=== PATIENT | female | born 1945 | race Caucasian/White ===

== ENCOUNTER 2023-01-29 10:35 | Inpatient (IN) ==
--- NOTE | 2023-01-29 11:10 | Emergency Department Note ---
Impression & Plan Pulmonary mass, Pleural effusion, Hypoxia ED Provider Note NAME: DORIE PEREZ AGE: 77 SEX: F : 1945 ARRIVES VIA: Ambulance INFORMANT: Patient, ED PROVIDER(S): Trent Palacios DO CHIEF COMPLAINT: "I have pneumonia" HPI: The patient is a 77-year-old female who presented to the emergency department directly from [facility] by ambulance. The patient has been having difficulty breathing over the course the last 2 weeks. She states that when she was seen at [facility] she had a chest x-ray and was diagnosed with pneumonia. She had significant shortness of breath and was sent to the emergency department immediately by ambulance. The patient denies having any chest pain. She denies having any lower extremity swelling. She denies having any hemoptysis or productive cough. The patient denies having any orthopnea. She does not have a family doctor. She does not take any medications. ROS: See above HPI for pertinent positives & negatives. A total of 10 systems reviewed and were otherwise negative. PAST MEDICAL HISTORY: See Below PAST SURGICAL HISTORY: See Below FAMILY HISTORY: See Below SOCIAL HISTORY: See Below HOME MEDICATIONS: See Below ALLERGIES: See Below VITALS: See Below PHYSICAL EXAMINATION: GENERAL: Patient is awake alert in no acute distress patient is resting comfortably and showing no signs of anxiety EYES: The conjunctivae are clear. The pupils are round and reactive. EARS, NOSE, MOUTH AND THROAT: The nose is without any evidence of any deformity. Mucous membranes are moist. Tongue is midline. NECK: The neck is nontender and supple. RESPIRATORY: Diminished breath sounds are noted throughout. There were rales at both bases. There was mild conversational dyspnea. CARDIOVASCULAR: Regular rate and rhythm noted there no murmurs rubs or gallops normal S1 normal S2. GASTROINTESTINAL: The abdomen is soft. Abdomen is nontender. MUSCULOSKELETAL/EXTREMITIES: There is no evidence of gross deformity full range of motion is noted in the hips and shoulders. SKIN: There is no obvious evidence of any rash. There are no petechiae, pallor or cyanosis noted. There is a rash underneath the right breast that could be consistent with a fungal infection. NEUROLOGIC: Patient is awake alert and oriented x3 MEDICAL DECISION MAKING: The patient is a 77-year-old female who presented to the emergency department for an evaluation of shortness of breath. The patient was seen at an outpatient [facility]. She was found to have what they felt was a pneumonia. The patient was sent to the emergency department because of hypoxia. Chest radiograph does appear to show a very large pleural effusion. CT angiography was obtained due to the degree of pleural effusion as well as the hypoxia. This appears to be more consistent with a pulmonary mass with a large pleural effusion as well as atelectasis. I discussed the patient's laboratory and radiographic studies with her. [facility] also [facility] The patient will require further inpatient management. The patient was significantly improved on supplemental oxygen. The patient is a former smoker. Triage Nursing notes reviewed. Prior medical records reviewed Vital Signs: reviewed and remarkable for hypoxia Differential diagnosis: Reactive airway disease, pneumonia, pneumothorax, COPD, CHF, infections, cardiac ischemia, pulmonary embolism, musculoskeletal, gastrointestinal, as well as other pathologies. ER treatment provided: See below Diagnostics interpreted by me: ECG: EKG was obtained in the emergency department. My interpretation is sinus tachycardia 107 bpm. Early transition was noted. There was no acute ST segment abnormalities noted. No previous tracing was available. Cardiac Monitoring: An order was placed for continuous cardiac monitoring. The monitor shows a rate of 104 bpm with sinus tachycardia. Laboratory studies: As stated above and show below. Imaging studies: See below. Radiographic imaging was reviewed by myself Consultation(s): I discussed this case with Nat who [facility]. Past Med/Surg History Medical History (Updated 01/29/23 @ 16:16 by Trent Palacios DO) History of tobacco abuse Osteoarthritis Surgical History (Updated 01/29/23 @ 14:45 by Denisa Bertrand PA-C) History of section History of tonsillectomy Social History Smoking Status: Former smoker Second Hand Exposure: No; Do You Dip or Chew Tobacco: No; Tobacco Cessation Education Requested by Patient: No Hx Alcohol Use: No Hx Substance Use: No Preferred Language: Yi Art History Instructor Required: No Beliefs That Will Affect Care: None Current Living Situation: Alone Feels Safe at Home: Yes Safety Concerns: Feels Safe At This Time Assistive Devices: Denture - Upper and Glasses Allergies Allergies Allergy/AdvReac Type Severity Reaction Status Date / Time No Known Allergies Allergy Mild Unverified 07/02/07 17:53 Home Meds Home Medications Medication Instructions Recorded Confirmed NONE ##0 07/02/07 Results & Data (ED) Vital Signs Vital Signs - 24 hr 01/29/23 10:52 01/29/23 10:55 01/29/23 11:01 Temperature 36.9 C Temperature Source Oral Pulse Rate 112 H Pulse Rate from SpO2 Sensor Respiratory Rate 20 Respiratory Effort / Characteristics Non-Labored Spontaneous Respiratory Depth Normal Blood Pressure 183/111 H Blood Pressure Mean 135 Blood Pressure Position Sitting Pulse Oximetry 85 L 85 L Oxygen Delivery Method Room Air Nasal Cannula Nasal Cannula Oxygen Flow Rate 0 Sepsis Recent Fever Within 48 Hours No Sepsis New/Unexplained Change in Mental Status No Sepsis Action Taken by Nursing No Action Required Oxygen Flow Rate - Titration 4 Pulse Oximetry Post Tiitration 94 01/29/23 10:41 01/29/23 12:14 01/29/23 10:45 Temperature Temperature Source Oral Pulse Rate 102 H 97 H Pulse Rate from SpO2 Sensor 100 H Respiratory Rate 27 H Respiratory Effort / Characteristics Respiratory Depth Blood Pressure Blood Pressure Mean Blood Pressure Position Pulse Oximetry 91 Oxygen Delivery Method Oxygen Flow Rate Sepsis Recent Fever Within 48 Hours Sepsis New/Unexplained Change in Mental Status Sepsis Action Taken by Nursing Oxygen Flow Rate - Titration Pulse Oximetry Post Tiitration 01/29/23 11:00 01/29/23 11:30 01/29/23 12:00 Temperature Temperature Source Pulse Rate 104 H 97 H 96 H Pulse Rate from SpO2 Sensor 95 H 94 H Respiratory Rate 15 21 27 H Respiratory Effort / Characteristics Respiratory Depth Blood Pressure Blood Pressure Mean Blood Pressure Position Pulse Oximetry 93 94 Oxygen Delivery Method Oxygen Flow Rate Sepsis Recent Fever Within 48 Hours Sepsis New/Unexplained Change in Mental Status Sepsis Action Taken by Nursing Oxygen Flow Rate - Titration Pulse Oximetry Post Tiitration 01/29/23 12:30 Temperature Temperature Source Pulse Rate 96 H Pulse Rate from SpO2 Sensor 96 H Respiratory Rate 23 Respiratory Effort / Characteristics Respiratory Depth Blood Pressure Blood Pressure Mean Blood Pressure Position Pulse Oximetry 96 Oxygen Delivery Method Oxygen Flow Rate Sepsis Recent Fever Within 48 Hours Sepsis New/Unexplained Change in Mental Status Sepsis Action Taken by Nursing Oxygen Flow Rate - Titration Pulse Oximetry Post Tiitration Home Medications Current Medication List: was personally reviewed by me Laboratory Data Attestation: I reviewed the patient's lab results. 01/29/23 10:50 04/28/23 10:50 Lab Results 01/29/23 01/29/23 01/29/23 Range/Units 10:45 10:50 10:50 WBC 11.69 H (4.8-10.8) K/ul RBC 5.06 (4.20-5.40) M/uL Hgb 14.6 (12.0-16.0) g/dl Hct 43.4 (37.0-47.0) % MCV 85.8 (80.0-100.0) fL MCH 28.9 (25.0-34.0) pg MCHC 33.6 (32.0-36.0) g/dL RDW Std Deviation 40.6 (36.4-46.3) fL RDW Coeff of Leanna 13.0 (11.5-14.5) % Plt Count 530 H (130-400) K/uL MPV 9.6 (9.4-12.4) fL Immature Gran % (Auto) 0.8 % Neut % (Auto) 84.9 % Lymph % (Auto) 6.8 % Bulloch % (Auto) 6.8 % Eos % (Auto) 0.4 % Baso % (Auto) 0.3 % Neut # (Auto) 9.93 H (1.40-6.50) K/uL Lymph # (Auto) 0.79 L (1.2-3.4) K/uL Bulloch # (Auto) 0.79 H (0.11-0.59) K/uL Eos # (Auto) 0.05 (0-0.50) K/uL Baso # (Auto) 0.04 (0-0.2) K/uL Immature Gran # (Auto) 0.09 (0.01-0.20) K/uL PT (9.0-12.0) Seconds INR (0.9-1.1) APTT (21.0-31.0) Seconds PTT Ratio VBG pH (7.36-7.41) VBG pCO2 (38-50) mmHg VBG pO2 mmHg VBG HCO3 mmol/L VBG O2 Saturation % VBG Base Excess mEq/L Sodium 139 (136-145) mmol/L Potassium 3.9 (3.5-5.1) mmol/L Chloride 104 (98-107) mmol/L Carbon Dioxide 23 (21-32) mmol/L Anion Gap 12 H (3-11) BUN 13 (6-23) mg/dl Creatinine 0.58 L (0.6-1.2) mg/dl Est Cr Clr Drug Dosing 67.2 ml/min Est GFR ( Amer) 103.0 ml/min Est GFR (Non-Af Amer) 88.9 ml/min BUN/Creatinine Ratio 22.4 H (10-20) Glucose 134 H (70-99(Fasting)) mg/dl Lactate (0.4-2.0) mmol/L Calcium 9.3 (8.6-10.3) mg/dl Magnesium 1.9 (1.7-2.4) mg/dl Total Bilirubin 0.5 (0.2-1.0) mg/dl Direct Bilirubin 0.1 (0-0.2) mg/dl AST 20 (13-39) U/L ALT 27 (7-52) U/L Alkaline Phosphatase 66 (34-104) U/L Troponin I High Sens 8.9 (0-14) pg/ml B-Natriuretic Peptide (0-100) pg/ml Total Protein 7.7 (6.0-8.3) gm/dl Albumin 3.5 (3.4-5.0) gm/dl Procalcitonin (0-0.5) ng/ml SARS-CoV-2 (PCR) NEGATIVE (Negative) Influenza Type A (PCR) Negative (Neg) Influenza Type B (PCR) Negative (Neg) RSV (RT-PCR) Negative (Neg) 01/29/23 01/29/23 01/29/23 Range/Units 10:50 10:50 12:05 WBC (4.8-10.8) K/ul RBC (4.20-5.40) M/uL Hgb (12.0-16.0) g/dl Hct (37.0-47.0) % MCV (80.0-100.0) fL MCH (25.0-34.0) pg MCHC (32.0-36.0) g/dL RDW Std Deviation (36.4-46.3) fL RDW Coeff of Leanna (11.5-14.5) % Plt Count (130-400) K/uL MPV (9.4-12.4) fL Immature Gran % (Auto) % Neut % (Auto) % Lymph % (Auto) % Bulloch % (Auto) % Eos % (Auto) % Baso % (Auto) % Neut # (Auto) (1.40-6.50) K/uL Lymph # (Auto) (1.2-3.4) K/uL Bulloch # (Auto) (0.11-0.59) K/uL Eos # (Auto) (0-0.50) K/uL Baso # (Auto) (0-0.2) K/uL Immature Gran # (Auto) (0.01-0.20) K/uL PT 11.2 (9.0-12.0) Seconds INR 1.0 (0.9-1.1) APTT 24.2 (21.0-31.0) Seconds PTT Ratio 0.9 VBG pH (7.36-7.41) VBG pCO2 (38-50) mmHg VBG pO2 mmHg VBG HCO3 mmol/L VBG O2 Saturation % VBG Base Excess mEq/L Sodium (136-145) mmol/L Potassium (3.5-5.1) mmol/L Chloride (98-107) mmol/L Carbon Dioxide (21-32) mmol/L Anion Gap (3-11) BUN (6-23) mg/dl Creatinine (0.6-1.2) mg/dl Est Cr Clr Drug Dosing ml/min Est GFR ( Amer) ml/min Est GFR (Non-Af Amer) ml/min BUN/Creatinine Ratio (10-20) Glucose (70-99(Fasting)) mg/dl Lactate (0.4-2.0) mmol/L Calcium (8.6-10.3) mg/dl Magnesium (1.7-2.4) mg/dl Total Bilirubin (0.2-1.0) mg/dl Direct Bilirubin (0-0.2) mg/dl AST (13-39) U/L ALT (7-52) U/L Alkaline Phosphatase (34-104) U/L Troponin I High Sens (0-14) pg/ml B-Natriuretic Peptide 165 H (0-100) pg/ml Total Protein (6.0-8.3) gm/dl Albumin (3.4-5.0) gm/dl Procalcitonin < 0.05 (0-0.5) ng/ml SARS-CoV-2 (PCR) (Negative) Influenza Type A (PCR) (Neg) Influenza Type B (PCR) (Neg) RSV (RT-PCR) (Neg) 01/29/23 01/29/23 Range/Units 12:14 12:15 WBC (4.8-10.8) K/ul RBC (4.20-5.40) M/uL Hgb (12.0-16.0) g/dl Hct (37.0-47.0) % MCV (80.0-100.0) fL MCH (25.0-34.0) pg MCHC (32.0-36.0) g/dL RDW Std Deviation (36.4-46.3) fL RDW Coeff of Leanna (11.5-14.5) % Plt Count (130-400) K/uL MPV (9.4-12.4) fL Immature Gran % (Auto) % Neut % (Auto) % Lymph % (Auto) % Bulloch % (Auto) % Eos % (Auto) % Baso % (Auto) % Neut # (Auto) (1.40-6.50) K/uL Lymph # (Auto) (1.2-3.4) K/uL Bulloch # (Auto) (0.11-0.59) K/uL Eos # (Auto) (0-0.50) K/uL Baso # (Auto) (0-0.2) K/uL Immature Gran # (Auto) (0.01-0.20) K/uL PT (9.0-12.0) Seconds INR (0.9-1.1) APTT (21.0-31.0) Seconds PTT Ratio VBG pH 7.43 H (7.36-7.41) VBG pCO2 37 L (38-50) mmHg VBG pO2 42 mmHg VBG HCO3 25 mmol/L VBG O2 Saturation 75.1 % VBG Base Excess 0.5 mEq/L Sodium (136-145) mmol/L Potassium (3.5-5.1) mmol/L Chloride (98-107) mmol/L Carbon Dioxide (21-32) mmol/L Anion Gap (3-11) BUN (6-23) mg/dl Creatinine (0.6-1.2) mg/dl Est Cr Clr Drug Dosing ml/min Est GFR ( Amer) ml/min Est GFR (Non-Af Amer) ml/min BUN/Creatinine Ratio (10-20) Glucose (70-99(Fasting)) mg/dl Lactate 1.4 (0.4-2.0) mmol/L Calcium (8.6-10.3) mg/dl Magnesium (1.7-2.4) mg/dl Total Bilirubin (0.2-1.0) mg/dl Direct Bilirubin (0-0.2) mg/dl AST (13-39) U/L ALT (7-52) U/L Alkaline Phosphatase (34-104) U/L Troponin I High Sens (0-14) pg/ml B-Natriuretic Peptide (0-100) pg/ml Total Protein (6.0-8.3) gm/dl Albumin (3.4-5.0) gm/dl Procalcitonin (0-0.5) ng/ml SARS-CoV-2 (PCR) (Negative) Influenza Type A (PCR) (Neg) Influenza Type B (PCR) (Neg) RSV (RT-PCR) (Neg) Administered Medications Discontinued Medications Ceftriaxone Sodium (Rocephin) 2,000 mg in 70 mls @ 140 mls/hr IV NOW STA Stop: 01/29/23 14:01 Last Infusion: 01/29/23 14:35 Dose: 0 mls/hr Documented By: Admin: 01/29/23 13:46 Dose: 140 mls/hr Documented By: BOOM Azithromycin 500 mg/ Dextrose 255 mls @ 127.5 mls/hr IV NOW STA Stop: 01/29/23 15:31 Last Admin: 01/29/23 16:09 Dose: 127.5 mls/hr Documented By: CLIVE Ioversol (Optiray 320 500ml) 117 ml IV ONCE ONE Stop: 01/29/23 12:57 Last Admin: 01/29/23 12:49 Dose: 117 ml Documented By: OSCAR Imaging Data Attestation: I personally reviewed and interpreted this imaging study as follows: My Impression: 1 view chest x-ray was obtained in the emergency department. My interpretation is large right pleural effusion, no free air, final report below. Radiologist's Impression: Chest X-Ray 01/29/23 11:01 SINGLE VIEW CHEST CLINICAL HISTORY: Sepsis FINDINGS: An AP, portable, upright chest radiograph is obtained. No prior studies are available for comparison at the time of dictation. The cardiomediastinal silhouette is unremarkable noting atherosclerotic calcification of the thoracic aorta. There is a large right pleural effusion with atelectasis/consolidation of the right lower lung. The right apex remains aerated. Atelectasis is seen at the left lung base. No pneumothorax is seen. The skeletal structures are osteopenic. The bony thorax is grossly intact. IMPRESSION: Large right pleural effusion with atelectasis/consolidation of the right lower lung. ACT 112: Negative or not required by law. Electronically signed by: Luke Evans M.D. 01/29/2023 11:28 AM Chest CTA 01/29/23 11:47 CHEST CTA for PULMONARY ARTERIES CT DOSE: 255.55 mGy.cm HISTORY: Shortness of breath. TECHNIQUE: Multiaxial CT images of the chest were performed following the intravenous administration of contrast to evaluate the pulmonary arteries. Maximal intensity projection images were also obtained. A dose lowering technique was utilized adhering to the principles of ALARA. COMPARISON STUDY: None. FINDINGS: Limited views the upper abdomen demonstrate normal liver, spleen, and adrenal glands. There is normal caliber thoracic aorta with no evidence for a dissection. The majority of the left lower lobe subsegmental pulmonary arteries are nondiagnostic due to the motion artifact. Otherwise, no filling defects within the remaining pulmonary arteries to suggest a pulmonary embolus. The right middle lobe arteries are attenuated. There is a large area of decreased enhancement occupying the majority of the right middle lobe with right hilar lymphadenopathy/soft tissue extension. This is best seen on image 139 and measures approximately 6.3 x 6.2 cm. This is highly suspicious for a right middle lobe mass and accounts for the complete occlusion at the proximal right middle lobe bronchus. There is also abnormal soft tissue thickening/lymphadenopathy within the right hilum surrounding the central bronchi which extends into the right side of the mediastinum. There is mucoid impaction seen within the distal right middle lobe and right lower lobe bronchi. Abnormal soft tissue thickening within the right pleura most pronounced within the right upper lobe medially. Additional scattered pleural deposits seen within the right hemithorax. This is consistent with pleural metastatic disease. There is a large right pleural effusion which results in left mediastinal shift and mild mass effect along the right heart. Interstitial thickening within the a erated right upper lobe may represent lymphangitic spread of tumor or congestive change from the mass effect. No left pleural effusion. Abnormal soft tissue/lymphadenopathy also partially encases the trachea and is seen within the subcarinal location. There is a single enlarged right infraclavicular lymph node on image 252 measuring 14 x 10 mm. This likely represents metastatic disease. No suspicious lytic or blastic osseous lesions. Small sclerotic foci at the inferior endplates of the vertebral bodies may be due to the degenerative change. No pneumothorax. Mild emphysema. There are 2 nodules within the base of the left lower lobe measure up to 5 mm. These are concerning for metastatic dise ase. IMPRESSION: 1. No evidence for a pulmonary embolus. 2. A 6.3 x 6.2 cm mass occupying majority the right middle lobe with soft tissue extension/lymphadenopathy into the right hilum and mediastinum as described above. This is highly suspicious for a primary bronchogenic malignancy. 3. Pleural metastatic disease with a large right pleural effusion resulting in left mediastinal shift and mild mass effect along the right heart border. 4. There are 2 subcentimeter nodules within the base of the left lower lobe which are concerning for metastatic disease.. 5. A single mildly enlarged right infraclavicular lymph node which likely represents metastatic disease. 6. Additional findings as described above. ACT 112: Negative or not required by law. Electronically signed by: Luis Mari M.D. 01/29/2023 1:19 PM Discharge Plan Visit Data Chief Complaint: Shortness of Breath/Dyspnea Stated Complaint: ANXIETY, SOB ED Provider: Trent Palacios Discharge Problem: Pulmonary mass, Pleural effusion, Hypoxia Patient Disposition: Being Evaluated by Hospitalist
--- NOTE | 2023-01-29 11:30 | XRay Report ---
SINGLE VIEW CHEST CLINICAL HISTORY: Sepsis FINDINGS: An AP, portable, upright chest radiograph is obtained. No prior studies are available for c omparison at the time of dictation. The cardiomediastinal silhouette is unremarkable noting atheroscl erotic calcification of the thoracic aorta. There is a large right pleural effusion with atelectasis/ consolidation of the right lower lung. The right apex remains aerated. Atelectasis is seen at the lef t lung base. No pneumothorax is seen. The skeletal structures are osteopenic. The bony thorax is leisa sly intact. IMPRESSION: Large right pleural effusion with atelectasis/consolidation of the right lower lung. ACT 112: Negative or not required by law. Electronically signed by: Luke Evans M.D. 01/29/2023 11:28 AM
[2023-01-29 11:56] LABS: Influenza A virus by PCR Negative (Neg); Influenza B virus by PCR Negative (Neg); RSV by PCR Negative (Neg); SARS CoV2 RNA(COVID-19) Ceph NEGATIVE (Negative)
[2023-01-29 12:04] LABS: Albumin Level 3.5 gm/dl (3.4-5.0); BUN Creatinine Ratio 22.4 (10-20); Bilirubin Direct 0.1 mg/dl (0-0.2); Bilirubin,Total 0.5 mg/dl (0.2-1.0); Calcium 9.3 mg/dl (8.6-10.3); Creatinine Clr Calc Pharmacy 67.2 ml/min; Est GFR (Non-African American) 88.9 ml/min; Magnesium 1.9 mg/dl (1.7-2.4); Potassium 3.9 mmol/L (3.5-5.1); Total Protein 7.7 gm/dl (6.0-8.3)
[2023-01-29 12:06] LABS: Basophils # (auto) 0.04 K/uL (0-0.2); Basophils % (auto) 0.3 %; Eosinophils # (auto) 0.05 K/uL (0-0.50); Eosinophils % (auto) 0.4 %; Hematocrit (blood only) 43.4 % (37.0-47.0); Hemoglobin 14.6 g/dl (12.0-16.0); Immature Granulocytes # (auto) 0.09 K/uL (0.01-0.20); Immature Granulocytes % (auto) 0.8 %; Lymphocytes # (auto) 0.79 K/uL (1.2-3.4); Lymphocytes % (auto) 6.8 %; Mean Corpuscular Hemoglobin 28.9 pg (25.0-34.0); Mean Corpuscular Hgb Conc 33.6 g/dL (32.0-36.0); Mean Corpuscular Volume 85.8 fL (80.0-100.0); Mean Platelet Volume 9.6 fL (9.4-12.4); Monocytes # (auto) 0.79 K/uL (0.11-0.59); Monocytes % (auto) 6.8 %; Neutrophils # (auto) 9.93 K/uL (1.40-6.50); Neutrophils % (auto) 84.9 %; Platelet Count 530 K/uL (130-400); RDW Standard Deviation 40.6 fL (36.4-46.3); Red Blood Count 5.06 M/uL (4.20-5.40); White Blood Count 11.69 K/ul (4.8-10.8)
[2023-01-29 12:11] LABS: Troponin I High Sensitivity 8.9 pg/ml (0-14)
[2023-01-29 12:16] LABS: Partial Thromboplastin Ratio 0.9; Partial Thromboplastin Time 24.2 Seconds (21.0-31.0); Prothrombin Time 11.2 Seconds (9.0-12.0)
[2023-01-29 12:43] LABS: Base Excess VBG 0.5 mEq/L; HCO3 VBG 25 mmol/L; Oxygen Saturation VBG 75.1 %; PCO2 VBG 37 mmHg (38-50); PO2 VBG 42 mmHg; pH VBG 7.43 (7.36-7.41)
[2023-01-29] MEDS ORDERED: OPTIRAY 320 500ml IV ONE (12:56)
--- NOTE | 2023-01-29 13:20 | CT Scan Report ---
CHEST CTA for PULMONARY ARTERIES CT DOSE: 255.55 mGy.cm HISTORY: Shortness of breath. TECHNIQUE: Multiaxial CT images of the chest were performed following the intravenous administration of contrast to evaluate the pulmonary arteries. Maximal intensity projection images were also obtaine d. A dose lowering technique was utilized adhering to the principles of ALARA. COMPARISON STUDY: None. FINDINGS: Limited views the upper abdomen demonstrate normal liver, spleen, and adrenal glands. There is normal caliber thoracic aorta with no evidence for a dissection. The majority of the left lower l obe subsegmental pulmonary arteries are nondiagnostic due to the motion artifact. Otherwise, no filli ng defects within the remaining pulmonary arteries to suggest a pulmonary embolus. The right middle l obe arteries are attenuated. There is a large area of decreased enhancement occupying the majority of the right middle lobe with right hilar lymphadenopathy/soft tissue extension. This is best seen on i mage 139 and measures approximately 6.3 x 6.2 cm. This is highly suspicious for a right middle lobe m ass and accounts for the complete occlusion at the proximal right middle lobe bronchus. There is also abnormal soft tissue thickening/lymphadenopathy within the right hilum surrounding the central bronc hi which extends into the right side of the mediastinum. There is mucoid impaction seen within the di stal right middle lobe and right lower lobe bronchi. Abnormal soft tissue thickening within the right pleura most pronounced within the right upper lobe medially. Additional scattered pleural deposits s een within the right hemithorax. This is consistent with pleural metastatic disease. There is a large right pleural effusion which results in left mediastinal shift and mild mass effect along the right heart. Interstitial thickening within the aerated right upper lobe may represent lymphangitic spread of tumor or congestive change from the mass effect. No left pleural effusion. Abnormal soft tissue/ly mphadenopathy also partially encases the trachea and is seen within the subcarinal location. There is a single enlarged right infraclavicular lymph node on image 252 measuring 14 x 10 mm. This likely re presents metastatic disease. No suspicious lytic or blastic osseous lesions. Small sclerotic foci at the inferior endplates of the vertebral bodies may be due to the degenerative change. No pneumothorax . Mild emphysema. There are 2 nodules within the base of the left lower lobe measure up to 5 mm. Thes e are concerning for metastatic disease. IMPRESSION: 1. No evidence for a pulmonary embolus. 2. A 6.3 x 6.2 cm mass occupying majority the right middle lobe with soft tissue extension/lymphadeno mark into the right hilum and mediastinum as described above. This is highly suspicious for a primar y bronchogenic malignancy. 3. Pleural metastatic disease with a large right pleural effusion resulting in left mediastinal shift and mild mass effect along the right heart border. 4. There are 2 subcentimeter nodules within the base of the left lower lobe which are concerning for metastatic disease.. 5. A single mildly enlarged right infraclavicular lymph node which likely represents metastatic disea se. 6. Additional findings as described above. ACT 112: Negative or not required by law. Electronically signed by: Luis Mari M.D. 01/29/2023 1:19 PM
[2023-01-29] MEDS ORDERED: cefTRIAXone SODIUM 2,000 MG/70 ML BAG IV STA (13:32)
[2023-01-29] MEDS ORDERED: AZITHROMYCIN 500 MG in DEXTROSE 5% 250 ML IV STA (13:32)
--- NOTE | 2023-01-29 13:44 | History & Physical Report ---
Date of Service January 29, 2023 Assessment & Plan (1) Pulmonary mass: (2) Acute respiratory failure with hypoxia: (3) Pleural effusion: Plan: - Admit to tele - CTA and CXR reviewed as above: large right-sided pleural effusion, on further imaging with a CTA she is found to have a right sided mass measuring 6.3 x 6.2 cm large which occupies the majority of the RML with soft tissue extension and lymphadenopathy into the right hilum and mediastinum, as well as 2 nodules in the left lower lobe concerning for malignancy. Pleural metastatic disease with a large right pleural effusion resulting in left mediastinal shift and mild mass effect along the right heart border. - Pulmonology consulted - discussed with Dr. Pringle - plan for thoracentesis/chest tube/pleurex placement this afternoon with cytology of fluid for possible underlying malignancy. - Concern for impending cardiac tamponade with large pleural effusion - BCx pending, follow. WBC 11 K. No other electrolyte abnormalitites - Started on ceftriaxone and azithromycin IV for possible underling infectious source - can dc if negative cultures as this is likely due to suspected malignancy - Oncology consulted for establishment and further workup - Obtain MRI brain for screening, will require PET scans pending workup as an outpatient - No hx of colonoscopy or mammography - Fungal infection under the R breast - nystatin powder ordered - does not appear necrotic or eroding through the skin - Code status was discussed with the patient and she would not want aggressive measures but is agreeable to being a Full code in the event of an emergency setting. Palliative care consult will be beneficial later in the hospital course pending workup. (4) Osteoarthritis: Plan: - Stable, uses tylenol occasionally. Involves hands. Pt has never been tested for rheumatoid disease. DVT PPx: - teds, scds CODE: Full code Dispo: From home, likely to remain in the hospital x 2 days A total of 79 minutes were spent with greater than 50% of that time face to face with the patient, personally reviewing all current laboratories, imaging studies, past medication reconciliation, outpatient chart review, and discussion with specialists to collaborate care for the patient with attending. Please see attending documentation for corrections and/or additions. History of Present Illness Chief Complaint: Shortness of breath Primary Care Provider: NO PCP This is a 77-year-old female with PMHx of remote tobacco use history who presents from urgent care clinic due to hypoxia. This morning she presented to urgent care facility as her breathing was not improving. They assumed a possible pneumonia, but referred her to the hospital because of hypoxia. Reports that she noticed shortness of breath with playing with her daughters dog about 1 month ago, and that she couldn't do as much at one time. Within the past week her breathing worsened on exertion. She figured this was COVID infection as a few days ago she was coughing up white mucous, and felt better when it was expectorated, she is intermittently feeling nauseous as well. Denies vomiting. Reports eating and drinking alright, used to to cook daily, but within the past week her energy is down and hasn't felt up to it. Pt states she is losing weight, used to weight about 135 lbs, but within the past year knows she has been losing a lot of weight - however is blaming this on her daughters bipolar medical issues, whom she lived with for about a year. Admits to having night sweats, denies known lymphadenopathy. Pt does not use any medications at baseline, and did not use any over the counter medications for her symptoms. Pt has not seen a doctor in 40 years because she hasn't needed anything. Pt hates being in the hospital and feels quite anxious but does not want any medication for anxiety as she states these meds normally hype her up even more. She has not gotten routine mammography or colonoscopy in her adult life. Previously Kera smoked for 40 years, about 10 cigarettes daily and quit about 10 years ago, and then used the nicotine lozenger. Pt reports she hasn't used them in a few weeks mostly be cause she hasn't felt like herself. Here in the ER she is found to have a chest x-ray showing a large right-sided pleural effusion, on further imaging with a CTA she is found to have a right sided mass measuring 6.3 x 6.2 cm large which occupies the majority of the RML with soft tissue extension and lymphadenopathy into the right hilum and mediastinum, as well as 2 nodules in the left lower lobe concerning for malignancy. Pleural metastatic disease with a large right pleural effusion resulting in left mediastinal shift and mild mass effect along the right heart border. Family Hx Mother at age 46 in the war from TB Father at age 96, smoked, no medical issues Surgical Hx x 2 Tonsillectomy Social Hx Pt states that she lives here independently, has a large house, is but has children. 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 She previously resided in [place]. Her two children, one son lives in [place], [place], and her daughter is in [place] but states she has medical issues of her own. Allergies Allergy/AdvReac Type Severity Reaction Status Date / Time No Known Allergies Allergy Mild Unverified 07/02/07 17:53 Home Medications Medication Instructions Recorded Confirmed Type NONE ##0 07/02/07 History Past Med/Surg History Medical History (Updated 01/29/23 @ 14:45 by Denisa Bertrand PA-C) History of tobacco abuse Osteoarthritis Surgical History (Updated 01/29/23 @ 14:45 by Denisa Bertrand PA-C) History of section History of tonsillectomy Social History Feels Safe at Home: Yes Review of Systems Review of Systems: Constitutional: No fever, sweats or chills, + admits to occasional night sweats Eyes: No diplopia, no worsening or blurred vision ENT: normal hearing, no trouble swallowing Respiratory: As per HPI, + cough, +sputum, +dyspnea with minimal exertion Cardiovascular: No chest pain, tightness or palpitations Abdomen: No pain, nausea, vomiting, diarrhea or constipation Musculoskeletal: No joint pain, calf pain, swelling Neurologic: No weakness, numbness/tingling, or balance problems Psychiatric: No anxiety or depression Skin: No rash or itch Physical Exam Physical Exam: General: awake, alert, no apparent distress, thin Head: Normocephalic, atraumatic ENT: PERRL, EOMI, no pharyngeal exudate, mucous membranes moist, no cervical lymphadenopathy Chest: Absent breath sounds on the right side in lower and middle lobes, on 2 L via NC with sats at 96%,, no adventitious breath sounds, no axillary lymphadenopathy, erythematous rash underneath the right breast. Cardiac: Sinus tachycardia, no murmur, no JVD, normal peripheral pulses, good capillary refill Abdominal: NABS x 4 quadrants, soft, nondistended, nontender to palpation, no rebound or guarding, no hepatomegaly, no splenomegaly Extremities: Normal inspection, no peripheral edema or erythema, calfs nontender to palpation Psych: Normal mood and affect, slightly anxious when discussing procedures Neuro: AAO x 3, strength intact bilaterally and rated 5/5, no motor deficits, speech is clear, no peripheral sensory deficits Results & Data Results & Data Vital Signs (Past 12 Hours) Vital Signs Temp Pulse Resp BP Pulse Ox O2 Del Method O2 Flow Rate 01/29/23 12:30 96 H 23 96 01/29/23 12:00 96 H 27 H 94 01/29/23 11:30 97 H 21 93 01/29/23 11:00 104 H 15 01/29/23 10:45 97 H 27 H 91 01/29/23 12:14 102 H 01/29/23 11:01 Nasal Cannula 01/29/23 10:55 85 L Nasal Cannula 0 01/29/23 10:52 36.9 C 112 H 20 183/111 H 85 L Room Air Laboratory Results 01/29/23 12:05 Aerobic Blood Culture - Pending Blood Anaerobic Blood Culture - Pending 01/29/23 11:15 Aerobic Blood Culture - Pending Blood Anaerobic Blood Culture - Pending 01/29/23 01/29/23 01/29/23 12:15 12:14 12:05 WBC RBC Hgb Hct MCV MCH MCHC RDW Std Deviation RDW Coeff of Leanna Plt Count MPV Immature Gran % (Auto) Neut % (Auto) Lymph % (Auto) [place] % (Auto) Eos % (Auto) Baso % (Auto) Neut # (Auto) Lymph # (Auto) [place] # (Auto) Eos # (Auto) Baso # (Auto) Immature Gran # (Auto) PT INR APTT PTT Ratio VBG pH 7.43 H VBG pCO2 37 L VBG pO2 42 VBG HCO3 25 VBG O2 Saturation 75.1 VBG Base Excess 0.5 Sodium Potassium Chloride Carbon Dioxide Anion Gap BUN Creatinine Est Cr Clr Drug Dosing Est GFR ( Amer) Est GFR (Non-Af Amer) BUN/Creatinine Ratio Glucose Lactate 1.4 Calcium Magnesium Total Bilirubin Direct Bilirubin AST ALT Alkaline Phosphatase Troponin I High Sens B-Natriuretic Peptide 165 H Total Protein Albumin Procalcitonin SARS-CoV-2 (PCR) Influenza Type A (PCR) Influenza Type B (PCR) RSV (RT-PCR) 01/29/23 01/29/23 01/29/23 10:50 10:50 10:50 WBC RBC Hgb Hct MCV MCH MCHC RDW Std Deviation RDW Coeff of Leanna Plt Count MPV Immature Gran % (Auto) Neut % (Auto) Lymph % (Auto) [place] % (Auto) Eos % (Auto) Baso % (Auto) Neut # (Auto) Lymph # (Auto) [place] # (Auto) Eos # (Auto) Baso # (Auto) Immature Gran # (Auto) PT 11.2 INR 1.0 APTT 24.2 PTT Ratio 0.9 VBG pH VBG pCO2 VBG pO2 VBG HCO3 VBG O2 Saturation VBG Base Excess Sodium 139 Potassium 3.9 Chloride 104 Carbon Dioxide 23 Anion Gap 12 H BUN 13 Creatinine 0.58 L Est Cr Clr Drug Dosing 67.2 Est GFR ( Amer) 103.0 Est GFR (Non-Af Amer) 88.9 BUN/Creatinine Ratio 22.4 H Glucose 134 H Lactate Calcium 9.3 Magnesium 1.9 Total Bilirubin 0.5 Direct Bilirubin 0.1 AST 20 ALT 27 Alkaline Phosphatase 66 Troponin I High Sens 8.9 B-Natriuretic Peptide Total Protein 7.7 Albumin 3.5 Procalcitonin < 0.05 SARS-CoV-2 (PCR) Influenza Type A (PCR) Influenza Type B (PCR) RSV (RT-PCR) 01/29/23 01/29/23 10:50 10:45 WBC 11.69 H RBC 5.06 Hgb 14.6 Hct 43.4 MCV 85.8 MCH 28.9 MCHC 33.6 RDW Std Deviation 40.6 RDW Coeff of Leanna 13.0 Plt Count 530 H MPV 9.6 Immature Gran % (Auto) 0.8 Neut % (Auto) 84.9 Lymph % (Auto) 6.8 [place] % (Auto) 6.8 Eos % (Auto) 0.4 Baso % (Auto) 0.3 Neut # (Auto) 9.93 H Lymph # (Auto) 0.79 L [place] # (Auto) 0.79 H Eos # (Auto) 0.05 Baso # (Auto) 0.04 Immature Gran # (Auto) 0.09 PT INR APTT PTT Ratio VBG pH VBG pCO2 VBG pO2 VBG HCO3 VBG O2 Saturation VBG Base Excess Sodium Potassium Chloride Carbon Dioxide Anion Gap BUN Creatinine Est Cr Clr Drug Dosing Est GFR ( Amer) Est GFR (Non-Af Amer) BUN/Creatinine Ratio Glucose Lactate Calcium Magnesium Total Bilirubin Direct Bilirubin AST ALT Alkaline Phosphatase Troponin I High Sens B-Natriuretic Peptide Total Protein Albumin Procalcitonin SARS-CoV-2 (PCR) NEGATIVE Influenza Type A (PCR) Negative Influenza Type B (PCR) Negative RSV (RT-PCR) Negative Diagnostic Findings Chest X-Ray 01/29/23 11:01 SINGLE VIEW CHEST CLINICAL HISTORY: Sepsis FINDINGS: An AP, portable, upright chest radiograph is obtained. No prior studies are available for comparison at the time of dictation. The cardiomediastinal silhouette is unremarkable noting atherosclerotic calcification of the thoracic aorta. There is a large right pleural effusion with atelectasis/consolidation of the right lower lung. The right apex remains aerated. Atelectasis is seen at the left lung base. No pneumothorax is seen. The skeletal structures are osteopenic. The bony thorax is grossly intact. IMPRESSION: Large right pleural effusion with atelectasis/consolidation of the right lower lung. ACT 112: Negative or not required by law. Electronically signed by: Luke Evans M.D. 01/29/2023 11:28 AM Chest CTA 01/29/23 11:47 CHEST CTA for PULMONARY ARTERIES CT DOSE: 255.55 mGy.cm HISTORY: Shortness of breath. TECHNIQUE: Multiaxial CT images of the chest were performed following the intravenous administration of contrast to evaluate the pulmonary arteries. Maximal intensity projection images were also obtained. A dose lowering technique was utilized adhering to the principles of ALARA. COMPARISON STUDY: None. FINDINGS: Limited views the upper abdomen demonstrate normal liver, spleen, and adrenal glands. There is normal caliber thoracic aorta with no evidence for a dissection. The majority of the left lower lobe subsegmental pulmonary arteries are nondiagnostic due to the motion artifact. Otherwise, no filling defects within the remaining pulmonary arteries to suggest a pulmonary embolus. The right middle lobe arteries are attenuated. There is a large area of decreased enhancement occupying the majority of the right middle lobe with right hilar lymphadenopathy/soft tissue extension. This is best seen on image 139 and measures approximately 6.3 x 6.2 cm. This is highly suspicious for a right middle lobe mass and accounts for the complete occlusion at the proximal right middle lobe bronchus. There is also abnormal soft tissue thickening/lymphadenopathy within the right hilum surrounding the central bronchi which extends into the right side of the mediastinum. There is mucoid impaction seen within the distal right middle lobe and right lower lobe bronchi. Abnormal soft tissue thickening within the right pleura most pronounced within the right upper lobe medially. Additional scattered pleural deposits seen within the right hemithorax. This is consistent with pleural metastatic disease. There is a large right pleural effusion which results in left mediastinal shift and mild mass effect along the right heart. Interstitial thickening within the aerated right upper lobe may represent lymphangitic spread of tumor or congestive change from the mass effect. No left pleural effusion. Abnormal soft tissue/lymphadenopathy also partially encases the trachea and is seen within the subcarinal location. There is a single enlarged right infraclavicular lymph node on image 252 measuring 14 x 10 mm. This likely represents metastatic disease. No suspicious lytic or blastic osseous lesions. Small sclerotic foci at the inferior endplates of the vertebral bodies may be due to the degenerative change. No pneumothorax. Mild emphysema. There are 2 nodules within the base of the left lower lobe measure up to 5 mm. These are concerning for metastatic disease. IMPRESSION: 1. No evidence for a pulmonary embolus. 2. A 6.3 x 6.2 cm mass occupying majority the right middle lobe with soft tissue extension/lymphadenopathy into the right hilum and mediastinum as described above. This is highly suspicious for a primary bronchogenic malignancy. 3. Pleural metastatic disease with a large right pleural effusion resulting in left mediastinal shift and mild mass effect along the right heart border. 4. There are 2 subcentimeter nodules within the base of the left lower lobe which are concerning for metastatic disease.. 5. A single mildly enlarged right infraclavicular lymph node which likely represents metastatic disease. 6. Additional findings as described above. ACT 112: Negative or not required by law. Electronically signed by: Luis Mari M.D. 01/29/2023 1:19 PM Code Status & VTE Plan Code Status Full code
--- NOTE | 2023-01-29 14:04 | Electrocardiogram Report ---
Test Reason : Blood Pressure : / mmHG Vent. Rate : 107 BPM Atrial Rate : 107 BPM P-R Int : 144 ms QRS Dur : 090 ms QT Int : 350 ms P-R-T Axes : 028 123 040 degrees QTc Int : 467 ms Poor data quality, interpretation may be adversely affected Sinus tachycardia Cannot rule out Inferior infarct , age undetermined Abnormal ECG No previous ECGs available Confirmed by Trent Morin ([id number]) on 01/29/2023 2:03:54 PM Referred By: REFERRED SELF Confirmed By:Trent Morin
[2023-01-29] MEDS ORDERED: ONDANSETRON INJ 2 MG/ML 2 ML VIAL IV PRN (15:26)
[2023-01-29] MEDS ORDERED: NYSTATIN POWDER 15GM BTL EXT PRN (15:26)
--- NOTE | 2023-01-29 15:46 | Pulmonary Consultation ---
Date of Consultation January 29, 2023 Assessment & Plan (1) Pleural effusion: (2) Acute respiratory failure with hypoxia: (3) Pulmonary mass: Plan Impression: 77-year-old female with prior history of tobacco abuse presenting now with right-sided effusion with mediastinal deviation. She has not had any cancer screening in the past. CT scan appears to have potential changes consistent with malignancy. Recommendations: 1. Pleural effusion: Given the significant deviation, recommended the patient undergo pigtail catheter placement. We did briefly discuss Pleurx however I think at this point in time getting a diagnosis and offering her some relief would be more beneficial so we will plan on placing a 12 [place]ib[place]ian pigtail catheter and follow-up imaging. Fluid will be sent for cytology, cell count differential, Gram stain and culture, pH, LDH, glucose, total protein. 2. Hypoxemic respiratory failure: Continue supplemental oxygen. Hopefully with drainage of the pleural effusion, her oxygen requirement will decrease. 3. Recommend MRI of the brain with contrast. 4. Depending on cytology and tube output, could consider potential long-term management. We will see how she responds and what the output of the drain is. Unlikely that cytology results will be available before early next week. If the patient's output decreases enough that the tube can be discontinued and she is feeling well enough, she could potentially be discharged with outpatient follow- up over the weekend. Thanks for the opportunity of participating in the care of this patient. The above recommendations and plan were discussed with the patient in detail. Questions were answered to the best my ability. She expressed understanding and is in agreement with the plan as outlined History of Present Illness Attending Physician: Abril Hui MD History of Present Illness Asked by patient to assist in evaluation management of this patient with massive pleural effusion and hypoxemic respiratory failure. History is obtained from discussion with the patient as well as review the electronic medical record. The patient is a 77-year-old female who does not seek medical care on a regular basis and states she has not seen a doctor in over 40 years who presented to the emergency room today after being referred by an urgent care center. The patient has had shortness of breath going on for about 4 to 6 weeks. She thought she may have COVID which prompted her to be evaluated at an urgent care. She was found to be hypoxemic and was sent to the emergency room. Chest x-ray demonstrated a large right-sided effusion with mediastinal shift. This was confirmed on CT scan with what appeared to be potential malignant changes. The patient was administered oxygen antibiotics and admitted to the hospital. The patient denies fevers chills or night sweats. She has not had productive cough. She has about a [id number]-[id number] history of tobacco abuse but quit over 10 years ago. No family history of lung disease that she is aware of. Allergies Allergy/AdvReac Type Severity Reaction Status Date / Time No Known Allergies Allergy Mild Unverified 07/02/07 17:53 Home Medications Medication Instructions Recorded Confirmed Type NONE ##0 07/02/07 History Patient History Medical History (Updated 01/29/23 @ 14:45 by Denisa Bertrand PA-C) History of tobacco abuse Osteoarthritis Surgical History (Updated 01/29/23 @ 14:45 by Denisa Bertrand PA-C) History of section History of tonsillectomy Social History Feels Safe at Home: Yes Review of Systems Review of Systems: All systems reviewed & are unremarkable except as noted in Subjective Physical Exam Constitutional: WD/WN, vitals as above Neck: + tracheal deviation Respiratory: no respiratory distress, no labored breathing and not tachypneic Auscultation: + diminished lung sounds Decreased breath sounds with dullness to percussion in the right hemithorax Cardiovascular: RRR, no murmur, no edema Gastrointestinal (Abdomen): normal bowel sounds, soft, nontender, no hepatosplenomegaly Musculoskeletal: Extremities: extremities normal to inspection Skin: no rashes, warm and dry Neurologic: Nonfocal exam Lymphatic: no cervical lymphadenopathy Results & Data Results & Data Vital Signs (Past 12 Hours) Vital Signs Temp Pulse Pulse Resp BP BP Pulse Ox 01/29/23 14:31 97 H 18 174/112 H 95 01/29/23 12:30 96 H 23 96 01/29/23 12:00 96 H 27 H 94 01/29/23 11:30 97 H 21 93 01/29/23 11:00 104 H 15 01/29/23 10:45 97 H 27 H 91 01/29/23 12:14 102 H 01/29/23 11:01 01/29/23 10:55 85 L 01/29/23 10:52 36.9 C 112 H 20 183/111 H 85 L O2 Del Method O2 Flow Rate 01/29/23 14:31 Nasal Cannula 4 01/29/23 12:30 01/29/23 12:00 01/29/23 11:30 01/29/23 11:00 01/29/23 10:45 01/29/23 12:14 01/29/23 11:01 Nasal Cannula 01/29/23 10:55 Nasal Cannula 0 01/29/23 10:52 Room Air Critical Care Results & Data Vital Signs (Past 12 Hours) Vital Signs Temp Pulse Pulse Resp BP BP Pulse Ox 01/29/23 14:31 97 H 18 174/112 H 95 01/29/23 12:30 96 H 23 96 01/29/23 12:00 96 H 27 H 94 01/29/23 11:30 97 H 21 93 01/29/23 11:00 104 H 15 01/29/23 10:45 97 H 27 H 91 01/29/23 12:14 102 H 01/29/23 11:01 01/29/23 10:55 85 L 01/29/23 10:52 36.9 C 112 H 20 183/111 H 85 L O2 Del Method O2 Flow Rate 01/29/23 14:31 Nasal Cannula 4 01/29/23 12:30 01/29/23 12:00 01/29/23 11:30 01/29/23 11:00 01/29/23 10:45 01/29/23 12:14 01/29/23 11:01 Nasal Cannula 01/29/23 10:55 Nasal Cannula 0 01/29/23 10:52 Room Air Lab & Micro Results (Past 24 Hours) RBC 5.06 M/uL (4.20-5.40) 01/29/23 WBC 11.69 K/ul (4.8-10.8) H 01/29/23 Hgb 14.6 g/dl (12.0-16.0) 01/29/23 Hct 43.4 % (37.0-47.0) 01/29/23 MCV 85.8 fL (80.0-100.0) 01/29/23 MCH 28.9 pg (25.0-34.0) 01/29/23 MCHC 33.6 g/dL (32.0-36.0) 01/29/23 RDW Standard Deviation 40.6 fL (36.4-46.3) 01/29/23 RDW Coefficient of Variation 13.0 % (11.5-14.5) 01/29/23 Plt Count 530 K/uL (130-400) H 01/29/23 MPV 9.6 fL (9.4-12.4) 01/29/23 Neutrophils (%) (Auto) 84.9 % 01/29/23 Lymphocytes (%) (Auto) 6.8 % 01/29/23 Monocytes # (Auto) 0.79 K/uL (0.11-0.59) H 01/29/23 Eosinophils # (Auto) 0.05 K/uL (0-0.50) 01/29/23 Immature Granulocyte % (Auto) 0.8 % 01/29/23 Neutrophils # (Auto) 9.93 K/uL (1.40-6.50) H 01/29/23 Lymphocytes # (Auto) 0.79 K/uL (1.2-3.4) L 01/29/23 Monocytes # (Auto) 0.79 K/uL (0.11-0.59) H 01/29/23 Eosinophils # (Auto) 0.05 K/uL (0-0.50) 01/29/23 Basophils # (Auto) 0.04 K/uL (0-0.2) 01/29/23 Immature Granulocyte # (Auto) 0.09 K/uL (0.01-0.20) 3 Na 139 mmol/L (136-145) 01/29/23 K 3.9 mmol/L (3.5-5.1) 01/29/23 Cl 104 mmol/L (98-107) 01/29/23 CO2 23 mmol/L (21-32) 01/29/23 Anion Gap 12 (3-11) H 01/29/23 BUN 13 mg/dl (6-23) 01/29/23 Creatinine 0.58 mg/dl (0.6-1.2) L 01/29/23 Estimated GFR ( Amer) 103.0 ml/min 01/29/23 Estimated GFR (Non-Af Amer) 88.9 ml/min 01/29/23 BUN/Creatinine Ratio 22.4 (10-20) H 01/29/23 Glu 134 mg/dl (70-99(Fasting)) H 01/29/23 Ca 9.3 mg/dl (8.6-10.3) 01/29/23 Total Bilirubin 0.5 mg/dl (0.2-1.0) 01/29/23 Direct Bilirubin 0.1 mg/dl (0-0.2) 01/29/23 AST 20 U/L (13-39) 01/29/23 ALT 27 U/L (7-52) 01/29/23 Alkaline Phosphatase 66 U/L (34-104) 01/29/23 TP 7.7 gm/dl (6.0-8.3) 01/29/23 Albumin 3.5 gm/dl (3.4-5.0) 01/29/23 Mg 1.9 mg/dl (1.7-2.4) 01/29/23 10:50 Calcium Level 9.3 mg/dl (8.6-10.3) 01/29/23 10:50 Prothromb Time International Ratio 1.0 (0.9-1.1) 01/29/23 10:5 0 Venous Blood pH 7.43 (7.36-7.41) H 01/29/23 12:15 Venous Blood Partial Pressure CO2 37 mmHg (38-50) L 01/29/23 12 :15 Venous Blood Partial Pressure O2 42 mmHg 01/29/23 12:15 Venous Blood HCO3 25 mmol/L 01/29/23 12:15 Venous Blood Base Excess 0.5 mEq/L 01/29/23 12:15 Venous Blood Oxygen Saturation 75.1 % 01/29/23 12:15 Diagnostic Findings (Past 24 Hours) Chest X-Ray 01/29/23 11:01 SINGLE VIEW CHEST CLINICAL HISTORY: Sepsis FINDINGS: An AP, portable, upright chest radiograph is obtained. No prior studies are available for comparison at the time of dictation. The cardiomediastinal silhouette is unremarkable noting atherosclerotic calcification of the thoracic aorta. There is a large right pleural effusion with atelectasis/consolidation of the right lower lung. The right apex remains aerated. Atelectasis is seen at the left lung base. No pneumothorax is seen. The skeletal structures are osteopenic. The bony thorax is grossly intact. IMPRESSION: Large right pleural effusion with atelectasis/consolidation of the right lower lung. ACT 112: Negative or not required by law. Electronically signed by: Luke Evans M.D. 01/29/2023 11:28 AM Chest CTA 01/29/23 11:47 CHEST CTA for PULMONARY ARTERIES CT DOSE: 255.55 mGy.cm HISTORY: Shortness of breath. TECHNIQUE: Multiaxial CT images of the chest were performed following the intravenous administration of contrast to evaluate the pulmonary arteries. Maximal intensity projection images were also obtained. A dose lowering technique was utilized adhering to the principles of ALARA. COMPARISON STUDY: None. FINDINGS: Limited views the upper abdomen demonstrate normal liver, spleen, and adrenal glands. There is normal caliber thoracic aorta with no evidence for a dissection. The majority of the left lower lobe subsegmental pulmonary arteries are nondiagnostic due to the motion artifact. Otherwise, no filling defects within the remaining pulmonary arteries to suggest a pulmonary embolus. The right middle lobe arteries are attenuated. There is a large area of decreased enhancement occupying the majority of the right middle lobe with right hilar lymphadenopathy/soft tissue extension. This is best seen on image 139 and measures approximately 6.3 x 6.2 cm. This is highly suspicious for a right middle lobe mass and accounts for the complete occlusion at the proximal right m iddle lobe bronchus. There is also abnormal soft tissue thickening/lymphadenopathy within the right hilum surrounding the central bronchi which extends into the right side of the mediastinum. There is mucoid impaction seen within the distal right middle lobe and right lower lobe bronchi. Abnormal soft tissue thickening within the right pleura most pronounced within the right upper lobe medially. Additional scattered pleural deposits seen within the right hemithorax. This is consistent with pleural metastatic disease. There is a large right pleural effusion which results in left mediastinal shift and mild mass effect along the right heart. Interstitial thickening within the aerated right upper lobe may represent lymphangitic spread of tumor or congestive change from the mass effect. No left pleural effusion. Abnormal soft tissue/lymphadenopathy also partially encases the trachea and is seen within the subcarinal location. There is a single enlarged right infraclavicular lymph node on image 252 measuring 14 x 10 mm. This likely represents metastatic disease. No suspicious lytic or blastic osseous lesions. Small sclerotic foci at the inferior endplates of the vertebral bodies may be due to the degenerative change. No pneumothorax. Mild emphysema. There are 2 nodules within the base of the left lower lobe measure up to 5 mm. These are concerning for metastatic disease. IMPRESSION: 1. No evidence for a pulmonary embolus. 2. A 6.3 x 6.2 cm mass occupying majority the right middle lobe with soft tissue extension/lymphadenopathy into the right hilum and mediastinum as described above. This is highly suspicious for a primary bronchogenic malignancy. 3. Pleural metastatic disease with a large right pleural effusion resulting in left mediastinal shift and mild mass effect along the right heart border. 4. There are 2 subcentimeter nodules within the base of the left lower lobe which are concerning for metastatic disease.. 5. A single mildly enlarged right infraclavicular lymph node which likely represents metastatic disease. 6. Additional findings as described above. ACT 112: Negative or not required by law. Electronically signed by: Luis Mari M.D. 01/29/2023 1:19 PM I & O Totals 24 Hours 01/28/23 01/29/23 01/30/23 06:59 06:59 06:59 Intake Total 70 / 70 Balance 70 / 70 Cumulative 01/29/23 10:28 thru 01/29/23 14:35 Intake Total 70 Balance 70 RT Ventilator Mngmt (Last Documented) Ventilator Ordered Settings Respiratory Rate 18 01/29/23 14:31 Ventilator - PT Measurements Respiratory Rate 18 PG Care Time/CCT Total # of Minutes Spent Total Time Spent with Patient: Total time spent is greater than 50% in coordination of care (as documented) at patient's floor/unit and/or counseling patient: Coding Level of Care Code 75092 INT INP/OBS CARE 3/75MIN Diagnoses Pleural effusion J90 Acute respiratory failure with hypoxia J96.01 Pulmonary mass R91.8
--- NOTE | 2023-01-29 15:50 | Procedure Note ---
Procedure Note Date of Service January 29, 2023 Note Procedure: 14 Spanish pigtail catheter placement Indication: Massive right-sided effusion with mediastinal shift Consent risk and benefits were discussed with the patient. She agreed. Written consent was verified prior to commencement of the procedure. Chemist [employer] Dr. Pringle Estimated blood loss: Less than 5 mL Anesthesia: 5 mL 1% lidocaine without epinephrine locally. Procedure: Imaging studies were reviewed prior to the procedure. Risks and benefits were discussed with the patient. Written consent was verified. The patient was placed in a upright seated position. Ultrasound was performed revealing a large right-sided effusion with compressive atelectasis. Site in the posterior axillary line was marked. Skin was prepped and draped in normal sterile fashion. A sterile field was established. The skin and subcutaneous tissues were anesthetized with lidocaine. Fluid was aspirated with the finder needle without difficulty. A small skin patricia was made with a scalpel. An 18- gauge needle was advanced through the skin incision into the pleural space with aspiration of yury fluid. The syringe was taken off the needle leaving the needle in place. A wire was passed through the needle into the pleural space. The needle was withdrawn leaving the wire in place. A dilator was then advanced over the wire into the pleural space without difficulty. The dilator was removed leaving the wire in place. A 14 Spanish skater catheter with a locking mechanism was then advanced over the wire into the pleural space. The wire was withdrawn. The locking system on the catheter was secured. 200 mL of fluid was collected for microbiologic and cytologic analysis. The fluid was slightly cloudy and yellow. The tube was then attached to gravity drainage system with output of about 600 mL. The skater catheter fixation system was applied and the catheter secured in place. Follow-up chest x-ray is pending The patient tolerated the procedure well. Coding CPT Codes Pulmonary/Thoracic - Pulmonary and Thoracic: 89298 Tube thoracostomy ([id number]) Pulmonary/Thoracic - Pulmonary and Thoracic: 05416 US, Chest, real time with imaging documentation ([id number]) [facility] [place] Codes (Charges) Pulmonary/Thoracic Procedure 1: Pulmonary and Thoracic: 63937 Tube thoracostomy Procedure 2: Pulmonary and Thoracic: 18406 US, Chest, real time with imaging documentation
[2023-01-29 16:23] LABS: Total Protein Pleural Fluid 5.3 gm/dl
[2023-01-29 16:28] LABS: Appearance Pleural Fluid Clear; Color Pleural Fluid Yellow; Lymphocytes, Fluid 57 %; Mono,Macrophage,Mesothelial 35 %; Neutrophils, Fluid 8 %; RBC Pleural Fluid Auto 2000 /uL; Source Pleural Fluid Right Lung; WBC Pleural Fluid Auto 1945 /uL
--- NOTE | 2023-01-29 16:39 | XRay Report ---
SINGLE VIEW CHEST CLINICAL HISTORY: Chest tube placement. FINDINGS: An AP, portable, upright chest radiograph is compared to chest x-ray and chest CT performed earlier the same day 01/29/2023. The cardiomediastinal silhouette is unremarkable noting atherosclero tic calcification of the thoracic aorta. There are calcified mediastinal lymph nodes. A pigtail drain age catheter has been placed at the right lung base. There is a residual layering right pleural effus ion with right basilar consolidation. This has significantly decreased in size from today's earlier e xamination. The left lung appears clear. No pneumothorax is seen. The skeletal structures are osteope monique. The bony thorax is grossly intact. IMPRESSION: 1. A pigtail drainage catheter has been placed at the right lung base. No pneumothorax is seen post p rocedure. 2. There is a residual layering right pleural effusion with right basilar consolidation. This has sig nificantly decreased in size from today's earlier examination. 3. The left lung appears clear ACT 112: Negative or not required by law. Electronically signed by: Luke Evans M.D. 01/29/2023 4:37 PM
[2023-01-29] MEDS: ACETAMINOPHEN 325 MG TAB PO PRN ×2 (17:51→21:51)
[2023-01-29] MEDS ORDERED: GADOBUTROL 65ML VIAL IV ONE (18:57)
--- NOTE | 2023-01-29 19:30 | Magnetic Resonance Report ---
MRI OF THE BRAIN WITHOUT AND WITH IV CONTRAST CLINICAL HISTORY: Right lung mass. Evaluate for malignancy. COMPARISON STUDY: No previous studies for comparison. TECHNIQUE: Utilizing a 1.5 Lynnette magnet and dedicated coil, multiplanar, multiecho imaging of the br ain was performed pre and postcontrast administration. IV administration of Gadavist contrast was un eventful. Thin cut T1 post contrast imaging was performed. FINDINGS: There are no foci of restricted diffusion to suggest acute infarct. No acute intracranial h emorrhage, midline shift or mass effect is present. Ventricular system is normal. Basal cisterns are patent. There are no extra-axial collections. Flow-voids for the major intracranial vessels are prese nt. There is no intracranial mass. Note is made of a focus of susceptibility artifact within the left temporal occipital region shown best on axial images 10 of 22. This does not enhance. This favors mi nimal old blood products. Mild white matter T2 hyperintense foci suggest minimal small vessel disease . Note is made of a small cortical/subcortical T2 hyperintense focus within the left parietal lobe sh own best on coronal FLAIR image 21 and 20. This is minimal linear associated enhancement. This does n ot have restricted diffusion. Calvarial signal is normal. Minimal sinus mucosal thickening is present . IMPRESSION: 1. No convincing evidence for metastatic disease. 2. Small cortical/subcortical T2 hyperintense focus within the left parietal lobe with minimal linear enhancement. This is nonspecific but favors a small subacute infarct. This can be assessed with a ort-term follow-up MRI of the brain in one month to ensure expected evolution. 3. Small focus of susceptibility artifact within the left temporoparietal region which favors minimal old blood products. This can also be assessed on follow-up MRI. ACT 112: Negative or not required by law. Electronically signed by: Gonzalez Kahn M.D. 01/29/2023 7:27 PM
[2023-01-29] MEDS: oxyCODONE HCL IR 5 MG TAB (IMMEDIATE RELEASE) PO STA ×2 (20:48→20:50)
[2023-01-29 22:21] LABS: Appearance Urine Clear (Clear); Bacteria Urine Automated Negative (Negative); Bilirubin Urine Negative (Negative); Blood Urine Negative (Negative); Color Urine Dark Yellow; Epithelial Cell Urine Auto 20-30 /lpf (0-5); Glucose Urine UA Negative (Negative); Ketones Urine Negative (Negative); Leukocyte Esterase Urine Negative (Negative); Nitrite Urine Negative (Negative); Protein Urine Trace (Negative); RBC Urine Automated 0-4 /hpf (0-4); Specific Gravity Urine > 1.045 (1.000-1.030); Urobilinogen Urine Negative (Negative)
--- NOTE | 2023-01-30 07:47 | Procedure Note ---
Procedure Note Date of Service January 30, 2023 Note Procedure: Removal of 12 Welsh pigtail catheter Indication resolution of pleural effusion [employer] Dr. Pringle Anesthesia none The patient was placed in the right side up decubitus position. The dressing was taken down. The locking mechanism for the pigtail was released and. The catheter was pulled on full expiration. A Tegaderm and gauze were applied to the entry site. The patient tolerated the procedure well without complication. Coding CPT Codes Pulmonary/Thoracic - Pulmonary and Thoracic: 35451 Remove lung catheter ([id number]) [facility] [place] Codes (Charges) Pulmonary/Thoracic Procedure 1: Pulmonary and Thoracic: 80207 Remove lung catheter
--- NOTE | 2023-01-30 07:53 | Pulmonology Progress Note ---
Date of Service January 30, 2023 Assessment & Plan (1) Pleural effusion: (2) Acute respiratory failure with hypoxia: (3) Pulmonary mass: Plan Impression: 77-year-old female with prior history of tobacco abuse presenting now with right-sided effusion with mediastinal deviation. She is status postplacement of a 14 Czech pigtail catheter with what appears to be significant decrease or resolution of the effusion. Recommendations: 1. Pleural effusion: Appears resolved on the current radiograph and output overnight has been minimal. We will plan on removing the chest tube. The patient can be dismissed from the hospital. Cytology results likely not available until the first part of next week. She can follow-up in the pulmonary clinic. I will see if the effusion reaccumulates and what the cytology shows. If it is malignant and reaccumulates, she may be a candidate for indwelling pleural catheter. 2. Hypoxemic respiratory failure: Reassess oxygen now that the effusion is drained. She will need to be assessed for supplemental oxygen prior to discharge. 3. MRI of the brain shows cysts potential subacute infarct. Management per primary service but a follow-up MRI in 1 month was recommended. At this point in time from a pulmonary standpoint the patient can be dismissed from the hospital with outpatient follow-up with us in the clinic next week. This was communicated to the patient as well as her nurse. Pulmonary will sign off. Feel free to contact us with questions or concerns Admission and Anticipated Discharge Date Admission Date: January 29, 2023 Subjective Patient seen and examined. EMR reviewed. She is complaining of some slight chest pain on the right side. She feels her breathing is much better. She is not coughing. She is not experiencing any fevers chills or night sweats. Review of Systems Review of Systems: All systems reviewed & are unremarkable except as noted in Subjective Physical Exam Constitutional: WD/WN, vitals as above Neck: + tracheal deviation Respiratory: no respiratory distress, no labored breathing and not tachypneic Cardiovascular: RRR, no murmur, no edema Gastrointestinal (Abdomen): normal bowel sounds, soft, nontender, no hepatosplenomegaly Musculoskeletal: Extremities: extremities normal to inspection Skin: no rashes, warm and dry Lymphatic: no cervical lymphadenopathy Results & Data Results & Data Vital Signs (Past 12 Hours) Vital Signs Temp Pulse Pulse Resp BP BP Pulse Ox 01/30/23 02:25 36.4 C L 77 18 103/63 94 01/30/23 01:03 83 01/29/23 22:30 36.8 C 75 16 95/55 L 98 01/29/23 22:04 O2 Del Method O2 Flow Rate 01/30/23 02:25 Nasal Cannula 3 01/30/23 01:03 01/29/23 22:30 Nasal Cannula 3 01/29/23 22:04 Nasal Cannula 3 Laboratory Results 01/29/23 10:50 01/29/23 10:50 Pleural fluid studies: Differential 8% neutrophils, 57% lymphocytes, 35% mesothelial cells Pleural pH 7.44 Total total protein 5.3 Pleural LDH 331 Pleural glucose 100 Cytology pending Gram stain showed many white blood cells with no organisms, culture pending Diagnostic Findings Chest x-ray from this morning was reviewed. The catheter appears to be in good position. There appears to be resolution of the pleural effusion without pneumothorax. There is hazy opacity persistent in the right lung base. MRI of the brain showed no convincing evidence for metastatic disease. Small focus on the parietal lobe favoring subacute infarct. Short-term follow-up MRI recommended in 1 month PG Care Time/CCT Total # of Minutes Spent Total Time Spent with Patient: Total time spent is greater than 50% in coordination of care (as documented) at patient's floor/unit and/or counseling patient: Coding Level of Care Code 96829 SUB INP/OBS CARE 2/35MIN Diagnoses Pleural effusion J90 Acute respiratory failure with hypoxia J96.01 Pulmonary mass R91.8
--- NOTE | 2023-01-30 08:11 | XRay Report ---
SINGLE VIEW CHEST CLINICAL HISTORY: Chest tube. FINDINGS: An AP, portable, upright chest radiograph is compared to chest x-ray and chest CT dictated 01/29/2023. The cardiomediastinal silhouette is unremarkable noting atherosclerotic calcification of t he thoracic aorta. There are calcified mediastinal lymph nodes. A right-sided chest tube is unchanged in position. There is a small residual right pleural effusion with right basilar consolidation. The pleural effusion has continued to decrease in size from yesterday. The left lung appears clear. No pn eumothorax is seen. The skeletal structures are osteopenic. The bony thorax is grossly intact. IMPRESSION: 1. A right-sided chest tube is unchanged in position. No pneumothorax is identified. 2. There is a small residual right pleural effusion with right basilar consolidation. This has contin ued to decrease in size from yesterday. 3. The left lung appears clear ACT 112: Negative or not required by law. Electronically signed by: Luke Evans M.D. 01/30/2023 8:10 AM
--- NOTE | 2023-01-30 08:57 | Oncology Consultation ---
Date of Consultation January 30, 2023 Assessment & Plan (1) Pulmonary mass: (2) Pleural effusion: Plan 77-year-old with significant smoking history recently found to have large lung mass and pleural effusion for which she is s/p chest tube placement. 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 Will await cytology. Hopefully have enough malignant cells in pleural effusion to assess for molecular markers/PD-L1 which would determine appropriate treatment options. -Consider obtaining CT abdomen/pelvis inpatient for full staging. Plan to obtain outpatient PET/CT -Patient is concerned about being discharged home because she lives alone, consider evaluation by case management I will schedule her for follow-up appointment in about 1 to 2 weeks at [facility] to discuss results from cytology as well as treatment options. Thank you for this consult. Oncology will sign off at this time. Please feel free to call if you have any further questions History of Present Illness Reason for Consultation: Large pulmonary mass and pleural effusion Attending Physician: Sumit Boo MD History of Present Illness Pleasant 77-year-old female who presented to [facility] with shortness of breath and hypoxia. Chest x-ray obtained in the ER on 01/29/2023 revealed large right pleural effusion with atelectasis/consolidation of the right lung. CTA chest on 01/21/2023 revealed 6.3 x 6.2 cm mass occupying the majority of the right middle lobe with soft tissue extension/lymphadenopathy into the right hilum and mediastinum suspicious for primary bronchogenic malignancy, pleural metastatic disease with large right-sided pleural effusion resulting in left mediastinal shift and mild mass effect along the right heart border, 2 subcentimeter nodules within the base of the left lower lobe concerning for metastatic disease and single mildly enlarged right infraclavi cular lymph node likely representing metastatic disease. Brain MRI on 01/21/2023 revealed no convincing evidence of metastatic disease. On 01/21/2023 chest tube was placed with improvement in symptoms. She endorses more than [id number] history of smoking and states that she quit about 10 years ago. Currently uses Nicorette. Also endorses poor appetite and weight loss. Allergies Allergy/AdvReac Type Severity Reaction Status Date / Time No Known Allergies Allergy Mild Unverified 07/02/07 17:53 Home Medications Medication Instructions Recorded Confirmed Type NONE ##0 07/02/07 History Patient History Medical History (Updated 01/29/23 @ 16:16 by Trent Palacios DO) History of tobacco abuse Osteoarthritis Surgical History (Updated 01/29/23 @ 14:45 by Denisa Bertrand PA-C) History of section History of tonsillectomy Social History Smoking Status: Former smoker Second Hand Exposure: No; Do You Dip or Chew Tobacco: No; Hx Alcohol Use: No Hx Substance Use: No Preferred Language: [employer] Attendant Required: No Beliefs That Will Affect Care: None Current Living Situation: Alone Feels Safe at Home: Yes Assistive Devices: Denture - Upper and Glasses Review of Systems Review of Systems: All systems reviewed & are unremarkable except as noted in HPI & below Results & Data Vital Signs (Past 12 Hours) Vital Signs Temp Pulse Pulse Resp BP BP Pulse Ox 01/30/23 08:51 01/30/23 07:50 36.5 C 71 17 111/69 97 01/30/23 02:25 36.4 C L 77 18 103/63 94 01/30/23 01:03 83 01/29/23 22:30 36.8 C 75 16 95/55 L 98 01/29/23 22:04 O2 Del Method O2 Flow Rate 01/30/23 08:51 Nasal Cannula 3 01/30/23 07:50 Room Air 01/30/23 02:25 Nasal Cannula 3 01/30/23 01:03 01/29/23 22:30 Nasal Cannula 3 01/29/23 22:04 Nasal Cannula 3
[2023-01-30 09:03] LABS: Albumin Globulin Ratio 0.8 (0.9-2); Albumin Level 2.8 gm/dl (3.4-5.0); BUN Creatinine Ratio 19.1 (10-20); Bilirubin,Total 0.4 mg/dl (0.2-1.0); Calcium 8.6 mg/dl (8.6-10.3); Chol HDL Ratio 3.9 (0-5); Creatinine Clr Calc Pharmacy 82.9 ml/min; Est GFR (African American) 110.4 ml/min; Est GFR (Non-African American) 95.3 ml/min; Globulin 3.4 gm/dl (2.5-4.0); Magnesium 1.8 mg/dl (1.7-2.4); Phosphorus 3.3 mg/dl (2.5-4.9); Potassium 3.7 mmol/L (3.5-5.1); Total Protein 6.2 gm/dl (6.0-8.3)
--- NOTE | 2023-01-30 12:01 | Hospitalist Progress Note ---
Date of Service January 30, 2023 Assessment & Plan (1) Pulmonary mass: (2) Acute respiratory failure with hypoxia: (3) Pleural effusion: Plan: Patient is a 77-year-old female with no known past medical history who presented to the ED with increasing shortness of breath for last 1 month. On presentation to the ED, patient was vitally stable; was saturating at 85% on room air. Chest x-ray from admission personally reviewed; large right-sided pleural effusion. CTA chest was done which showed A 6.3 x 6.2 cm mass occupying majority the right middle lobe with soft tissue extension/lymphadenopathy into the right hilum and mediastinum; pleural metastatic disease with large right-sided pleural effusion with left mediastinal shift was seen. 2 subcentimeter nodules at base of left lower lobe was seen. Also, single mildly enlarged right infraclavicular lymph node was present. Patient underwent chest tube placement with pigtail catheter by pulmonology on the same day of admission. Total output of 2700 cc Follow-up x-ray from 01/30 personally reviewed; pleural effusion significantly improved. Chest tube was removed on 01/30. Pulmonology signed off; to follow-up as outpatient. MRI brain does not reveal any evidence of metastatic disease. Finding concerning of nonspecific T2 hyperintense focus within left parietal lobe. Also, a small focus of susceptibility artifact within the left temporoparietal region which favors minimal old blood products. Follow-up MRI recommended in 1 month. Discussed with oncology (Dr. Ricketts); patient to follow-up as outpatient. Await cytology. Also recommended to obtain CT abdomen/pelvis inpatient for full staging. Monitor oxygen saturation; supplemental oxygen as needed to keep saturation over 90%. (4) Osteoarthritis: Plan: - Stable, uses tylenol occasionally. Involves hands. DVT PPx: - teds, scds CODE: Full code Disposition: patient lives alone with no family or friends in the area. She reports that her daughter is admitted in a hospital in [place]. Her son is in [place]. Patient does not drive. Patient is interested in assisted/independent living facility till she gets her cancer treatment. Discussed with shelter case manager; she will follow-up. PT OT ordered. I offered to call her son for an update; patient wanted to talk with him first. Time spent evaluating patient, direct bedside care, chart review, placing orders, interpretation of diagnostic studies, discussion with consultants, patient, and family members, as well as other required patient management activities is 60 minutes. Please note the above document was generated using voice recognition software. It may contain grammatical, syntax or spelling errors. Any formal questions or concerns about the content, text or information contained within the body of this dictation should be directly addressed to the provider for clarification Admission and Anticipated Discharge Date Admission Date: January 29, 2023 Subjective Patient seen and examined at bedside. She reports that her breathing is much better compared to presentation. She is saturating well in room air. Review of Systems Review of Systems: All systems reviewed & are unremarkable except as noted in Subjective Physical Exam Physical Exam: General: awake, alert, no apparent distress, thin Head: Normocephalic, atraumatic ENT: PERRL, EOMI, no pharyngeal exudate, mucous membranes moist, no cervical lymphadenopathy Chest: Decreased breath sound in right lower lung field. Clear breath sound on left side. Cardiac: Sinus tachycardia, no murmur, no JVD, normal peripheral pulses, good capillary refill Abdominal: NABS x 4 quadrants, soft, nondistended, nontender to palpation, no rebound or guarding, no hepatomegaly, no splenomegaly Extremities: Normal inspection, no peripheral edema or erythema, calfs nontender to palpation Psych: Normal mood and affect, slightly anxious when discussing procedures Neuro: AAO x 3, strength intact bilaterally and rated 5/5, no motor deficits, speech is clear, no peripheral sensory deficits Results & Data Results & Data Vital Signs (Past 12 Hours) Vital Signs Temp Pulse Pulse Resp BP Pulse Ox O2 Del Method 01/30/23 11:01 01/30/23 09:37 86 01/30/23 08:51 Nasal Cannula 01/30/23 07:50 36.5 C 71 17 111/69 97 Room Air 01/30/23 02:25 36.4 C L 77 18 103/63 94 Nasal Cannula 01/30/23 01:03 83 O2 Del Method O2 Flow Rate 01/30/23 11:01 Room Air 01/30/23 09:37 01/30/23 08:51 3 01/30/23 07:50 01/30/23 02:25 3 01/30/23 01:03 Laboratory Results Laboratory Results WBC 11.69 K/ul (4.8-10.8) H 01/29/23 10:50 RBC 5.06 M/uL (4.20-5.40) 01/29/23 10:50 Hgb 14.6 g/dl (12.0-16.0) 01/29/23 10:50 Hct 43.4 % (37.0-47.0) 01/29/23 10:50 MCV 85.8 fL (80.0-100.0) 01/29/23 10:50 MCH 28.9 pg (25.0-34.0) 01/29/23 10:50 MCHC 33.6 g/dL (32.0-36.0) 01/29/23 10:50 RDW Std Deviation 40.6 fL (36.4-46.3) 01/29/23 10:50 RDW Coeff of Leanna 13.0 % (11.5-14.5) 01/29/23 10:50 Plt Count 530 K/uL (130-400) H 01/29/23 10:50 MPV 9.6 fL (9.4-12.4) 01/29/23 10:50 Immature Gran % (Auto) 0.8 % 01/29/23 10:50 Neut % (Auto) 84.9 % 01/29/23 10:50 Lymph % (Auto) 6.8 % 01/29/23 10:50 Cottle % (Auto) 6.8 % 01/29/23 10:50 Eos % (Auto) 0.4 % 01/29/23 10:50 Baso % (Auto) 0.3 % 01/29/23 10:50 Neut # (Auto) 9.93 K/uL (1.40-6.50) H 01/29/23 10:50 Lymph # (Auto) 0.79 K/uL (1.2-3.4) L 01/29/23 10:50 Cottle # (Auto) 0.79 K/uL (0.11-0.59) H 01/29/23 10:50 Eos # (Auto) 0.05 K/uL (0-0.50) 01/29/23 10:50 Baso # (Auto) 0.04 K/uL (0-0.2) 01/29/23 10:50 Immature Gran # (Auto) 0.09 K/uL (0.01-0.20) 01/29/23 10:50 PT 11.2 Seconds (9.0-12.0) 01/29/23 10:50 INR 1.0 (0.9-1.1) 01/29/23 10:50 APTT 24.2 Seconds (21.0-31.0) 01/29/23 10:50 PTT Ratio 0.9 01/29/23 10:50 VBG pH 7.43 (7.36-7.41) H 01/29/23 12:15 VBG pCO2 37 mmHg (38-50) L 01/29/23 12:15 VBG pO2 42 mmHg 01/29/23 12:15 VBG HCO3 25 mmol/L 01/29/23 12:15 VBG O2 Saturation 75.1 % 01/29/23 12:15 VBG Base Excess 0.5 mEq/L 01/29/23 12:15 Sodium 138 mmol/L (136-145) 01/30/23 08:12 Potassium 3.7 mmol/L (3.5-5.1) 01/30/23 08:12 Chloride 106 mmol/L (98-107) 01/30/23 08:12 Carbon Dioxide 26 mmol/L (21-32) 01/30/23 08:12 Anion Gap 6 (3-11) 01/30/23 08:12 BUN 9 mg/dl (6-23) 01/30/23 08:12 Creatinine 0.47 mg/dl (0.6-1.2) L 01/30/23 08:12 Est Cr Clr Drug Dosing 82.9 ml/min 01/30/23 08:12 Est GFR ( Amer) 110.4 ml/min 01/30/23 08:12 Est GFR (Non-Af Amer) 95.3 ml/min 01/30/23 08:12 BUN/Creatinine Ratio 19.1 (10-20) 01/30/23 08:12 Glucose 140 mg/dl (70-99(Fasting)) H 01/30/23 08:12 Lactate 1.4 mmol/L (0.4-2.0) 01/29/23 12:14 Calcium 8.6 mg/dl (8.6-10.3) 01/30/23 08:12 Phosphorus 3.3 mg/dl (2.5-4.9) 01/30/23 08:12 Magnesium 1.8 mg/dl (1.7-2.4) 01/30/23 08:12 Total Bilirubin 0.4 mg/dl (0.2-1.0) 01/30/23 08:12 Direct Bilirubin 0.1 mg/dl (0-0.2) 01/29/23 10:50 AST 18 U/L (13-39) 01/30/23 08:12 ALT 21 U/L (7-52) 01/30/23 08:12 Alkaline Phosphatase 54 U/L (34-104) 01/30/23 08:12 Troponin I High Sens 8.9 pg/ml (0-14) 01/29/23 10:50 B-Natriuretic Peptide 165 pg/ml (0-100) H 01/29/23 12:05 Total Protein 6.2 gm/dl (6.0-8.3) 01/30/23 08:12 Albumin 2.8 gm/dl (3.4-5.0) L 01/30/23 08:12 Globulin 3.4 gm/dl (2.5-4.0) 01/30/23 08:12 Albumin/Globulin Ratio 0.8 (0.9-2) L 01/30/23 08:12 Triglycerides 88 mg/dl (0-150) 01/30/23 08:12 Cholesterol 126 mg/dl (0-200) 01/30/23 08:12 LDL Cholesterol, Calc 76 mg/dl 01/30/23 08:12 VLDL Cholesterol, Calc 18 mg/dl (0-30) 01/30/23 08:12 HDL Cholesterol 32 mg/dl 01/30/23 08:12 Cholesterol/HDL Ratio 3.9 (0-5) 01/30/23 08:12 Procalcitonin < 0.05 ng/ml (0-0.5) 01/29/23 10:50 Urine Color Dark Yellow 01/29/23 Unknown Urine Appearance Clear (Clear) 01/29/23 Unknown Urine pH 5.0 (4.5-7.5) 01/29/23 Unknown Ur Specific Powell > 1.045 (1.000-1.030) H 01/29/23 Unknown Urine Protein Trace (Negative) H 01/29/23 Unknown Urine Glucose (UA) Negative (Negative) 01/29/23 Unknown Urine Ketones Negative (Negative) 01/29/23 Unknown Urine Blood Negative (Negative) 01/29/23 Unknown Urine Nitrite Negative (Negative) 01/29/23 Unknown Urine Bilirubin Negative (Negative) 01/29/23 Unknown Urine Urobilinogen Negative (Negative) 01/29/23 Unknown Ur Leukocyte Esterase Negative (Negative) 01/29/23 Unknown Urine WBC (Auto) 1-5 /hpf (0-5) 01/29/23 Unknown Urine RBC (Auto) 0-4 /hpf (0-4) 01/29/23 Unknown U Hyaline Cast (Auto) 1-5 /lpf (0-5) 01/29/23 Unknown U Epithel Cells (Auto) 20-30 /lpf (0-5) H 01/29/23 Unknown Urine Bacteria (Auto) Negative (Negative) 01/29/23 Unknown Fluid Neutrophils % 8 % 01/29/23 15:00 Fluid Lymphocytes % 57 % 01/29/23 15:00 Fluid Meso/Macro/Cottle % 35 % 01/29/23 15:00 Fluid Comment 01/29/23 15:00 Pleural Fluid Source Right Lung 01/29/23 15:00 Pleural Color Yellow 01/29/23 15:00 Pleural Appearance Clear 01/29/23 15:00 Pleural pH 7.44 (7.3-7.4) H 01/29/23 15:00 Pleural WBC (Auto) 1945 /uL 01/29/23 15:00 Pleural RBC (Auto) 2000 /uL 01/29/23 15:00 Pleural Total Protein 5.3 gm/dl 01/29/23 15:00 Pleural LDH 331 U/L 01/29/23 15:00 Pleural Glucose 100 mg/dl 01/29/23 15:00 SARS-CoV-2 (PCR) NEGATIVE (Negative) 01/29/23 10:45 Influenza Type A (PCR) Negative (Neg) 01/29/23 10:45 Influenza Type B (PCR) Negative (Neg) 01/29/23 10:45 RSV (RT-PCR) Negative (Neg) 01/29/23 10:45 Impressions Chest CTA 01/29/23 11:47 CHEST CTA for PULMONARY ARTERIES CT DOSE: 255.55 mGy.cm HISTORY: Shortness of breath. TECHNIQUE: Multiaxial CT images of the chest were performed following the intravenous administration of contrast to evaluate the pulmonary arteries. Maximal intensity projection images were also obtained. A dose lowering technique was utilized adhering to the principles of ALARA. COMPARISON STUDY: None. FINDINGS: Limited views the upper abdomen demonstrate normal liver, spleen, and adrenal glands. There is normal caliber thoracic aorta with no evidence for a dissection. The majority of the left lower lobe subsegmental pulmonary arteries are nondiagnostic due to the motion artifact. Otherwise, no filling defects within the remaining pulmonary arteries to suggest a pulmonary embolus. The right middle lobe arteries are attenuated. There is a large area of decreased enhancement occupying the majority of the right middle lobe with right hilar lymphadenopathy/soft tissue extension. This is best seen on image 139 and measures approximately 6.3 x 6.2 cm. This is highly suspicious for a right middle lobe mass and accounts for the complete occlusion at the proximal right middle lobe bronchus. There is also abnormal soft tissue thickening/lymphadenopathy within the right hilum surrounding the central bronchi which extends into the right side of the mediastinum. There is mucoid impaction seen within the distal right middle lobe and right lower lobe bronchi. Abnormal soft tissue thickening within the right pleura most pronounced within the right upper lobe medially. Additional scattered pleural deposits seen within the right hemithorax. This is consistent with pleural metastatic disease. There is a large right pleural effusion which results in left mediastinal shift and mild mass effect along the right heart. Interstitial thickening within the aerated right upper lobe may represent lymphangitic spread of tumor or congestive change from the mass effect. No left pleural effusion. Abnormal soft tissue/lymphadenopathy also partially encases the trachea and is seen within the subcarinal location. There is a single enlarged right infraclavicular lymph node on image 252 measuring 14 x 10 mm. This likely represents metastatic disease. No suspicious lytic or blastic osseous lesions. Small sclerotic foci at the inferior endplates of the vertebral bodies may be due to the degenerative change. No pneumothorax. Mild emphysema. There are 2 nodules within the base of the left lower lobe measure up to 5 mm. These are concerning for metastatic disease. IMPRESSION: 1. No evidence for a pulmonary embolus. 2. A 6.3 x 6.2 cm mass occupying majority the right middle lobe with soft tissue extension/lymphadenopathy into the right hilum and mediastinum as described above. This is highly suspicious for a primary bronchogenic malignancy. 3. Pleural metastatic disease with a large right pleural effusion resulting in left mediastinal shift and mild mass effect along the right heart border. 4. There are 2 subcentimeter nodules within the base of the left lower lobe which are concerning for metastatic disease.. 5. A single mildly enlarged right infraclavicular lymph node which likely represents metastatic disease. 6. Additional findings as described above. ACT 112: Negative or not required by law. Electronically signed by: Luis Mari M.D. 01/29/2023 1:19 PM Brain MRI 01/29/23 14:25 MRI OF THE BRAIN WITHOUT AND WITH IV CONTRAST CLINICAL HISTORY: Right lung mass. Evaluate for malignancy. COMPARISON STUDY: No previous studies for comparison. TECHNIQUE: Utilizing a 1.5 Lynnette magnet and dedicated coil, multiplanar, multiecho imaging of the brain was performed pre and postcontrast administration. IV administration of Gadavist contrast was uneventful. Thin cut T1 post contrast imaging was performed. FINDINGS: There are no foci of restricted diffusion to suggest acute infarct. No acute intracranial hemorrhage, midline shift or mass effect is present. Ventricular system is normal. Basal cisterns are patent. There are no extra- axial collections. Flow-voids for the major intracranial vessels are present. There is no intracranial mass. Note is made of a focus of susceptibility artifact within the left temporal occipital region shown best on axial images 10 of 22. This does not enhance. This favors minimal old blood products. Mild white matter T2 hyperintense foci suggest minimal small vessel disease. Note is made of a small cortical/subcortical T2 hyperintense focus within the left parietal lobe shown best on coronal FLAIR image 21 and 20. This is minimal linear associated enhancement. This does not have restricted diffusion. Calvarial signal is normal. Minimal sinus mucosal thickening is present. IMPRESSION: 1. No convincing evidence for metastatic disease. 2. Small cortical/subcortical T2 hyperintense focus within the left parietal lobe with minimal linear enhancement. This is nonspecific but favors a small subacute infarct. This can be assessed with a short-term follow-up MRI of the brain in one month to ensure expected evolution. 3. Small focus of susceptibility artifact within the left temporoparietal region which favors minimal old blood products. This can also be assessed on follow-up MRI. ACT 112: Negative or not required by law. Electronically signed by: Gonzalez Kahn M.D. 01/29/2023 7:27 PM Chest X-Ray 01/30/23 07:00 SINGLE VIEW CHEST CLINICAL HISTORY: Chest tube. FINDINGS: An AP, portable, upright chest radiograph is compared to chest x-ray and chest CT dictated 01/29/2023. The cardiomediastinal silhouette is unremarkable noting atherosclerotic calcification of the thoracic aorta. There are calcified mediastinal lymph nodes. A right-sided chest tube is unchanged in position. There is a small residual right pleural effusion with right basilar consolidation. The pleural effusion has continued to decrease in size from yesterday. The left lung appears clear. No pneumothorax is seen. The skeletal structures are osteopenic. The bony thorax is grossly intact. IMPRESSION: 1. A right-sided chest tube is unchanged in position. No pneumothorax is identified. 2. There is a small residual right pleural effusion with right basilar consolidation. This has continued to decrease in size from yesterday. 3. The left lung appears clear ACT 112: Negative or not required by law. Electronically signed by: Luke Evans M.D. 01/30/2023 8:10 AM
[2023-01-30] MEDS ORDERED: OPTIRAY 320 500ml IV ONE (12:16)
--- NOTE | 2023-01-30 16:47 | CT Scan Report ---
CT SCAN OF THE ABDOMEN AND PELVIS WITH IV CONTRAST CLINICAL HISTORY: Lung cancer staging. COMPARISON STUDY: Chest CT dated 01/29/2022. TECHNIQUE: Following the IV administration of 94 cc of Optiray 320, CT scan of the abdomen and pelvi s is performed from the lung bases to the proximal femora. Images are reviewed in the axial, sagittal , and coronal planes. IV contrast was administered without complication. A dose lowering technique wa s utilized adhering to the principles of ALARA. CT DOSE: 266.39 mGy.cm FINDINGS: Lung bases: The heart is normal in size and without pericardial effusion. A large right middle lobe m ass lesion is partially visualized. This measures approximately 7.5 x 4.5 cm as seen on image #1. The re is a small hydropneumothorax at the right lung base. Interlobular septal thickening throughout the right lower lung may represent reexpansion edema. Enhancing metastatic pleural disease is seen at th e right lung base. Basic Acoustic Analyst lesions are seen on images #51 and #83. Atelectasis is seen at the left lung base. There are at least 2 left lower lobe pulmonary nodules which measure up to 6 mm seen on images #86 and #104. There are bilateral fat-containing Bochdalek hernias. Liver: The contrast-enhanced liver is normal in size, contour, and attenuation. There is no intrahepa tic biliary ductal dilatation. The hepatic veins and portal veins are patent. Gallbladder: Partially contracted. Spleen: Normal in size and attenuation. Pancreas: Unremarkable. Adrenal glands: Unremarkable. Kidneys: The contrast enhanced kidneys are normal in size and without hydronephrosis. The kidneys enh ance symmetrically. A 12 mm cyst is noted on the right. Abdominal vasculature: There is advanced atherosclerotic calcification and ectasia of the abdominal a rosario. Bowel: There is advanced colonic diverticulosis without CT evidence of acute diverticulitis. No bowel obstruction is seen. The appendix is not visualized. Peritoneum: There is no intraperitoneal free air or abdominal ascites. Lymphadenopathy: There is abnormal soft tissue in the right cardiophrenic sulcus seen on image #65 wh ich measures 3.0 x 1.6 cm. Additional enlarged cardiophrenic lymph nodes are seen on image #63. No ad ditional enlarged lymph nodes are identified in the abdomen or pelvis. Pelvic viscera: The bladder is normal as visualized, and filled with excreted IV contrast. The uterus and adnexa are normal as imaged Skeletal structures: The skeletal structures are osteopenic. No lytic or blastic lesions are seen. IMPRESSION: 1. A large mass lesion is partially visualized in the right middle lobe. 2. There is metastatic pleural disease at the right lung base. 3. There is a small hydropneumothorax at the right lung base. 4. Intralobular septal thickening throughout the right lower lobe may represent reexpansion edema. 5. There are 2 pathologically indeterminate nodules at the left lung base which measured a 6 mm. [place] static deposits are on excluded 6. There is abnormal soft tissue in the right cardiophrenic sulcus a mildly enlarged right cardiophre monique lymph nodes. This likely represents metastatic disease. 7. No additional findings are suspicious for metastatic disease in the abdomen or pelvis. 8. Colonic diverticulosis without CT evidence of acute diverticulitis. 9. Additional findings as above. ACT 112: Negative or not required by law. Electronically signed by: Luke Evans M.D. 01/30/2023 4:45 PM
[2023-01-30] MEDS ORDERED: NICOTINE 14 MG/24 HR PATCH TD SCH (22:40)
[2023-01-30] MEDS ORDERED: NICOTINE POLACRILEX 2 MG GUM MT PRN (23:07)
[2023-01-31 07:41] LABS: Basophils # (auto) 0.04 K/uL (0-0.2); Basophils % (auto) 0.5 %; Eosinophils # (auto) 0.38 K/uL (0-0.50); Eosinophils % (auto) 4.7 %; Hematocrit (blood only) 38.6 % (37.0-47.0); Hemoglobin 12.5 g/dl (12.0-16.0); Immature Granulocytes # (auto) 0.05 K/uL (0.01-0.20); Immature Granulocytes % (auto) 0.6 %; Lymphocytes # (auto) 1.02 K/uL (1.2-3.4); Lymphocytes % (auto) 12.6 %; Mean Corpuscular Hemoglobin 28.6 pg (25.0-34.0); Mean Corpuscular Hgb Conc 32.4 g/dL (32.0-36.0); Mean Corpuscular Volume 88.3 fL (80.0-100.0); Mean Platelet Volume 8.8 fL (9.4-12.4); Monocytes # (auto) 0.84 K/uL (0.11-0.59); Monocytes % (auto) 10.4 %; Neutrophils # (auto) 5.78 K/uL (1.40-6.50); Neutrophils % (auto) 71.2 %; Platelet Count 456 K/uL (130-400); RDW Standard Deviation 42.2 fL (36.4-46.3); Red Blood Count 4.37 M/uL (4.20-5.40); White Blood Count 8.11 K/ul (4.8-10.8)
[2023-01-31 08:09] LABS: Albumin Globulin Ratio 0.8 (0.9-2); Albumin Level 2.8 gm/dl (3.4-5.0); BUN Creatinine Ratio 16.7 (10-20); Bilirubin,Total 0.4 mg/dl (0.2-1.0); Calcium 8.4 mg/dl (8.6-10.3); Creatinine Clr Calc Pharmacy 72.2 ml/min; Est GFR (African American) 105.5 ml/min; Globulin 3.3 gm/dl (2.5-4.0); Potassium 4.6 mmol/L (3.5-5.1); Total Protein 6.1 gm/dl (6.0-8.3)
[2023-01-31] MEDS: ENOXAPARIN INJ 40 MG/0.4 ML SYR SQ SCH (09:15)
--- NOTE | 2023-01-31 11:05 | Hospitalist Progress Note ---
Date of Service January 31, 2023 Assessment & Plan (1) Pulmonary mass: (2) Acute respiratory failure with hypoxia: (3) Pleural effusion: Plan: Patient is a 77-year-old female with no known past medical history who presented to the ED with increasing shortness of breath for last 1 month. On presentation to the ED, patient was vitally stable; was saturating at 85% on room air. Chest x-ray from admission personally reviewed; large right-sided pleural effusion. CTA chest was done which showed A 6.3 x 6.2 cm mass occupying majority the right middle lobe with soft tissue extension/lymphadenopathy into the right hilum and mediastinum; pleural metastatic disease with large right-sided pleural effusion with left mediastinal shift was seen. 2 subcentimeter nodules at base of left lower lobe was seen. Also, single mildly enlarged right infraclavicular lymph node was present. Patient underwent chest tube placement with pigtail catheter by pulmonology on the same day of admission. Total output of 2700 cc Follow-up x-ray from 01/30 personally reviewed; pleural effusion significantly improved. Chest tube was removed on 01/30. Pulmonology signed off; to follow-up as outpatient. MRI brain does not reveal any evidence of metastatic disease. Finding concerning of nonspecific T2 hyperintense focus within left parietal lobe. Also, a small focus of susceptibility artifact within the left temporoparietal region which favors minimal old blood products. Follow-up MRI recommended in 1 month. Discussed with oncology (Dr. Ricketts); patient to follow-up as outpatient. Await cytology. Also recommended to obtain CT abdomen/pelvis inpatient for full staging. CT abdomen pelvis done; no additional findings suspicious of metastatic disease in the abdomen or pelvis. Monitor oxygen saturation; supplemental oxygen as needed to keep saturation over 90%. (4) Osteoarthritis: Plan: - Stable, uses tylenol occasionally. Involves hands. DVT PPx: -Lovenox. CODE: Full code Disposition: patient lives alone with no family or friends in the area. She reports that her daughter is admitted in a hospital in [place]. Her son is in [place]. Patient does not drive. Patient is interested in assisted/independent living facility till she gets her cancer treatment. PT evaluation done; OT evaluation pending. I offered to call her son for an update again today; patient wanted to talk with him first. Will need two-step oxygen evaluation before discharge. Time spent evaluating patient, direct bedside care, chart review, placing orders, interpretation of diagnostic studies, discussion with consultants, patient, and family members, as well as other required patient management activities is 60 minutes. Please note the above document was generated using voice recognition software. It may contain grammatical, syntax or spelling errors. Any formal questions or concerns about the content, text or information contained within the body of this dictation should be directly addressed to the provider for clarification Admission and Anticipated Discharge Date Admission Date: January 29, 2023 Subjective Patient seen and examined at bedside. She reports she has not been able to sleep well. She reports pain at the site of chest tube insertion. Denies increasing shortness of breath. She is saturating well at room air Physical Exam Physical Exam: General: awake, alert, no apparent distress, thin Head: Normocephalic, atraumatic ENT: PERRL, EOMI, no pharyngeal exudate, mucous membranes moist, no cervical lymphadenopathy Chest: Clear breath sound heard in right upper and middle lung field. Slight decreased breath sound on right lower lung field. Clear breath sound on left lung field. Cardiac: Sinus tachycardia, no murmur, no JVD, normal peripheral pulses, good capillary refill Abdominal: NABS x 4 quadrants, soft, nondistended, nontender to palpation, no rebound or guarding, no hepatomegaly, no splenomegaly Extremities: Normal inspection, no peripheral edema or erythema, calfs nontender to palpation Psych: Normal mood and affect, slightly anxious when discussing procedures Neuro: AAO x 3, strength intact bilaterally and rated 5/5, no motor deficits, speech is clear, no peripheral sensory deficits Results & Data Results & Data Vital Signs (Past 12 Hours) Vital Signs Temp Pulse Pulse Resp BP BP Pulse Ox 01/31/23 06:00 86 01/31/23 07:24 36.9 C 68 17 129/82 92 01/31/23 03:19 36.8 C 73 18 117/65 93 01/31/23 02:52 77 01/30/23 23:53 36.9 C 88 18 116/68 93 O2 Del Method 01/31/23 06:00 01/31/23 07:24 Room Air 01/31/23 03:19 Room Air 01/31/23 02:52 01/30/23 23:53 Room Air Laboratory Results Laboratory Results WBC 8.11 K/ul (4.8-10.8) 01/31/23 07:21 RBC 4.37 M/uL (4.20-5.40) 01/31/23 07:21 Hgb 12.5 g/dl (12.0-16.0) 01/31/23 07:21 Hct 38.6 % (37.0-47.0) 01/31/23 07:21 MCV 88.3 fL (80.0-100.0) 01/31/23 07:21 MCH 28.6 pg (25.0-34.0) 01/31/23 07: MCHC 32.4 g/dL (32.0-36.0) 01/31/23 07: RDW Std Deviation 42.2 fL (36.4-46.3) 01/31/23 07: RDW Coeff of Leanna 13.0 % (11.5-14.5) 01/31/23 07: Plt Count 456 K/uL (130-400) H 01/31/23 07:21 MPV 8.8 fL (9.4-12.4) L 01/31/23 07:21 Immature Gran % (Auto) 0.6 % 01/31/23 07:21 Neut % (Auto) 71.2 % 01/31/23 07:21 Lymph % (Auto) 12.6 % 01/31/23 07:21 [place] % (Auto) 10.4 % 01/31/23 07:21 Eos % (Auto) 4.7 % 01/31/23 07:21 Baso % (Auto) 0.5 % 01/31/23 07:21 Neut # (Auto) 5.78 K/uL (1.40-6.50) 01/31/23 07:21 Lymph # (Auto) 1.02 K/uL (1.2-3.4) L 01/31/23 07:21 [place] # (Auto) 0.84 K/uL (0.11-0.59) H 01/31/23 07:21 Eos # (Auto) 0.38 K/uL (0-0.50) 01/31/23 07:21 Baso # (Auto) 0.04 K/uL (0-0.2) 01/31/23 07:21 Immature Gran # (Auto) 0.05 K/uL (0.01-0.20) 01/31/23 07:21 PT 11.2 Seconds (9.0-12.0) 01/29/23 10:50 INR 1.0 (0.9-1.1) 01/29/23 10:50 APTT 24.2 Seconds (21.0-31.0) 01/29/23 10:50 PTT Ratio 0.9 01/29/23 10:50 VBG pH 7.43 (7.36-7.41) H 01/29/23 12:15 VBG pCO2 37 mmHg (38-50) L 01/29/23 12:15 VBG pO2 42 mmHg 01/29/23 12:15 VBG HCO3 25 mmol/L 01/29/23 12:15 VBG O2 Saturation 75.1 % 01/29/23 12:15 VBG Base Excess 0.5 mEq/L 01/29/23 12:15 Sodium 142 mmol/L (136-145) 01/31/23 07:21 Potassium 4.6 mmol/L (3.5-5.1) D 01/31/23 07:21 Chloride 109 mmol/L (98-107) H 01/31/23 07:21 Carbon Dioxide 29 mmol/L (21-32) 01/31/23 07:21 Anion Gap 4 (3-11) 01/31/23 07:21 BUN 9 mg/dl (6-23) 01/31/23 07:21 Creatinine 0.54 mg/dl (0.6-1.2) L 01/31/23 07:21 Est Cr Clr Drug Dosing 72.2 ml/min 01/31/23 07:21 Est GFR ( Amer) 105.5 ml/min 01/31/23 07:21 Est GFR (Non-Af Amer) 91.0 ml/min 01/31/23 07:21 BUN/Creatinine Ratio 16.7 (10-20) 01/31/23 07:21 Glucose 93 mg/dl (70-99(Fasting)) 01/31/23 07:21 Lactate 1.4 mmol/L (0.4-2.0) 01/29/23 12:14 Calcium 8.4 mg/dl (8.6-10.3) L 01/31/23 07:21 Phosphorus 3.3 mg/dl (2.5-4.9) 01/30/23 08:12 Magnesium 1.8 mg/dl (1.7-2.4) 01/30/23 08:12 Total Bilirubin 0.4 mg/dl (0.2-1.0) 01/31/23 07:21 Direct Bilirubin 0.1 mg/dl (0-0.2) 01/29/23 10:50 AST 15 U/L (13-39) 01/31/23 07:21 ALT 17 U/L (7-52) 01/31/23 07:21 Alkaline Phosphatase 54 U/L (34-104) 01/31/23 07:21 Troponin I High Sens 8.9 pg/ml (0-14) 01/29/23 10:50 B-Natriuretic Peptide 165 pg/ml (0-100) H 01/29/23 12:05 Total Protein 6.1 gm/dl (6.0-8.3) 01/31/23 07:21 Albumin 2.8 gm/dl (3.4-5.0) L 01/31/23 07:21 Globulin 3.3 gm/dl (2.5-4.0) 01/31/23 07:21 Albumin/Globulin Ratio 0.8 (0.9-2) L 01/31/23 07:21 Triglycerides 88 mg/dl (0-150) 01/30/23 08:12 Cholesterol 126 mg/dl (0-200) 01/30/23 08:12 LDL Cholesterol, Calc 76 mg/dl 01/30/23 08:12 VLDL Cholesterol, Calc 18 mg/dl (0-30) 01/30/23 08:12 HDL Cholesterol 32 mg/dl 01/30/23 08:12 Cholesterol/HDL Ratio 3.9 (0-5) 01/30/23 08:12 Procalcitonin < 0.05 ng/ml (0-0.5) 01/29/23 10:50 Urine Color Dark Yellow 01/29/23 Unknown Urine Appearance Clear (Clear) 01/29/23 Unknown Urine pH 5.0 (4.5-7.5) 01/29/23 Unknown Ur Specific [place] > 1.045 (1.000-1.030) H 01/29/23 Unknown Urine Protein Trace (Negative) H 01/29/23 Unknown Urine Glucose (UA) Negative (Negative) 01/29/23 Unknown Urine Ketones Negative (Negative) 01/29/23 Unknown Urine Blood Negative (Negative) 01/29/23 Unknown Urine Nitrite Negative (Negative) 01/29/23 Unknown Urine Bilirubin Negative (Negative) 01/29/23 Unknown Urine Urobilinogen Negative (Negative) 01/29/23 Unknown Ur Leukocyte Esterase Negative (Negative) 01/29/23 Unknown Urine WBC (Auto) 1-5 /hpf (0-5) 01/29/23 Unknown Urine RBC (Auto) 0-4 /hpf (0-4) 01/29/23 Unknown U Hyaline Cast (Auto) 1-5 /lpf (0-5) 01/29/23 Unknown U Epithel Cells (Auto) 20-30 /lpf (0-5) H 01/29/23 Unknown Urine Bacteria (Auto) Negative (Negative) 01/29/23 Unknown Fluid Neutrophils % 8 % 01/29/23 15:00 Fluid Lymphocytes % 57 % 01/29/23 15:00 Fluid [place] % 35 % 01/29/23 15:00 Fluid Comment 01/29/23 15:00 Pleural Fluid Source Right Lung 01/29/23 15:00 Pleural Color Yellow 01/29/23 15:00 Pleural Appearance Clear 01/29/23 15:00 Pleural pH 7.44 (7.3-7.4) H 01/29/23 15:00 Pleural WBC (Auto) 1945 /uL 01/29/23 15:00 Pleural RBC (Auto) 2000 /uL 01/29/23 15:00 Pleural Total Protein 5.3 gm/dl 01/29/23 15:00 Pleural LDH 331 U/L 01/29/23 15:00 Pleural Glucose 100 mg/dl 01/29/23 15:00 SARS-CoV-2 (PCR) NEGATIVE (Negative) 01/29/23 10:45 Influenza Type A (PCR) Negative (Neg) 01/29/23 10:45 Influenza Type B (PCR) Negative (Neg) 01/29/23 10:45 RSV (RT-PCR) Negative (Neg) 01/29/23 10:45 Impressions Chest CTA 01/29/23 11:47 CHEST CTA for PULMONARY ARTERIES CT DOSE: 255.55 mGy.cm HISTORY: Shortness of breath. TECHNIQUE: Multiaxial CT images of the chest were performed following the intravenous administration of contrast to evaluate the pulmonary arteries. Maximal intensity projection images were also obtained. A dose lowering technique was utilized adhering to the principles of ALARA. COMPARISON STUDY: None. FINDINGS: Limited views the upper abdomen demonstrate normal liver, spleen, and adrenal glands. There is normal caliber thoracic aorta with no evidence for a dissection. The majority of the left lower lobe subsegmental pulmonary arteries are nondiagnostic due to the motion artifact. Otherwise, no filling defects within the remaining pulmonary arteries to suggest a pulmonary embolus. The right middle lobe arteries are attenuated. There is a large area of decreased enhancement occupying the majority of the right middle lobe with right hilar lymphadenopathy/soft tissue extension. This is best seen on image 139 and measures approximately 6.3 x 6.2 cm. This is highly suspicious for a right middle lobe mass and accounts for the complete occlusion at the proximal right middle lobe bronchus. There is also abnormal soft tissue thickening/lymphadenopathy within the right hilum surrounding the central bronchi which extends into the right side of the mediastinum. There is mucoid impaction seen within the distal right middle lobe and right lower lobe bronchi. Abnormal soft tissue thickening within the right pleura most pronounced within the right upper lobe medially. Additional scattered pleural deposits seen within the right hemithorax. This is consistent with pleural metastatic disease. There is a large right pleural effusion which results in left mediastinal shift and mild mass effect along the right heart. Interstitial thickening within the aerated right upper lobe may represent lymphangitic spread of tumor or congestive change from the mass effect. No left pleural effusion. Abnormal soft tissue/lymphadenopathy also partially encases the trachea and is seen within the subcarinal location. There is a single enlarged right infraclavicular lymph node on image 252 measuring 14 x 10 mm. This likely represents metastatic disease. No suspicious lytic or blastic osseous lesions. Small sclerotic foci at the inferior endplates of the vertebral bodies may be due to the degenerative change. No pneumothorax. Mild emphysema. There are 2 nodules within the base of the left lower lobe measure up to 5 mm. These are concerning for metastatic disease. IMPRESSION: 1. No evidence for a pulmonary embolus. 2. A 6.3 x 6.2 cm mass occupying majority the right middle lobe with soft tissue extension/lymphadenopathy into the right hilum and mediastinum as described above. This is highly suspicious for a primary bronchogenic malignancy. 3. Pleural metastatic disease with a large right pleural effusion resulting in left mediastinal shift and mild mass effect along the right heart border. 4. There are 2 subcentimeter nodules within the base of the left lower lobe which are concerning for metastatic disease.. 5. A single mildly enlarged right infraclavicular lymph node which likely represents metastatic disease. 6. Additional findings as described above. ACT 112: Negative or not required by law. Electronically signed by: Luis Mari M.D. 01/29/2023 1:19 PM Brain MRI 01/29/23 14:25 MRI OF THE BRAIN WITHOUT AND WITH IV CONTRAST CLINICAL HISTORY: Right lung mass. Evaluate for malignancy. COMPARISON STUDY: No previous studies for comparison. TECHNIQUE: Utilizing a 1.5 Lynnette magnet and dedicated coil, multiplanar, multiecho imaging of the brain was performed pre and postcontrast administration. IV administration of Gadavist contrast was uneventful. Thin cut T1 post contrast imaging was performed. FINDINGS: There are no foci of restricted diffusion to suggest acute infarct. No acute intracranial hemorrhage, midline shift or mass effect is present. Ventricular system is normal. Basal cisterns are patent. There are no extra- axial collections. Flow-voids for the major intracranial vessels are present. There is no intracranial mass. Note is made of a focus of susceptibility artifact within the left temporal occipital region shown best on axial images 10 of 22. This does not enhance. This favors minimal old blood products. Mild white matter T2 hyperintense foci suggest minimal small vessel disease. Note is made of a small cortical/subcortical T2 hyperintense focus within the left parietal lobe shown best on coronal FLAIR image 21 and 20. This is minimal linear asso ciated enhancement. This does not have restricted diffusion. Calvarial signal is normal. Minimal sinus mucosal thickening is present. IMPRESSION: 1. No convincing evidence for metastatic disease. 2. Small cortical/subcortical T2 hyperintense focus within the left parietal lobe with minimal linear enhancement. This is nonspecific but favors a small subacute infarct. This can be assessed with a short-term follow-up MRI of the brain in one month to ensure expected evolution. 3. Small focus of susceptibility artifact within the left temporoparietal region which favors minimal old blood products. This can also be assessed on follow-up MRI. ACT 112: Negative or not required by law. Electronically signed by: Gonzalez Kahn M.D. 01/29/2023 7:27 PM Chest X-Ray 01/30/23 07:00 SINGLE VIEW CHEST CLINICAL HISTORY: Chest tube. FINDINGS: An AP, portable, upright chest radiograph is compared to chest x-ray and chest CT dictated 01/29/2023. The cardiomediastinal silhouette is unremarkable noting atherosclerotic calcification of the thoracic aorta. There are calcified mediastinal lymph nodes. A right-sided chest tube is unchanged in position. There is a small residual right pleural effusion with right basilar consolidation. The pleural effusion has continued to decrease in size from yesterday. The left lung appears clear. No pneumothorax is seen. The skeletal structures are osteopenic. The bony thorax is grossly intact. IMPRESSION: 1. A right-sided chest tube is unchanged in position. No pneumothorax is identified. 2. There is a small residual right pleural effusion with right basilar consolidation. This has continued to decrease in size from yesterday. 3. The left lung appears clear ACT 112: Negative or not required by law. Electronically signed by: Luke Evans M.D. 01/30/2023 8:10 AM Abdomen/Pelvis CT 01/30/23 12:00 CT SCAN OF THE ABDOMEN AND PELVIS WITH IV CONTRAST CLINICAL HISTORY: Lung cancer staging. COMPARISON STUDY: Chest CT dated 01/29/2022. TECHNIQUE: Following the IV administration of 94 cc of Optiray 320, CT scan of the abdomen and pelvis is performed from the lung bases to the proximal femora. Images are reviewed in the axial, sagittal, and coronal planes. IV contrast was administered without complication. A dose lowering technique was utilized a dhering to the principles of ALARA. CT DOSE: 266.39 mGy.cm FINDINGS: Lung bases: The heart is normal in size and without pericardial effusion. A large right middle lobe mass lesion is partially visualized. This measures approximately 7.5 x 4.5 cm as seen on image #1. There is a small hydropneumothorax at the right lung base. Interlobular septal thickening throughout the right lower lung may represent reexpansion edema. Enhancing metastatic pleural disease is seen at the right lung base. Email Campaign Manager lesions are seen on images #51 and #83. Atelectasis is seen at the left lung base. There are at least 2 left lower lobe pulmonary nodules which measure up to 6 mm seen on images #86 and #104. There are bilateral fat-containing Bochdalek hernias. Liver: The contrast-enhanced liver is normal in size, contour, and attenuation. There is no intrahepatic biliary ductal dilatation. The hepatic veins and portal veins are patent. Gallbladder: Partially contracted. Spleen: Normal in size and attenuation. Pancreas: Unremarkable. Adrenal glands: Unremarkable. Kidneys: The contrast enhanced kidneys are normal in size and without hydronephrosis. The kidneys enhance symmetrically. A 12 mm cyst is noted on the right. Abdominal vasculature: There is advanced atherosclerotic calcification and ectasia of the abdominal aorta. Bowel: There is advanced colonic diverticulosis without CT evidence of acute diverticulitis. No bowel obstruction is seen. The appendix is not visualized. Peritoneum: There is no intraperitoneal free air or abdominal ascites. Lymphadenopathy: There is abnormal soft tissue in the right cardiophrenic sulcus seen on image #65 which measures 3.0 x 1.6 cm. Additional enlarged cardiophrenic lymph nodes are seen on image #63. No additional enlarged lymph nodes are identified in the abdomen or pelvis. Pelvic viscera: The bladder is normal as visualized, and filled with excreted IV contrast. The uterus and adnexa are normal as imaged Skeletal structures: The skeletal structures are osteopenic. No lytic or blastic lesions are seen. IMPRESSION: 1. A large mass lesion is partially visualized in the right middle lobe. 2. There is metastatic pleural disease at the right lung base. 3. There is a small hydropneumothorax at the right lung base. 4. Intralobular septal thickening throughout the right lower lobe may represent reexpansion edema. 5. There are 2 pathologically indeterminate nodules at the left lung base which measured a 6 mm. Metastatic deposits are on excluded 6. There is abnormal soft tissue in the right cardiophrenic sulcus a mildly enlarged right cardiophrenic lymph nodes. This likely represents metastatic disease. 7. No additional findings are suspicious for metastatic disease in the abdomen or pelvis. 8. Colonic diverticulosis without CT evidence of acute diverticulitis. 9. Additional findings as above. ACT 112: Negative or not required by law. Electronically signed by: Luke Evans M.D. 01/30/2023 4:45 PM
[2023-02-01] MEDS ORDERED: MELATONIN 3 MG TAB PO PRN (02:36)
[2023-02-01 06:42] LABS: Basophils # (auto) 0.03 K/uL (0-0.2); Basophils % (auto) 0.4 %; Eosinophils # (auto) 0.33 K/uL (0-0.50); Hematocrit (blood only) 37.8 % (37.0-47.0); Hemoglobin 12.5 g/dl (12.0-16.0); Immature Granulocytes # (auto) 0.04 K/uL (0.01-0.20); Immature Granulocytes % (auto) 0.5 %; Lymphocytes % (auto) 15.7 %; Mean Corpuscular Hemoglobin 28.5 pg (25.0-34.0); Mean Corpuscular Hgb Conc 33.1 g/dL (32.0-36.0); Mean Corpuscular Volume 86.3 fL (80.0-100.0); Mean Platelet Volume 8.9 fL (9.4-12.4); Monocytes # (auto) 0.93 K/uL (0.11-0.59); Monocytes % (auto) 11.2 %; Neutrophils # (auto) 5.65 K/uL (1.40-6.50); Neutrophils % (auto) 68.2 %; Platelet Count 446 K/uL (130-400); RDW Coefficient of Variation 12.7 % (11.5-14.5); RDW Standard Deviation 39.9 fL (36.4-46.3); Red Blood Count 4.38 M/uL (4.20-5.40); White Blood Count 8.28 K/ul (4.8-10.8)
[2023-02-01 07:02] LABS: Albumin Globulin Ratio 0.8 (0.9-2); Albumin Level 2.8 gm/dl (3.4-5.0); BUN Creatinine Ratio 14.6 (10-20); Bilirubin,Total 0.4 mg/dl (0.2-1.0); Calcium 8.6 mg/dl (8.6-10.3); Creatinine Clr Calc Pharmacy 81.2 ml/min; Est GFR (African American) 109.7 ml/min; Est GFR (Non-African American) 94.6 ml/min; Globulin 3.4 gm/dl (2.5-4.0); Potassium 4.5 mmol/L (3.5-5.1); Total Protein 6.2 gm/dl (6.0-8.3)
[2023-02-01] MEDS: ENOXAPARIN INJ 40 MG/0.4 ML SYR SQ SCH (09:53)
--- NOTE | 2023-02-01 13:26 | Discharge Summary ---
Date of Service February 01, 2023 Admission HPI Per Admitting Provider This is a 77-year-old female with PMHx of remote tobacco use history who presents from urgent care clinic due to hypoxia. This morning she presented to urgent care facility as her breathing was not improving. They assumed a possible pneumonia, but referred her to the hospital because of hypoxia. Reports that she noticed shortness of breath with playing with her daughters dog about 1 month ago, and that she couldn't do as much at one time. Within the past week her breathing worsened on exertion. She figured this was COVID infection as a few days ago she was coughing up white mucous, and felt better when it was expectorated, she is intermittently feeling nauseous as well. Denies vomiting. Reports eating and drinking alright, used to to cook daily, but within the past week her energy is down and hasn't felt up to it. Pt states she is losing weight, used to weight about 135 lbs, but within the past year knows she has been losing a lot of weight - however is blaming this on her daughters bipolar medical issues, whom she lived with for about a year. Admits to having night sweats, denies known lymphadenopathy. Pt does not use any medications at baseline, and did not use any over the counter medications for her symptoms. Pt has not seen a doctor in 40 years because she hasn't needed anything. Pt hates being in the hospital and feels quite anxious but does not want any medication for anxiety as she states these meds normally hype her up even more. She has not gotten routine mammography or colonoscopy in her adult life. Previously Kera smoked for 40 years, about 10 cigarettes daily and quit about 10 years ago, and then used the nicotine lozenger. Pt reports she hasn't used them in a few weeks mostly be cause she hasn't felt like herself. Here in the ER she is found to have a chest x-ray showing a large right-sided pleural effusion, on further imaging with a CTA she is found to have a right sided mass measuring 6.3 x 6.2 cm large which occupies the majority of the RML with soft tissue extension and lymphadenopathy into the right hilum and mediastinum, as well as 2 nodules in the left lower lobe concerning for malignancy. Pleural metastatic disease with a large right pleural effusion resulting in left mediastinal shift and mild mass effect along the right heart border. Family Hx Mother at age 46 in the war from TB Father at age 96, smoked, no medical issues Surgical Hx x 2 Tonsillectomy Social Hx Pt states that she lives here independently, has a large house, is but has children. 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 She previously resided in [place]. Her two children, one son lives in [place], [place], and her daughter is in [place] but states she has medical issues of her own. Admission Exam Per Admitting Provider General: awake, alert, no apparent distress, thin Head: Normocephalic, atraumatic ENT: PERRL, EOMI, no pharyngeal exudate, mucous membranes moist, no cervical lymphadenopathy Chest: Absent breath sounds on the right side in lower and middle lobes, on 2 L via NC with sats at 96%,, no adventitious breath sounds, no axillary lymphadenopathy, erythematous rash underneath the right breast. Cardiac: Sinus tachycardia, no murmur, no JVD, normal peripheral pulses, good capillary refill Abdominal: NABS x 4 quadrants, soft, nondistended, nontender to palpation, no rebound or guarding, no hepatomegaly, no splenomegaly Extremities: Normal inspection, no peripheral edema or erythema, calfs nontender to palpation Psych: Normal mood and affect, slightly anxious when discussing procedures Neuro: AAO x 3, strength intact bilaterally and rated 5/5, no motor deficits, speech is clear, no peripheral sensory deficits Principal Diagnosis (1) Pulmonary mass: (2) Acute respiratory failure with hypoxia: (3) Pleural effusion s/p Chest tube placement with removal of 2700cc. Discharge Exam General: awake, alert, no apparent distress, thin Head: Normocephalic, atraumatic ENT: PERRL, EOMI, no pharyngeal exudate, mucous membranes moist, no cervical lymphadenopathy Chest: Clear breath sound heard in right upper and middle lung field. Slight decreased breath sound on right lower lung field. Clear breath sound on left lung field. Cardiac: Sinus tachycardia, no murmur, no JVD, normal peripheral pulses, good capillary refill Abdominal: NABS x 4 quadrants, soft, nondistended, nontender to palpation, no rebound or guarding, no hepatomegaly, no splenomegaly Extremities: Normal inspection, no peripheral edema or erythema, calfs nontender to palpation Psych: Normal mood and affect, slightly anxious when discussing procedures Neuro: AAO x 3, strength intact bilaterally and rated 5/5, no motor deficits, speech is clear, no peripheral sensory deficits Discharge Data Allergies Allergy/AdvReac Type Severity Reaction Status Date / Time No Known Allergies Allergy Mild Unverified 07/02/07 17:53 Consultations 01/29/23 13:32 ED Decision to Admit Stat 01/29/23 13:45 Consult Oncology Routine 01/29/23 14:23 Consult Pulmonology Routine Ordered Studies 01/29/23 11:47 CT angio chest PE protocol Stat 01/29/23 14:25 MRI Brain [MR brain wo/w con] Stat sono, invasive monitoring [US point of care ultrasound] Routine 01/30/23 12:00 CT Abd and Pelvis [CT abd pelvis IV con only] Routine Hospital Course (1) Pulmonary mass: (2) Acute respiratory failure with hypoxia: (3) Pleural effusion: (4) Osteoarthritis: Patient is a 77-year-old female with no known past medical history who presented to the ED with increasing shortness of breath for last 1 month. On presentation to the ED, patient was vitally stable; was saturating at 85% on room air. Chest x-ray from admission showed large right-sided pleural effusion. CTA chest was done which showed A 6.3 x 6.2 cm mass occupying majority the right middle lobe with soft tissue extension/lymphadenopathy into the right hilum and mediastinum; pleural metastatic disease with large right-sided pleural effusion with left mediastinal shift was seen. 2 subcentimeter nodules at base of left lower lobe was seen. Also, single mildly enlarged right infraclavicular lymph node was present. Patient underwent chest tube placement with pigtail catheter by pulmonology on the same day of admission. Total output of 2700 cc Follow-up x-ray from 01/30 personally reviewed; pleural effusion significantly improved. Chest tube was removed on 01/30. Pulmonology signed off; to follow-up as outpatient. MRI brain does not reveal any evidence of metastatic disease. Finding concerning of nonspecific T2 hyperintense focus within left parietal lobe. Also, a small focus of susceptibility artifact within the left temporoparietal region which favors minimal old blood products. Follow-up MRI recommended in 1 month. Oncology evaluated the patient; patient to follow-up as outpatient. Await cytology. Also recommended to obtain CT abdomen/pelvis inpatient for full staging. CT abdomen pelvis done; no additional findings suspicious of metastatic disease in the abdomen or pelvis. Two-step oxygen evaluation was done; patient did not require any supplemental oxygen. Patient discussed with shelter case manager to arrange for oxygen as she feels that she will feel more short of breath at home. An appointment was made with a primary care doctor to establish care. Patient's son was called for update on her request; voice message left for call back. rack worker to work on home health. Please note the above document was generated using voice recognition software. It may contain grammatical, syntax or spelling errors. Any formal questions or concerns about the content, text or information contained within the body of this dictation should be directly addressed to the provider for clarification Total Time Total Time Spent Total Time Spent (In Minutes): 45 Total Time Includes: Examination of the Patient, Discharge Planning, Medication Reconciliation, Communication With Other Providers and Other Discharge Plan Discharge Items Patient Disposition: Home - Home Health Services Reason For Visit: PLEURAL MASS AND EFFUSION Discharge Diagnosis: Pulmonary mass Acute respiratory failure with hypoxia Malignant pleural effusion status post chest tube placement with removal of 2700 cc fluid. Activity: Resume your previous activity Non-emergency contact: Primary Care Provider Call non-emergency contact if: you have any medication questions and your symptoms worsen Follow-up/Referrals: Shukri Pringle MD [Physician] - (Dr Pringle's office is aware of your discharge, and will call you with a follow up appointment. Please call the office if you do not hear from them.) Corbin Hackett DO [Outside Practitioners] - (Date & Time 02/05/2023 12:00 PM Provider Corbin Hackett DO Department Family [facility] ) Bernadine Ricketts MD [Physician] - (Dr Ricketts's office is aware of your discharge, and will call you with a follow up appointment. If you do not hear from them, please call the office. ) Diet: Regular Addtl Attending Provider Instructions: You were admitted to the hospital with increasing shortness of breath. CT scan of the chest showed a 6.3 x 6.2 cm mass occupying majority the right middle lobe. You also had a large fluid collection outside of the covering of lung in pleural space. 2700 mL of fluid was taken out by Dr. Pringle ( Lung Doctor). The fluid is sent to the pathology lab for further assessment. Dr. Pringle will follow-up on the results. You will be called with the appointment in the clinic. Also, Dr. Ricketts ( Oncology) saw you during your hospitalization. You will also have follow-up with her in 1 to 2 weeks. The office will call you with appointment date. MRI brain during the hospitalization does not reveal any evidence of metastatic disease. Finding concerning of nonspecific T2 hyperintense focus within left parietal lobe. Also, a small focus of susceptibility artifact within the left temporoparietal region which favors minimal old blood products. Follow-up MRI recommended in 1 month. Please discuss this with your primary care doctor. An appointment is made for you with a primary care doctor to establish care. The appointment is with Dr. Hackett on February 05 at 12 PM. Please go to the appointment. You can use Tylenol as needed for pain control. You can use melatonin as needed at night for sleep. Pending Studies at Discharge: Yes Studies:: Cytology from pleural fluid analysis Stand-Alone Forms: My [facility] [employer], Smoking Cessation Medications and DC Order Prescriptions: New acetaminophen 325 mg Tablet 650 mg PO Q4H PRN (Reason: fever or pain) Qty: 60 0RF melatonin 3 mg Tablet 3 mg PO HS PRN (Reason: sleep) Qty: 30 0RF Discontinued NONE . Qty: 0 Discharge Orders: Discharge Order (Routine); Ordered 02/01/23 Ordered By: Sumit Boo Admission Data Admit Date/Time: 01/29/23 13:45 Attending Provider: Sumit Boo Admit Provider: Abril Hui Primary Care Provider: PCP,NO Other Providers: Bernadine Ricketts ; Shukri Pringle ; Abril Hui ; [facility],Home Health Other Interventions: Discharge Summary Assessment (RN) Last Done: 02/01/23 13:16
== END 2023-02-01 14:44 | disposition home health service (06) | DRG 180 ==
LOC: ED 10:35 → 2S 13:45 → SUATTDRO 13:45 → 2S 17:57

== ENCOUNTER 2023-03-16 15:31 | Inpatient (IN) ==
--- NOTE | 2023-03-16 16:10 | Emergency Department Note ---
Impression & Plan Elevated troponin ADMIT ED Provider Note HPI: The patient is a 77-year-old female with history of non-small cell lung cancer, currently on Keytruda, presented to the emergency department with a chief complaint of rash. Patient states over the past several days she developed a diffuse erythematous macular rash to the lower extremities and torso as well as the bilateral upper extremities. Patient denies any recent fevers, denies any chest pain or shortness of breath. Patient states that she noted her blood pressure was high today as well, she contacted her hematology provider's office, Dr. Ricketts, and she was advised to come to the emergency department to be as sessed. On arrival here to the ED the patient is mildly tachycardic at 110, blood pressure is elevated at 174/116 on initial check. Patient denies any chest pain or shortness of breath and is otherwise well-appearing on my initial assessment. She is alert and oriented x3 and does not have any focal deficits on my initial assessment. ROS: - Per HPI *Outpatient medications and allergy history reviewed. *Pertinent external medical records reviewed. PE: General: Alert, frail-appearing, no acute distress HEENT: Normocephalic, trachea midline Eyes: Extraocular eye movement is intact, no scleral erythema Pulmonary: Clear to auscultation bilaterally, no wheezing, slightly diminished a t the right lung base Cardio: Regular rate and rhythm GI: Abdomen is soft to palpation : No suprapubic tenderness MSK: No evidence of trauma or malformation of the extremities, no edema Skin: Macular rash that is scattered in nature across the torso, bilateral upper extremities, and bilateral lower extremities, no evidence of petechiae, no blister formation, no skin peeling Neuro: Alert, no focal deficits Psychiatric: Cooperative security monitor: (As interpreted by myself): - An order was placed for continuous cardiac monitoring - Patient was noted to be in sinus rhythm with a rate of 95 EKG: (As interpreted by myself): Rate: 111 Rhythm: Sinus tachycardia Intervals: Within normal limits ST changes: No ST elevation Time: 1556 Interventions provided in ED: -IV fluid bolus, IV Solu-Medrol Differential Diagnosis: Drug reaction, DRESS syndrome, Nava-Pepe syndrome, cellulitis, amongst other potential pathologies. Medical Decision Making: The patient is a 77-year-old female who presents emergency department chief complaint of rash. Shortly after the patient arrived IV was established and lab work obtained, patient was placed on potline monitor. Patient is overall well- appearing on arrival. She received treatment with Keytruda in late February for lung cancer, she was told by her outpatient provider, Dr. Ricketts, that this rash could possibly be secondary to the Keytruda treatment. Lab work obtained shows no leukocytosis, hemoglobin is normal, platelet count is slightly elevated at 460, CMP does not show any critical findings, no acute kidney injury, troponin did result elevated at 161, EKG reviewed shows sinus tachycardia without any evidence of any acute ischemic changes. Patient denies any chest pain, states at times she does get shortness of breath. Given her multiple comorbidities I did recommend admission to which the patient was in agreement. Patient's presentation was discussed with the patient's deboning team leader, Dr. Ricketts, who did recommend treatment for the rash with IV steroids, states that she does believe it is likely secondary to the Keytruda, she is in agreement for admission given elevated troponin and states that this also can be secondary to the Keytruda. Patient denies any chest pain therefore I have low suspicion for ACS, EKG does not show any acute ischemic changes. Patient is in agreement for admission and she was placed for admission in stable condition. Case was discussed with the on-call midlevel provider for [facility]. Consultants: Hospitalist service, Dr. Deon Valenzuela Disposition discussion held by myself with: Patient Diagnosis: 1. Elevated high-sensitivity troponin level 2. Rash, acute, secondary to chemotherapy agent 3. Thrombocytosis 4. History of adenocarcinoma of the right lung Disposition: Admission Arnoldo Murry DO Emergency Medicine Past Med/Surg History Medical History Adenocarcinoma History of tobacco abuse Hypoxia Osteoarthritis Pulmonary mass Surgical History History of section History of tonsillectomy Social History Smoking Status: Former smoker Tobacco Type: Cigarettes Age Started Using Tobacco: 23; Age Quit Using Tobacco: 68; packs per day: 0.5; Second Hand Exposure: No; Do You Dip or Chew Tobacco: No; Hx Alcohol Use: No Hx Substance Use: No Preferred Language: Algerian Communication Ability: Effective Highway Engineer Required: No Beliefs That Will Affect Care: None Current Living Situation: Alone Feels Safe at Home: Yes Assistive Devices: Denture - Upper and Glasses Allergies Allergies Allergy/AdvReac Type Severity Reaction Status Date / Time No Known Allergies Allergy Mild Unverified 03/16/23 18:34 Home Meds Home Medications Medication Instructions Recorded Confirmed calcium carb-magnesium oxide-vit 1 tab PO DAILY 03/16/23 03/16/23 D3 400 mg-167 mg-133 unit tablet (Calcium Magnesium + D) coenzyme Q10 100 mg capsule (Co 100 mg PO DAILY 03/16/23 03/16/23 Q-10) ondansetron HCl 8 mg tablet 8 mg PO Q8 PRN Nausea 03/16/23 03/16/23 prochlorperazine maleate 10 mg 10 mg PO Q6 PRN Nausea 03/16/23 03/16/23 tablet Results & Data (ED) Vital Signs Vital Signs - 24 hr 03/16/23 15:36 03/16/23 15:56 03/16/23 16:05 Temperature 36.7 C Temperature Source Temporal Artery Scan Pulse Rate 132 H 105 H Pulse Rate [Left Apical] Pulse Rhythm Regular Pulse Rhythm [Left Apical] Pulse Strength Normal Pulse Strength [Left Apical] Respiratory Rate 20 20 Respiratory Effort / Characteristics Non-Labored Spontaneous Respiratory Depth Normal Respiratory Pattern Regular Blood Pressure 174/116 H Blood Pressure Mean 135 Blood Pressure Position Sitting Pulse Oximetry 93 95 95 Oxygen Delivery Method Room Air Room Air Room Air Sepsis Recent Fever Within 48 Hours No Sepsis New/Unexplained Change in Mental Status No Sepsis Action Taken by Nursing No Action Required 03/16/23 16:00 03/16/23 17:45 Temperature Temperature Source Pulse Rate 110 H Pulse Rate [Left Apical] 94 H Pulse Rhythm Pulse Rhythm [Left Apical] Regular Pulse Strength Pulse Strength [Left Apical] Normal Respiratory Rate 20 Respiratory Effort / Characteristics Non-Labored Spontaneous Respiratory Depth Normal Respiratory Pattern Blood Pressure Blood Pressure Mean Blood Pressure Position Pulse Oximetry 95 Oxygen Delivery Method Room Air Sepsis Recent Fever Within 48 Hours Sepsis New/Unexplained Change in Mental Status Sepsis Action Taken by Nursing Laboratory Data 03/16/23 16:37 03/16/23 16:37 Lab Results 06/13/23 06/13/23 06/13/23 Range/Units 16:37 16:37 18:21 WBC 8.27 (4.8-10.8) K/ul RBC 4.54 (4.20-5.40) M/uL Hgb 12.5 (12.0-16.0) g/dl Hct 38.0 (37.0-47.0) % MCV 83.7 (80.0-100.0) fL MCH 27.5 (25.0-34.0) pg MCHC 32.9 (32.0-36.0) g/dL RDW Std Deviation 40.3 (36.4-46.3) fL RDW Coeff of Leanna 13.2 (11.5-14.5) % Plt Count 460 H (130-400) K/uL MPV 9.0 L (9.4-12.4) fL Immature Gran % (Auto) 0.7 % Neut % (Auto) 74.5 % Lymph % (Auto) 11.7 % [place] % (Auto) 8.0 % Eos % (Auto) 4.7 % Baso % (Auto) 0.4 % Neut # (Auto) 6.16 (1.40-6.50) K/uL Lymph # (Auto) 0.97 L (1.2-3.4) K/uL [place] # (Auto) 0.66 H (0.11-0.59) K/uL Eos # (Auto) 0.39 (0-0.50) K/uL Baso # (Auto) 0.03 (0-0.2) K/uL Immature Gran # (Auto) 0.06 (0.01-0.20) K/uL Sodium 140 (136-145) mmol/L Potassium 4.0 (3.5-5.1) mmol/L Chloride 107 (98-107) mmol/L Carbon Dioxide 25 (21-32) mmol/L Anion Gap 8 (3-11) BUN 17 (6-23) mg/dl Creatinine 0.51 L (0.6-1.2) mg/dl Est Cr Clr Drug Dosing 76.4 ml/min Est GFR ( Amer) 107.5 ml/min Est GFR (Non-Af Amer) 92.8 ml/min BUN/Creatinine Ratio 33.3 H (10-20) Glucose 102 H (70-99(Fasting)) mg/dl Calcium 9.3 (8.6-10.3) mg/dl Total Bilirubin 0.4 (0.2-1.0) mg/dl AST 28 (13-39) U/L ALT 16 (7-52) U/L Alkaline Phosphatase 56 (34-104) U/L Troponin I High Sens 161.1 H* (0-14) pg/ml B-Natriuretic Peptide 101 H (0-100) pg/ml Total Protein 7.6 (6.0-8.3) gm/dl Albumin 3.4 (3.4-5.0) gm/dl Globulin 4.2 H (2.5-4.0) gm/dl Albumin/Globulin Ratio 0.8 L (0.9-2) Lipase 26 (11-82) U/L SARS-CoV-2 (PCR) (Negative) Influenza Type A (PCR) (Neg) Influenza Type B (PCR) (Neg) RSV (RT-PCR) (Neg) 03/16/23 03/16/23 Range/Units 18:27 18:59 WBC (4.8-10.8) K/ul RBC (4.20-5.40) M/uL Hgb (12.0-16.0) g/dl Hct (37.0-47.0) % MCV (80.0-100.0) fL MCH (25.0-34.0) pg MCHC (32.0-36.0) g/dL RDW Std Deviation (36.4-46.3) fL RDW Coeff of Leanna (11.5-14.5) % Plt Count (130-400) K/uL MPV (9.4-12.4) fL Immature Gran % (Auto) % Neut % (Auto) % Lymph % (Auto) % [place] % (Auto) % Eos % (Auto) % Baso % (Auto) % Neut # (Auto) (1.40-6.50) K/uL Lymph # (Auto) (1.2-3.4) K/uL [place] # (Auto) (0.11-0.59) K/uL Eos # (Auto) (0-0.50) K/uL Baso # (Auto) (0-0.2) K/uL Immature Gran # (Auto) (0.01-0.20) K/uL Sodium (136-145) mmol/L Potassium (3.5-5.1) mmol/L Chloride (98-107) mmol/L Carbon Dioxide (21-32) mmol/L Anion Gap (3-11) BUN (6-23) mg/dl Creatinine (0.6-1.2) mg/dl Est Cr Clr Drug Dosing ml/min Est GFR ( Amer) ml/min Est GFR (Non-Af Amer) ml/min BUN/Creatinine Ratio (10-20) Glucose (70-99(Fasting)) mg/dl Calcium (8.6-10.3) mg/dl Total Bilirubin (0.2-1.0) mg/dl AST (13-39) U/L ALT (7-52) U/L Alkaline Phosphatase (34-104) U/L Troponin I High Sens 254.2 H* D (0-14) pg/ml B-Natriuretic Peptide (0-100) pg/ml Total Protein (6.0-8.3) gm/dl Albumin (3.4-5.0) gm/dl Globulin (2.5-4.0) gm/dl Albumin/Globulin Ratio (0.9-2) Lipase (11-82) U/L SARS-CoV-2 (PCR) NEGATIVE (Negative) Influenza Type A (PCR) Negative (Neg) Influenza Type B (PCR) Negative (Neg) RSV (RT-PCR) Negative (Neg) Administered Medications Heparin Sodium (Porcine) (Heparin Sod 5,000 Unit/0.5 Ml Vial) 5,000 units SQ Q12 RACHELLE Stop: 04/15/23 21:59 Last Admin: 03/16/23 22:20 Dose: Not Given Documented By: CHRISTIANNE Famotidine 20 mg/ Syringe 5 mls @ 2.5 mls/min IV BID RACHELLE Stop: 04/15/23 21:59 Last Admin: 03/16/23 22:31 Dose: 2.5 mls/min Documented By: CHRISTIANNE Discontinued Medications Aspirin (Aspirin Chew 324 Mg) 324 mg PO NOW STA Stop: 03/16/23 20:59 Last Admin: 03/16/23 22:19 Dose: 324 mg Documented By: CHRISTIANNE Sodium Chloride (Nss 1000ml) 1,000 mls @ 999 mls/hr IV .Q1H1M ONE Stop: 03/16/23 19:07 Last Infusion: 03/16/23 19:31 Dose: 0 mls/hr Documented By: Admin: 03/16/23 18:30 Dose: 999 mls/hr Documented By: MICEKY Ioversol (Optiray 320 500ml) 111 ml IV ONCE ONE Stop: 03/16/23 20:27 Last Admin: 03/16/23 20:28 Dose: 111 ml Documented By: FRANCI Methylprednisolone (Methylprednisolone 125 Mg/2 Ml Vial) 80 mg IV NOW STA Stop: 03/16/23 17:23 Last Admin: 03/16/23 18:30 Dose: 80 mg Documented By: MICKEY Imaging Data Radiologist's Impression: Chest X-Ray 03/16/23 15:57 XR chest 1V portable CLINICAL HISTORY: Chest pain, nonspecific TECHNIQUE: Single frontal radiograph of the chest was obtained. Comparison: Comparison is made to chest radiograph 03/02/2023 FINDINGS: No lines and tubes are seen. Cardiomegaly is noted. The aortic arch is calcified. Right lower lobe airspace opacities are seen. There is a small right pleural effusion. IMPRESSION: Redemonstration of a small right pleural effusion with airspace opacities compatible with history of nodular pleural thickening and pulmonary tumor and metastases. No acute abnormalities are seen. ACT 112: Negative or not required by law. Electronically signed by: Isaac Ruiz M.D. 03/16/2023 5:16 PM Discharge Plan Visit Data Chief Complaint: Hypertension Stated Complaint: REF BY DOC, HYPERTENSION ED Provider: Arnoldo Murry Discharge Problem: Elevated troponin Patient Disposition: Admitted As Inpatient Discharge Instructions Interventions: ED Discharge Assessment Last Done: 03/16/23 20:45
[2023-03-16 17:00] LABS: Basophils # (auto) 0.03 K/uL (0-0.2); Basophils % (auto) 0.4 %; Eosinophils # (auto) 0.39 K/uL (0-0.50); Eosinophils % (auto) 4.7 %; Hemoglobin 12.5 g/dl (12.0-16.0); Immature Granulocytes # (auto) 0.06 K/uL (0.01-0.20); Immature Granulocytes % (auto) 0.7 %; Lymphocytes # (auto) 0.97 K/uL (1.2-3.4); Lymphocytes % (auto) 11.7 %; Mean Corpuscular Hemoglobin 27.5 pg (25.0-34.0); Mean Corpuscular Hgb Conc 32.9 g/dL (32.0-36.0); Mean Corpuscular Volume 83.7 fL (80.0-100.0); Monocytes # (auto) 0.66 K/uL (0.11-0.59); Neutrophils # (auto) 6.16 K/uL (1.40-6.50); Neutrophils % (auto) 74.5 %; Platelet Count 460 K/uL (130-400); RDW Coefficient of Variation 13.2 % (11.5-14.5); RDW Standard Deviation 40.3 fL (36.4-46.3); Red Blood Count 4.54 M/uL (4.20-5.40); White Blood Count 8.27 K/ul (4.8-10.8)
--- NOTE | 2023-03-16 17:17 | XRay Report ---
XR chest 1V portable CLINICAL HISTORY: Chest pain, nonspecific TECHNIQUE: Single frontal radiograph of the chest was obtained. Comparison: Comparison is made to chest radiograph 03/02/2023 FINDINGS: No lines and tubes are seen. Cardiomegaly is noted. The aortic arch is calcified. Right lower lobe ai rspace opacities are seen. There is a small right pleural effusion. IMPRESSION: Redemonstration of a small right pleural effusion with airspace opacities compatible with history of nodular pleural thickening and pulmonary tumor and metastases. No acute abnormalities are seen. ACT 112: Negative or not required by law. Electronically signed by: Isaac Ruiz M.D. 03/16/2023 5:16 PM
[2023-03-16 17:21] LABS: Albumin Globulin Ratio 0.8 (0.9-2); Albumin Level 3.4 gm/dl (3.4-5.0); BUN Creatinine Ratio 33.3 (10-20); Bilirubin,Total 0.4 mg/dl (0.2-1.0); Calcium 9.3 mg/dl (8.6-10.3); Creatinine Clr Calc Pharmacy 76.4 ml/min; Est GFR (African American) 107.5 ml/min; Est GFR (Non-African American) 92.8 ml/min; Globulin 4.2 gm/dl (2.5-4.0); Total Protein 7.6 gm/dl (6.0-8.3)
[2023-03-16] MEDS ORDERED: methylPREDNISolone 125 MG/2 ML VIAL IV STA (17:22)
[2023-03-16 17:45] LABS: Troponin I High Sensitivity 161.1 pg/ml (0-14)
[2023-03-16] MEDS ORDERED: SODIUM CHLORIDE 0.9% 1000ML 1,000 ML IV ONE (18:07)
--- NOTE | 2023-03-16 18:36 | Electrocardiogram Report ---
Test Reason : Blood Pressure : / mmHG Vent. Rate : 111 BPM Atrial Rate : 111 BPM P-R Int : 156 ms QRS Dur : 082 ms QT Int : 332 ms P-R-T Axes : 064 058 054 degrees QTc Int : 451 ms Sinus tachycardia Possible Left atrial enlargement Borderline ECG When compared with ECG of 29-JAN-2023 10:42, Minimal criteria for Inferior infarct are no longer Present Confirmed by Gaudencio Velazquez ([id number]) on 03/16/2023 6:35:45 PM Referred By: Confirmed By:Josh Velazquez
--- NOTE | 2023-03-16 19:23 | History & Physical Report ---
Date of Service March 16, 2023 Assessment & Plan (1) Sinus tachycardia: Plan: Patient is 77-year-old female with PMH Right lung mass, adenocarcinoma, pleural effusion presented to ER with complaint of rash x 2 days. In ER was noted to have sinus tachycardia Heart rate trended down to 90s throughout ER course. No hypoxia In ER given 1 L NSS Obtain CTA chest to rule out PE Monitor on telemetry (2) Elevated troponin: Plan: Initial high-sensitivity troponin 161 EKG: Sinus tachycardia, rate 111, no ST elevation noted Patient denies chest pain. Reports intermittent "shortness of breath" with deep inspiration DDx: WI, myocarditis, pericarditis, demand ischemia, PE Trend troponin Obtain CTA chest to rule out PE Echo First injection Keytruda 03/03/2023. Repeat EKG in am Lipid panel am Cardiology consult (3) Elevated BP without diagnosis of hypertension: Plan: Elevated blood pressure reading. No prior history hypertension Initial BP in ER 174/116. Repeat BP 154/91 Monitor BP (4) Rash: Plan: Diffuse rash, mildly pruritic Likely secondary to Keytruda. Received first dose Keytruda 03/03/2023 In ER received methylprednisone 80 mg IV Start Pepcid twice daily, Benadryl as needed itching Patient very hesitant for any further steroids. Will monitor at this time (5) Pulmonary mass: (6) Adenocarcinoma: Plan: Right pulmonary mass, history of pleural effusion s/p pigtail catheter on 01/29/[address] Ricketts First dose Keytruda 03/03/2023 Full Code as per discussion with pt Follows with Dr Hackett for routine care Pt was seen and care coordinated with Dr Chavarria. See addendum I spent a total of 78 minutes reviewing notes, outpatient records, labs, medication, coordinating, documenting and providing care for this patient excluding time spent in the performance of separately billed services. History of Present Illness Chief Complaint: Rash Primary Care Provider: Corbin Hackett DO Patient is 77-year-old female with PMH Right lung mass, adenocarcinoma, pleural effusion presented to ER with complaint of rash x 2 days. Patient states 2 days ago noticed some itching to right buttock and hip area and noticed that she had a red rash. Rash has since spread to bilateral legs, bilateral arms, abdomen, buttocks, back, chest. Denies any noted oral or genital ulcers or lesions. She was having significant shortness of breath prior to thoracentesis in January 2023. Patient states has slight shortness of breath sensation with deep inspiration which has been progressive over the past several weeks. Denies any shortness of breath at rest. Denies any chest pain or chest pain with inspiration. Denies cough or hemoptysis. Reports had first treatment of Keytruda on 03/03/2023. Patient following with oncology, Dr. Ricketts patient reports she opted for Keytruda treatment only at this time. Patient denies any other new medications or skin products. Patient states has been having blood pressures taken at home and SBP's have been in the 110-120 range. She states 2 nights ago had sweats. Denies any known fever, N/V/D/C, QUEZ[place], dizziness, syncope, vision changes, neck pain, orthopnea, palpitations, cough, sore throat, abdominal pain, paresthesias, extremity weakness, extremity edema, urinary symptoms. In ER patient noted to be hypertensive and tachycardic. Allergies Allergy/AdvReac Type Severity Reaction Status Date / Time No Known Allergies Allergy Mild Unverified 03/16/23 18:34 Home Medications Medication Instructions Recorded Confirmed Type calcium carb-magnesium oxide-vit 1 tab PO DAILY 03/16/23 03/16/23 History D3 400 mg-167 mg-133 unit tablet (Calcium Magnesium + D) coenzyme Q10 100 mg capsule (Co 100 mg PO DAILY 03/16/23 03/16/23 History Q-10) ondansetron HCl 8 mg tablet 8 mg PO Q8 PRN Nausea 03/16/23 03/16/23 History prochlorperazine maleate 10 mg 10 mg PO Q6 PRN Nausea 03/16/23 03/16/23 History tablet Past Med/Surg History Medical History Adenocarcinoma History of tobacco abuse Hypoxia Osteoarthritis Pulmonary mass Surgical History History of section History of tonsillectomy Social History Smoking Status: Former smoker Tobacco Type: Cigarettes Age Started Using Tobacco: 23; Age Quit Using Tobacco: 68; packs per day: 0.5; Second Hand Exposure: No; Do You Dip or Chew Tobacco: No; Hx Alcohol Use: No Hx Substance Use: No Preferred Language: Czech Communication Ability: Effective 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 Beliefs That Will Affect Care: None Current Living Situation: Alone Feels Safe at Home: Yes Assistive Devices: Denture - Upper and Glasses Review of Systems Review of Systems: All systems reviewed & are unremarkable except as noted in HPI & below Physical Exam Physical Exam: General: no acute distress, WDWN Head: normocephalic, atraumatic Eyes: conjunctiva non-injected, anicteric ENT: normal inspection external ears, nose, mucous membranes moist Neck: supple, trachea midline Lungs: no respiratory distress, 96% on RA, mildly decreased breath sounds right base, otherwise no wheezing/rhonchi/rales CV: RRR, no murmur, no pretibial edema Abd: normal BS, soft, non-tender Ext: no cyanosis, no calf tenderness Neuro: A&O x 3, no focal deficits noted, normal affect Skin:+ Diffuse erythematous maculopapular rash to neck, chest, abdomen, back, bilateral upper and lower extremities, buttocks, groin. Bilateral palms with erythema. Soles of feet without noted rash or erythema. Skin is warm, dry Results & Data Results & Data Vital Signs (Past 12 Hours) Vital Signs Temp Pulse Pulse Resp BP Pulse Ox O2 Del Method 03/16/23 17:45 94 H 20 95 Room Air 03/16/23 16:00 110 H 03/16/23 16:05 95 Room Air 03/16/23 15:56 105 H 20 95 Room Air 03/16/23 15:36 36.7 C 132 H 20 174/116 H 93 Room Air Laboratory Results Short CBC 03/16/23 Range/Units 16:37 WBC 8.27 (4.8-10.8) K/ul Hgb 12.5 (12.0-16.0) g/dl Hct 38.0 (37.0-47.0) % Plt Count 460 H (130-400) K/uL BMP 03/16/23 16:37 Sodium 140 Potassium 4.0 Chloride 107 Carbon Dioxide 25 BUN 17 Creatinine 0.51 L Glucose 102 H Calcium 9.3 Liver Function 03/16/23 Range/Units 16:37 Total Bilirubin 0.4 (0.2-1.0) mg/dl AST 28 (13-39) U/L ALT 16 (7-52) U/L Alkaline Phosphatase 56 (34-104) U/L Albumin 3.4 (3.4-5.0) gm/dl Diagnostic Findings Chest X-Ray 03/16/23 15:57 XR chest 1V portable CLINICAL HISTORY: Chest pain, nonspecific TECHNIQUE: Single frontal radiograph of the chest was obtained. Comparison: Comparison is made to chest radiograph 03/02/2023 FINDINGS: No lines and tubes are seen. Cardiomegaly is noted. The aortic arch is calcified. Right lower lobe airspace opacities are seen. There is a small right pleural effusion. IMPRESSION: Redemonstration of a small right pleural effusion with airspace opacities compatible with history of nodular pleural thickening and pulmonary tumor and metastases. No acute abnormalities are seen. ACT 112: Negative or not required by law. Electronically signed by: Isaac Ruiz M.D. 03/16/2023 5:16 PM Code Status & VTE Plan VTE Prophylaxis Plan VTE Prophylaxis will be ordered: Yes Supervising Physician Co-Signing Physician Notes Care coordinated with Bridgett Gomez PA-C. Agree with above note. Patient seen and examined. Please refer to her notes for full details. Vital signs reviewed. Physical exam: General exam: Alert and oriented. Currently Not in acute distress. CVS: S1 and S2 heard, regular rate and rhythm, no murmurs. RS: Clear to auscultation, no wheezing or crackles. ABD: Soft, bowel sounds present, nontender, no distention. 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 Ski Diffuse maculopapular rash seen EXT: No edema, no erythema. Labs: Reviewed. Assessment and plan: 77F who was admitted last week of january 2023 with sob and found to have lung mass and large right pleural effusion and s/p chest tube, pig tail cath and > 2lts fluid drained out. Had Keytruda on 03/03/23. Developed rash al over body couple of days ago and itchy. As rash worsening and patient HR and BP going up , feeling anxious was advised by heme/onco for ER as per patient. Currently Heart rates and BP improved. Says has some mild lower chests pain when taking deep breath. No sob while resting. Afebrile. NO nausea. Elevated troponin no obvious chest pain says has some pain in lower ribs when taking deep breath troponin peaked to 254 and then trended down will follow repeat ekg echo and cardio consult diffuse maculopapular rash received steroid placed on pepcid and zyrtec iv benadryl prn will monitor the response. 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 Jacobo reed MD.
[2023-03-16 19:44] LABS: Influenza A virus by PCR Negative (Neg); Influenza B virus by PCR Negative (Neg); RSV by PCR Negative (Neg); SARS CoV2 RNA(COVID-19) Ceph NEGATIVE (Negative)
[2023-03-16] MEDS ORDERED: OPTIRAY 320 500ml IV ONE (20:26)
--- NOTE | 2023-03-16 20:47 | CT Scan Report ---
Exam(s): CTA CHEST IV Amt: 111 ml optiray 320 EXAM: CT Angiography Chest With Intravenous Contrast CLINICAL HISTORY: Reason for exam: PE. TECHNIQUE: Axial computed tomographic angiography images of the chest with intravenous contrast. CTDI is 23 mGy and DLP is 433.94 mGy-cm. Automated exposure control was utilized for the study. A dose lowering technique was utilized adhering to the principles of ALARA. MIP reconstructed images were created and reviewed. COMPARISON: No relevant prior studies available. FINDINGS: Pulmonary arteries: No acute pulmonary embolism. This mass encases portions of the RIGHT pulmonary arterial vasculature. Aorta: Atherosclerotic changes of the aorta. No thoracic aortic aneurysm. Lungs: Mass in the RIGHT middle lobe, measuring approximately 7.1 x 5- 6.7 cm, concerning for pulmonary neoplasm. This extends anteriorly to involve a majority of the RIGHT middle lobe. Small satellite nodules are present, preferentially located in a subpleural location. Airspace consolidation of the RIGHT lung apex with interlobular septal thickening, concerning for infiltrate with superimposed localized vascular congestion. Pleural space: Lobulated RIGHT pleural effusion, likely malignant. No pneumothorax. Heart: Cardiomegaly. No significant pericardial effusion. No evidence of RV dysfunction. Mediastinum: Pathologically enlarged mediastinal lymph nodes. Bones/joints: Degenerative changes of the spine. No acute fracture. No dislocation. Soft tissues: Unremarkable. Lymph nodes: Unremarkable. No enlarged lymph nodes. IMPRESSION: 1. No acute pulmonary embolism. 2. Mass in the RIGHT middle lobe, measuring approximately 7.1 x 5-6.7 cm, concerning for pulmonary neoplasm. This extends anteriorly to involve a majority of the RIGHT middle lobe. Small satellite nodules are present, preferentially located in a subpleural location. 3. Airspace consolidation of the RIGHT lung apex with interlobular septal thickening, concerning for infiltrate with superimposed localized vascular congestion. 4. Pulmonary mass encases portions of the RIGHT pulmonary arterial vasculature. 5. Lobulated RIGHT pleural effusion, likely malignant. Electronically signed by: Jefferson Kelly MD 03/16/23 20:46 PM
[2023-03-16] MEDS ORDERED: ASPIRIN CHEW 324 MG PO STA (20:58)
[2023-03-16 21:16] LABS: Partial Thromboplastin Ratio 0.9; Partial Thromboplastin Time 24.7 Seconds (21.0-31.0)
[2023-03-16] MEDS ORDERED: ONDANSETRON INJ 2 MG/ML 2 ML VIAL IV PRN (21:52)
[2023-03-16] MEDS ORDERED: POLYETHYLENE (MIRALAX) 17 GM PACK PO PRN (21:52)
[2023-03-16] MEDS ORDERED: ACETAMINOPHEN 325 MG TAB PO PRN (21:52)
[2023-03-16] MEDS ORDERED: diphenhydrAMINE 50 MG/ML VIAL IV PRN (21:52)
[2023-03-16] MEDS: HEPARIN SOD 5,000 UNIT/0.5 ML VIAL SQ SCH (22:20)
[2023-03-16] MEDS: FAMOTIDINE 20 MG in SYRINGE 3 ML IV SCH (22:31)
[2023-03-17 06:17] LABS: Hematocrit (blood only) 34.5 % (37.0-47.0); Hemoglobin 11.5 g/dl (12.0-16.0); Mean Corpuscular Hemoglobin 27.7 pg (25.0-34.0); Mean Corpuscular Hgb Conc 33.3 g/dL (32.0-36.0); Mean Corpuscular Volume 83.1 fL (80.0-100.0); Platelet Count 410 K/uL (130-400); RDW Coefficient of Variation 13.1 % (11.5-14.5); RDW Standard Deviation 39.6 fL (36.4-46.3); Red Blood Count 4.15 M/uL (4.20-5.40); White Blood Count 3.65 K/ul (4.8-10.8)
[2023-03-17 06:39] LABS: Calcium 8.7 mg/dl (8.6-10.3); Chol HDL Ratio 4.3 (0-5); Creatinine Clr Calc Pharmacy 86.6 ml/min; Est GFR (Non-African American) 96.7 ml/min; Potassium 4.3 mmol/L (3.5-5.1)
[2023-03-17] MEDS: FAMOTIDINE 20 MG in SYRINGE 3 ML IV SCH ×2 (08:39→20:55)
[2023-03-17] MEDS: HEPARIN SOD 5,000 UNIT/0.5 ML VIAL SQ SCH ×2 (08:40→20:55)
--- NOTE | 2023-03-17 08:42 | Cardiology Consultation ---
Date of Consultation March 17, 2023 Assessment & Plan (1) Elevated BP without diagnosis of hypertension: (2) Sinus tachycardia: (3) Elevated troponin: (4) Rash: Plan Patient admitted for diffuse rash, pruritic in nature, likely secondary to recent initiation of chemotherapy treatment for large right middle lung CA. On admission she was found be mildly hypertensive and HR ranging 100-110, consistent with sinus tachycardia. Incidentally found to have minimally elevated troponin. She had no chest pain or SOB. No acute EKG changes to suggest ACS. Elevation in troponin likely due to cardiac strain with HTN and sinus tach, which was physiologic reaction with current stressors including Rash and Lung mass. Echocardiogram has been ordered and results pending. ASA 81 mg daily started. Would defer initiation of other medications as her HR/BP have normalized. Her cholesterol is not significantly elevated so will avoid statin for now. if echocardiogram demonstrates preserved EF without wall motion abnormality, would not recommend further testing at this time, as patient is asymptomatic. Defer to hospitalist for treatment of diffuse rash. Case discussed with Dr. Fairbanks I spent a total of 55 minutes on the date of service in preparation, delivery, and documentation of the care provided to this patient, excluding any time spent in the performance of separately billed services. Zoey Go PA-C Department of Cardiology, [facility] This chart was completed in part utilizing Speech Voice Recognition Software. Grammatical errors, random word insertions, pronoun errors, and incomplete sentences are an occasional consequence of this system due to software limitations, ambient noise, and hardware issues. Any formal questions or concerns about the content, text, or information contained within the body of this dictation should be directly addressed to the provider for clarification. Supervising Physician Co-Signing Physician Notes Supervising Physician Attestation: I have personally performed a history and physical examination on the patient. I agree with the physician respiratory therapist assistant's findings and plan as documented with the following additions. Subjective: Patient denies chest discomfort or shortness of breath above her recent usual. Chief complaint was rash. With noted erythematous macular papular rash consistent with hives observed diffusely. Exam: Cardiovascular: Regular rhythm, no murmurs, no edema Pulmonary: Mildly reduced breath sounds at the right base Data: Telemetry reveals sinus rhythm in the 60s. Rate ranging from 50 bpm to 90 bpm for the most part overnight Echocardiogram performed today and reviewed independently Left ventricular systolic function is normal. Ejection Fraction = 60-65%. The right ventricle is normal in size and function. There is mild prolapse of the posterior mitral valve leaflet. There is mild mitral regurgitation. Grade I diastolic dysfunction, (abnormal relaxation pattern). There is no pericardial effusion. Doppler findings do not suggest pulmonary hypertension. The pulmonary artery systolic pressure is estimated be 23 mm Hg (normal). Assessment and Plan: -High-sensitivity troponin above reference range in the absence of angina. -- Likely related to increased myocardial demand in the setting of noncardiac systemic illness. Hives perhaps related to recent initiation of Keytruda. --No further cardiac testing necessary at present. Agree with treatment including antihistamine therapy and prednisone. DVT prophylaxis: Subcutaneous heparin Vinicio Fairbanks, History of Present Illness Reason for Consultation: Sinus tachycardia; Elevated troponin Requesting Physician: Ms. Jason PA-C Attending Physician: Suimt Boo MD History of Present Illness Patient is a 77 year old female who was seen in cardiology consultation at the request of admitting provider, Ms. Jason PA-C for evaluation of sinus tachycardia and mildly elevated troponin. History includes: 1. 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 History of pleural effusion s/p thoracentesis Patient denies history of cardiovascular disease. No prior cardiac imaging. No prior diagnosis of CAD, CA, CHF, arrhythmias or valvular disease. Prior to diagnosis of lung mass and pleural effusion in February, she took no medications on a regular basis. She was recently diagnosed with large lung mass with right pleural effusion, findings consistent with stage IV adenocarcinoma of the right middle lobe with large mass exceeding 6 cm. She was started on chemo with first injection of Keytruda on 03/03/23. Over the last few days she has developed diffuse rash, now on upper/lower extremities, face and truck. Rash was significantly pruritic and uncomfortable and she came to the ER yesterday for evaluation. Upon arrival she was found to be mildly hypertensive and tachycardic, with sinus tach around 110 bpm. No acute EKG changes. Troponin minimally elevated at 161 on arrival, peaking at 254, and then trending down to 131 and 86 this morning. No EKG abnormalities. HR's and BP trending down. Patient denied symptoms of CP or SOB to suggest ACS. She was started on IV steroids for diffuse rash and admitted. At time of consult, patient reports ongoing rash. Now on her face. no trouble breathing or swallowing. No chest pain or dyspnea. No palpitations. HR and BP improved. Allergies Allergy/AdvReac Type Severity Reaction Status Date / Time No Known Allergies Allergy Mild Unverified 03/16/23 18:34 Home Medications Medication Instructions Recorded Confirmed Type calcium carb-magnesium oxide-vit 1 tab PO DAILY 03/16/23 03/16/23 History D3 400 mg-167 mg-133 unit tablet (Calcium Magnesium + D) coenzyme Q10 100 mg capsule (Co 100 mg PO DAILY 03/16/23 03/16/23 History Q-10) ondansetron HCl 8 mg tablet 8 mg PO Q8 PRN Nausea 03/16/23 03/16/23 History prochlorperazine maleate 10 mg 10 mg PO Q6 PRN Nausea 03/16/23 03/16/23 History tablet Patient History Medical History Adenocarcinoma History of tobacco abuse Hypoxia Osteoarthritis Pulmonary mass Surgical History History of section History of tonsillectomy Social History Smoking Status: Former smoker Tobacco Type: Cigarettes Age Started Using Tobacco: 23; Age Quit Using Tobacco: 68; packs per day: 0.5; Second Hand Exposure: No; Do You Dip or Chew Tobacco: No; Hx Alcohol Use: No Hx Substance Use: No Preferred Language: Nepali Communication Ability: Effective Tobacco Sprayer Required: No Beliefs That Will Affect Care: None Current Living Situation: Alone Feels Safe at Home: Yes Assistive Devices: None Review of Systems Review of Systems: All systems reviewed & are unremarkable except as noted in HPI & below Physical Exam Constitutional: WD/WN, vitals as above no acute distress Respiratory: no labored breathing Auscultation: + diminished lung sounds (bases b/l ) Cardiovascular: Rate/Rhythm: regular rate and regular rhythm Heart Sounds: no murmur Vessels: no JVD Extremities: no edema Gastrointestinal (Abdomen): normal bowel sounds, soft, nontender, no hepatosplenomegaly Skin: + rash ( diffuse erythematous maculopapular rash) Results & Data Vital Signs (Past 12 Hours) Vital Signs Temp Pulse Pulse Resp BP BP Pulse Ox 03/17/23 07:45 36.6 C 74 18 128/70 94 03/17/23 03:40 36.5 C 77 18 127/69 94 03/17/23 00:00 36.6 C 85 18 109/62 94 03/16/23 23:04 95 H 03/16/23 21:36 03/16/23 21:36 36.6 C 99 H 20 154/89 H 93 03/16/23 20:51 101 H O2 Del Method 03/17/23 07:45 Room Air 03/17/23 03:40 Room Air 03/17/23 00:00 Room Air 03/16/23 23:04 03/16/23 21:36 Room Air 03/16/23 21:36 Room Air 03/16/23 20:51 Laboratory Results Cardiac Enzymes 03/16/23 03/16/23 03/16/23 Range/Units 16:37 18:21 18:27 AST 28 (13-39) U/L Troponin I High Sens 161.1 H* 254.2 H* D (0-14) pg/ml B-Natriuretic Peptide 101 H (0-100) pg/ml 03/17/23 03/17/23 Range/Units 00:34 05:37 AST (13-39) U/L Troponin I High Sens 131.0 H* D 86.6 H* D (0-14) pg/ml B-Natriuretic Peptide (0-100) pg/ml Coagulation 03/16/23 03/16/23 Range/Units 18:21 20:19 PT 11.0 (9.0-12.0) Seconds APTT 24.7 (21.0-31.0) Seconds B-Natriuretic Peptide 101 H (0-100) pg/ml Lipids 03/17/23 Range/Units 05:37 Triglycerides 78 (0-150) mg/dl Cholesterol 167 (0-200) mg/dl HDL Cholesterol 39 mg/dl Cholesterol/HDL Ratio 4.3 (0-5) CBC 03/16/23 03/17/23 Range/Units 16:37 05:37 WBC 8.27 3.65 L (4.8-10.8) K/ul RBC 4.54 4.15 L (4.20-5.40) M/uL Hgb 12.5 11.5 L (12.0-16.0) g/dl Hct 38.0 34.5 L (37.0-47.0) % Plt Count 460 H 410 H (130-400) K/uL Neut # (Auto) 6.16 (1.40-6.50) K/uL Lymph # (Auto) 0.97 L (1.2-3.4) K/uL [place] # (Auto) 0.66 H (0.11-0.59) K/uL Eos # (Auto) 0.39 (0-0.50) K/uL Baso # (Auto) 0.03 (0-0.2) K/uL Comprehensive Metabolic Panel 03/16/23 03/17/23 Range/Units 16:37 05:37 Sodium 140 140 (136-145) mmol/L Potassium 4.0 4.3 (3.5-5.1) mmol/L Chloride 107 109 H (98-107) mmol/L Carbon Dioxide 25 25 (21-32) mmol/L BUN 17 18 (6-23) mg/dl Creatinine 0.51 L 0.45 L (0.6-1.2) mg/dl Glucose 102 H 131 H (70-99(Fasting)) mg/dl Calcium 9.3 8.7 (8.6-10.3) mg/dl AST 28 (13-39) U/L ALT 16 (7-52) U/L Alkaline Phosphatase 56 (34-104) U/L Total Protein 7.6 (6.0-8.3) gm/dl Albumin 3.4 (3.4-5.0) gm/dl Intake and Output 03/16/23 03/17/23 03/17/23 22:59 06:59 14:59 Intake Total 1000 / 1000 Balance 1000 / 1000 Intake: IV 1000 / 1000 Sodium Chloride 0.9% 1000ML 1, 1000 / 1000 000 ml @ 999 mls/hr IV .Q1H1M ONE Rx#:[id number] Other: Other Intake Source NPO # Unmeasured Voids 1 Weight 56.7 kg 55.2 kg Weight Measurement Method Standing Scale Built in [facility] Diagnostic Findings Telemetry reviewed: NSR at 60-70's, no arrhythmias. EKG on admission: Sinus tachycardia Possible Left atrial enlargement No acute ST/T wave changes Repeat EKG morning of 03/17/23: Normal sinus rhythm Normal ECG When compared with prior EKG, HR's have improved Chest X-Ray 03/16/23 15:57 XR chest 1V portable CLINICAL HISTORY: Chest pain, nonspecific TECHNIQUE: Single frontal radiograph of the chest was obtained. Comparison: Comparison is made to chest radiograph 03/02/2023 FINDINGS: No lines and tubes are seen. Cardiomegaly is noted. The aortic arch is calcified. Right lower lobe airspace opacities are seen. There is a small right pleural effusion. IMPRESSION: Redemonstration of a small right pleural effusion with airspace opacities compatible with history of nodular pleural thickening and pulmonary tumor and metastases. No acute abnormalities are seen. ACT 112: Negative or not required by law. Electronically signed by: Isaac Ruiz M.D. 03/16/2023 5:16 PM Chest CTA 03/16/23 19:24 Exam(s): CTA CHEST IV Amt: 111 ml optiray 320 EXAM: CT Angiography Chest With Intravenous Contrast CLINICAL HISTORY: Reason for exam: PE. TECHNIQUE: Axial computed tomographic angiography images of the chest with intravenous contrast. CTDI is 23 mGy and DLP is 433.94 mGy-cm. Automated exposure control was utilized for the study. A dose lowering technique was utilized adhering to the principles of ALARA. MIP reconstructed images were created and reviewed. COMPARISON: No relevant prior studies available. FINDINGS: Pulmonary arteries: No acute pulmonary embolism. This mass encases portions of the RIGHT pulmonary arterial vasculature. Aorta: Atherosclerotic changes of the aorta. No thoracic aortic aneurysm. Lungs: Mass in the RIGHT middle lobe, measuring approximately 7.1 x 5- 6.7 cm, concerning for pulmonary neoplasm. This extends anteriorly to involve a majority of the RIGHT middle lobe. Small satellite nodules are present, preferentially located in a subpleural location. Airspace consolidation of the RIGHT lung apex with interlobular septal thickening, concerning for infiltrate with superimposed localized vascular congestion. Pleural space: Lobulated RIGHT pleural effusion, likely malignant. No pneumothorax. Heart: Cardiomegaly. No significant pericardial effusion. No evidence of RV dysfunction. Mediastinum: Pathologically enlarged mediastinal lymph nodes. Bones/joints: Degenerative changes of the spine. No acute fracture. No dislocation. Soft tissues: Unremarkable. Lymph nodes: Unremarkable. No enlarged lymph nodes. IMPRESSION: 1. No acute pulmonary embolism. 2. Mass in the RIGHT middle lobe, measuring approximately 7.1 x 5-6.7 cm, concerning for pulmonary neoplasm. This extends anteriorly to involve a majority of the RIGHT middle lobe. Small satellite nodules are present, preferentially located in a subpleural location. 3. Airspace consolidation of the RIGHT lung apex with interlobular septal thickening, concerning for infiltrate with superimposed localized vascular congestion. 4. Pulmonary mass encases portions of the RIGHT pulmonary arterial vasculature. 5. Lobulated RIGHT pleural effusion, likely malignant. Electronically signed by: Jefferson Kelly MD 03/16/23 20:46 PM Medications Administered Current Inpatient Medications Acetaminophen (Acetaminophen 325 Mg Tab) 650 mg PO Q4H PRN PRN Reason: Pain or Fever Stop: 04/15/23 21:51 Aspirin (Aspirin 81 Mg Ectab) 81 mg PO DAILY RACHELLE Stop: 04/16/23 08:59 Last Admin: 03/17/23 10:32 Dose: 81 mg Calamine/Pramoxine (Calamine/Pramoxine Lotion 180 Appln/180 Ml Btl) 1 appln EXT BID PRN PRN Reason: Itching Stop: 04/16/23 10:21 Cetirizine HCl (Cetirizine Hcl 10 Mg Tablet) 10 mg PO QAM RACHELLE Stop: 04/16/23 08:59 Last Admin: 03/17/23 10:32 Dose: 10 mg Diphenhydramine HCl (Diphenhydramine 50 Mg/Ml Vial) 12.5 mg IV Q6H PRN PRN Reason: itching Stop: 04/15/23 21:51 Heparin Sodium (Porcine) (Heparin Sod 5,000 Unit/0.5 Ml Vial) 5,000 units SQ Q12 RACHELLE Stop: 04/15/23 21:59 Last Admin: 03/17/23 08:40 Dose: Not Given Famotidine 20 mg/ Syringe 5 mls @ 2.5 mls/min IV BID RACHELLE Stop: 04/15/23 21:59 Last Admin: 03/17/23 08:39 Dose: 2.5 mls/min Ondansetron HCl (Ondansetron Inj 2 Mg/Ml 2 Ml Vial) 4 mg IV Q6H PRN PRN Reason: Nausea Stop: 04/15/23 21:51 Polyethylene Glycol (Polyethylene (Miralax) 17 Gm Pack) 17 gm PO DAILY PRN PRN Reason: Constipation Stop: 04/15/23 21:51 Prednisone (Prednisone 20 Mg Tab) 40 mg PO DAILY [facility] Stop: 04/16/23 09:44 Last Admin: 03/17/23 10:32 Dose: 40 mg Triamcinolone Acetonide (Triamcinolone Acet 0.1% Oint 80 Gm Tube) 1 appln EXT BID [facility] Stop: 04/16/23 09:44
[2023-03-17] MEDS ORDERED: CETIRIZINE HCL 10 MG TABLET PO SCH (09:00)
--- NOTE | 2023-03-17 09:52 | Hospitalist Progress Note ---
Date of Service March 17, 2023 Assessment & Plan (1) Non-small cell carcinoma of lung: (2) Rash: Plan: 77-year-old female with recently diagnosed non-small cell carcinoma of lung. Her last admission was in end of January when she presented with malignant pleural effusion requiring chest tube drainage Was started on Keytruda; on March 03, 2023 Developed maculopapular rash Went to see oncology on the day of the admission; patient was prescribed prednisone and topical steroid Came to the hospital due to tachycardia and high blood pressure; likely anxiety induced CTA lungs on admission showed mass in the right middle lobe and loculated pleural effusion Discussed with oncology; maculopapular rash likely related with Keytruda; Will start on prednisone 40 mg and topical steroid. Patient already has a prescription provided by the oncologist On cetirizine and Pepcid Calamine lotion also ordered (3) Elevated BP without diagnosis of hypertension: (4) Sinus tachycardia: (5) Elevated troponin: Plan: Patient came to the ED due to elevated heart rate and high blood pressure Normotensive currently High-sensitivity troponin elevated likely due to demand ischemia EKG personally reviewed; normal sinus rhythm with no significant ST or T wave changes. QTc 445 Echo ordered Cardiology on consult. Plan Time spent evaluating patient, direct bedside care, chart review, placing orders, interpretation of diagnostic studies, discussion with consultants, patient, and family members, as well as other required patient management activities is 60 minutes. Please note the above document was generated using voice recognition software. It may contain grammatical, syntax or spelling errors. Any formal questions or concerns about the content, text or information contained within the body of this dictation should be directly addressed to the provider for clarification Admission and Anticipated Discharge Date Admission Date: March 16, 2023 Subjective Patient seen and examined at bedside. She is comfortable; lying down on the bed comfortably. She reports rash all over her body. Review of Systems Review of Systems: All systems reviewed & are unremarkable except as noted in Subjective Physical Exam Physical Exam: General: no acute distress, WDWN Head: normocephalic, atraumatic Eyes: conjunctiva non-injected, anicteric ENT: normal inspection external ears, nose, mucous membranes moist Neck: supple, trachea midline Lungs: no respiratory distress, 96% on RA, mildly decreased breath sounds right base, otherwise no wheezing/rhonchi/rales CV: RRR, no murmur, no pretibial edema Abd: normal BS, soft, non-tender Ext: no cyanosis, no calf tenderness Neuro: A&O x 3, no focal deficits noted, normal affect Skin:+ Diffuse erythematous maculopapular rash to neck, chest, abdomen, back, bilateral upper and lower extremities, buttocks, groin. Bilateral palms with erythema. Soles of feet without noted rash or erythema. Skin is warm, dry Results & Data Results & Data Vital Signs (Past 12 Hours) Vital Signs Temp Pulse Pulse Resp BP BP Pulse Ox 03/17/23 07:45 36.6 C 74 18 128/70 94 03/17/23 03:40 36.5 C 77 18 127/69 94 03/17/23 00:00 36.6 C 85 18 109/62 94 03/16/23 23:04 95 H O2 Del Method 03/17/23 07:45 Room Air 03/17/23 03:40 Room Air 03/17/23 00:00 Room Air 03/16/23 23:04 Laboratory Results Laboratory Results WBC 3.65 K/ul (4.8-10.8) L 03/17/23 05:37 RBC 4.15 M/uL (4.20-5.40) L 03/17/23 05:37 Hgb 11.5 g/dl (12.0-16.0) L 03/17/23 05:37 Hct 34.5 % (37.0-47.0) L 03/17/23 05:37 MCV 83.1 fL (80.0-100.0) 03/17/23 05:37 MCH 27.7 pg (25.0-34.0) 03/17/23 05:37 MCHC 33.3 g/dL (32.0-36.0) 03/17/23 05:37 RDW Std Deviation 39.6 fL (36.4-46.3) 03/17/23 05:37 RDW Coeff of Leanna 13.1 % (11.5-14.5) 03/17/23 05:37 Plt Count 410 K/uL (130-400) H 03/17/23 05:37 MPV 9.0 fL (9.4-12.4) L 03/17/23 05:37 Immature Gran % (Auto) 0.7 % 03/16/23 16:37 Neut % (Auto) 74.5 % 03/16/23 16:37 Lymph % (Auto) 11.7 % 03/16/23 16:37 [place] % (Auto) 8.0 % 03/16/23 16:37 Eos % (Auto) 4.7 % 03/16/23 16:37 Baso % (Auto) 0.4 % 03/16/23 16:37 Neut # (Auto) 6.16 K/uL (1.40-6.50) 03/16/23 16:37 Lymph # (Auto) 0.97 K/uL (1.2-3.4) L 03/16/23 16:37 [place] # (Auto) 0.66 K/uL (0.11-0.59) H 03/16/23 16:37 Eos # (Auto) 0.39 K/uL (0-0.50) 03/16/23 16:37 Baso # (Auto) 0.03 K/uL (0-0.2) 03/16/23 16:37 Immature Gran # (Auto) 0.06 K/uL (0.01-0.20) 03/16/23 16:37 PT 11.0 Seconds (9.0-12.0) 03/16/23 20:19 INR 1.0 (0.9-1.1) 03/16/23 20:19 APTT 24.7 Seconds (21.0-31.0) 03/16/23 20:19 PTT Ratio 0.9 03/16/23 20:19 Sodium 140 mmol/L (136-145) 03/17/23 05:37 Potassium 4.3 mmol/L (3.5-5.1) 03/17/23 05:37 Chloride 109 mmol/L (98-107) H 03/17/23 05:37 Carbon Dioxide 25 mmol/L (21-32) 03/17/23 05:37 Anion Gap 6 (3-11) 03/17/23 05:37 BUN 18 mg/dl (6-23) 03/17/23 05:37 Creatinine 0.45 mg/dl (0.6-1.2) L 03/17/23 05:37 Est Cr Clr Drug Dosing 86.6 ml/min 03/17/23 05:37 Est GFR ( Amer) 112.0 ml/min 03/17/23 05:37 Est GFR (Non-Af Amer) 96.7 ml/min 03/17/23 05:37 BUN/Creatinine Ratio 40.0 (10-20) H 03/17/23 05:37 Glucose 131 mg/dl (70-99(Fasting)) H 03/17/23 05:37 Calcium 8.7 mg/dl (8.6-10.3) 03/17/23 05:37 Total Bilirubin 0.4 mg/dl (0.2-1.0) 03/16/23 16:37 AST 28 U/L (13-39) 03/16/23 16:37 ALT 16 U/L (7-52) 03/16/23 16:37 Alkaline Phosphatase 56 U/L (34-104) 03/16/23 16:37 Troponin I High Sens 86.6 pg/ml (0-14) H* D 03/17/23 05:37 B-Natriuretic Peptide 101 pg/ml (0-100) H 03/16/23 18:21 Total Protein 7.6 gm/dl (6.0-8.3) 03/16/23 16:37 Albumin 3.4 gm/dl (3.4-5.0) 03/16/23 16:37 Globulin 4.2 gm/dl (2.5-4.0) H 03/16/23 16:37 Albumin/Globulin Ratio 0.8 (0.9-2) L 03/16/23 16:37 Triglycerides 78 mg/dl (0-150) 03/17/23 05:37 Cholesterol 167 mg/dl (0-200) 03/17/23 05:37 LDL Cholesterol, Calc 112 mg/dl 03/17/23 05:37 VLDL Cholesterol, Calc 16 mg/dl (0-30) 03/17/23 05:37 HDL Cholesterol 39 mg/dl 03/17/23 05:37 Cholesterol/HDL Ratio 4.3 (0-5) 03/17/23 05:37 Lipase 26 U/L (11-82) 03/16/23 16:37 SARS-CoV-2 (PCR) NEGATIVE (Negative) 03/16/23 18:59 Influenza Type A (PCR) Negative (Neg) 03/16/23 18:59 Influenza Type B (PCR) Negative (Neg) 03/16/23 18:59 RSV (RT-PCR) Negative (Neg) 03/16/23 18:59 Impressions Chest X-Ray 03/16/23 15:57 XR chest 1V portable CLINICAL HISTORY: Chest pain, nonspecific TECHNIQUE: Single frontal radiograph of the chest was obtained. Comparison: Comparison is made to chest radiograph 03/02/2023 FINDINGS: No lines and tubes are seen. Cardiomegaly is noted. The aortic arch is calcified. Right lower lobe airspace opacities are seen. There is a small right pleural effusion. IMPRESSION: Redemonstration of a small right pleural effusion with airspace opacities compatible with history of nodular pleural thickening and pulmonary tumor and metastases. No acute abnormalities are seen. ACT 112: Negative or not required by law. Electronically signed by: Isaac Ruiz M.D. 03/16/2023 5:16 PM Chest CTA 03/16/23 19:24 Exam(s): CTA CHEST IV Amt: 111 ml optiray 320 EXAM: CT Angiography Chest With Intravenous Contrast CLINICAL HISTORY: Reason for exam: PE. TECHNIQUE: Axial computed tomographic angiography images of the chest with intravenous contrast. CTDI is 23 mGy and DLP is 433.94 mGy-cm. Automated exposure control was utilized for the study. A dose lowering technique was utilized adhering to the principles of ALARA. MIP reconstructed images were created and reviewed. COMPARISON: No relevant prior studies available. FINDINGS: Pulmonary arteries: No acute pulmonary embolism. This mass encases portions of the RIGHT pulmonary arterial vasculature. Aorta: Atherosclerotic changes of the aorta. No thoracic aortic aneurysm. Lungs: Mass in the RIGHT middle lobe, measuring approximately 7.1 x 5- 6.7 cm, concerning for pulmonary neoplasm. This extends anteriorly to involve a majority of the RIGHT middle lobe. Small satellite nodules are present, preferentially located in a subpleural location. Airspace consolidation of the RIGHT lung apex with interlobular septal thickening, concerning for infiltrate with superimposed localized vascular congestion. Pleural space: Lobulated RIGHT pleural effusion, likely malignant. No pneumothorax. Heart: Cardiomegaly. No significant pericardial effusion. No evidence of RV dysfunction. Mediastinum: Pathologically enlarged mediastinal lymph nodes. Bones/joints: Degenerative changes of the spine. No acute fracture. No dislocation. Soft tissues: Unremarkable. Lymph nodes: Unremarkable. No enlarged lymph nodes. IMPRESSION: 1. No acute pulmonary embolism. 2. Mass in the RIGHT middle lobe, measuring approximately 7.1 x 5-6.7 cm, concerning for pulmonary neoplasm. This extends anteriorly to involve a majority of the RIGHT middle lobe. Small satellite nodules are present, preferentially located in a subpleural location. 3. Airspace consolidation of the RIGHT lung apex with interlobular septal thickening, concerning for infiltrate with superimposed localized vascular congestion. 4. Pulmonary mass encases portions of the RIGHT pulmonary arterial vasculature. 5. Lobulated RIGHT pleural effusion, likely malignant. Electronically signed by: Jefferson Kelly MD 03/16/23 20:46 PM
[2023-03-17] MEDS ORDERED: CALAMINE/PRAMOXINE LOTION 180 APPLN/180 ML BTL EXT PRN (10:22)
[2023-03-17] MEDS: ASPIRIN 81 MG ECTAB PO SCH (10:32)
[2023-03-17] MEDS: predniSONE 20 MG TAB PO SCH (10:32)
[2023-03-17] MEDS: TRIAMCINOLONE ACET 0.1% OINT 80 GM TUBE EXT SCH ×2 (12:17→20:55)
--- NOTE | 2023-03-17 12:34 | Electrocardiogram Report ---
Test Reason : Blood Pressure : / mmHG Vent. Rate : 064 BPM Atrial Rate : 064 BPM P-R Int : 144 ms QRS Dur : 086 ms QT Int : 432 ms P-R-T Axes : 066 053 063 degrees QTc Int : 445 ms Normal sinus rhythm Normal ECG When compared with ECG of 16-MAR-2023 15:56, Vent. rate has decreased BY 47 BPM T wave amplitude has decreased in Lateral leads Confirmed by Gaudencio Velazquez ([id number]) on 03/17/2023 12:33:27 PM Referred By: Bernadine Ricketts Confirmed By:Josh Velazquez
[2023-03-17] MEDS: CETIRIZINE HCL 10 MG TABLET PO SCH (20:55)
[2023-03-18 06:44] LABS: Basophils # (auto) 0.03 K/uL (0-0.2); Basophils % (auto) 0.3 %; Eosinophils # (auto) 0.19 K/uL (0-0.50); Hematocrit (blood only) 32.7 % (37.0-47.0); Hemoglobin 10.8 g/dl (12.0-16.0); Immature Granulocytes # (auto) 0.05 K/uL (0.01-0.20); Immature Granulocytes % (auto) 0.5 %; Lymphocytes # (auto) 1.35 K/uL (1.2-3.4); Lymphocytes % (auto) 14.2 %; Mean Corpuscular Volume 84.7 fL (80.0-100.0); Mean Platelet Volume 9.5 fL (9.4-12.4); Monocytes # (auto) 0.91 K/uL (0.11-0.59); Monocytes % (auto) 9.5 %; Neutrophils % (auto) 73.5 %; Platelet Count 437 K/uL (130-400); RDW Coefficient of Variation 13.4 % (11.5-14.5); RDW Standard Deviation 41.6 fL (36.4-46.3); Red Blood Count 3.86 M/uL (4.20-5.40); White Blood Count 9.53 K/ul (4.8-10.8)
[2023-03-18 07:02] LABS: BUN Creatinine Ratio 33.3 (10-20); Calcium 8.8 mg/dl (8.6-10.3); Creatinine Clr Calc Pharmacy 68.4 ml/min; Est GFR (African American) 103.6 ml/min; Est GFR (Non-African American) 89.4 ml/min; Potassium 4.2 mmol/L (3.5-5.1)
[2023-03-18] MEDS: ASPIRIN 81 MG ECTAB PO SCH (08:56)
[2023-03-18] MEDS: predniSONE 20 MG TAB PO SCH (08:56)
[2023-03-18] MEDS: CETIRIZINE HCL 10 MG TABLET PO SCH (08:56)
[2023-03-18] MEDS: FAMOTIDINE 20 MG in SYRINGE 3 ML IV SCH (08:57)
[2023-03-18] MEDS: TRIAMCINOLONE ACET 0.1% OINT 80 GM TUBE EXT SCH (08:57)
[2023-03-18] MEDS ORDERED: diphenhydrAMINE Capsule 25 MG CAP PO SCH (09:30)
--- NOTE | 2023-03-18 09:33 | Hospitalist Progress Note ---
Date of Service March 18, 2023 Assessment & Plan (1) Non-small cell carcinoma of lung: (2) Rash: Plan: Lung Cancer with Malignant Pleural Effusion 77-year-old female with recently diagnosed non-small cell carcinoma of lung. Her last admission was in end of January when she presented with malignant pleural effusion requiring chest tube drainage Was started on Keytruda; on March 03, 2023 Developed maculopapular rash Went to see oncology on the day of the admission; patient was prescribed prednisone and topical steroid Came to the hospital due to tachycardia and high blood pressure; likely anxiety induced CTA lungs on admission showed mass in the right middle lobe and loculated pleural effusion Discussed with oncology; maculopapular rash likely related with Keytruda; Will start on prednisone 40 mg and topical steroid. Patient already has a prescription provided by the oncologist On cetirizine and Pepcid Calamine lotion also ordered 03/18 rash about he same as per patient discussed with Dr. Ricketts- recommending Decadron 10mg IV one dose and Benadryl BID patient would like to speak with Dr. Ricketts today first prior to starting Decadron (3) Elevated BP without diagnosis of hypertension: (4) Sinus tachycardia: (5) Elevated troponin: Plan: Patient came to the ED due to elevated heart rate and high blood pressure Normotensive currently High-sensitivity troponin elevated likely due to demand ischemia EKG personally reviewed; normal sinus rhythm with no significant ST or T wave changes. QTc 445 Echo ordered: EF 60-65 %, Gr 1 diastolic dysfunction Plan Disposition possible d/c home today after evaluation by Dr. Ricketts plan of care discussed with patient in detail and at length all questions answered she is understanding, agreeable, comfortable with the plan of care Admission and Anticipated Discharge Date Admission Date: March 16, 2023 Subjective ff up for rash secondary to Keytruda, etc seen resting in bed, comfortable states rash is about the same, still having some pruritus no chest pain, dyspnea, palpitations, dizziness no other new symptoms Review of Systems Review of Systems: all noted and negative except for above Physical Exam Physical Exam: General- oriented x 3, not in distress, speaks in sentences with no effort or accessory muscle use Eyes- anicteric Neck- no JVD Lungs- clear breath sounds bilaterally, no rales/wheezes Heart- normal rate, regular rhythm; no murmurs Abdomen- normal bowel sounds, nondistended, soft, nontender Extremities- no pretibial edema, no calf tenderness Neuro- alert, oriented x 3; no gross focal neurologic deficits Skin- (+) diffuse macular/papular rash on the extremities, torso and back no warmth/tenderness Results & Data Results & Data Vital Signs (Past 12 Hours) Vital Signs Temp Pulse Pulse Resp BP Pulse Ox O2 Del Method 03/18/23 03:23 36.4 C L 87 16 117/65 95 Room Air 03/17/23 22:57 54 L 03/17/23 22:57 36.4 C L 77 18 111/60 94 Room Air all noted and reviewed including below
[2023-03-18] MEDS: HEPARIN SOD 5,000 UNIT/0.5 ML VIAL SQ SCH (09:49)
[2023-03-18 10:41] LABS: Ferritin 100.6 ng/ml (8-388)
[2023-03-18] MEDS ORDERED: FAMOTIDINE 20 MG TAB PO SCH (21:00)
== END 2023-03-18 17:49 | disposition home health service (06) | DRG 607 ==
LOC: ED 15:31 → SUATTDRO 19:19 → 2S 19:19

== ENCOUNTER 2024-03-03 09:00 | Inpatient (IN) ==
--- NOTE | 2024-03-03 09:47 | Emergency Department Note ---
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 States been moving around by nature and has evolved and worsened now to involve the anterior abdomen. Has been having nausea but no vomiting. Reports constipation and yesterday had only a small few pellets of stool. No urinary symptoms reported. No trauma or falls. Denies significant shortness of breath but occasionally has a mildly productive cough by her report. Has been taking her Keytruda for her lung cancer. No fevers reported. Did some research and does have a history of diverticulosis and is concerned she could have diverticulitis or possibly a bowel obstruction. Limited intake only a small potato yesterday. Difficult with movement and turning and walking due to pain in her back and abdomen and thus came here for evaluation. Has some arthritis in the knees but no clear shooting sciatic pain reported into the legs. Prior rash from several months ago has resolved. PAST MEDICAL HISTORY: As noted above MEDICATIONS: Reviewed home medications although she tries to limit her as needed use. SOCIAL HISTORY: Lives at home by herself PHYSICAL EXAM: GENERAL: alert and oriented in no acute distress on stretcher Head: normocephalic and atraumatic EYES: No injection, discharge or icterus. EOMI. NECK: Trachea midline. ENT: Mucous membranes pink and moist. LUNGS: Airway patent. No retractions. Breath sounds clear with good air entry bilaterally. HEART: Regular tachycardic rate and rhythm. No chest wall tenderness ABDOMEN: Soft minimal lower abdominal tenderness. No guarding. No obvious masses appreciable. BACK: No midline tenderness, no SI joint tenderness. No bilateral flank tenderness. SKIN: Acyanotic, warm, dry, without rashes with a small 1-1/2 cm right mid thoracic skin lesion --friend reports site of prior basal cell. EXTREMITIES: Without swelling, tenderness or deformity NEUROLOGICAL: No focal deficits. No aphasia. No facial droop or slurred speech. Normal strength and tone in the extremities. Sensation to gross touch normal. EK beats per and sinus tachycardia. No PVC or PAC. No acute ST segment or depression with QTc of 441 CONTINUOUS CARDIAC MONITORING: was ordered and showed a heart rate of 90s-120s bpm in normal sinus rhythm to sinus tachycardia PDMP was checked without noted issue. Patient's laboratory studies and imaging reviewed. Differential includes Renal colic, UTI, appendicitis, diverticulitis, mesenteric ischemia, aortic pathology, infections, inflammatory bowel disease, PUD, biliary pathology, as well as other pathologies. IMPRESSION/MEDICAL DECISION MAKING: Reviewed medical record and saw this patient in the past for rash which has resolved. Today over the past week has been spearing seeing pain in the back down to the abdomen. Constipation and nausea reported but no vomiting. No fevers. Pain diffusely in the back. Has a history of lung cancer bit of a cough. Tachycardic upon arrival may be somewhat anxiety and discomfort although she declines any pain medication upon arrival. Declines nausea medicine here initially. Decreased intake and may be a bit dehydrated specially in light of the constipation. Given some IV fluids. Basic labs will be obtained. Patient again noted to be tachycardic but not hypoxic. Will obtain CT imaging of the chest to exclude PE other abnormality with her underlying history of lung cancer as well as a CT of the abdomen pelvis to look for intra-abdominal complications related to her symptoms. Not significant tender on exam or distended and lower suspicion for acute obstruction or perforation at this time. Want to exclude kidney stone or diverticulitis. May be more muscular as she does have pain more with certain movements. Patient not having significant neurological deficits to lower extremity and doubt spinal cord pathology at this time. Blood work here reassuring without findings of anemia. Mild leukocytosis of 13. No significant electrolyte abnormalities or renal dysfunction. No troponin elevation. Normal lipase and LFTs with a bilirubin 1.1. Negative COVID testing. EKG in sinus rhythm. CT angiogram per radiology without findings of PE or pneumonia. CT abdomen pelvis questions acute pancreatitis. Would make sense with her nausea symptoms and pain. Again does have some symptoms however no more muscular in nature. Given her age and comorbidities with the difficulty with pain control will bring her to the hospital. She is excepting some additional IV fluids as well as a bit of IV Tylenol but declined any narcotics at this point. She declines any nausea medication at this time. I do not believe she is suffering from sepsis at this point. Discussed with her no findings per CT report of obstruction or diverticulitis. Keytruda may be possible culprit medications but lipase is not elevated. Hospitalist team contacted. DIAGNOSIS: Pancreatitis, nausea, back pain, lung cancer DISPOSITION: Hospitalist will evaluate Patient was agreeable with this plan. Past Med/Surg History Problem List (Updated 03/03/24 @ 14:52 by Duy Murguia M.D.) Nausea (Acute) Acute pancreatitis (Acute) Non-small cell carcinoma of lung (Acute) Sinus tachycardia Adenocarcinoma Medical History Elevated troponin Elevated BP without diagnosis of hypertension Rash Hypertensive urgency Dyspnea on exertion Osteoarthritis Pleural effusion Acute respiratory failure with hypoxia Pulmonary mass Hypoxia History of tobacco abuse Surgical History History of tonsillectomy History of section Social History Smoking Status: Former smoker Tobacco Type: Cigarettes Age Started Using Tobacco: 23; Age Quit Using Tobacco: 68; packs per day: 0.5; Second Hand Exposure: No; Do You Dip or Chew Tobacco: No; Hx Alcohol Use: No Hx Substance Use: No Preferred Language: Spanish Communication Ability: Effective Rn Primary Care Required: No Beliefs That Will Affect Care: None Current Living Situation: Alone Feels Safe at Home: Yes Assistive Devices: None Allergies Allergies Allergy/AdvReac Type Severity Reaction Status Date / Time No Known Allergies Allergy Mild Unverified 03/03/24 13:11 Home Meds Home Medications Medication Instructions Recorded Confirmed calcium carb-magnesium oxide-vit 1 tab PO DAILY 03/16/23 03/03/24 D3 400 mg-167 mg-133 unit tablet (Calcium Magnesium + D) coenzyme Q10 100 mg capsule (Co 100 mg PO DAILY 03/16/23 03/03/24 Q-10) Results & Data (ED) Vital Signs Vital Signs - 24 hr 03/03/24 09:12 03/03/24 09:37 03/03/24 10:22 Temperature 37.0 C Temperature Source Temporal Artery Scan Pulse Rate 145 H 88 Pulse Rate [Apical] Pulse Rhythm [Apical] Respiratory Rate 22 Respiratory Effort / Characteristics Respiratory Depth Respiratory Pattern Blood Pressure 172/94 H Blood Pressure [Right Arm] Blood Pressure Mean 120 Blood Pressure Mean [Right Arm] Pulse Oximetry 95 Oxygen Delivery Method Room Air Room Air Sepsis Recent Fever Within 48 Hours No Sepsis New/Unexplained Change in Mental Status No Sepsis Action Taken by Nursing No Action Required 03/03/24 11:00 03/03/24 12:10 Temperature Temperature Source Pulse Rate Pulse Rate [Apical] 92 H 92 H Pulse Rhythm [Apical] Regular Respiratory Rate 18 19 Respiratory Effort / Characteristics Non-Labored Spontaneous Non-Labored Spontaneous Respiratory Depth Normal Normal Respiratory Pattern Regular Regular Blood Pressure Blood Pressure [Right Arm] 157/81 H Blood Pressure Mean Blood Pressure Mean [Right Arm] 106 Pulse Oximetry 98 95 Oxygen Delivery Method Room Air Room Air Sepsis Recent Fever Within 48 Hours Sepsis New/Unexplained Change in Mental Status Sepsis Action Taken by Nursing Laboratory Data 03/03/24 10:04 03/03/24 10:04 Lab Results 03/03/24 Range/Units 10:04 WBC 13.06 H (4.8-10.8) K/ul RBC 4.62 (4.20-5.40) M/uL Hgb 13.4 (12.0-16.0) g/dl Hct 40.1 (37.0-47.0) % MCV 86.8 (80.0-100.0) fL MCH 29.0 (25.0-34.0) pg MCHC 33.4 (32.0-36.0) g/dL RDW Std Deviation 40.0 (36.4-46.3) fL RDW Coeff of Leanna 12.7 (11.5-14.5) % Plt Count 360 (130-400) K/uL MPV 9.1 L (9.4-12.4) fL Immature Gran % (Auto) 0.5 % Neut % (Auto) 86.3 % Lymph % (Auto) 4.1 % Vernon % (Auto) 8.9 % Eos % (Auto) 0.0 % Baso % (Auto) 0.2 % Neut # (Auto) 11.26 H (1.40-6.50) K/uL Lymph # (Auto) 0.54 L (1.20-3.40) K/uL Vernon # (Auto) 1.16 H (0.11-0.59) K/uL Eos # (Auto) 0.00 (0.00-0.50) K/uL Baso # (Auto) 0.03 (0.00-0.20) K/uL Immature Gran # (Auto) 0.07 (0.01-0.20) K/uL Sodium 137 (136-145) mmol/L Potassium 3.9 (3.5-5.1) mmol/L Chloride 101 (98-107) mmol/L Carbon Dioxide 24 (21-32) mmol/L Anion Gap 12 H (3-11) BUN 9 (6-23) mg/dl Creatinine 0.49 L (0.6-1.2) mg/dl Est Cr Clr Drug Dosing Not Reportable Est GFR ( Amer) 108.2 ml/min Est GFR (Non-Af Amer) 93.3 ml/min BUN/Creatinine Ratio 18.4 (10-20) Glucose 127 H (70-99(Fasting)) mg/dl Calcium 9.2 (8.6-10.3) mg/dl Total Bilirubin 1.1 H (0.2-1.0) mg/dl AST 13 (13-39) U/L ALT 9 (7-52) U/L Alkaline Phosphatase 81 (34-104) U/L Troponin I High Sens 5.7 (0-14) pg/ml Total Protein 7.7 (6.0-8.3) gm/dl Albumin 3.8 (3.4-5.0) gm/dl Globulin 3.9 (2.5-4.0) gm/dl Albumin/Globulin Ratio 1.0 (0.9-2) Lipase 16 (11-82) U/L SARS-CoV-2, RNA, NAAT NEGATIVE (NEGATIVE) Administered Medications Discontinued Medications Sodium Chloride (Nss) 1,000 mls @ 999 mls/hr IV .Q1H1M ONE Stop: 03/03/24 10:38 Last Infusion: 03/03/24 11:55 Dose: Infused Documented By: Admin: 03/03/24 10:46 Dose: 999 mls/hr Documented By: TACO Lactated Ringer's (Lr) 500 mls @ 999 mls/hr IV .Q31M ONE Stop: 03/03/24 12:58 Last Infusion: 03/03/24 13:31 Dose: Infused Documented By: Admin: 03/03/24 12:34 Dose: 999 mls/hr Documented By: YRN Acetaminophen (Ofirmev) 1,000 mg in 100 mls @ 400 mls/hr IV NOW STA Stop: 03/03/24 12:42 Last Infusion: 03/03/24 13:31 Dose: Infused Documented By: Admin: 03/03/24 12:34 Dose: 400 mls/hr Documented By: YRN Ioversol (Optiray 320 125ml) 120 ml IV ONCE ONE Stop: 03/03/24 11:09 Last Admin: 03/03/24 11:03 Dose: 120 ml Documented By: OSCAR Imaging Data Radiologist's Impression: Chest CTA 03/03/24 09:36 CT angio chest PE protocol CLINICAL HISTORY: PE, ABD Pain, nausea, back pain, tachy, cancer TECHNIQUE: Multidetector row helical CT of the chest was performed with angiographic protocol. Coronal and sagittal reformations were obtained. Coronal and sagittal MIPS were obtained from the axial data set and were submitted for review. Automated dose lowering techniques and/or adjustment according to patient size were utilized for this exam. CT DOSE: 1546.2 mGy.cm Comparison: Comparison is made to CT chest 03/16/2023 FINDINGS: Lungs and pleura: Smooth interlobular septal thickening is seen. Emphysema is noted. There is mild atelectasis in the lung bases. Pulmonary nodules include a 5 mm nodule left lower lobe (series 116) and a 7 mm nodule in the left lung base (image 29). Heart and pericardium: Heart size is normal. No pericardial effusion. Vessels: No evidence of pulmonary embolism. Pulmonary trunk measures 32 mm in diameter. Mediastinum and sherif: Unremarkable. Chest wall and lower neck: Unremarkable. Abdomen: For findings below the diaphragm, please refer to CT of the abdomen dated the same. Bones: Degenerative changes in the thoracic spine. IMPRESSION: 1. No acute abnormality and in particular no evidence of pulmonary embolus. 2. Interstitial thickening and emphysema are seen. ACT 112: Negative or not required by law. Electronically signed by: Isaac Ruiz M.D. 03/03/2024 11:27 AM Abdomen/Pelvis CT 03/03/24 09:37 CT OF THE ABDOMEN AND PELVIS WITH CONTRAST CLINICAL HISTORY: Abdominal pain and nausea. Constipation. COMPARISON STUDY: CT of the abdomen and pelvis January 30, 2023. PET/CT December 08, 2023. TECHNIQUE: Following IV administration of 120 mL of Optiray, axial images of the abdomen and pelvis were obtained from the lung bases to the proximal femurs. Images were reviewed in the axial, sagittal, and coronal planes. IV contrast was administered without complication. Automated exposure control was utilized for the study. A dose lowering technique was utilized adhering to the principles of ALARA. FINDINGS: Please note that the chest CT will be reported separately. No pneumatosis, free air or portal venous gas is present. No hepatic lesions are present. There is a small hiatal hernia. The spleen and adrenal glands are unremarkable. There is no hydronephrosis. There is minimal peripancreatic stranding. No biliary or pancreatic ductal dilatation is present. There is no evidence for a bowel obstruction. Extensive sigmoid diverticulosis without evidence for acute diverticulitis. There is no abdominal or pelvic lymphadenopathy. Infrarenal abdominal aorta is ectatic, measuring 2.5 cm. There are no fractures or suspicious lesions within the visualized skeletal structures. IMPRESSION: 1. Minimal peripancreatic stranding. Acute pancreatitis cannot be excluded. 2. Extensive sigmoid diverticulosis. No evidence for acute diverticulitis. 3. No bowel obstruction. No bowel wall thickening. Amount of stool within normal limits. ACT 112: Negative or not required by law. Electronically signed by: Gonzalez Kahn M.D. 03/03/2024 12:06 PM Discharge Plan Visit Data Chief Complaint: Back Injury/Pain Stated Complaint: BACK PAIN, TROUBLE STANDING ED Provider: Duy Murguia Discharge Problem: Acute pancreatitis, Non-small cell carcinoma of lung, Nausea Patient Disposition: Being Evaluated by Hospitalist Forms Stand Alone Forms: [facility] Prescriptions Prescriptions: No Action coenzyme Q10 [Co Q-10] 100 mg Capsule 100 mg PO DAILY Calcium Magnesium + D 400-167-133 mg-mg-unit Tablet 1 tab PO DAILY Rx Instructions: unsure of strength Referrals Referrals: Corbin Hackett DO [Primary Care Provider] -
[2024-03-03 10:28] LABS: Basophils # (auto) 0.03 K/uL (0.00-0.20); Basophils % (auto) 0.2 %; Hematocrit (blood only) 40.1 % (37.0-47.0); Hemoglobin 13.4 g/dl (12.0-16.0); Immature Granulocytes # (auto) 0.07 K/uL (0.01-0.20); Immature Granulocytes % (auto) 0.5 %; Lymphocytes # (auto) 0.54 K/uL (1.20-3.40); Lymphocytes % (auto) 4.1 %; Mean Corpuscular Hgb Conc 33.4 g/dL (32.0-36.0); Mean Corpuscular Volume 86.8 fL (80.0-100.0); Mean Platelet Volume 9.1 fL (9.4-12.4); Monocytes # (auto) 1.16 K/uL (0.11-0.59); Monocytes % (auto) 8.9 %; Neutrophils # (auto) 11.26 K/uL (1.40-6.50); Neutrophils % (auto) 86.3 %; Platelet Count 360 K/uL (130-400); RDW Coefficient of Variation 12.7 % (11.5-14.5); Red Blood Count 4.62 M/uL (4.20-5.40); White Blood Count 13.06 K/ul (4.8-10.8)
[2024-03-03 10:46] LABS: Alanine Aminotransferase 9 U/L (7-52); Albumin Level 3.8 gm/dl (3.4-5.0); Alkaline Phosphatase 81 U/L (34-104); Anion Gap 12 (3-11); Aspartate Aminotransferase 13 U/L (13-39); BUN Creatinine Ratio 18.4 (10-20); Bilirubin,Total 1.1 mg/dl (0.2-1.0); Blood Urea Nitrogen 9 mg/dl (6-23); Calcium 9.2 mg/dl (8.6-10.3); Carbon Dioxide 24 mmol/L (21-32); Chloride 101 mmol/L (98-107); Est GFR (African American) 108.2 ml/min; Est GFR (Non-African American) 93.3 ml/min; Globulin 3.9 gm/dl (2.5-4.0); Glucose 127 mg/dl (70-99(Fasting)); Lipase 16 U/L (11-82); Potassium 3.9 mmol/L (3.5-5.1); Sodium 137 mmol/L (136-145); Total Protein 7.7 gm/dl (6.0-8.3)
[2024-03-03] MEDS: SODIUM CHLORIDE 0.9% 1,000 ML IV ONE (10:46)
[2024-03-03 10:51] LABS: Troponin I High Sensitivity 5.7 pg/ml (0-14)
[2024-03-03] MEDS: OPTIRAY 320 125ml IV ONE (11:03)
--- NOTE | 2024-03-03 11:29 | CT Scan Report ---
CT angio chest PE protocol CLINICAL HISTORY: PE, ABD Pain, nausea, back pain, tachy, cancer TECHNIQUE: Multidetector row helical CT of the chest was performed with angiographic protocol. Felton l and sagittal reformations were obtained. Coronal and sagittal MIPS were obtained from the axial samantha a set and were submitted for review. Automated dose lowering techniques and/or adjustment according to patient size were utilized for this exam. CT DOSE: 1546.2 mGy.cm Comparison: Comparison is made to CT chest 03/16/2023 FINDINGS: Lungs and pleura: Smooth interlobular septal thickening is seen. Emphysema is noted. There is mild at electasis in the lung bases. Pulmonary nodules include a 5 mm nodule left lower lobe (series 116) and a 7 mm nodule in the left lung base (image 29). Heart and pericardium: Heart size is normal. No pericardial effusion. Vessels: No evidence of pulmonary embolism. Pulmonary trunk measures 32 mm in diameter. Mediastinum and sherif: Unremarkable. Chest wall and lower neck: Unremarkable. Abdomen: For findings below the diaphragm, please refer to CT of the abdomen dated the same. Bones: Degenerative changes in the thoracic spine. IMPRESSION: 1. No acute abnormality and in particular no evidence of pulmonary embolus. 2. Interstitial thickening and emphysema are seen. ACT 112: Negative or not required by law. Electronically signed by: Isaac Ruiz M.D. 03/03/2024 11:27 AM
--- NOTE | 2024-03-03 12:07 | CT Scan Report ---
CT OF THE ABDOMEN AND PELVIS WITH CONTRAST CLINICAL HISTORY: Abdominal pain and nausea. Constipation. COMPARISON STUDY: CT of the abdomen and pelvis January 30, 2023. PET/CT December 08, 2023. TECHNIQUE: Following IV administration of 120 mL of Optiray, axial images of the abdomen and pelvis w ere obtained from the lung bases to the proximal femurs. Images were reviewed in the axial, sagittal, and coronal planes. IV contrast was administered without complication. Automated exposure control w as utilized for the study. A dose lowering technique was utilized adhering to the principles of ALACiera Starr. FINDINGS: Please note that the chest CT will be reported separately. No pneumatosis, free air or port al venous gas is present. No hepatic lesions are present. There is a small hiatal hernia. The spleen and adrenal glands are unremarkable. There is no hydronephrosis. There is minimal peripancreatic stra nding. No biliary or pancreatic ductal dilatation is present. There is no evidence for a bowel obstru ction. Extensive sigmoid diverticulosis without evidence for acute diverticulitis. There is no abdomi nal or pelvic lymphadenopathy. Infrarenal abdominal aorta is ectatic, measuring 2.5 cm. There are no fractures or suspicious lesions within the visualized skeletal structures. IMPRESSION: 1. Minimal peripancreatic stranding. Acute pancreatitis cannot be excluded. 2. Extensive sigmoid diverticulosis. No evidence for acute diverticulitis. 3. No bowel obstruction. No bowel wall thickening. Amount of stool within normal limits. ACT 112: Negative or not required by law. Electronically signed by: Gonzalez Kahn M.D. 03/03/2024 12:06 PM
[2024-03-03] MEDS: LACTATED RINGER'S 500 ML IV ONE (12:34)
[2024-03-03] MEDS: ACETAMINOPHEN 1,000 MG/100 ML VIAL IV STA (12:34)
--- NOTE | 2024-03-03 12:36 | Electrocardiogram Report ---
Test Reason : Blood Pressure : / mmHG Vent. Rate : 105 BPM Atrial Rate : 105 BPM P-R Int : 146 ms QRS Dur : 086 ms QT Int : 334 ms P-R-T Axes : 074 039 043 degrees QTc Int : 441 ms Poor data quality, interpretation may be adversely affected Sinus tachycardia Otherwise normal ECG When compared with ECG of 17-MAR-2023 05:48, Vent. rate has increased BY 41 BPM Confirmed by Ahsan Aldrich ([id number]) on 03/03/2024 12:35:45 PM Referred By: REFERRED SELF Confirmed By:Ahsan Aldrich
--- NOTE | 2024-03-03 13:05 | History & Physical Report ---
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 Vital signs on admission revealed slightly elevated BP of 157/81, mild tachycardia at 92 bpm. Currently not hypoxic, O2 sat 95% on RA. Elevations above are more than likely d/t pain. Labs revealed slightly elevated total bili at 1.1, lipase w/in normal range at 16. --> As per below, will trend in AM. WBC 13.06, no signs of an acute anemic process occurring. Creatinine stable at 0.49, no signs of STEFAN. Glucose slightly elevated at 127 on admission, no previous history of diabetes. Initial troponin w/in normal range @ 5.7, will continue to trend troponin level x 2 (now & @ 16:00). Chest CTA revealed the following: no acute abnormality (no evidence of pulmonary embolism), interstitial thickening and emphysema are seen. CT of abdomen/pelvis displayed the following: * Minimal peripancreatic stranding, acute pancreatitis cannot be excluded. * Extensive sigmoid diverticulosis, no evidence for acute diverticulitis. * No bowel obstruction, no bowel wall thickening. Amount of stool within normal limits. Patient given 1g IV Tylenol, 1L NSS and 500mL Lactated Ringer's in the ED. Routine GI consult performed in ED by Dr. Gómez and Carolina Pavon PA-C. Their recommendation, per documentation, is to keep the patient NPO and continue w/ IVF hydration. * No other comments/recommendations at this time. Will continue with our plan of care. Gallbladder U/S completed. No evidence of gallstones or biliary duct dilatation, pancreas obscured by overlying bowel gas. -Continuous IVF resuscitation w/ LR's, no need for cardiac monitoring at this time. -Daily bowel regimen ordered given recent constipation. -Pain management w/ scheduled IV Tylenol for mild/moderate pain, PRN IV morphine for severe pain. -AM labs to include the following: CBC no diff, CMP, lipase, triglycerides and mag/phos. (2) Non-small cell carcinoma of lung: (3) Adenocarcinoma: Plan: Currently being managed by [facility] Hematology/Oncology [Dr. Ricketts]. Receives Keytruda infusions every 3 weeks, next infusion per patient is on Wednesday [03/08/24]. Chest CTA revealed the following: no acute abnormality (no evidence of pulmonary embolism), interstitial thickening and emphysema are seen. -No need to consult hematology/oncology at this time. (4) Sinus tachycardia: Plan: Vital signs on admission revealed slightly elevated BP of 157/81, mild tachycardia at 92 bpm. Currently not hypoxic, O2 sat 95% on RA. Elevations above are more than likely d/t pain. Initial troponin w/in normal range @ 5.7, repeat troponin 9.7. Will trend troponin again around 6 PM. Currently NOT reporting any chest pain, no significant past cardiac history. Chest CTA revealed the following: no acute abnormality (no evidence of pulmonary embolism), interstitial thickening and emphysema are seen. -Continuous cardiac monitoring in place, EKG with chest pain as needed. (5) History of hypertension: Plan: Patient was treated with amlodipine in the past, but is NOT currently taking any anti-hypertensive medications. Vital signs on admission revealed slightly elevated BP of 157/81, mild tachycardia at 92 bpm. Currently not hypoxic, O2 sat 95% on RA. Elevations above are more than likely d/t pain. -Will continue to monitor BP throughout hospitalization, no need for pharmacologic intervention at this time. DVT Prophylaxis: Lovenox Code Status: Full Code PCP: Corbin Hackett DO Dispo: Admit to Med/Surg Patient seen in collaboration with Dr. Hadley. Please see addendum. I spent a total of 75 minutes coordinating, documenting, and providing care for this patient excluding time spent in the performance of separately billed services. This included personally reviewing all current laboratories and imaging studies, medical reconciliation, outpatient chart review and discussion with specialists. This chart was completed in part utilizing Speech Voice Recognition Software. Grammatical errors, random word insertions, pronoun errors, and incomplete sentences are an occasional consequence of this system due to software limitations, ambient noise, and hardware issues. Any formal questions or concerns about the content, text, or information contained within the body of this dictation should be directly addressed to the provider for clarification. 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 History obtained from patient, and associated ED/PCP/previous admission records. Patient seen at bedside. Patient reporting mid/low back and lower abdominal pain ongoing for ~1 week. She states the pain has gotten progressively worse over the past couple of days, and has prevented her from moving around much and completing ADLs. She notes the pain is not really present at rest, but rather comes on with movement. She describes the pain as sharp/stabbing. She has had some intermittent, shooting pain down the back sides of both legs that subsides rather quickly. However, she is unsure if this is d/t her gardening a lot more recently or the back/abdominal pain that has been ongoing. She denies any recent fevers, chills, body aches, chest pain or SOB. Patient does report a mild cough that has been ongoing for weeks now, but denies any recent sick contacts or other illnesses. She has a history of pollen allergy, which she believes is contributing to the cough. No current sinus congestion/runny nose. She denies any urinary habit changes. States she is feeling more constipated recently, describes her stool as "pellet-shaped." No history of hemorrhoids or fissures. No bloody BMs, no changes in the frequency of BMs. Her appetite has been significantly decreased over the past couple days, but she has been hydrating appropriately at home. Patient reports drinking a lot of prune juice and water, with some occasional coffee in between. Has been feeling nauseous intermittently, but denies any current nausea. No episodes of vomiting. Did eat a potato yesterday, but not anything since. Reports she is not sleeping well, cannot sleep lying completely flat due to back/abdominal pain. Pain in her abdomen and back feels better when she is inclined. Patient has a neighbor who has been helping her out over the last week with transportation and ADLs as movement has become too painful, ultimately prompting her to come in for evaluation. Allergies Allergy/AdvReac Type Severity Reaction Status Date / Time No Known Allergies Allergy Mild Unverified 03/03/24 17:52 Home Medications Medication Instructions Recorded Confirmed Type calcium carb-magnesium oxide-vit 1 tab PO DAILY 03/16/23 03/03/24 History D3 400 mg-167 mg-133 unit tablet (Calcium Magnesium + D) coenzyme Q10 100 mg capsule (Co 100 mg PO DAILY 03/16/23 03/03/24 History Q-10) Past Med/Surg History Problem List (Updated 03/04/24 @ 10:25 by Shukri Marx DO) Back pain History of hypertension Acute pancreatitis (Acute) Non-small cell carcinoma of lung (Acute) Sinus tachycardia Adenocarcinoma Medical History Elevated troponin Elevated BP without diagnosis of hypertension Rash Hypertensive urgency Dyspnea on exertion Osteoarthritis Pleural effusion Acute respiratory failure with hypoxia Pulmonary mass Hypoxia History of tobacco abuse Surgical History History of tonsillectomy History of section Social History Smoking Status: Former smoker Tobacco Type: Cigarettes Age Started Using Tobacco: 23; Age Quit Using Tobacco: 68; packs per day: 0.5; Cigarettes Per Day: 10; Second Hand Exposure: No; Do You Dip or Chew Tobacco: No; Tobacco Cessation Education Requested by Patient: No Hx Alcohol Use: No Hx Substance Use: No Preferred Language: Pashto Communication Ability: Effective Gas Meter Repairer Required: No Beliefs That Will Affect Care: None Current Living Situation: Alone Other Information That Helps Us Care for You: No Feels Safe at Home: Yes Assistive Devices: Denture - Upper and Glasses Review of Systems Review of Systems: At least ten systems reviewed and negative, except as noted in the HPI. Physical Exam Physical Exam: General Appearance: No acute distress, conversing appropriately. Lying in bed, appears comfortable. Head: Normocephalic, atraumatic. Eyes: Normal inspection, PERRL, conjunctivae normal, anicteric sclerae. ENT: External ear and nose normal, oropharynx normal. Neck: Normal visual inspection, trachea midline, no thyromegaly. Respiratory: Normal respiratory effort, lungs clear to auscultation, no wheeze, rales, rhonchi. No accessory muscle use. Cardiovascular: Regular rate, rhythm, no murmur, normal peripheral pulses, no BLE edema. Vessels: No JVD. Chest: Normal inspection of chest. Abdomen/GI: Mildly tender in lower abdominal region, no guarding. Extremities/Back/Musculoskeletal: No cyanosis or clubbing, no b/l flank tenderness, extremities motor strength 5/5. Neurologic: PERRL, EOMI, accommodation nl, no face palsy, no dysarthria, CN's II-XI grossly intact bilaterally and moves all extremities. Psychiatric: A+Ox3, euthymic affect. Skin: No rashes, normal color, warm/dry. Results & Data Results & Data Vital Signs (Past 12 Hours) Vital Signs Temp Pulse Pulse Resp BP BP Pulse Ox 03/03/24 12:10 92 H 19 157/81 H 95 03/03/24 11:00 92 H 18 98 03/03/24 10:22 88 03/03/24 09:37 03/03/24 09:12 37.0 C 145 H 22 172/94 H 95 O2 Del Method 03/03/24 12:10 Room Air 03/03/24 11:00 Room Air 03/03/24 10:22 03/03/24 09:37 Room Air 03/03/24 09:12 Room Air Laboratory Results Short CBC 03/03/24 Range/Units 10:04 WBC 13.06 H (4.8-10.8) K/ul Hgb 13.4 (12.0-16.0) g/dl Hct 40.1 (37.0-47.0) % Plt Count 360 (130-400) K/uL BMP 03/03/24 10:04 Sodium 137 Potassium 3.9 Chloride 101 Carbon Dioxide 24 BUN 9 Creatinine 0.49 L Glucose 127 H Calcium 9.2 Liver Function 03/03/24 Range/Units 10:04 Total Bilirubin 1.1 H (0.2-1.0) mg/dl AST 13 (13-39) U/L ALT 9 (7-52) U/L Alkaline Phosphatase 81 (34-104) U/L Albumin 3.8 (3.4-5.0) gm/dl Diagnostic Findings Chest CTA 03/03/24 09:36 CT angio chest PE protocol CLINICAL HISTORY: PE, ABD Pain, nausea, back pain, tachy, cancer TECHNIQUE: Multidetector row helical CT of the chest was performed with angiographic protocol. Coronal and sagittal reformations were obtained. Coronal and sagittal MIPS were obtained from the axial data set and were submitted for review. Automated dose lowering techniques and/or adjustment according to patient size were utilized for this exam. CT DOSE: 1546.2 mGy.cm Comparison: Comparison is made to CT chest 03/16/2023 FINDINGS: Lungs and pleura: Smooth interlobular septal thickening is seen. Emphysema is noted. There is mild atelectasis in the lung bases. Pulmonary nodules include a 5 mm nodule left lower lobe (series 116) and a 7 mm nodule in the left lung base (image 29). Heart and pericardium: Heart size is normal. No pericardial effusion. Vessels: No evidence of pulmonary embolism. Pulmonary trunk measures 32 mm in diameter. Mediastinum and sherif: Unremarkable. Chest wall and lower neck: Unremarkable. Abdomen: For findings below the diaphragm, please refer to CT of the abdomen dated the same. Bones: Degenerative changes in the thoracic spine. IMPRESSION: 1. No acute abnormality and in particular no evidence of pulmonary embolus. 2. Interstitial thickening and emphysema are seen. ACT 112: Negative or not required by law. Electronically signed by: Isaac Ruiz M.D. 03/03/2024 11:27 AM Abdomen/Pelvis CT 03/03/24 09:37 CT OF THE ABDOMEN AND PELVIS WITH CONTRAST CLINICAL HISTORY: Abdominal pain and nausea. Constipation. COMPARISON STUDY: CT of the abdomen and pelvis January 30, 2023. PET/CT December 08, 2023. TECHNIQUE: Following IV administration of 120 mL of Optiray, axial images of the abdomen and pelvis were obtained from the lung bases to the proximal femurs. Images were reviewed in the axial, sagittal, and coronal planes. IV contrast was administered without complication. Automated exposure control was utilized for the study. A dose lowering technique was utilized adhering to the principles of ALARA. FINDINGS: Please note that the chest CT will be reported separately. No pneumatosis, free air or portal venous gas is present. No hepatic lesions are present. There is a small hiatal hernia. The spleen and adrenal glands are unremarkable. There is no hydronephrosis. There is minimal peripancreatic stranding. No biliary or pancreatic ductal dilatation is present. There is no evidence for a bowel obstruction. Extensive sigmoid diverticulosis without evidence for acute diverticulitis. There is no abdominal or pelvic lymphaden opathy. Infrarenal abdominal aorta is ectatic, measuring 2.5 cm. There are no fractures or suspicious lesions within the visualized skeletal structures. IMPRESSION: 1. Minimal peripancreatic stranding. Acute pancreatitis cannot be excluded. 2. Extensive sigmoid diverticulosis. No evidence for acute diverticulitis. 3. No bowel obstruction. No bowel wall thickening. Amount of stool within normal limits. ACT 112: Negative or not required by law. Electronically signed by: Gonzalez Kahn M.D. 03/03/2024 12:06 PM Medications Administered Discontinued Medications Sodium Chloride (Nss) 1,000 mls @ 999 mls/hr IV .Q1H1M ONE Stop: 03/03/24 10:38 Last Infusion: 03/03/24 11:55 Dose: Infused Documented By: Admin: 03/03/24 10:46 Dose: 999 mls/hr Documented By: TACO Lactated Ringer's (Lr) 500 mls @ 999 mls/hr IV .Q31M ONE Stop: 03/03/24 12:58 Last Admin: 03/03/24 12:34 Dose: 999 mls/hr Documented By: YRN Acetaminophen (Ofirmev) 1,000 mg in 100 mls @ 400 mls/hr IV NOW STA Stop: 03/03/24 12:42 Last Admin: 03/03/24 12:34 Dose: 400 mls/hr Documented By: YRN Ioversol (Optiray 320 125ml) 120 ml IV ONCE ONE Stop: 03/03/24 11:09 Last Admin: 03/03/24 11:03 Dose: 120 ml Documented By: OSCAR ECG Additional Comments: EKG performed in the ED revealed the following: sinus tachycardia w/ HR 105bpm, KY-Int 146ms, QRS Dur 86ms and QT/QTc 334/441ms. When compared to EKG done 03/17/2023, ventricular rate has increased by 41bpm. Code Status & VTE Plan Code Status FULL CODE VTE Prophylaxis Plan VTE Prophylaxis will be ordered: Yes Supervising Physician Co-Signing Physician Notes delayed entry date of service noted above Attending Addendum: care coordinated with RINA Garrison please refer to her notes for full details, I agree with her notes patient seen and examined, records reviewed by myself as well Diagnoses and plan of care as per RINA Garrison's notes Tommie Hadley MD (1) Acute pancreatitis Acute pancreatitis complication: unspecified Pancreatitis type: unspecified pancreatitis type Qualified Code(s): K85.90 - Acute pancreatitis without necrosis or infection, unspecified (2) Non-small cell carcinoma of lung Laterality: right Qualified Code(s): C34.91 - Malignant neoplasm of unspecified part of right bronchus or lung
--- NOTE | 2024-03-03 15:48 | Ultrasound Report ---
US gallbladder CLINICAL HISTORY: Acute pancreatitis on CT of abd/pelvis COMPARISON STUDY: CT of the abdomen and pelvis performed earlier today. FINDINGS: Liver is sonographically normal. There is no biliary ductal dilatation. No gallstones are i dentified. 2 echogenic foci within the gallbladder wall with ringdown artifact suggest adenomyomatosi s. There is no gallbladder wall thickening. Pancreas is largely obscured on this exam. There is no ri ght hydronephrosis. A 1.2 cm right renal cyst is incidentally noted. IMPRESSION: 1. No gallstones or biliary ductal dilatation. 2. Pancreas obscured by overlying bowel gas. ACT 112: Negative or not required by law. Electronically signed by: Gonzalez Kahn M.D. 03/03/2024 3:47 PM
--- NOTE | 2024-03-03 15:55 | Gastrointestinal Consultation ---
Date of Consultation March 03, 2024 Assessment & Plan (1) Acute pancreatitis: -Keep NPO -IV fluid hydration -Pain control per primary team -US pending per primary team to assess for any further biliary abnormalities Supervising Physician Co-Signing Physician Notes Agree with NIKKIE Perez Interviewed and examined patient and agree with above Abd: Soft, Tender, ND Continue current therapy and supportive care History of Present Illness Reason for Consultation: Pancreatitis History of Present Illness Patient is a 78 yo female who presented to the ED with back pain. She has a history of lung cancer on Keytruda. She notes that her pain began in her back yesterday and has radiated into her abdomen. She notes that she has no nausea or vomiting. She does not drink alcohol. She notes an appendectomy possibly in the past and 2 c sections but denies other abdominal pain. She had a normal lipase in the ED. A CT scan showed minimal peripancreatic stranding consistent with an acute pancreatitis. AST/ALT are within normal limits. T bili 1.1. WBC 13,060. She denies other complaints at present. It is unclear if she has a gallbladder and no comment was made on CT scan regarding this. Allergies Allergy/AdvReac Type Severity Reaction Status Date / Time No Known Allergies Allergy Mild Unverified 03/03/24 17:52 Home Medications Medication Instructions Recorded Confirmed Type calcium carb-magnesium oxide-vit 1 tab PO DAILY 03/16/23 03/03/24 History D3 400 mg-167 mg-133 unit tablet (Calcium Magnesium + D) coenzyme Q10 100 mg capsule (Co 100 mg PO DAILY 03/16/23 03/03/24 History Q-10) Patient History Medical History Elevated troponin Elevated BP without diagnosis of hypertension Rash Hypertensive urgency Dyspnea on exertion Osteoarthritis Pleural effusion Acute respiratory failure with hypoxia Pulmonary mass Hypoxia History of tobacco abuse Surgical History History of tonsillectomy History of section Social History Smoking Status: Former smoker Tobacco Type: Cigarettes Age Started Using Tobacco: 23; Age Quit Using Tobacco: 68; packs per day: 0.5; Cigarettes Per Day: 10; Second Hand Exposure: No; Do You Dip or Chew Tobacco: No; Tobacco Cessation Education Requested by Patient: No Hx Alcohol Use: No Hx Substance Use: No Preferred Language: Amharic Communication Ability: Effective Manager Of It Required: No Beliefs That Will Affect Care: None Current Living Situation: Alone Other Information That Helps Us Care for You: No Feels Safe at Home: Yes Assistive Devices: Cane and Walker Review of Systems Constitutional: no fever and no chills Respiratory: no cough and no dyspnea Cardiovascular: no chest pain Gastrointestinal: + abdominal pain; no blood in stools Integumentary: no problem reported Psychiatric: no problem reported Hematologic / Lymphatic: no unexplained weight loss Physical Exam Constitutional: well developed Respiratory: normal respiratory effort Cardiovascular: Rate/Rhythm: regular rate Gastrointestinal (Abdomen): normal bowel sounds, soft, nontender, no hepatosplenomegaly Psychiatric: Orientation: alert and oriented x 3 Results & Data Vital Signs (Past 12 Hours) Vital Signs Temp Pulse Pulse Resp BP BP Pulse Ox 03/03/24 12:10 92 H 19 157/81 H 95 03/03/24 11:00 92 H 18 98 03/03/24 10:22 88 03/03/24 09:37 03/03/24 09:12 37.0 C 145 H 22 172/94 H 95 O2 Del Method 03/03/24 12:10 Room Air 03/03/24 11:00 Room Air 03/03/24 10:22 03/03/24 09:37 Room Air 03/03/24 09:12 Room Air PG Care Time/CCT Total # of Minutes Spent Total Time Spent with Patient: Total time spent is greater than 50% in coordination of care (as documented) at patient's floor/unit and/or counseling patient: Coding Level of Care Code 88324 INT INP/OBS CARE 3/75MIN Diagnoses Acute pancreatitis, unspecified complication status, unspecified pancreatitis type K85.90
[2024-03-03] MEDS ORDERED: MoRPHine SULFATE 2 MG/ML CARP IV PRN (17:07)
[2024-03-03] MEDS ORDERED: MAGNESIUM HYDROXIDE SUSP 30 ML UDC PO PRN (17:07)
[2024-03-03] MEDS ORDERED: ACETAMINOPHEN 325 MG TAB PO PRN (17:07)
[2024-03-03] MEDS ORDERED: ONDANSETRON INJ 2 MG/ML 2 ML VIAL IV PRN (17:07)
[2024-03-03] MEDS ORDERED: POLYETHYLENE (MIRALAX) 17 GM PACK PO PRN (17:07)
[2024-03-03] MEDS ORDERED: ALUMINUM/MAGNESIUM SUSP 30 ML UDC PO PRN (17:07)
[2024-03-03] MEDS: LACTATED RINGER'S 1,000 ML IV SCH (17:51)
[2024-03-03] MEDS: ENOXAPARIN INJ 40 MG/0.4 ML SYR SQ SCH (18:00)
[2024-03-03] MEDS: LIDOCAINE 5% 1 PATCH TD SCH (20:56)
[2024-03-03] MEDS: ACETAMINOPHEN 1,000 MG/100 ML VIAL IV SCH (20:57)
[2024-03-03 21:03] LABS: Appearance Urine Cloudy (Clear); Bacteria Urine Automated None Seen (None Seen); Bilirubin Urine Negative (Negative); Blood Urine 2+ (Negative); Cast Urine Automated 0-2 /lpf (0-2); Color Urine Yellow; Epithelial Cell Urine Auto 0-2 /hpf (0-2); Glucose Urine UA Negative (Negative); Ketones Urine 4+ (Negative); Leukocyte Esterase Urine 2+ (Negative); Nitrite Urine Negative (Negative); Protein Urine Trace (Negative); RBC Urine Automated >20 /hpf (0-2); Specific Gravity Urine 1.043 (1.000-1.030); Urobilinogen Urine Negative (Negative); WBC Urine Automated 21-50 /hpf (0-5); pH Urine 5.5 (4.5-7.5)
--- NOTE | 2024-03-03 21:05 | Magnetic Resonance Report ---
Exam(s): MRI L SPINE Without Contrast EXAM: MR Lumbar Spine Without Intravenous Contrast CLINICAL HISTORY: Reason for exam: back pain. TECHNIQUE: Magnetic resonance images of the lumbar spine without intravenous contrast in multiple planes. COMPARISON: No relevant prior studies available. FINDINGS: Vertebrae: 5 lumbar type vertebral bodies present on this exam. Last fully formed interspace space is considered L5-S1. There is a rudimentary interspace between S1 and S2. The cord terminates normally at L1-L2 interspace. . Diffuse loss of disc signal and height throughout the lumbar spine most severe at the L2-L3 level with there are degenerative endplate changes. Spinal cord: Unremarkable. Normal signal. Soft tissues: Unremarkable. Kidneys and ureters: Simple 1.4 cm right renal cyst. No follow-up of this simple cyst is necessary. DISCS/SPINAL CANAL/NEURAL FORAMINA: L1-L2: Posterior disc osteophyte complex slightly asymmetric to the left resulting in mild foraminal narrowing. L2-L3: Mild ligamentous and severe hypertrophic changes resulting in severe bilateral neural foraminal stenosis at Narrowing due to a degenerative disc bulge and bony hypertrophy L3-L4: Mild facet and ligamentous hypertrophic changes without significant foraminal narrowing. L4-L5: Unremarkable. No significant disc disease. No stenosis. L5-S1: No stenosis. IMPRESSION: Mild ligamentous hypertrophic changes resulting in severe bilateral neural foraminal stenosis at Narrowing at L2-L3 Electronically signed by: Nilson Miranda MD 03/03/24 21:04 PM
--- NOTE | 2024-03-03 22:02 | Communication Note ---
Date of Service: March 03, 2024 Consulted Ortho/Spine d/t lumber spine MRI findings of mild ligamentous hypertrophic changes resulting in severe bilateral neural foraminal stenosis at narrowing at L2-L3. delayed entry date of service noted above Attending Addendum: care coordinated with RINA Garrison please refer to her notes for full details, I agree with her notes patient seen and examined, records reviewed by myself as well Diagnoses and plan of care as per RINA Garrison's notes Tommie Hadley MD
[2024-03-04 06:21] LABS: Hematocrit (blood only) 33.8 % (37.0-47.0); Mean Corpuscular Hemoglobin 28.7 pg (25.0-34.0); Mean Corpuscular Hgb Conc 32.5 g/dL (32.0-36.0); Mean Corpuscular Volume 88.3 fL (80.0-100.0); Mean Platelet Volume 9.5 fL (9.4-12.4); Platelet Count 310 K/uL (130-400); RDW Coefficient of Variation 12.9 % (11.5-14.5); RDW Standard Deviation 41.8 fL (36.4-46.3); Red Blood Count 3.83 M/uL (4.20-5.40); White Blood Count 9.53 K/ul (4.8-10.8)
[2024-03-04 06:42] LABS: Albumin Globulin Ratio 0.9 (0.9-2); Albumin Level 2.9 gm/dl (3.4-5.0); BUN Creatinine Ratio 19.1 (10-20); Bilirubin,Total 0.9 mg/dl (0.2-1.0); Calcium 8.3 mg/dl (8.6-10.3); Creatinine Clr Calc Pharmacy 88.6 ml/min; Est GFR (African American) 109.7 ml/min; Est GFR (Non-African American) 94.6 ml/min; Globulin 3.1 gm/dl (2.5-4.0); Magnesium 1.7 mg/dl (1.7-2.4); Phosphorus 3.1 mg/dl (2.5-4.9); Potassium 3.9 mmol/L (3.5-5.1)
[2024-03-04] MEDS: DOCUSATE SODIUM 100 MG CAP PO SCH (08:14)
[2024-03-04] MEDS: POLYETHYLENE (MIRALAX) 17 GM PACK PO SCH (08:14)
--- NOTE | 2024-03-04 10:23 | Hospitalist Progress Note ---
Date of Service March 04, 2024 Assessment & Plan (1) Acute pancreatitis: (2) Non-small cell carcinoma of lung: (3) Sinus tachycardia: (4) Back pain: Plan Kera Pavon is a 78y/o F with PMHx significant for HTN, BIMAL, non-melanoma skin cancer, non-small cell cancer of the right lung currently on Keytruda who presented with abdominal and pain and nausea. Pancreatitis Pt presenting with back/abdominal pain, nausea Tachycardic with leukocytosis of 13K on arrival CT abd/pelvis noting changes suggestive of acute pancreatitis, lipase of 16 Noted slight elevation in t bili of 1.1 NPO, IVF@ 150 GI was consulted on admission Gallbladder US noting no gallstones or biliary dilatation, noted adenomyomatosis Continue to monitor Possible UTI Tachycardic with leukocytosis of 13K on arrival UA suggestive on infection, urine Cx pending Empiric Rocephin, can d/c based on Cx results Lumbar Stenosis Noted on MRI lumbar spine L2-L3 region Ortho spine consulted on admission, appreciate recs Pain control prn Anemia Noted drop in hemoglobin from 13.4 to 11 Possibly dilutional in setting of vigorous hydration vs hemoconcentration on admission Consider further workup if persistent Hyperglycemia On admission AM hgba1c Ectatic Abdominal Aorta Noted on CT abd/pelvis 2.5cm PCP followup for continued monitoring Renal cyst Incidentally noted on gallbladder US DVT prophylaxis: Lovenox SQ Diet: NPO Dispo: PT/OT ordered for recs Admission and Anticipated Discharge Date Admission Date: March 03, 2024 Subjective pt was seen laying in bed and leaning on elbow. Able to have conversation in that position for some time. States she feels hungry and would like to try eating- denied wanting food prior. Review of Systems Review of Systems: All systems reviewed & are unremarkable except as noted in Subjective Physical Exam Physical Exam: General: Alert, oriented. No acute distress Psych: Appropriate mood and affect HEENT: NC/AT CV: RRR Resp: Breath sounds clear bilaterally, no increased effort of breathing. Abdomen: Soft, nontender, nondistended. Extremities: edema in lower extremities bilaterally, L>R. Results & Data Results & Data Vital Signs (Past 12 Hours) Vital Signs Temp Pulse Resp BP Pulse Ox O2 Del Method 03/04/24 08:20 36.7 C 89 16 130/71 96 Room Air
--- NOTE | 2024-03-04 10:26 | Orthopedic Consultation ---
Date of Consultation March 04, 2024 Assessment & Plan (1) Back pain: Assessment back pain. Plan at this time MRI of the lumbar spine available for review demonstrates age-appropriate multilevel degenerative change with facet hypertrophy. Plan I do believe majority symptom complex could be musculoskeletal in nature. She does exhibit multilevel facet hypertrophy and she may benefit in the future with facet injections. At this time I would just encourage her to ambulate as tolerated perhaps a course of physical therapy. History of Present Illness Reason for Consultation: Back pain Attending Physician: Molly Lawrence MD History of Present Illness This is a very pleasant 78-year-old female admitted the hospital multiple m edical issues and pancreatitis. She states that she has back pain lumbosacral junction with some radiation to the buttocks. She denies any leg pain radicular pain or weakness lower extremities. She does give a history of working in her garden several days ago. She states the symptoms began shortly afterwards. She feels her symptoms have improved since admission. Allergies Allergy/AdvReac Type Severity Reaction Status Date / Time No Known Allergies Allergy Mild Unverified 03/03/24 17:52 Home Medications Medication Instructions Recorded Confirmed Type calcium carb-magnesium oxide-vit 1 tab PO DAILY 03/16/23 03/03/24 History D3 400 mg-167 mg-133 unit tablet (Calcium Magnesium + D) coenzyme Q10 100 mg capsule (Co 100 mg PO DAILY 03/16/23 03/03/24 History Q-10) Patient History Medical History Elevated troponin Elevated BP without diagnosis of hypertension Rash Hypertensive urgency Dyspnea on exertion Osteoarthritis Pleural effusion Acute respiratory failure with hypoxia Pulmonary mass Hypoxia History of tobacco abuse Surgical History History of tonsillectomy History of section Social History Smoking Status: Former smoker Tobacco Type: Cigarettes Age Started Using Tobacco: 23; Age Quit Using Tobacco: 68; packs per day: 0.5; Cigarettes Per Day: 10; Second Hand Exposure: No; Do You Dip or Chew Tobacco: No; Tobacco Cessation Education Requested by Patient: No Hx Alcohol Use: No Hx Substance Use: No Preferred Language: Icelandic Communication Ability: Effective Steam Table Attendant Required: No Beliefs That Will Affect Care: None Current Living Situation: Alone Other Information That Helps Us Care for You: No Feels Safe at Home: Yes Assistive Devices: Denture - Upper and Glasses Physical Exam Physical Exam: On exam patient is in the chair at the bedside. She appears comfortable. She stands without difficulty. He has no pain palpation lumbar musculature. Is full sensation lower extremities. Motor is intact. Results & Data Vital Signs (Past 12 Hours) Vital Signs Temp Pulse Resp BP Pulse Ox O2 Del Method 03/04/24 08:20 36.7 C 89 16 130/71 96 Room Air
[2024-03-04] MEDS: cefTRIAXone SODIUM 2,000 MG/50 ML BAG IV SCH (11:00)
[2024-03-04] MEDS: SODIUM CHLORIDE 0.65% NA SOLN 45 ML (OCEAN) PRN (21:19)
[2024-03-05 06:48] LABS: Basophils # (auto) 0.02 K/uL (0.00-0.20); Basophils % (auto) 0.3 %; Eosinophils # (auto) 0.37 K/uL (0.00-0.50); Eosinophils % (auto) 4.8 %; Hematocrit (blood only) 34.5 % (37.0-47.0); Hemoglobin 11.2 g/dl (12.0-16.0); Immature Granulocytes # (auto) 0.05 K/uL (0.01-0.20); Immature Granulocytes % (auto) 0.7 %; Lymphocytes % (auto) 10.4 %; Mean Corpuscular Hemoglobin 28.5 pg (25.0-34.0); Mean Corpuscular Hgb Conc 32.5 g/dL (32.0-36.0); Mean Corpuscular Volume 87.8 fL (80.0-100.0); Mean Platelet Volume 9.6 fL (9.4-12.4); Monocytes # (auto) 0.74 K/uL (0.11-0.59); Monocytes % (auto) 9.6 %; Neutrophils # (auto) 5.69 K/uL (1.40-6.50); Neutrophils % (auto) 74.2 %; Platelet Count 345 K/uL (130-400); RDW Coefficient of Variation 12.8 % (11.5-14.5); RDW Standard Deviation 41.3 fL (36.4-46.3); Red Blood Count 3.93 M/uL (4.20-5.40); White Blood Count 7.67 K/ul (4.8-10.8)
[2024-03-05 07:15] LABS: Estimated Average Glucose 114 mg/dl; Hemoglobin A1C 5.6 % (4.5-5.6)
[2024-03-05 07:36] LABS: Albumin Globulin Ratio 0.9 (0.9-2); Albumin Level 2.8 gm/dl (3.4-5.0); BUN Creatinine Ratio 12.8 (10-20); Bilirubin,Total 0.7 mg/dl (0.2-1.0); Calcium 8.2 mg/dl (8.6-10.3); Creatinine Clr Calc Pharmacy 88.6 ml/min; Est GFR (African American) 109.7 ml/min; Est GFR (Non-African American) 94.6 ml/min; Magnesium 1.5 mg/dl (1.7-2.4); Phosphorus 2.5 mg/dl (2.5-4.9); Potassium 3.6 mmol/L (3.5-5.1); Total Protein 5.8 gm/dl (6.0-8.3)
[2024-03-05 13:30] LABS: Adenovirus PCR Not Detected (NotDetected); Bordetella parapertussis PCR Not Detected (NotDetected); Bordetella pertussis PCR Not Detected (NotDetected); Chlamydia pneumoniae PCR Not Detected (NotDetected); Coronavirus 229E PCR Not Detected (NotDetected); Coronavirus CoV-2 (COVID19)PCR Not Detected (NotDetected); Coronavirus HKU1 PCR Not Detected (NotDetected); Coronavirus NL63 PCR Not Detected (NotDetected); Coronavirus OC43PCR Not Detected (NotDetected); Human Metapneumovirus PCR Not Detected (NotDetected); Influenza A PCR Not Detected (NotDetected); Influenza B PCR Not Detected (NotDetected); Mycoplasma pneumoniae PCR Not Detected (NotDetected); Parainfluenza Virus 1 PCR Not Detected (NotDetected); Parainfluenza Virus 2 PCR Not Detected (NotDetected); Parainfluenza Virus 3 PCR Not Detected (NotDetected); Parainfluenza Virus 4 PCR Not Detected (NotDetected); Respiratory Syncytial VirusPCR Not Detected (NotDetected); Rhinovirus/Enterovirus PCR Not Detected (NotDetected)
--- NOTE | 2024-03-05 14:03 | Hospitalist Progress Note ---
Date of Service March 05, 2024 Assessment & Plan (1) Acute pancreatitis: (2) Non-small cell carcinoma of lung: (3) Sinus tachycardia: (4) Back pain: Plan Kera Pavon is a 78y/o F with PMHx significant for HTN, BIMAL, non-melanoma skin cancer, non-small cell cancer of the right lung currently on Keytruda who presented with abdominal and pain and nausea. Pancreatitis Pt presenting with back/abdominal pain, nausea Tachycardic with leukocytosis of 13K on arrival CT abd/pelvis noting changes suggestive of acute pancreatitis, lipase of 16 Noted slight elevation in t bili of 1.1 NPO, IVF@ 150 intially. GI was consulted on admission, appreciate recs Gallbladder US noting no gallstones or biliary dilatation, noted adenomyomatosis Continue to monitor 03/05- pt tolerating advancement of diet, denies abdominal pain, nontender on exam. IV fluids discontinued, continue to advance diet to soft. Continue to monitor Possible UTI Tachycardic with leukocytosis of 13K on arrival UA suggestive on infection, urine Cx pending Empiric Rocephin, can d/c based on Cx results Nasal congestion Biofire ordered, unremarkable Lumbar Stenosis Noted on MRI lumbar spine L2-L3 region Ortho spine consulted on admission, appreciate recs Pain control prn Anemia Noted drop in hemoglobin from 13.4 to 11 Possibly dilutional in setting of vigorous hydration vs hemoconcentration on admission Consider further workup if persistent Hypomagnesemia Replete as needed Hyperglycemia On admission AM hgba1c Ectatic Abdominal Aorta Noted on CT abd/pelvis 2.5cm PCP followup for continued monitoring Renal cyst Incidentally noted on gallbladder US DVT prophylaxis: Lovenox SQ Diet: NPO Dispo: PT/OT ordered for recs Admission and Anticipated Discharge Date Admission Date: March 03, 2024 Subjective pt was seen laying in bed and leaning on elbow. Able to have conversation in that position for some time. Has been tolerating advanced diet. Now concerned about nasal congestion. Per nursing also concerned about diarrhea. Review of Systems Review of Systems: All systems reviewed & are unremarkable except as noted in Subjective Physical Exam Physical Exam: General: Alert, oriented. No acute distress Psych: Appropriate mood and affect HEENT: NC/AT CV: RRR Resp: Breath sounds clear bilaterally, no increased effort of breathing. Abdomen: Soft, nontender, nondistended. Extremities: edema in lower extremities bilaterally, L>R. Results & Data Results & Data Vital Signs (Past 12 Hours) Vital Signs Temp Pulse Resp BP Pulse Ox O2 Del Method 03/05/24 07:40 36.9 C 87 18 164/79 H 94 Room Air
[2024-03-05] MEDS: LOPERAMIDE HCL 2 MG CAP PO PRN (14:31)
[2024-03-05] MEDS: MAGNESIUM SULFATE / D5W 1 GM/100 ML BAG IV SCH (16:58)
[2024-03-05] MEDS: ACETAMINOPHEN 1,000 MG/100 ML VIAL IV PRN (18:07)
[2024-03-05 18:17] LABS: Appearance Urine Clear (Clear); Bacteria Urine Automated None Seen (None Seen); Bilirubin Urine Negative (Negative); Blood Urine Trace (Negative); Cast Urine Automated 0-2 /lpf (0-2); Color Urine Yellow; Epithelial Cell Urine Auto 0-2 /hpf (0-2); Glucose Urine UA Negative (Negative); Ketones Urine Trace (Negative); Leukocyte Esterase Urine Trace (Negative); Nitrite Urine Negative (Negative); Protein Urine Negative (Negative); RBC Urine Automated 0-2 /hpf (0-2); Specific Gravity Urine 1.006 (1.000-1.030); Urobilinogen Urine Negative (Negative); WBC Urine Automated 0-5 /hpf (0-5); pH Urine 8.5 (4.5-7.5)
[2024-03-06 07:01] LABS: Basophils # (auto) 0.04 K/uL (0.00-0.20); Basophils % (auto) 0.5 %; Eosinophils # (auto) 0.32 K/uL (0.00-0.50); Hematocrit (blood only) 33.5 % (37.0-47.0); Hemoglobin 11.2 g/dl (12.0-16.0); Immature Granulocytes # (auto) 0.04 K/uL (0.01-0.20); Immature Granulocytes % (auto) 0.5 %; Lymphocytes # (auto) 0.86 K/uL (1.20-3.40); Lymphocytes % (auto) 10.7 %; Mean Corpuscular Hemoglobin 28.7 pg (25.0-34.0); Mean Corpuscular Hgb Conc 33.4 g/dL (32.0-36.0); Mean Corpuscular Volume 85.9 fL (80.0-100.0); Mean Platelet Volume 9.2 fL (9.4-12.4); Monocytes # (auto) 0.74 K/uL (0.11-0.59); Monocytes % (auto) 9.2 %; Neutrophils # (auto) 6.06 K/uL (1.40-6.50); Neutrophils % (auto) 75.1 %; Platelet Count 358 K/uL (130-400); RDW Coefficient of Variation 12.8 % (11.5-14.5); RDW Standard Deviation 39.8 fL (36.4-46.3); White Blood Count 8.06 K/ul (4.8-10.8)
[2024-03-06 07:38] LABS: Albumin Level 2.9 gm/dl (3.4-5.0); BUN Creatinine Ratio 11.6 (10-20); Bilirubin,Total 0.4 mg/dl (0.2-1.0); Calcium 7.9 mg/dl (8.6-10.3); Creatinine Clr Calc Pharmacy 96.9 ml/min; Est GFR (African American) 112.9 ml/min; Est GFR (Non-African American) 97.4 ml/min; Magnesium 1.9 mg/dl (1.7-2.4); Phosphorus 2.6 mg/dl (2.5-4.9); Potassium 3.4 mmol/L (3.5-5.1); Total Protein 5.9 gm/dl (6.0-8.3)
[2024-03-06] MEDS: POTASSIUM CHLORIDE CRTAB 20 MEQ TABCR PO STA (11:09)
--- NOTE | 2024-03-06 16:19 | Hospitalist Progress Note ---
Date of Service March 06, 2024 Assessment & Plan (1) Acute pancreatitis: (2) Non-small cell carcinoma of lung: (3) Sinus tachycardia: (4) Back pain: Plan Kera Pavon is a 78y/o F with PMHx significant for HTN, BIMAL, non-melanoma skin cancer, non-small cell cancer of the right lung currently on Keytruda who presented with abdominal and pain and nausea. Pancreatitis Pt presenting with back/abdominal pain, nausea Tachycardic with leukocytosis of 13K on arrival CT abd/pelvis noting changes suggestive of acute pancreatitis, lipase of 16 Noted slight elevation in t bili of 1.1 NPO, IVF@ 150 intially. GI was consulted on admission, appreciate recs Gallbladder US noting no gallstones or biliary dilatation, noted adenomyomatosis Continue to monitor 03/05- pt tolerating advancement of diet, denies abdominal pain, nontender on exam. IV fluids discontinued, continue to advance diet to soft. Continue to monitor 03/06- pt states she feels like she does not want to eat anymore, agreeable to going back to full liquids. Feather Washer to evaluate, stool cultures. Possible UTI Tachycardic with leukocytosis of 13K on arrival UA suggestive on infection, urine Cx pending Empiric Rocephin, can d/c based on Cx results Nasal congestion Biofire ordered, unremarkable Lumbar Stenosis Noted on MRI lumbar spine L2-L3 region Ortho spine consulted on admission, appreciate recs Pain control prn Anemia Noted drop in hemoglobin from 13.4 to 11 Possibly dilutional in setting of vigorous hydration vs hemoconcentration on admission Consider further workup if persistent Hypomagnesemia Replete as needed Hyperglycemia On admission AM hgba1c Ectatic Abdominal Aorta Noted on CT abd/pelvis 2.5cm PCP followup for continued monitoring Renal cyst Incidentally noted on gallbladder US Nonsmall cell Cancer On Keytruda To contact heme/onc in AM DVT prophylaxis: Lovenox SQ Diet: NPO Dispo: PT/OT ordered for recs Admission and Anticipated Discharge Date Admission Date: March 03, 2024 Subjective pt was seen laying in bed and leaning on elbow. Able to have conversation in that position for some time. States cannot eat anymore, has watery diarrhea, however tool sample has not been able to be collected. Review of Systems Review of Systems: All systems reviewed & are unremarkable except as noted in Subjective Physical Exam Physical Exam: General: Alert, oriented. No acute distress Psych: Appropriate mood and affect HEENT: NC/AT CV: RRR Resp: Breath sounds clear bilaterally, no increased effort of breathing. Abdomen: Soft, nontender, nondistended. Extremities: edema in lower extremities bilaterally, L>R. Results & Data Results & Data Vital Signs (Past 12 Hours) Vital Signs Temp Pulse Resp BP BP Pulse Ox O2 Del Method 03/06/24 15:14 36.8 C 82 18 171/94 H 96 Room Air 03/06/24 07:36 Room Air 03/06/24 07:00 37.5 C 90 16 159/87 H 94 Room Air
[2024-03-07 07:49] LABS: Basophils # (auto) 0.03 K/uL (0.00-0.20); Basophils % (auto) 0.4 %; Eosinophils # (auto) 0.23 K/uL (0.00-0.50); Hematocrit (blood only) 32.8 % (37.0-47.0); Immature Granulocytes # (auto) 0.04 K/uL (0.01-0.20); Immature Granulocytes % (auto) 0.5 %; Lymphocytes # (auto) 1.13 K/uL (1.20-3.40); Lymphocytes % (auto) 14.7 %; Mean Corpuscular Hemoglobin 28.8 pg (25.0-34.0); Mean Corpuscular Hgb Conc 33.5 g/dL (32.0-36.0); Mean Corpuscular Volume 85.9 fL (80.0-100.0); Monocytes # (auto) 0.79 K/uL (0.11-0.59); Monocytes % (auto) 10.3 %; Neutrophils # (auto) 5.47 K/uL (1.40-6.50); Neutrophils % (auto) 71.1 %; Platelet Count 361 K/uL (130-400); RDW Coefficient of Variation 12.8 % (11.5-14.5); Red Blood Count 3.82 M/uL (4.20-5.40); White Blood Count 7.69 K/ul (4.8-10.8)
[2024-03-07 08:09] LABS: Albumin Globulin Ratio 0.9 (0.9-2); Albumin Level 2.9 gm/dl (3.4-5.0); BUN Creatinine Ratio 8.9 (10-20); Bilirubin,Total 0.6 mg/dl (0.2-1.0); Calcium 8.2 mg/dl (8.6-10.3); Creatinine Clr Calc Pharmacy 92.6 ml/min; Est GFR (African American) 111.2 ml/min; Globulin 3.3 gm/dl (2.5-4.0); Magnesium 1.8 mg/dl (1.7-2.4); Phosphorus 3.1 mg/dl (2.5-4.9); Potassium 3.7 mmol/L (3.5-5.1); Total Protein 6.2 gm/dl (6.0-8.3)
[2024-03-07 08:14] LABS: Adenovirus F 40/41 PCR Not Detected (NotDetected); Astrovirus PCR Not Detected (NotDetected); Campylobacter PCR Not Detected (NotDetected); Cryptosporidium PCR Not Detected (NotDetected); Cyclospora cayetanensis PCR Not Detected (NotDetected); Entamoeba histolytica PCR Not Detected (NotDetected); Enteroaggregative E.coli(EAEC) Not Detected (NotDetected); Enteropathogenic E.coli (EPEC) Not Detected (NotDetected); Enterotoxigenic E.coli (ETEC) Not Detected (NotDetected); Giardia lamblia PCR Not Detected (NotDetected); Norovirus GI/GII PCR Not Detected (NotDetected); Plesiomonas shigelloides PCR Not Detected (NotDetected); Rotavirus A PCR Not Detected (NotDetected); Salmonella PCR Not Detected (NotDetected); Sapovirus PCR Not Detected (NotDetected); Shiga-like Toxin E.coli (STEC) Not Detected (NotDetected); Shigella/Enteroinvasive E.coli Not Detected (NotDetected); Vibrio cholerae PCR Not Detected (NotDetected); Vibrio species PCR Not Detected (NotDetected); Yersinia enterocolitica PCR Not Detected (NotDetected)
--- NOTE | 2024-03-07 12:39 | Oncology Consultation ---
Date of Consultation March 07, 2024 Assessment & Plan (1) Back pain: (2) Non-small cell carcinoma of lung: Plan Although imaging could not rule out acute pancreatitis, labs not suggestive of acute pancreatitis. Symptoms seem to have resolved without steroids. Still has back pain likely due to severe bilateral neural foraminal stenosis and narrowing at L2-L3. Will plan to see her outpatient to restart Keytruda. If GI symptoms recur, she would benefit from upper endoscopy and colonoscopy to rule out gastritis/colitis from immunotherapy Thank you for this consult. Oncology will sign off at this time to follow-up with her outpatient. Please feel free to call if have any further questions History of Present Illness Reason for Consultation: Lung cancer Attending Physician: Molly Lawrence MD History of Present Illness Ms. Pavon is a pleasant 78-year-old female with metastatic lung cancer for ich she is currently on pembrolizumab which was started in Feb, 2023 with good response to treatment. She presented to the ER at [facility] with complaints of/abdominal pain, intermittent nausea and constipation. CTA chest revealed interstitial thickening and emphysema with no evidence of PE. CT abdomen and pelvis revealed minimal peripancreatic stranding, acute pancreatitis cannot be excluded as well as extensive diverticulosis with no evidence of acute diverticulitis. Lumbar spine MRI revealed mild ligamentous hypertrophic changes resulting in severe bilateral neural foraminal stenosis and narrowing at L2-L3. She states that nausea, abdominal pain and constipation have since resolved. Complains of back pain. Allergies Allergy/AdvReac Type Severity Reaction Status Date / Time No Known Allergies Allergy Mild Unverified 03/03/24 17:52 Home Medications Medication Instructions Recorded Confirmed Type calcium carb-magnesium oxide-vit 1 tab PO DAILY 03/16/23 03/03/24 History D3 400 mg-167 mg-133 unit tablet (Calcium Magnesium + D) coenzyme Q10 100 mg capsule (Co 100 mg PO DAILY 03/16/23 03/03/24 History Q-10) Patient History Medical History Elevated troponin Elevated BP without diagnosis of hypertension Rash Hypertensive urgency Dyspnea on exertion Osteoarthritis Pleural effusion Acute respiratory failure with hypoxia Pulmonary mass Hypoxia History of tobacco abuse Surgical History History of tonsillectomy History of section Social History Smoking Status: Former smoker Tobacco Type: Cigarettes Age Started Using Tobacco: 23; Age Quit Using Tobacco: 68; packs per day: 0.5; Cigarettes Per Day: 10; Second Hand Exposure: No; Do You Dip or Chew Tobacco: No; Tobacco Cessation Education Requested by Patient: No Hx Alcohol Use: No Hx Substance Use: No Preferred Language: Romanian Communication Ability: Effective Blocker And Cutter Contact Lens Required: No Beliefs That Will Affect Care: None Current Living Situation: Alone Other Information That Helps Us Care for You: No Feels Safe at Home: Yes Assistive Devices: Cane and Walker Results & Data Vital Signs (Past 12 Hours) Vital Signs Temp Pulse Resp BP Pulse Ox O2 Del Method 03/07/24 07:29 37.2 C 81 18 157/77 H 95 Room Air
--- NOTE | 2024-03-07 13:03 | Hospitalist Progress Note ---
Date of Service March 07, 2024 Assessment & Plan (1) Acute pancreatitis: (2) Non-small cell carcinoma of lung: (3) Sinus tachycardia: (4) Back pain: Plan Kera Pavon is a 78y/o F with PMHx significant for HTN, BIMAL, non-melanoma skin cancer, non-small cell cancer of the right lung currently on Keytruda who presented with abdominal and pain and nausea. Pancreatitis Pt presenting with back/abdominal pain, nausea Tachycardic with leukocytosis of 13K on arrival CT abd/pelvis noting changes suggestive of acute pancreatitis, lipase of 16 Noted slight elevation in t bili of 1.1 NPO, IVF@ 150 intially. GI was consulted on admission, appreciate recs Gallbladder US noting no gallstones or biliary dilatation, noted adenomyomatosis Continue to monitor 03/05- pt tolerating advancement of diet, denies abdominal pain, nontender on exam. IV fluids discontinued, continue to advance diet to soft. Continue to monitor 03/06- pt states she feels like she does not want to eat anymore, agreeable to going back to full liquids. Dcs Engineer to evaluate, stool cultures. 03/07- concerned about diarrhea, c diff NEGATIVE, STOOL cultures negative. Would like to try solid food today Possible UTI Tachycardic with leukocytosis of 13K on arrival UA suggestive on infection, urine Cx pending Empiric Rocephin, can d/c based on Cx results Nasal congestion Biofire ordered, unremarkable Lumbar Stenosis Noted on MRI lumbar spine L2-L3 region Ortho spine consulted on admission, appreciate recs Pain control prn Anemia Noted drop in hemoglobin from 13.4 to 11 Possibly dilutional in setting of vigorous hydration vs hemoconcentration on admission Consider further workup if persistent Hypomagnesemia Replete as needed Hyperglycemia On admission AM hgba1c Ectatic Abdominal Aorta Noted on CT abd/pelvis 2.5cm PCP followup for continued monitoring Renal cyst Incidentally noted on gallbladder US Nonsmall cell Lung Cancer On Keytruda [facility], seen by Dr Ricketts on 03/07. Appreciate recs. DVT prophylaxis: Lovenox SQ Diet: advancing Dispo: PT/OT ordered for recs, pt reportedly requesting to go to [facility] Admission and Anticipated Discharge Date Admission Date: March 03, 2024 Subjective pt was seen sitting in chair at bedside. States not ready to go home. PT cleared for return home however pt prefers to go to [facility]. Advised this provider however at time of exam that she does not want to go. Notes copius amount of diarrhea, she has been on a liquid diet. Review of Systems Review of Systems: All systems reviewed & are unremarkable except as noted in Subjective Physical Exam Physical Exam: General: Alert, oriented. No acute distress Psych: Appropriate mood and affect HEENT: NC/AT CV: RRR Resp: Breath sounds clear bilaterally, no increased effort of breathing. Abdomen: Soft, nontender, nondistended. Extremities: edema in lower extremities bilaterally, L>R. Results & Data Results & Data Vital Signs (Past 12 Hours) Vital Signs Temp Pulse Resp BP Pulse Ox O2 Del Method 03/07/24 07:29 37.2 C 81 18 157/77 H 95 Room Air
[2024-03-08 07:16] LABS: Basophils # (auto) 0.03 K/uL (0.00-0.20); Basophils % (auto) 0.4 %; Eosinophils # (auto) 0.41 K/uL (0.00-0.50); Eosinophils % (auto) 5.6 %; Hemoglobin 11.9 g/dl (12.0-16.0); Immature Granulocytes # (auto) 0.03 K/uL (0.01-0.20); Immature Granulocytes % (auto) 0.4 %; Lymphocytes # (auto) 1.22 K/uL (1.20-3.40); Lymphocytes % (auto) 16.8 %; Mean Corpuscular Hemoglobin 28.6 pg (25.0-34.0); Mean Corpuscular Hgb Conc 33.1 g/dL (32.0-36.0); Mean Corpuscular Volume 86.5 fL (80.0-100.0); Mean Platelet Volume 9.1 fL (9.4-12.4); Monocytes # (auto) 0.73 K/uL (0.11-0.59); Neutrophils # (auto) 4.86 K/uL (1.40-6.50); Neutrophils % (auto) 66.8 %; Platelet Count 426 K/uL (130-400); RDW Coefficient of Variation 12.9 % (11.5-14.5); RDW Standard Deviation 40.8 fL (36.4-46.3); Red Blood Count 4.16 M/uL (4.20-5.40); White Blood Count 7.28 K/ul (4.8-10.8)
[2024-03-08 07:40] LABS: Albumin Globulin Ratio 0.9 (0.9-2); Albumin Level 3.1 gm/dl (3.4-5.0); BUN Creatinine Ratio 15.2 (10-20); Bilirubin,Total 0.5 mg/dl (0.2-1.0); Calcium 8.5 mg/dl (8.6-10.3); Creatinine Clr Calc Pharmacy 90.6 ml/min; Est GFR (African American) 110.4 ml/min; Est GFR (Non-African American) 95.3 ml/min; Globulin 3.6 gm/dl (2.5-4.0); Magnesium 1.8 mg/dl (1.7-2.4); Phosphorus 3.2 mg/dl (2.5-4.9); Potassium 3.8 mmol/L (3.5-5.1); Total Protein 6.7 gm/dl (6.0-8.3)
[2024-03-08] MEDS ORDERED: MELATONIN 3 MG TAB PO PRN (14:03)
--- NOTE | 2024-03-08 15:10 | Hospitalist Progress Note ---
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 Lumbar Stenosis-presented with back and abdominal pain with nausea MRI-IMPRESSION: Mild ligamentous hypertrophic changes resulting in severe bilateral neural foraminal stenosis at Narrowing at L2-L3 Ortho spine consulted on admission, appreciate recs Pain control prn PT and OT evaluation-continue PT and OT Nonsmall cell Lung Cancer On Keytruda Follows with [facility], seen by Dr Ricketts on 03/07. Appreciate recs. Appreciate hematology input and recommendation Will continue with the Keytruda as an outpatient Acute Pancreatitis-ruled out Pt presenting with back/abdominal pain, nausea Tachycardic with leukocytosis of 13K on arrival CT abd/pelvis noting changes suggestive of acute pancreatitis, lipase of 16 Noted slight elevation in t bili of 1.1 NPO, IVF@ 150 intially. GI was consulted on admission, appreciate recs Gallbladder US noting no gallstones or biliary dilatation, noted adenomyomatosis Continue to monitor 03/05- pt tolerating advancement of diet, denies abdominal pain, nontender on exam. IV fluids discontinued, continue to advance diet to soft. Continue to monitor 03/06- pt states she feels like she does not want to eat anymore, agreeable to going back to full liquids. Choral Director to evaluate, stool cultures. 03/07- concerned about diarrhea, c diff NEGATIVE, STOOL cultures negative. Would like to try solid food today Has been feeling much better and tolerating regular diet without any acute dis tress and her symptoms She has been ambulating in the hallway without any problem She complains of dry mouth and probably has thrush-medications provided She will be discharged to [facility] for rehab Possible UTI Tachycardic with leukocytosis of 13K on arrival UA suggestive on infection, urine Cx pending Empiric Rocephin, can d/c based on Cx results Nasal congestion Biofire ordered, unremarkable Anemia Noted drop in hemoglobin from 13.4 to 11 Possibly dilutional in setting of vigorous hydration vs hemoconcentration on admission Consider further workup if persistent Hypomagnesemia Replete as needed Hyperglycemia On admission AM hgba1c Ectatic Abdominal Aorta Noted on CT abd/pelvis 2.5cm PCP followup for continued monitoring Renal cyst Incidentally noted on gallbladder US DVT prophylaxis: Lovenox SQ Diet: advancing Dispo: PT/OT ordered for recs, pt reportedly requesting to go to [facility] Admission and Anticipated Discharge Date Admission Date: March 03, 2024 Subjective 03/08/2024 The patient was seen and examined in medical floor She has been feeling much better Denies any pain at rest and complains pain at the back with ambulation No radiation of pain No nausea no vomiting and has been tolerating diet Will be discharged to [facility] this afternoon Review of Systems Review of Systems: All systems reviewed and are unremarkable except as noted below Physical Exam Physical Exam: Lying in bed without any acute distress Constitutional: average body habitus; not ill appearing Eyes: PERRL, conjunctivae normal, anicteric sclerae ENMT: external ear and nose normal, oropharynx normal Neck: trachea midline, no thyromegaly Respiratory: no respiratory distress Auscultation: lungs clear to auscultation bilaterally Cardiovascular: Rate/Rhythm: regular rate and regular rhythm; not tachycardic Heart Sounds: normal S1 and normal S2; no murmur Extremities: no edema Gastrointestinal (Abdomen): Inspection/Auscultation: normal bowel sounds; abdomen not distended Percussion/Palpation: abdomen soft; abdomen nontender Musculoskeletal: No acute arthritis involving any of the joints Neurologic: normal touch/pain/proprioception and moves all extremities; no focal motor deficits Psychiatric: A+Ox3, euthymic affect Lymphatic: no cervical or axillary lymphadenopathy Results & Data Results & Data Vital Signs (Past 12 Hours) Vital Signs Temp Pulse Resp BP Pulse Ox O2 Del Method 03/08/24 08:05 37.1 C 91 H 18 184/84 H 91 Room Air Laboratory Results Short CBC 03/08/24 Range/Units 06:26 WBC 7.28 (4.8-10.8) K/ul Hgb 11.9 L (12.0-16.0) g/dl Hct 36.0 L (37.0-47.0) % Plt Count 426 H (130-400) K/uL BMP 03/08/24 06:26 Sodium 141 Potassium 3.8 Chloride 107 Carbon Dioxide 26 BUN 7 Creatinine 0.46 L Glucose 105 H Calcium 8.5 L Liver Function 03/08/24 Range/Units 06:26 Total Bilirubin 0.5 (0.2-1.0) mg/dl AST 13 (13-39) U/L ALT 10 (7-52) U/L Alkaline Phosphatase 62 (34-104) U/L Albumin 3.1 L (3.4-5.0) gm/dl Medications Administered Current Inpatient Medications Al Hydrox/Mg Hydrox/Simethicone (Aluminum/Magnesium Susp 30 Ml Udc) 30 ml PO Q6H PRN PRN Reason: Dyspepsia Stop: 04/02/24 17:06 Docusate Sodium (Docusate Sodium 100 Mg Cap) 100 mg PO DAILY [facility] Stop: 04/03/24 08:59 Last Admin: 03/08/24 08:03 Dose: Not Given Enoxaparin Sodium (Enoxaparin Inj 40 Mg/0.4 Ml Syr) 40 mg SQ Q24H [facility] Stop: 04/02/24 17:29 Last Admin: 03/07/24 18:30 Dose: Not Given Lidocaine (Lidocaine 5% 1 Patch) 1 patch TD QAM [facility] Stop: 04/02/24 17:59 Last Admin: 03/08/24 08:03 Dose: Not Given Loperamide HCl (Loperamide Hcl 2 Mg Cap) 2 mg PO Q8H PRN PRN Reason: Diarrhea Stop: 04/04/24 13:54 Last Admin: 03/07/24 06:40 Dose: 2 mg Magnesium Hydroxide (Magnesium Hydroxide Susp 30 Ml Udc) 30 ml PO Q6H PRN PRN Reason: Constipation Stop: 04/02/24 17:06 Melatonin (Melatonin 3 Mg Tab) 3 mg PO HS PRN PRN Reason: Sleep Stop: 04/07/24 14:02 Miscellaneous (Remove Lidoderm Patch) 1 each N/A DAILY@2100 [facility] Stop: 04/02/24 22:59 Last Admin: 03/07/24 20:01 Dose: Not Given Morphine Sulfate (Morphine Sulfate 2 Mg/Ml Carp) 2 mg IV Q6H PRN PRN Reason: Severe Pain (Scale 7, 8, 9,10) Stop: 03/17/24 17:06 Nystatin (Nystatin Susp 500,000 U/5 Ml Udc) 5 ml PO QID [facility] Stop: 04/07/24 16:59 Ondansetron HCl (Ondansetron Inj 2 Mg/Ml 2 Ml Vial) 4 mg IV Q6H PRN PRN Reason: Nausea Stop: 04/02/24 17:06 Polyethylene Glycol (Polyethylene (Miralax) 17 Gm Pack) 17 gm PO DAILY [facility] Stop: 04/03/24 08:59 Last Admin: 03/08/24 08:03 Dose: Not Given Sodium Chloride (Sodium Chloride 0.65% Na Soln 45 Ml ([place])) 2 sprays NA TID PRN PRN Reason: Nasal Congestion Stop: 04/03/24 20:27 Last Admin: 03/04/24 21:19 Dose: 2 sprays
[2024-03-08] MEDS: NYSTATIN SUSP 500,000 U/5 ML UDC PO SCH (15:32)
--- NOTE | 2024-03-09 07:33 | Discharge Summary ---
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 History obtained from patient, and associated ED/PCP/previous admission records. Patient seen at bedside. Patient reporting mid/low back and lower abdominal pain ongoing for ~1 week. She states the pain has gotten progressively worse over the past couple of days, and has prevented her from moving around much and completing ADLs. She notes the pain is not really present at rest, but rather comes on with movement. She describes the pain as sharp/stabbing. She has had some intermittent, shooting pain down the back sides of both legs that subsides rather quickly. However, she is unsure if this is d/t her gardening a lot more recently or the back/abdominal pain that has been ongoing. She denies any recent fevers, chills, body aches, chest pain or SOB. Patient does report a mild cough that has been ongoing for weeks now, but denies any recent sick contacts or other illnesses. She has a history of pollen allergy, which she believes is contributing to the cough. No current sinus congestion/runny nose. She denies any urinary habit changes. States she is feeling more constipated recently, describes her stool as "pellet-shaped." No history of hemorrhoids or fissures. No bloody BMs, no changes in the frequency of BMs. Her appetite has been significantly decreased over the past couple days, but she has been hydrating appropriately at home. Patient reports drinking a lot of prune juice and water, with some occasional coffee in between. Has been feeling nauseous intermittently, but denies any current nausea. No episodes of vomiting. Did eat a potato yesterday, but not anything since. Reports she is not sleeping well, cannot sleep lying completely flat due to back/abdominal pain. Pain in her abdomen and back feels better when she is inclined. Patient has a neighbor who has been helping her out over the last week with transportation and ADLs as movement has become too painful, ultimately prompting her to come in for evaluation. Admission Exam Per Admitting Provider Physical Exam: General Appearance: No acute distress, conversing appropriately. Lying in bed, appears comfortable. Head: Normocephalic, atraumatic. Eyes: Normal inspection, PERRL, conjunctivae normal, anicteric sclerae. ENT: External ear and nose normal, oropharynx normal. Neck: Normal visual inspection, trachea midline, no thyromegaly. Respiratory: Normal respiratory effort, lungs clear to auscultation, no wheeze, rales, rhonchi. No accessory muscle use. Cardiovascular: Regular rate, rhythm, no murmur, normal peripheral pulses, no BLE edema. Vessels: No JVD. Chest: Normal inspection of chest. Abdomen/GI: Mildly tender in lower abdominal region, no guarding. Extremities/Back/Musculoskeletal: No cyanosis or clubbing, no b/l flank tenderness, extremities motor strength 5/5. Neurologic: PERRL, EOMI, accommodation nl, no face palsy, no dysarthria, CN's II-XI grossly intact bilaterally and moves all extremities. Psychiatric: A+Ox3, euthymic affect. Skin: No rashes, normal color, warm/dry. 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, abdominal pain with nausea, pancreatitis has been ruled out, non-small cell lung cancer on Keytruda Discharge Exam Lying in bed without any acute distress Constitutional average body habitus; not ill appearing Eyes PERRL, conjunctivae normal, anicteric sclerae ENMT external ear and nose normal, oropharynx normal Neck trachea midline, no thyromegaly Respiratory no respiratory distress Auscultation: lungs clear to auscultation bilaterally Cardiovascular Rate/Rhythm: regular rate and regular rhythm; not tachycardic Heart Sounds: normal S1 and normal S2; no murmur Extremities: no edema Gastrointestinal (Abdomen) Inspection/Auscultation: normal bowel sounds; abdomen not distended Percussion/Palpation: abdomen soft; abdomen nontender Neurologic normal touch/pain/proprioception and moves all extremities; no focal motor deficits Psychiatric A+Ox3, euthymic affect Lymphatic no cervical or axillary lymphadenopathy Discharge Data Allergies Allergy/AdvReac Type Severity Reaction Status Date / Time No Known Allergies Allergy Mild Unverified 03/03/24 17:52 Consultations 03/03/24 12:29 ED Decision to Admit Stat 03/03/24 13:20 Consult Gastroenterology Routine 03/03/24 21:57 Consult Orthopedic Spine Surgery Routine 03/07/24 09:04 Consult Oncology Routine Ordered Studies 03/03/24 09:36 CT angio chest PE protocol Stat 03/03/24 09:37 CT abd pelvis IV con only Stat 03/03/24 13:21 US gallbladder Urgent 03/03/24 17:57 MRI Lumbar Spine [MR lumbar spine wo con] Routine Hospital Course (1) Acute pancreatitis: (2) Non-small cell carcinoma of lung: (3) Sinus tachycardia: (4) Back pain: Plan Kera Pavon is a 78y/o F with PMHx significant for HTN, BIMAL, non-melanoma skin cancer, non-small cell cancer of the right lung currently on Keytruda who presented with abdominal and pain and nausea. Lumbar Stenosis-presented with back and abdominal pain with nausea MRI-IMPRESSION: Mild ligamentous hypertrophic changes resulting in severe bilateral neural foraminal stenosis at Narrowing at L2-L3 Ortho spine consulted on admission, appreciate recs Pain control prn PT and OT evaluation-continue PT and OT Nonsmall cell Lung Cancer On Keytruda [facility], seen by Dr Ricketts on 03/07. Appreciate recs. Appreciate hematology input and recommendation Will continue with the [facility] as an outpatient Acute Pancreatitis-ruled out Pt presenting with back/abdominal pain, nausea Tachycardic with leukocytosis of 13K on arrival CT abd/pelvis noting changes suggestive of acute pancreatitis, lipase of 16 Noted slight elevation in t bili of 1.1 NPO, IVF@ 150 intially. GI was consulted on admission, appreciate recs Gallbladder US noting no gallstones or biliary dilatation, noted adenomyomatosis Continue to monitor 03/05- pt tolerating advancement of diet, denies abdominal pain, nontender on exam. IV fluids discontinued, continue to advance diet to soft. Continue to monitor 03/06- pt states she feels like she does not want to eat anymore, agreeable to going back to full liquids. Invoice Control Clerk to evaluate, stool cultures. 03/07- concerned about diarrhea, c diff NEGATIVE, STOOL cultures negative. Would like to try solid food today Has been feeling much better and tolerating regular diet without any acute distress and her symptoms She has been ambulating in the hallway without any problem She complains of dry mouth and probably has thrush-medications provided She will be discharged to [facility] for rehab Possible UTI Tachycardic with leukocytosis of 13K on arrival UA suggestive on infection, urine Cx pending Empiric Rocephin, can d/c based on Cx results Nasal congestion Biofire ordered, unremarkable Anemia Noted drop in hemoglobin from 13.4 to 11 Possibly dilutional in setting of vigorous hydration vs hemoconcentration on admission Consider further workup if persistent Hypomagnesemia Replete as needed Hyperglycemia On admission AM [id number] Ectatic Abdominal Aorta Noted on CT abd/pelvis 2.5cm PCP followup for continued monitoring Renal cyst Incidentally noted on gallbladder US DVT prophylaxis: Lovenox SQ Diet: advancing Dispo: PT/OT ordered for recs, pt reportedly requesting to go to [facility] Total Time Total Time Spent Total Time Spent (In Minutes): 40 minutes Discharge Plan Discharge Items Patient Disposition: Transfer Inpatient Rehab Fac Reason For Visit: ACUTE PANCREATITIS Discharge Diagnosis: Back pain secondary to degenerative disc disease lumbar spine, abdominal pain with nausea, pancreatitis has been ruled out, non-small cell lung cancer on Keytruda Condition on Discharge: Fair Activity: Resume your previous activity Non-emergency contact: Primary Care Provider Call non-emergency contact if: you have any medication questions and your symptoms worsen Follow-up/Referrals: Corbin Hackett DO [Primary Care Provider] - (Please make an appointment with your PCP within 7 days following discharge from the facility) Diet: Low Fiber Diet Comment: Minced and moist Addtl Attending Provider Instructions: Please take precaution to avoid falls Take your medications as advised Try to have regular bowel movement and take Benefiber as advised Continue with the physical therapy Please keep appointments with your healthcare providers Pending Studies at Discharge: No Stand-Alone Forms: My [facility] Skilled Items Patient informed of condition?: Yes DNR: No Discharge Level of Care: Acute rehab Communicable Disease: No Discharge Prognosis: Stable Lines: None Urinary Catheter: No Medications and DC Order Prescriptions: New nystatin 100,000 unit/mL Suspension 10 ml PO QID Qty: 400 0RF melatonin 3 mg Tablet 3 mg PO HS PRN (Reason: sleep) Qty: 30 0RF polyethylene glycol 3350 [Miralax] 17 gram Powder In Packet 17 g PO DAILY Qty: 30 0RF lidocaine 5 % Adhesive Patch,Medicated 1 patch transdermal QAM Qty: 3 0RF Continued coenzyme Q10 [Co Q-10] 100 mg Capsule 100 mg PO DAILY Calcium Magnesium plus D 400-167-133 mg-mg-unit Tablet 1 tab PO DAILY Rx Instructions: unsure of strength Discharge Orders: Discharge Order (Routine); Ordered 03/08/24 Ordered By: Vj Timmons Admission Data Admit Date/Time: 03/03/24 12:58 Attending Provider: Vj Timmons Admit Provider: Tommie Hadley Primary Care Provider: Corbin Hackett Other Providers: Simón Gómez; Tommie Hadley; Shukri Marx; [facility]; Bernadine Ricketts Other Interventions: Discharge Summary Assessment (RN) Last Done: 03/08/24 15:41
== END 2024-03-08 17:00 | DRG 552 ==
LOC: ED 09:00 → 3N 12:58 → SUATTDRO 12:58 → 3N 16:27

== ENCOUNTER 2024-03-22 13:43 | Observation (INO) ==
--- NOTE | 2024-03-22 14:05 | Emergency Department Note ---
Impression & Plan Hypertensive urgency, Sinus tachycardia, Nausea, Anxiety ED Provider Note NAME: DORIE PEREZ AGE: 79 SEX: Female INFORMANT: Patient ED PROVIDER(S): Matteo Miranda MD CHIEF COMPLAINT: Dizziness, hypertension PLAN: Disposition: Admitted Outpatient prescription management: none Referral: None MEDICAL DECISION MAKING: Patient present because of dizziness, hypertension and nausea. She felt that her recent medication changes were not helping. She was very tachycardic on initial presentation but that did improve. It appeared to be a sinus tachycardia on monitoring as well as ECG. Her CBC was unremarkable. Chemistry panel did not reveal any acute abnormalities. Patient was hydrated and given Zofran. She did feel better and vital signs did improve slightly. She was given 2.5 mg of IV metoprolol. I did record review and noted that the patient has had multiple CT scans of the chest, abdomen and pelvis performed. Repeat CT imaging based upon her benign abdominal examination was deferred. Care/management discussed with: meeting manager Level of care consideration(s): After review of the information above and other included data, I feel the patient requires escalation of care to admission Triage Nursing notes: reviewed and agree them. Vital Signs: reviewed and remarkable for tachycardia and hypertension Additional History obtained from: none Chronic Medical/Social Conditions affecting care: Lung cancer Prior/ Outside/ External records reviewed: Per discharge summary reviewed. Patient was admitted and worked up for pancreatitis which was negative. Differential Diagnosis: Benign hypertension, hypertensive emergency, cardiovascular pathology, toxicologic, pheochromocytoma, electrolyte abnormality, renal disease, endorgan damage, as well as other pathologies. Diagnostics, independently interpreted by me: ECG: Twelve-lead ECG reveals sinus tachycardia 127. No ST elevation or depression Cardiac Monitoring: Cardiac monitoring ordered by me: The patient was placed on continuous cardiac monitoring and observed. 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 Patient states that she was started on a blood pressure med about 10 days ago and she has not felt good since. She was recently in the hospital. She was discharged after being worked up for possible pancreatitis. Patient does have lung cancer and is receiving therapy. Patient is also undergoing physical therapy at home for back pain. Patient does note some loose stools as well. Patient also does note some pruritus and scratching that is chronic for her pt denies LOC, headache, fevers, chills, diaphoresis, visual changes, neck pain, chest pain, breathing difficulties, vomiting, abdominal pain, melena, hematochezia, urinary symptoms, numbness, weakness, lymphadenopathy, rash, or other complaints. PAST MEDICAL HISTORY: See Below, lung cancer, hypertension PAST SURGICAL HISTORY: See Below, SOCIAL HISTORY: See Below, former smoker HOME MEDICATIONS: See Below ALLERGIES: See Below VITALS: See Below PHYSICAL EXAMINATION: GENERAL: Awake, alert, cdy-jkycnuykmad-chrcktyuz, in no distress HENT: Normocephalic, atraumatic. Oropharynx unremarkable. EYES: Normal conjunctiva. Sclera non-icteric. NECK: Inspection normal. Non-tender. Supple. No nuchal rigidity. FROM. No masses. RESPIRATORY: Clear to auscultation. No wheezes. No rales. Normal respiratory effort. CARDIAC: Tachycardic rate. Normal rhythm. No murmurs. No rubs. Extremities warm and well perfused. Pulses equal. No JVD. GI: Soft, non-distended. No tenderness to palpation. No rebound or guarding. No masses. RECTAL: Deferred. MUSCULOSKELETAL: Atraumatic. Chest examination reveals no tenderness. The back is symmetrical on inspection without obvious abnormality. There is no CVA tenderness to palpation. No joint edema. LOWER EXTREMITIES: Calves are equal size bilaterally and non-tender. No edema. No discoloration. NEURO: Normal sensorium. No sensory or motor deficits noted. SKIN: Secondary excoriation present on the shoulders and back. No rash or jaundice noted. PROCEDURES: none CRITICAL CARE: none OBSERVATION NOTE: none Past Med/Surg History Problem List (Updated 03/22/24 @ 21:29 by Matteo Miranda MD) Hypertensive urgency (Acute) Anxiety (Acute) Nausea (Acute) Back pain Acute pancreatitis (Acute) Non-small cell carcinoma of lung (Acute) Sinus tachycardia (Acute) Adenocarcinoma Medical History Elevated troponin Elevated BP without diagnosis of hypertension Rash Dyspnea on exertion Osteoarthritis Pleural effusion Acute respiratory failure with hypoxia Pulmonary mass Hypoxia History of tobacco abuse Surgical History History of tonsillectomy History of section Social History Smoking Status: Unknown if ever smoked Tobacco Type: Cigarettes Age Started Using Tobacco: 23; Age Quit Using Tobacco: 68; packs per day: 0.5; Cigarettes Per Day: 10; Second Hand Exposure: No; Do You Dip or Chew Tobacco: No; Hx Alcohol Use: No Hx Substance Use: No Preferred Language: Bahamian Communication Ability: Effective Transit Manager Required: No Beliefs That Will Affect Care: None Current Living Situation: Alone Feels Safe at Home: Yes Assistive Devices: Cane and Walker Allergies Allergies Allergy/AdvReac Type Severity Reaction Status Date / Time No Known Allergies Allergy Mild Unverified 03/03/24 17:52 Home Meds Home Medications Medication Instructions Recorded Confirmed calcium carb-magnesium oxide-vit 1 tab PO DAILY 03/16/23 03/22/24 D3 400 mg-167 mg-133 unit tablet (Calcium Magnesium plus D) coenzyme Q10 100 mg capsule (Co 100 mg PO DAILY 03/16/23 03/22/24 Q-10) amlodipine 5 mg tablet 5 mg PO QAM 03/22/24 03/22/24 Previous Rx's Medication Instructions Recorded lidocaine 5 % topical patch 1 patch transdermal QAM #3 ea 03/08/24 melatonin 3 mg tablet 3 mg PO HS PRN sleep #30 tabs 03/08/24 nystatin 100,000 unit/mL oral 10 ml PO QID #400 mL 03/08/24 suspension polyethylene glycol 3350 17 gram 17 g PO DAILY #30 ea 03/08/24 oral powder packet (Miralax) Results & Data (ED) Vital Signs Vital Signs - 24 hr 03/22/24 13:47 03/22/24 14:09 03/22/24 14:13 Temperature 36.6 C Temperature Source Temporal Artery Scan Pulse Rate 148 H 119 H 121 H Pulse Rate [Apical] Pulse Rate from SpO2 Sensor Respiratory Rate 20 18 Respiratory Effort / Characteristics Non-Labored Spontaneous Respiratory Depth Normal Blood Pressure 185/99 H Blood Pressure [Right Arm] Blood Pressure Mean 127 Blood Pressure Mean [Right Arm] Pulse Oximetry 92 Oxygen Delivery Method Room Air Sepsis Recent Fever Within 48 Hours No Sepsis New/Unexplained Change in Mental Status No Sepsis Action Taken by Nursing No Action Required 03/22/24 14:30 03/22/24 14:30 03/22/24 15:53 Temperature Temperature Source Pulse Rate 117 H Pulse Rate [Apical] 115 H Pulse Rate from SpO2 Sensor 116 H Respiratory Rate 16 18 Respiratory Effort / Characteristics Non-Labored Respiratory Depth Normal Blood Pressure 178/107 H Blood Pressure [Right Arm] 177/110 H Blood Pressure Mean 137 Blood Pressure Mean [Right Arm] 132 Pulse Oximetry 94 96 Oxygen Delivery Method Room Air Sepsis Recent Fever Within 48 Hours Sepsis New/Unexplained Change in Mental Status Sepsis Action Taken by Nursing 03/22/24 15:54 03/22/24 16:05 03/22/24 16:26 Temperature Temperature Source Pulse Rate 112 H 101 H Pulse Rate [Apical] 96 H Pulse Rate from SpO2 Sensor Respiratory Rate 20 Respiratory Effort / Characteristics Non-Labored Respiratory Depth Normal Blood Pressure 177/110 H 162/107 H Blood Pressure [Right Arm] 161/109 H Blood Pressure Mean Blood Pressure Mean [Right Arm] 126 Pulse Oximetry 97 Oxygen Delivery Method Room Air Sepsis Recent Fever Within 48 Hours Sepsis New/Unexplained Change in Mental Status Sepsis Action Taken by Nursing Laboratory Data 03/22/24 14:05 03/22/24 14:05 Lab Results 03/22/24 03/22/24 Range/Units 14:05 16:40 WBC 10.16 (4.8-10.8) K/ul RBC 4.50 (4.20-5.40) M/uL Hgb 12.5 (12.0-16.0) g/dl Hct 39.1 (37.0-47.0) % MCV 86.9 (80.0-100.0) fL MCH 27.8 (25.0-34.0) pg MCHC 32.0 (32.0-36.0) g/dL RDW Std Deviation 41.0 (36.4-46.3) fL RDW Coeff of Leanna 13.0 (11.5-14.5) % Plt Count 596 H (130-400) K/uL MPV 9.4 (9.4-12.4) fL Immature Gran % (Auto) 0.6 % Neut % (Auto) 68.7 % Lymph % (Auto) 21.3 % [place] % (Auto) 7.2 % Eos % (Auto) 1.8 % Baso % (Auto) 0.4 % Neut # (Auto) 6.99 H (1.40-6.50) K/uL Lymph # (Auto) 2.16 (1.20-3.40) K/uL [place] # (Auto) 0.73 H (0.11-0.59) K/uL Eos # (Auto) 0.18 (0.00-0.50) K/uL Baso # (Auto) 0.04 (0.00-0.20) K/uL Immature Gran # (Auto) 0.06 (0.01-0.20) K/uL Sodium 137 (136-145) mmol/L Potassium 3.6 (3.5-5.1) mmol/L Chloride 103 (98-107) mmol/L Carbon Dioxide 24 (21-32) mmol/L Anion Gap 10 (3-11) BUN 13 (6-23) mg/dl Creatinine 0.58 L (0.6-1.2) mg/dl Est Cr Clr Drug Dosing 67.9 ml/min Est GFR ( Amer) 101.6 ml/min Est GFR (Non-Af Amer) 87.7 ml/min BUN/Creatinine Ratio 22.4 H (10-20) Glucose 131 H (70-99(Fasting)) mg/dl Calcium 9.9 (8.6-10.3) mg/dl Magnesium 2.0 (1.7-2.4) mg/dl Total Bilirubin 0.5 (0.2-1.0) mg/dl AST 15 (13-39) U/L ALT 9 (7-52) U/L Alkaline Phosphatase 75 (34-104) U/L Troponin I High Sens 4.2 (0-14) pg/ml Total Protein 8.1 (6.0-8.3) gm/dl Albumin 4.1 (3.4-5.0) gm/dl Globulin 4.0 (2.5-4.0) gm/dl Albumin/Globulin Ratio 1.0 (0.9-2) TSH 2.366 (0.300-4.500) uIu/ml Urine Color Yellow Urine Appearance Clear (Clear) Urine pH 7.0 (4.5-7.5) Ur Specific [employer] 1.004 (1.000-1.030) Urine Protein Negative (Negative) Urine Glucose (UA) Negative (Negative) Urine Ketones Negative (Negative) Urine Blood Negative (Negative) Urine Nitrite Negative (Negative) Urine Bilirubin Negative (Negative) Urine Urobilinogen Negative (Negative) Ur Leukocyte Esterase Trace H (Negative) Urine WBC (Auto) 0-5 (0-5) /hpf Urine RBC (Auto) 0-2 (0-2) /hpf U Hyaline Cast (Auto) 0-2 (0-2) /lpf U Epithel Cells (Auto) 0-2 (0-2) /hpf Urine Bacteria (Auto) None Seen (None Seen) Administered Medications Discontinued Medications Sodium Chloride (Nss) 500 mls @ 999 mls/hr IV .Q31M ONE Stop: 03/22/24 14:51 Last Infusion: 03/22/24 15:47 Dose: Infused Documented By: MMKrystin Admin: 03/22/24 14:40 Dose: 999 mls/hr Documented By: BINTA Losartan Potassium (Losartan Potassium 50 Mg Tab) 50 mg PO ONE ONE Stop: 03/22/24 16:12 Last Admin: 03/22/24 16:28 Dose: 50 mg Documented By: JOAQUIN Metoprolol Tartrate (Metoprolol Tartrate 1 Mg/Ml Vial) 2.5 mg IV NOW STA Stop: 03/22/24 15:33 Last Admin: 03/22/24 15:54 Dose: 2.5 mg Documented By: JOAQUIN Ondansetron HCl (Ondansetron Inj 2 Mg/Ml 2 Ml Vial) 4 mg IV NOW STA Stop: 03/22/24 14:22 Last Admin: 03/22/24 15:19 Dose: Not Given Documented By: MMKrystin Discharge Plan Visit Data Chief Complaint: Hypertension Stated Complaint: HYPERTENSION, NAUSEA ED Provider: Matteo Miranda Discharge Problem: Hypertensive urgency, Sinus tachycardia, Nausea, Anxiety Patient Disposition: Admitted As Inpatient Discharge Instructions Interventions: ED Discharge Assessment Last Done: 03/22/24 20:28
[2024-03-22] MEDS: SODIUM CHLORIDE 0.9% 500 ML IV ONE (14:40)
[2024-03-22 14:52] LABS: Albumin Level 4.1 gm/dl (3.4-5.0); BUN Creatinine Ratio 22.4 (10-20); Bilirubin,Total 0.5 mg/dl (0.2-1.0); Calcium 9.9 mg/dl (8.6-10.3); Creatinine Clr Calc Pharmacy 67.9 ml/min; Est GFR (African American) 101.6 ml/min; Est GFR (Non-African American) 87.7 ml/min; Potassium 3.6 mmol/L (3.5-5.1); Total Protein 8.1 gm/dl (6.0-8.3)
[2024-03-22 14:53] LABS: Basophils # (auto) 0.04 K/uL (0.00-0.20); Basophils % (auto) 0.4 %; Eosinophils # (auto) 0.18 K/uL (0.00-0.50); Eosinophils % (auto) 1.8 %; Hematocrit (blood only) 39.1 % (37.0-47.0); Hemoglobin 12.5 g/dl (12.0-16.0); Immature Granulocytes # (auto) 0.06 K/uL (0.01-0.20); Immature Granulocytes % (auto) 0.6 %; Lymphocytes # (auto) 2.16 K/uL (1.20-3.40); Lymphocytes % (auto) 21.3 %; Mean Corpuscular Hemoglobin 27.8 pg (25.0-34.0); Mean Corpuscular Volume 86.9 fL (80.0-100.0); Mean Platelet Volume 9.4 fL (9.4-12.4); Monocytes # (auto) 0.73 K/uL (0.11-0.59); Monocytes % (auto) 7.2 %; Neutrophils # (auto) 6.99 K/uL (1.40-6.50); Neutrophils % (auto) 68.7 %; Platelet Count 596 K/uL (130-400); White Blood Count 10.16 K/ul (4.8-10.8)
[2024-03-22 14:58] LABS: Troponin I High Sensitivity 4.2 pg/ml (0-14)
[2024-03-22 15:07] LABS: Thyroid Stimulating Hormone 2.366 uIu/ml (0.300-4.500)
[2024-03-22] MEDS: ONDANSETRON INJ 2 MG/ML 2 ML VIAL IV STA (15:19)
[2024-03-22] MEDS: METOPROLOL TARTRATE 1 MG/ML VIAL IV STA (15:54)
[2024-03-22] MEDS: LOSARTAN POTASSIUM 50 MG TAB PO ONE (16:28)
--- NOTE | 2024-03-22 16:30 | Electrocardiogram Report ---
Test Reason : Blood Pressure : / mmHG Vent. Rate : 127 BPM Atrial Rate : 127 BPM P-R Int : 148 ms QRS Dur : 088 ms QT Int : 312 ms P-R-T Axes : 074 063 057 degrees QTc Int : 453 ms Sinus tachycardia Otherwise normal ECG When compared with ECG of 03-MAR-2024 09:47, No significant change was found Confirmed by Trent Morin ([id number]) on 03/22/2024 4:30:00 PM Referred By: REFERRED SELF Confirmed By:Trent Morin
[2024-03-22] MEDS ORDERED: LABETALOL HCL IV 5 MG/ML 20ML IV PRN (16:59)
[2024-03-22 17:00] LABS: Appearance Urine Clear (Clear); Bacteria Urine Automated None Seen (None Seen); Bilirubin Urine Negative (Negative); Blood Urine Negative (Negative); Cast Urine Automated 0-2 /lpf (0-2); Color Urine Yellow; Epithelial Cell Urine Auto 0-2 /hpf (0-2); Glucose Urine UA Negative (Negative); Ketones Urine Negative (Negative); Leukocyte Esterase Urine Trace (Negative); Nitrite Urine Negative (Negative); Protein Urine Negative (Negative); RBC Urine Automated 0-2 /hpf (0-2); Specific Gravity Urine 1.004 (1.000-1.030); Urobilinogen Urine Negative (Negative); WBC Urine Automated 0-5 /hpf (0-5)
--- NOTE | 2024-03-22 17:13 | History & Physical Report ---
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 HTNive urgency Initial BP 185/99, improved to 160/95 following losartan 50mg x 1 Anxiety seems to be a large contributor Does not seem to be tolerating amlodipine well at home - discontinue Continue losartan 50mg daily, PRN Labetalol overnight BIMAL Per chart review, worsened sx since loss of daughter in September per patient Trial of Buspar 5mg BID Non small cell Lung Cancer On Keytruda (next due 04/07), [facility], Dr Ricketts Sinus tachycardia Improved from HR 127 to 97 with IV fluids, 2.5mg IV Lopressor in ED Noted on previous admissions, ? Keytruda contributing Echo on previous admission with preserved EF, LVH Consider addition of beta nilton for HTN based on BP tomorrow Medication induced pancreatitis on previous admission Diarrhea Improved with IV fluids, back to regular minced and moist diet C diff negative, stool cultures negative on 03/07 DVT Ppx: SQ lovenox Code status: FULL PCP: Awa Dispo: Obs med tele Patient seen in collaboration with Dr. Ponce. Please see addendum. I spent a total of 65 minutes coordinating, documenting, and providing care for this patient excluding time spent in the performance of separately billed services. 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 Was recently admitted to our service and diagnosed with drug-related pancreatitis secondary to Keytruda. Was then discharged to [facility] for rehab as related to back pain with findings of lumbar spinal stenosis with some foraminal narrowing during previous admission. While at rehab, was started on amlodipine 5 mg daily. Followed up with PCP on 03/16 and was encouraged to continue taking amlodipine daily despite patient not being sure she wanted to be on blood pressure medication. Admits significant anxiety related to blood pressure and resists checking it at home, despite developing dizziness since starting amlodipine. Denies any chest pain, palpitations or shortness of breath. No fever, chills, lightheadedness, headache. Endorses some nausea but no vomiting or abdominal pain. Loose bowels persist but negative C. difficile and stool culture during previous admission. No other medication changes aside from starting amlodipine since last hospitalization. Last received Keytruda on 03/16, next due on 04/07. Allergies Allergy/AdvReac Type Severity Reaction Status Date / Time No Known Allergies Allergy Mild Unverified 03/03/24 17:52 Home Medications Medication Instructions Recorded Confirmed Type calcium carb-magnesium oxide-vit 1 tab PO DAILY 03/16/23 03/22/24 History D3 400 mg-167 mg-133 unit tablet (Calcium Magnesium plus D) coenzyme Q10 100 mg capsule (Co 100 mg PO DAILY 03/16/23 03/22/24 History Q-10) lidocaine 5 % topical patch 1 patch transdermal QAM #3 ea 03/08/24 03/22/24 Rx melatonin 3 mg tablet 3 mg PO HS PRN sleep #30 tabs 03/08/24 03/22/24 Rx nystatin 100,000 unit/mL oral 10 ml PO QID #400 mL 03/08/24 03/22/24 Rx suspension polyethylene glycol 3350 17 gram 17 g PO DAILY #30 ea 03/08/24 03/22/24 Rx oral powder packet (Miralax) amlodipine 5 mg tablet 5 mg PO QAM 03/22/24 03/22/24 History Past Med/Surg History Problem List Hypertensive urgency Anxiety Nausea Back pain Acute pancreatitis (Acute) Non-small cell carcinoma of lung (Acute) Sinus tachycardia Adenocarcinoma Medical History Elevated troponin Elevated BP without diagnosis of hypertension Rash Dyspnea on exertion Osteoarthritis Pleural effusion Acute respiratory failure with hypoxia Pulmonary mass Hypoxia History of tobacco abuse Surgical History History of tonsillectomy History of section Social History Smoking Status: Unknown if ever smoked Tobacco Type: Cigarettes Age Started Using Tobacco: 23; Age Quit Using Tobacco: 68; packs per day: 0.5; Cigarettes Per Day: 10; Second Hand Exposure: No; Do You Dip or Chew Tobacco: No; Hx Alcohol Use: No Hx Substance Use: No Preferred Language: Mexican Communication Ability: Effective Rn Emergency Required: No Beliefs That Will Affect Care: None Current Living Situation: Alone Feels Safe at Home: Yes Assistive Devices: Cane and Walker Review of Systems Review of Systems: At least ten systems reviewed and negative except as noted in the HPI. Physical Exam Physical Exam: Please see Dr. Ponce's addendum for physical exam. Results & Data Results & Data Vital Signs (Past 12 Hours) Vital Signs Temp Pulse Pulse Resp BP BP Pulse Ox 03/22/24 16:26 101 H 162/107 H 03/22/24 16:05 96 H 20 161/109 H 97 03/22/24 15:54 112 H 177/110 H 03/22/24 15:53 115 H 18 177/110 H 96 03/22/24 14:30 178/107 H 03/22/24 14:30 117 H 16 94 03/22/24 14:13 121 H 03/22/24 14:09 119 H 18 03/22/24 13:47 36.6 C 148 H 20 185/99 H 92 O2 Del Method 03/22/24 16:26 03/22/24 16:05 Room Air 03/22/24 15:54 03/22/24 15:53 Room Air 03/22/24 14:30 03/22/24 14:30 03/22/24 14:13 03/22/24 14:09 03/22/24 13:47 Room Air Laboratory Results Short CBC 03/22/24 Range/Units 14:05 WBC 10.16 (4.8-10.8) K/ul Hgb 12.5 (12.0-16.0) g/dl Hct 39.1 (37.0-47.0) % Plt Count 596 H (130-400) K/uL BMP 03/22/24 14:05 Sodium 137 Potassium 3.6 Chloride 103 Carbon Dioxide 24 BUN 13 Creatinine 0.58 L Glucose 131 H Calcium 9.9 Liver Function 03/22/24 Range/Units 14:05 Total Bilirubin 0.5 (0.2-1.0) mg/dl AST 15 (13-39) U/L ALT 9 (7-52) U/L Alkaline Phosphatase 75 (34-104) U/L Albumin 4.1 (3.4-5.0) gm/dl Urine 03/22/24 Range/Units 16:40 Urine Color Yellow Urine Appearance Clear (Clear) Urine pH 7.0 (4.5-7.5) Ur Specific [place] 1.004 (1.000-1.030) Urine Protein Negative (Negative) Urine Glucose (UA) Negative (Negative) ECG Additional Comments: EKG reviewed - sinus tachycardia at 127 bpm, otherwise normal and no significant change from previous. Code Status & VTE Plan VTE Prophylaxis Plan VTE Prophylaxis will be ordered: Yes Supervising Physician Co-Signing Physician Notes Patient is a 79-year-old female with history of non-small cell lung cancer, hypertension, generalized anxiety disorder, lumbar spinal stenosis and other medical problems presents with history of dizziness associated with nausea. She also reports having chronic diarrhea. Patient was recently started on amlodipine for blood pressure management and patient reports having dizziness since starting on the medication. Patient admits to being anxious and reports losing her daughter few months ago contributing to some anxiety issues as well. Currently denies any headache, change in vision, syncopal episode. Please review HPI for complete details of presentation. I personally reviewed blood work, urine analysis, recent echo from 03/05/2024. EKG showed sinus tachycardia, QTc 453. Physical Exam: Vitals signs as noted above General Appearance:Moderately built and nourished, no apparent distress Head: normocephalic, Atraumatic Eyes: normal inspection, EOMI Neck: supple, Trachea midline Respiratory/Chest: Normal breath sounds, CTA, No accessory muscle use Cardiovascular: S1, S2, + faint murmur,+ tachycardia Abdomen/GI:Soft, Non tender, Bowel sounds present Extremities/Musculoskeletal:normal inspection, no edema Neurologic/Psych:AAOX3, grossly no focal neurological deficits Skin: normal color, warm Hypertensive urgency Sinus tachycardia Thrombocytosis Ongoing nausea, diarrhea Generalized anxiety Discontinue amlodipine Started on losartan IV labetalol as needed Consider adjustment of antihypertensives as needed Started on BuSpar Consider repeating CT for follow-up of diarrhea again I personally interviewed and examined at bedside. Patient's care is coordinated with Ekaterina Bell PA-C. I have reviewed the advanced practitioner's documentation, and I agree with plan of care. Please refer to the documentation above for details of patient's presentation and for discussion of other issues. I spent a total [id number] coordinating, documenting, and providing care for this patient excluding time spent in the performance of separately billed services.
[2024-03-22] MEDS ORDERED: ACETAMINOPHEN 325 MG TAB PO PRN (20:28)
[2024-03-22] MEDS ORDERED: MELATONIN 3 MG TAB PO PRN (20:28)
[2024-03-22] MEDS ORDERED: POLYETHYLENE (MIRALAX) 17 GM PACK PO PRN (20:28)
[2024-03-22] MEDS ORDERED: ONDANSETRON INJ 2 MG/ML 2 ML VIAL IV PRN (20:28)
[2024-03-22] MEDS: busPIRone 5 MG TAB PO SCH (21:45)
[2024-03-22] MEDS: ENOXAPARIN INJ 40 MG/0.4 ML SYR SQ SCH (21:45)
[2024-03-23 03:47] LABS: Hematocrit (blood only) 36.4 % (37.0-47.0); Hemoglobin 11.8 g/dl (12.0-16.0); Mean Corpuscular Hemoglobin 28.2 pg (25.0-34.0); Mean Corpuscular Hgb Conc 32.4 g/dL (32.0-36.0); Mean Corpuscular Volume 87.1 fL (80.0-100.0); Mean Platelet Volume 8.8 fL (9.4-12.4); Platelet Count 489 K/uL (130-400); RDW Coefficient of Variation 13.1 % (11.5-14.5); RDW Standard Deviation 41.2 fL (36.4-46.3); Red Blood Count 4.18 M/uL (4.20-5.40); White Blood Count 7.78 K/ul (4.8-10.8)
[2024-03-23 04:04] LABS: BUN Creatinine Ratio 24.5 (10-20); Calcium 9.2 mg/dl (8.6-10.3); Creatinine Clr Calc Pharmacy 74.3 ml/min; Est GFR (African American) 104.7 ml/min; Est GFR (Non-African American) 90.3 ml/min; Potassium 4.1 mmol/L (3.5-5.1)
--- OUTSIDE RECORDS SUMMARY | 2024-03-23 04:22 | External Medical Summary ---
Author Name Unknown Address Unknown Organization K09:[facility] [place] [address] Laboratory Report Ordering Provider Test Date Status BYRON VINES 03/09/2024 06:19:13 Final Observation Date Value Abnormality Reference (Units ) Status BUN 03/09/2024 06:19:13 7 6-20 (mg/dL) Final Creatinine 03/09/2024 06:19:13 0.5 0.5-1.0 (mg/dL) Final Glomerular filtration rate/1.73 sq M.predicted [Volume Rate/Area] in Serum, Plasma or Blood by Creatinine-based formula (CKD-EPI) 03/09/2024 06:19:13 >90 >=60 (mL/min) Final eGFR is calculated based on the CKD-EPI 2020 equation Sodium 03/09/2024 06:19:13 142 135-146 (m mol/L) Final Potassium 03/09/2024 06:19:13 4.1 3.5-5.1 (m mol/L) Final Cl 03/09/2024 06:19:13 106 98-107 (mm ol/L) Final CO2 03/09/2024 06:19:13 24 22-32 (mmo l/L) Final Anion gap 03/09/2024 06:19:13 12 7-15 (mmol /L) Final Glucose 03/09/2024 06:19:13 109 70-120 (mg /dL) Final Calcium 03/09/2024 06:19:13 8.9 8.4-10.2 ( mg/dL) Final Performing Location [facility] [place] [address]
--- OUTSIDE RECORDS SUMMARY | 2024-03-23 04:22 | External Medical Summary | Summary of Care ---
Author Name Unknown Organization [facility] Address [address] [place] [address] Phone [phone] Care Team Providers Care Manager Information Name Role Phone Shin Billings MD Primary Care Provider Reason for Visit * Reason Onset Date Comments Hospital Follow-Up Pt here for a hospital f/u from [facility] from 03/12 (records have been requested). Pt states that she has been taking her bp med since Wednesday. Hospital Follow-Up 03/16/2024 Encounter Details Date Type Department Care Team (Late st Contact Info) Description 03/16/2024 9:40 AM EDT Office Visit Family Practice [facility] [address] [facility] [address] [place] [address] Shin Billings MD [address] [place] [phone] Non-small cell cancer of right lung (HCC)*; Drug-induced acute pancreatitis, unspecified complication status; Spinal stenosis of lumbar region, unspecified whether neurogenic claudication present; Essential hypertension; Hospital discharge follow-up Allergies Active Allergy Reactions Criticality Noted Date Comments Pollen 12/15/2023 documented as of this encounter (statuses as of 03/16/2024) Medications Medication Sig Dispensed Refills Start Date End Date Status CoQ-10 100 MG Oral Capsule Take by mouth. Active Calcium-Magnesium- Vitamin D 185-50-100 MG-MG-UNIT Oral Capsule Take by mouth. Active ALPRAZolam 0.5 MG Oral Tablet (xaNAX)Indications :BIMAL (generalized anxiety disorder) Take 1 Tablet by mouth at bedtime as needed for Anxiety. 15 Tablet 06/29/2023 Active Additional Information Patient not taking.Reported on 12/15/2023 Clindamycin Phosphate 1 % External GelIndications:Can didal intertrigo Complete this region 2x daily: Wash with gentle soap and water first, then apply this medication, next will be clotrimazole 1% cream, and then the triamcinolone 0.1% ointment on top. 60 g 1 12/15/2023 Active Clotrimazole 1 % External Cream (Lotrimin)Indicati ons:Candidal intertrigo Complete this regimen 2x daily: wash with gentle soap and water, then apply clindamycin gel, then this medication and then the triamcinolone 0.1% ointment 226 g 2 12/15/2023 Active Triamcinolone Acetonide 0.1 % External Ointment (Aristocort)Indica tions:Candidal intertrigo Complete 2x daily: Wash with gentle soap and water first, then apply clindamycin gel first, then clotrimazole 1% cream, and then this medication. 80 g 12/15/2023 Active amLODIPine Besylate 5 MG Oral Tablet (Norvasc) Take 1 Tablet by mouth in the morning. 90 Tablet 1 01/06/2024 Active documented as of this encounter (statuses as of 03/16/2024) Active Problems Problem Noted Date Diagnosed Date Hx of nonmelanoma skin cancer 12/20/2023 Overview: basal cell carcinoma (R central upper back 12/25) HTN, goal below 130/80 10/07/2023 BIMAL (generalized anxiety disorder) 10/07/2023 Non-small cell cancer of right lung 06/29/2023 Urticaria, chronic 06/29/2023 documented as of this encounter (statuses as of 03/16/2024) Resolved Problems Problem Noted Date Diagnosed Date Resolved Date Elevated blood pressure, situational 06/29/2023 10/07/2023 Mass of right lung 02/02/2023 Acute respiratory failure with hypoxia 02/02/2023 03/23/2023 Pleural effusion 02/02/2023 10/07/2023 documented as of this encounter (statuses as of 03/16/2024) Social History Tobacco Use Types Packs/Day Years Used Date Smoking Tobacco: Former Cigarettes Passive Smoke Exposure: Past Smokeless Tobacco: Never Alcohol Use Standard Drinks/Week Comments Never 0 (1 standard drink = 0.6 oz pur e alcohol) PHQ-2 Answer Date Recorded PHQ Adult Total Score 0 02/09/2023 Hunger Vital Sign Answer Date Recorded Within the past 12 months, y ou worried that your food would run out before you got the money to buy more. Never true 02/10/20 23 Within the past 12 months, t he food you bought just didn't last and you didn't have money to get more. Never true 02/09/2023 Sex and Gender Information Value Date Recorded Sex Assigned at Female 02/09/2023 11:04 AM EDT Gender Identity Female 02/09/2023 11:04 AM EDT Sexual Orientation Straight 02/09/2023 11 :04 AM EDT Job Start Date Occupation Industry Not on file Not on file Not on file documented as of this encounter Last Filed Vital Signs Vital Sign Reading Time Taken Comments Blood Pressure 142/82 03/16/2024 9:54 AM EDT refused to have taken by a nurse Pulse 134 03/16/2024 9:54 AM EDT Temperature 36.6 C (97.8 F) 03/16/2024 9 :54 AM EDT Respiratory Rate 16 03/16/2024 9:54 AM EDT Oxygen Saturation 97% 03/16/2024 9:5 4 AM EDT Inhaled Oxygen Concentration - - Weight 62.1 kg (137 lb) 03/16/2024 9:54 AM EDT Height 156 cm (5' 1.42") 03/16/2024 9:5 4 AM EDT Body Mass Index 25.53 03/16/2024 9:54 AM EDT documented in this encounter Progress Notes * Shin Billings MD - 03/16/2024 10:13 AM EDT Images from the original note were not included. History of Present Illness Kera Pavon is a 78 year old female that presents for Hospital Follow-Up (Pt here for a hospital f/u from [facility] from 03/12 (records have been requested). Pt states that she has been taking her bpmed since Wednesday.) and Hospital Follow-Up Patient was admitted to [facility] on 03/03/2024 and discharged to [facility] rehab on . Admitted diagnosis was drug related pancreatitis related to her Keytruda for treatment of stage IV lung CA. Gurmeet had some significant back pain and found to have lumbar spinal stenosis with some foraminal narrowing. She underwent PT and mobility work at the rehab facility. Physical Exam Pulse 134 | Temp 36.6 C (97.8 F) (Tympanic) | Resp 16 | Ht 1.56 m (5' 1.42") | Wt 62.1 kg (137 lb) | SpO2 97% | BMI 25.53 kg/m | BSA 1.64 m AAOx3 Anxious affect NCAT/ PERRL Neck supple Throat clear Borderline tachycardic, regular Lungs CTABL Abd soft +BS Ext warm and well perfused No gross neuro deficits Hunched posture with antalgic gait I have reviewed most recent labs Cmp, CBC, troponin, lipase Assessment and Plan Non-small cell cancer of right lung (HCC) - still going through treatment with the Keytruda - next treatment is later today. - [facility] MED RECON CUR MED LIS Drug-induced acute pancreatitis, unspecified complication status - radiographic and symptomatically but she did not have significant enzyme elevation. This has resolved. - DIS[facility] MED RECON CUR MED LIS Spinal stenosis of lumbar region, unspecified whether neurogenic claudication present - getting around well - DISCH MED RECON CUR MED LIS Essential hypertension - improving but she HAS To take the medication regularly and not skip days in order to have an actual benefit from the medication. Abnormal urinalysis - was treated empirically with rocephin. No further treatment needed Hospital discharge follow-up - records reviewed - DISCH MED RECON CUR MED LIS Wrap-Up Keep f/u in 2 months with me Time: I spent a total of 40-54 minutes (exact time 40 mins) on the date of service in preparation, delivery, and documentation of the care provided to Kera Pavon excluding any time spent in the performance of separately billed services. documented in this encounter Plan of Treatment Upcoming Encounters Date Type Department Care Team (Late st Contact Info) Description 03/27/2024 10:00 AM EDT Nutrition Services Nutrition, [facility] [address] [place] [address] Nazia Ward, [place] [address] [place] [phone] 05/08/2024 11:00 AM EDT Office Visit Family Practice [facility] [address] [place] [address] Shin Billings MD [address] [place] [phone] 11/13/2024 3:15 PM EST Office Visit Dermatology [facility] [address] [facility] [place] [address] Rom Cardenas MD [address] [facility] [place] [address] Health Maintenance Due Date Last Done Comments DTaP,Tdap,and Td Vaccines (1 - Tdap) 1964 DXA Scan 2010 Pneumococcal Vaccine: 65+ Years (1 of 1 - PCV) 2010 Depression Screening 02/10/2024 02/09/2023 Influenza Vaccine (FLU shot) (Season Ended) 2024 GFR 03/09/2025 03/09/2024, 06/29/2023 Albumin/Creatinine Ratio 06/29/2026 06/29/2023 COVID-19 Vaccine Discontinued 02/14/2021 GARDASIL-HPV IMMUNIZATION SERIES Aged Out No longer eligible based on patient's age to complete this topic Hepatitis B Aged Out No longer eligi ble based on patient's age to complete this topic Hepatitis C Screening Discontinued MENINGOCOCCAL (MENACTRA/MENVEO) Aged Out No longer eligible based on patient's age to complete this topic Zoster Vaccines Discontinued documented as of this encounter Medical Devices Not on filedocumented as of this encounter Visit Diagnoses Diagnosis Non-small cell cancer of right lung (HCC)- Primary Drug-induced acute pancreatitis, unspecified complication status Spinal stenosis of lumbar region, unspecified whether neurogenic claudication present Essential hypertension Unspecified essential hypertension Hospital discharge follow-up Other follow-up examination documented in this encounter Care Teams Manager Information Relationship Specialty Start Date End Date Shin Billings MD [address] [place] [phone] PCP - General Family Medicine 01/06/24 documented as of this encounter
--- OUTSIDE RECORDS SUMMARY | 2024-03-23 04:22 | External Medical Summary ---
Author Name Unknown Address Unknown Organization K09:[facility] [place] [address] Laboratory Report Ordering Provider Test Date Status BYRON VINES 03/09/2024 06:19:13 Final Observation Date Value Abnormality Reference (Units ) Status WBC, Total 03/09/2024 06:19:13 7.32 4.00-10.8 0 (K/uL) Final RBC 03/09/2024 06:19:13 4.05 3.85-5.15 (M/uL) Final Hemoglobin 03/09/2024 06:19:13 11.4 Below low normal 12 .0-15.3 (g/dL) Final HCT 03/09/2024 06:19:13 36.3 36.0-45.2 (%) Final MCV 03/09/2024 06:19:13 89.6 81.5-97.5 (fL) Final MCH 03/09/2024 06:19:13 28.1 27.0-34.0 (pg) Final MCHC 03/09/2024 06:19:13 31.4 32.0-36.0 (g/dL) Final RDW 03/09/2024 06:19:13 13.3 11.5-15.5 (%) Final Platelets 03/09/2024 06:19:13 461 Above high normal 14 0-400 (K/uL) Final MPV 03/09/2024 06:19:13 9.5 6.6-11.1 ( fL) Final Performing Location [facility] [place] [address]
--- OUTSIDE RECORDS SUMMARY | 2024-03-23 04:22 | External Medical Summary | Summary of Care ---
Author Name Unknown Organization [facility] Address [address] [place] [facility] [place] [address] Phone [phone] Care Team Providers Care Cat Cracker Operator Name Role Phone Shin Billings MD Primary Care Provider Reason for Visit * Reason Onset Date Comments Advice 03/13/2024 Encounter Details Date Type Department Care Team (Late st Contact Info) Description 03/13/2024 Telephone Family Practice [facility] [address] [place] [address] Shin Billings MD [address] [facility] [place] [address] Advice Allergies Active Allergy Reactions Criticality Noted Date Comments Pollen 12/15/2023 documented as of this encounter (statuses as of 03/13/2024) Medications Medication Sig Dispensed Refills Start Date [...] as of this encounter (statuses as of 03/13/2024) Active Problems Problem Noted Date Diagnosed Date Hx of nonmelanoma skin cancer 12/20/2023 Overview: basal cell carcinoma (R central upper back 12/25) HTN, goal below 130/80 10/07/2023 BIMAL (generalized anxiety disorder) 10/07/2023 Non-small cell cancer of right lung 06/29/2023 Urticaria, chronic 06/29/2023 documented as of this encounter (statuses as of 03/13/2024) Resolved Problems Problem Noted Date Diagnosed Date Resolved Date Elevated blood pressure, situational 06/29/2023 10/07/2023 Mass of right lung 02/02/2023 Acute respiratory failure with hypoxia 02/02/2023 03/23/2023 Pleural effusion 02/02/2023 10/07/2023 documented as of this encounter (statuses as of 03/13/2024) Social History Tobacco Use Types Packs/Day Years [...] on file documented as of this encounter Miscellaneous Notes * Telephone Encounter - Marlene Jacobs LPN - 03/13/2024 9:22 AM EDT Was in the hospital 10 days ago for pancreatitis. Was then in rehab. Pt states that she is scared to check her b/p at home nd has not been taking her b/p medication because she is not sure that she needs it. Looked at her records from the hospital and saw that herb/p was in fact elevated while at [facility]. Informed pt that she does need to take her b/p med every morningas Dr Billings had ordered fo her. Reminded pt that she has an appointment with Dr Billings on 03/16. We will check her b/p at the appointment to see is the medication is working for her. Dr Billings will address how the medication is working for her at the time of her appointment. Pt voiced understanding and agreed to take b/p med now and then every morning. Pt states that she will not be checking b/p t home as this just upsets/scares her. * Telephone Encounter - Shila Thao OSA - 03/13/2024 9:12 AM EDT Pt calling in asking if a nurse can please give her a call about her medication. Can you please call her at [phone] documented in this encounter Plan of Treatment Upcoming Encounters Date Type Department Care Team (Late st Contact Info) Description 03/16/2024 9:40 AM EDT Office Visit [facility] [address] [address] [address] Shin Billings MD [address] [place] [address] 03/27/2024 10:00 AM EDT Nutrition Services Nutrition, [facility] [place] [address] Nazia Ward RDN [address] [facility] [place] [address] 05/08/2024 11:00 AM EDT Office Visit [facility] [address] [address] Shin [facility]ings MD [address] [facility] [place] [address] 11/13/2024 3:15 PM EST Office Visit Dermatology [facility] [address] [facility] [place] [address] Rom Cardenas MD [address] [place] [address] Health Maintenance Due Date Last Done Comments Hepatitis C Screening 1963 DTaP,Tdap,and Td Vaccines (1 - Tdap) 1964 Zoster Vaccines (1 of 2) 1995 DXA Scan 2010 Pneumococcal Vaccine: 65+ Years (1 of 1 - PCV) 2010 COVID-19 Vaccine (2 - 2022-2 4 season) 2023 02/14/2021 Depression Screening 02/10/2024 02/09/2023 Influenza Vaccine (FLU shot) (Season Ended) 2024 GFR 03/09/2025 03/09/2024, 06/29/2023 Albumin/Creatinine Ratio 06/29/2026 06/29/2023 GARDASIL-HPV IMMUNIZATION SERIES Aged Out No longer eligible b ased on patient's age to complete this topic Hepatitis B Aged Out No longer eligi ble based on patient's age to complete this topic MENINGOCOCCAL (MENACTRA/MENVEO) Aged Out No longer eligible b ased on patient's age to complete this topic documented as of this encounter Medical Devices Not on filedocumented as of this encounter Care Teams Cat Cracker Operator Relationship Specialty Start Date End Date Shin Billings MD [address] [place] [address] PCP - General Family Medicine 01/06/24 documented as of this encounter
--- OUTSIDE RECORDS SUMMARY | 2024-03-23 04:22 | External Medical Summary | Summary of Care ---
Author Name Unknown Organization [facility] Address [address] [place] [address] Phone [phone] Care Team Providers Care Visual And Stock Associate Name Role Phone Shin Billings MD Primary Care Provider Reason for Visit * Reason Comments Medical Nutrition Therapy * Evaluate & Treat - Unlimited Visits (Within 30 days (routine)) - Authorized Specialty Diagnoses / Procedures Referred By Controsibel t Referred To Contact Dietitian / Nutrition Services Diagnoses Diverticulosis Shin Billings MD [address] [place] [address] Referral ID Status Reason Start Date Expiration Date Visits Requested Visits Authorized [id number] Authorized Specialty Services Required 01/07/[phone] Encounter Details Date Type Department Care Team (Latest Contact Info) Description 01/24/2024 11:00 AM EDT Nutrition Services Nutrition, [facility] [place] [address] Nazia Ward RDN [address] [facility] [place] [address] Non-small cell cancer of right lung (HCC)*; Diverticulosis; Dietary counseling and surveillance Allergies Active Allergy Reactions Criticality Noted Date Comments Pollen 12/15/2023 documented as of this encounter (statuses as of 01/24/2024) Medications Medication Sig Dispensed Refills Start Date End Date Status CoQ-10 100 MG Oral Capsule Take by mouth. 0 Active Calcium-Magnesium- Vitamin D 185-50-100 MG-MG-UNIT Oral Capsule Take by mouth. 0 Active ALPRAZolam 0.5 MG Oral Tablet (xaNAX)Indications :BIMAL (generalized anxiety disorder) Take 1 Tablet by mouth at bedtime as needed for Anxiety. 15 Tablet 0 06/29/2023 Active Additional Information Patient not taking.Reported [...] cream, and then this medication. 80 g 0 12/15/2023 Active amLODIPine Besylate 5 MG Oral Tablet (Norvasc) Take 1 Tablet by mouth in the morning. 90 Tablet 1 01/06/2024 Active documented as of this encounter (statuses as of 01/24/2024) Active Problems Problem Noted Date Diagnosed Date Hx of nonmelanoma skin cancer 12/20/2023 Overview: basal cell carcinoma (R central upper back 12/25) HTN, goal below 130/80 10/07/2023 BIMAL (generalized anxiety disorder) 10/07/2023 Non-small cell cancer of right lung 06/29/2023 Urticaria, chronic 06/29/2023 documented as of this encounter (statuses as of 01/24/2024) Resolved Problems Problem Noted Date Diagnosed Date Resolved Date Elevated blood pressure, situational 06/29/2023 10/07/2023 Mass of right lung 02/02/2023 Acute respiratory failure with hypoxia 02/02/2023 03/23/2023 Pleural effusion 02/02/2023 10/07/2023 documented as of this encounter (statuses as of 01/24/2024) Social History Tobacco Use Types Packs/Day Years [...] Sign Reading Time Taken Comments Blood Pressure - - Pulse - - Temperature - - Respiratory Rate - - Oxygen Saturation - - Inhaled Oxygen Concentration - - Weight 64.5 kg (142 lb 3.2 oz) 01/24/2024 11:08 AM EDT Height 156 cm (5' 1.42") 01/24/2024 11:08 AM EDT Body Mass Index 26.5 01/24/2024 11:08 AM EDT documented in this encounter Patient Instructions * Patient Instructions* Nazia Ward RDN - 01/24/2024 11:47 AM EDT Patient will stop Benefiber supplement for 3 days. Monitor for improvement in gas symptoms. Patient will gradually increase fiber into diet. Start with oatmeal and 1 tbsp of bran or bran flakes or shredded wheat. Do this for 1 week and monitor for gas. Patient will increase fluid intake to at least 6, 8-ounce glasses of water daily. After 2 weeks, increase water intake to at least 8, 8-ounce glasses daily. Patient will add a high-protein food to breakfast and lunch dinner for most meals. Patient will add a stool softener to med regimen to help with constipation (such as Colace). documented in this encounter Progress Notes * Nazia Ward RDN - 01/24/2024 11:09 AM EDT NUTRITION CONSULT - OUTPATIENT [facility] Name: Kera Pavon Location: [facility] Date: 01/24/2024 Time: 11:10 AM Patient was identified by name and date. Patient was seen [id number] in the clinic. Reason for Referral: diverticulosis NUTRITION ASSESSMENT: Client History Patient is a 78 year old female being seen for above issue. Also states her appetite has decreased in past month. States she is taking immunosuppressant therapy for lunch cancer. Support System: friend, helpers from [facility] Barriers To Learning: None Special Education Needs: None Food/Nutrition-Related History Describes typical diet history/24 hr recall Breakfast: 8 AM oatmeal with milk and sometimes banana, coffee with a little milk Snacks: 10 AM boiled egg and toast Lunch: black baeza soup with brown rice and vegetable or organic canned lentil soup, and toast with cheese, water Snacks: papaya or oliver or apple or banana or blueberries and goat cheese Dinner: stuffed peppers with ground turkey or mendoza goulash, baked salmon, baked potato, portuguese chardor kale or spinach or broccoli, water Snacks: Cheerios or shredded wheat with whole milk Drinks: water-not enough, coffee in AM Restaurant meals: rare Alcohol: None Tobacco Use: No Diet Recall/Food Logs Indicate: AREAS FOR IMPROVEMENT: Inadequate fiber intake Inadequate fluid intake Inadequate protein intake POSITIVE: Portion control Food and Nutrient Intake and other pertinent information: Patient complains of constipation, hard, irregularly shaped stools, and inadequate emptying of bowels. She complains of excessive gas, feeling like things are sticking in her epigastric region and feeling like she needs to burp. She admits that stress may be contributing to her symptoms. States she tries to eat every 2 hours. States she has been avoiding many foods due to information that she reads on the internet. Food allergies and/or food intolerances: none Pertinent Medications (Current): Current Outpatient Medications Medication Sig Dispense Refill CoQ-10 100 MG Oral Capsule Take by mouth. [id number] D 185-50-100 MG-MG-UNIT Oral Capsule Take by mouth. ALPRAZolam 0.5 MG Oral Tablet (xaNAX) Take 1 Tablet by mouth at bedtime as needed for Anxiety. (Patient not taking: Reported on 12/15/2023) 15 Tablet 0 Clindamycin Phosphate 1 % External Gel Complete this region 2x daily: Wash with gentle soap and water first, then apply this medication, next will be clotrimazole 1% cream, and then the triamcinolone0.1% ointment on top. 60 g 1 Clotrimazole 1 % External Cream (Lotrimin) Complete this regimen 2x daily: wash with gentle soap and water, then apply clindamycin gel, then this medication and then the triamcinolone 0.1% ointment 226 g 2 Triamcinolone Acetonide 0.1 % External Ointment (Aristocort) Complete 2x daily: Wash with gentle soap and water first, then apply clindamycin gel first, then clotrimazole 1% cream, and then this medication. 80 g 0 amLODIPine Besylate 5 MG Oral Tablet (Norvasc) Take 1 Tablet by mouth in the morning. 90 Tablet 1 No current facility-administered medications for this visit. Supplements: CoQ-10, Benefiber, calcium/magnesium/vitamin D, Boost Glucose Control up to 3 day, butsome days none. Tries to consume at least 1 serving daily. Prior Nutrition Counseling: No prior counseling Physical Activity: walking twice a day-10-20 minutes Anthropometric Measurements Ht 1.56 m (5' 1.42") | Wt 64.5 kg (142 lb 3.2 oz) | BMI 26.50 kg/m | BSA 1.67 m Wt Readings from Last 5 Encounters: 04/22/24 64.5 kg (142 lb 3.2 oz) 01/06/24 64.6 kg (142 lb 6.4 oz) 06/29/23 63.1 kg (139 lb 3.2 oz) 03/23/23 55.6 kg (122 lb 9.6 oz) 02/09/23 56 kg (123 lb 6.4 oz) Weight Change: stable BMI: BMI Readings from Last 1 Encounters: 01/24/24 26.50 kg/m Nutrition-Focused Physical Findings Overall appearance: slightly overweight Biochemical Data, Medical Tests, and Procedures Latest Reference Range & Units 06/29/23 09:19 Albumin / Creatinine Ratio, Urine <30 mg/g Creat 67 (H) (H): Data is abnormally high Above level noted NUTRITION DIAGNOSIS Altered GI function related to diverticular disease as evidenced by medical diagnosis. Food and nutrition-related knowledge deficit related to Inadequate fiber intake, Inadequate fluid intake, Inadequate protein intake as evidenced by Reported diet recall Increased nutrient needs related to diagnosis of lung cancer as evidenced by catabolic nature of disease. NUTRITION INTERVENTION: NUTRITION EDUCATION Initial/brief nutrition education NUTRITION COUNSELING Strategies Other Education Material: Academy [employer] Nutrition Care Manual Handout -High Fiber Nutrition Therapy and [employer] Education Materials-High Fiber Diet Nutrition Prescription: Diet: Good Nutrition High calorie/High protein High Fiber Daily Calorie Needs: 1165-4422 Kcals Daily Protein Needs: 80-85 Grams protein Goals: Patient will stop Benefiber supplement for 3 days. Monitor for improvement in gas symptoms. Patient will gradually increase fiber into diet. Start with oatmeal and 1 tbsp of bran or bran flakes or shredded wheat. Do this for 1 week and monitor for gas. Patient will increase fluid intake to at least 6, 8-ounce glasses of water daily. After 2 weeks, increase water intake to at least 8, 8-ounce glasses daily. Patient will add a high-protein food to breakfast and lunch dinner for most meals. Patient will add a stool softener to med regimen to help with constipation (such as Colace). Dietitian Action: Encouraged patient to increase fiber intake in diet gradually and avoid hard seeds such as sunflower seeds, popcorn, poppy seeds. Suggested she stop taking Benefiber for 3 days to see if this improves her gas. Suggested she increase her fluid intake. Encouraged her to add a high-protein food to breakfast and to lunch. Encouraged her to eat without doing another task-ie, watchingTV-and chew thoroughly and slowly and eat in a relaxed atmosphere. Encouraged her to discuss issuesregarding his irregularly bowel movements to her PCP. Recommendations to Ordering Provider: Continue current plan of nutrition care. NUTRITION MONITORING AND EVALUATION: The following will be monitored and evaluated at the next visit: Monitor weight. Monitor goals and progress. Plan:Patient scheduled to return in 2 months; Encouraged pt to contact me via My G if any questionsor concerns arise. 45 minutes Medical Nutrition Therapy 15 min (8-22 min) 30 min (23-37 min) 45 min (38-52 min) 60 min (53-67 min) 75 min (68-82 min) 90 min (83-97 min) 105 min (98-113 min) Time In: 1108 (01/24/24 1504) Time Out: 1154 (01/24/24 1504) Nazia Ward RDN [facility] documented in this encounter Miscellaneous Notes * Pt Handout (on AVS) - Nazia Ward RDN - 01/24/2024 11:51 AM EDT Images from the original note were not included. [id number] High-Fiber Diet Fiber is found in plant foods, such as fruits, vegetables, legumes, nuts, seeds, and grains. Fiber passes through your body undigested. A high-fiber diet helps food move through your intestinal tract. The added bulk can help prevent constipation. In people with small pouches in the colon (diverticulosis), fiber helps clean out the pouches along the colon wall. It also prevents new pouches from forming. A high-fiber diet reduces the risk for colon cancer. It also lowers blood cholesterol and prevents high blood sugar in people with diabetes. Include the high-fiber foods listed below as part of your diet. If you are not used to eating high-fiber foods, start with 1 or 2 foods from this list. Every 3 to 4 days, add a new food to your diet.Do this until you are eating 4 high-fiber foods per day. This should give you 20 to 35 grams of fiber a day. You need to drink a lot of water when you are on this diet to prevent constipation. Aim for at least 6 to 8 glasses of water a day. Water makes the fiber swell and increases its benefit. Foods high in fiber These foods are high in fiber: Breads. Breads made with 100% whole-wheat flour or whole grains; wheat or rye crackers; whole-grain or corn tortillas; bran muffins Cereals. Whole-grain and bran cereals (shredded wheat, wheat flakes, raisin bran, corn bran); oatmeal; granola Fruits. Fresh fruits and their edible skins (pears, prunes, raisins, berries, apples, and apricots); bananas, citrus fruits, mangoes, pineapple; prune juice Nuts and seeds. Any nuts and seeds, such as walnuts, peanuts, pecans, pistachios, almonds, and ryann; flax and pumpkin seeds Vegetables. This includes all vegetables, which are best served raw or lightly cooked; those higher in fiber include green peas, celery, eggplant, potatoes, spinach, broccoli, [place] sprouts, winter squash, carrots, cauliflower, soybeans, lentils, and fresh and dried beans of all kinds Whole grains. Oats, brown rice, quinoa, barley, sorghum, spelt, rye, farro, popcorn, and wheat; corn and mindy flours If you have diverticulosis There aren't any specific foods to stay away from if you have diverticulosis. But each person is different. There may be some foods that make your symptoms worse. Keep track and don?t eat foods that make you feel worse. Last Reviewed Date: 06/04/202219992099-6610 [employer]. All rights reserved. This information is not intended as a substitute for professional medical care. Always follow your healthcare professional's instructions. documented in this encounter Plan of Treatment Upcoming Encounters Date Type Department Care Team (Late st Contact Info) Description 03/27/2024 10:00 AM EDT Nutrition Services Nutrition, [facility] [address] [place] [address] Nazia Ward, ELDER [address] [place] [address] 05/08/2024 11:00 AM EDT Office Visit Family Practice [facility] [address] [place] [address] Shin Billings MD [address] [place] [address] 11/13/2024 3:15 PM EST Office Visit Dermatology [facility] [address] [place] [address] Rom Cardenas MD [address] [place] [address] Scheduled Referrals Name Type Priority Associated Diagnoses Orde r Schedule NUTRITION-CLINICAL DIETITIAN REFERRAL OP Referral Within 30 days (routine) Diverticulosis Ordered: 01/07/2024 Health Maintenance Due Date Last Done Comments Hepatitis C Screening 1963 DTaP,Tdap,and Td Vaccines (1 - Tdap) 1964 Zoster Vaccines (1 of 2) 1995 DXA Scan 2010 Pneumococcal Vaccine: 65+ Ye ars (1 of 1 - PCV) 2010 COVID-19 Vaccine (2 - 2022-2 4 season) 2023 02/14/2021 Depression Screening 02/10/2024 02/09/2023 Influenza Vaccine (FLU shot) (Season Ended) 2024 GFR 06/29/2024 06/29/2023 Albumin/Creatinine Ratio 06/29/2026 06/29/2023 GARDASIL-HPV IMMUNIZATION [...] cell cancer of right lung (HCC)- Primary Diverticulosis Diverticulosis of colon (without mention of hemorrhage) Dietary counseling and surveillance Dietary surveillance and counseling documented in this encounter Care Teams Visual And Stock Associate Relationship Specialty Start Date End Date Shin Billings MD [address] [place] [address] PCP - General Family Medicine 01/06/24 documented as of this encounter
--- OUTSIDE RECORDS SUMMARY | 2024-03-23 04:22 | External Medical Summary | Summary of Care ---
Author Name Unknown Organization [facility] Address [address] [place] [facility] [place] [address] Phone [phone] Care Team Providers Care Deck Engineer Name Role Phone Shin Billings MD Primary Care Provider Reason for Visit * Reason Onset Date Comments Advice 03/14/2024 Encounter Details Date Type Department Care Team (Late st Contact Info) Description 03/14/2024 Telephone Family Practice [facility] [address] [place] [address] Shin Billings MD [address] [facility] [place] [address] Advice Allergies Active Allergy Reactions Criticality Noted Date Comments Pollen 12/15/2023 documented as of this encounter (statuses as of 03/14/2024) Medications Medication Sig Dispensed Refills Start Date [...] as of this encounter (statuses as of 03/14/2024) Active Problems Problem Noted Date Diagnosed Date Hx of nonmelanoma skin cancer 12/20/2023 Overview: basal cell carcinoma (R central upper back 12/25) HTN, goal below 130/80 10/07/2023 BIMAL (generalized anxiety disorder) 10/07/2023 Non-small cell cancer of right lung 06/29/2023 Urticaria, chronic 06/29/2023 documented as of this encounter (statuses as of 03/14/2024) Resolved Problems Problem Noted Date Diagnosed Date Resolved Date Elevated blood pressure, situational 06/29/2023 10/07/2023 Mass of right lung 02/02/2023 Acute respiratory failure with hypoxia 02/02/2023 03/23/2023 Pleural effusion 02/02/2023 10/07/2023 documented as of this encounter (statuses as of 03/14/2024) Social History Tobacco Use Types Packs/Day Years [...] encounter Miscellaneous Notes * Telephone Encounter - Amanda Yi OSA - 03/14/2024 12:37 PM EDT Patient called stating that someone called her today but there is no note pertaining to the reason of the call Please Advise documented in this encounter Plan of Treatment Upcoming Encounters Date Type Department Care Team (Late st Contact Info) Description 03/16/2024 9:40 AM EDT Office Visit Family Practice [facility] [address] [address] Shin Billings MD [address] [place] [address] 03/27/2024 10:00 AM EDT [facility] [address] [address] Nazia Ward RDN [address] [place] [address] 05/08/2024 11:00 AM EDT Office Visit Family [facility] [address] [address] Shin Billings MD [address] [place] [address] 11/13/2024 3:15 PM EST Office Visit Dermatology [facility] [address] [facility] [place] [address] Rom Cardenas MD [address] [facility] [place] [address] Health Maintenance Due Date Last Done Comments [...] filedocumented as of this encounter Care Teams Deck Engineer Relationship Specialty Start Date End Date Shin Billings MD [address] [place] [address] PCP - General Family Medicine 01/06/24 documented as of this encounter
--- OUTSIDE RECORDS SUMMARY | 2024-03-23 04:22 | External Medical Summary | Summary of Care ---
Author Name Unknown Organization [facility] Address [address] [place] [address] Phone [phone] Care Team Providers Care Fire Apparatus Sprinkler Inspector Name Role Phone Shin Billings MD Primary Care Provider Reason for Visit * Reason Onset Date Comments Health Maintenance 02/23/2024 Encounter Details Date Type Department Care Team (Late st Contact Info) Description 02/23/2024 Telephone Family Practice [facility] [address] [place] [address] Shin Billings MD [address] [facility] [place] [address] Health Maintenance Allergies Active Allergy Reactions Criticality Noted Date Comments Pollen 12/15/2023 documented as of this encounter (statuses as of 02/23/2024) Medications Medication Sig Dispensed Refills Start Date [...] as of this encounter (statuses as of 02/23/2024) Active Problems Problem Noted Date Diagnosed Date Hx of nonmelanoma skin cancer 12/20/2023 Overview: basal cell carcinoma (R central upper back 12/25) HTN, goal below 130/80 10/07/2023 BIMAL (generalized anxiety disorder) 10/07/2023 Non-small cell cancer of right lung 06/29/2023 Urticaria, chronic 06/29/2023 documented as of this encounter (statuses as of 02/23/2024) Resolved Problems Problem Noted Date Diagnosed Date Resolved Date Elevated blood pressure, situational 06/29/2023 10/07/2023 Mass of right lung 02/02/2023 Acute respiratory failure with hypoxia 02/02/2023 03/23/2023 Pleural effusion 02/02/2023 10/07/2023 documented as of this encounter (statuses as of 02/23/2024) Social History Tobacco Use Types Packs/Day Years [...] encounter Miscellaneous Notes * Telephone Encounter - Alice Crenshaw LPN - 02/23/2024 3:42 PM EDT Care Gaps Comprehensive Care Outreach Last Office/Telemedicine Visit: 01/06/2024 (in office), Visit date not found (telemedicine) Next Office Visit: 05/08/2024 Hemoglobin AIC Results: No results found for: "HEMOGLOBIN A1C" BP Readings from Last 1 Encounters: 01/06/24 170/82 Reviewed Health Maintenance below: Health Maintenance Topic Date Due Hepatitis C Screening Never done DTaP,Tdap,and Td Vaccines (1 - Tdap) Never done Zoster Vaccines (1 of 2) Never done DXA Scan Never done Dexa my g Care Gap Outreach Action Taken: [employer] message sent documented in this encounter Plan of Treatment Upcoming Encounters Date Type Department Care Team (Late st Contact Info) Description 03/27/2024 10:00 AM EDT Nutrition Services Nutrition, [facility] [address] [place] [address] Nazia Ward RDN [address] [place] [address] 05/08/2024 11:00 AM EDT Office Visit Family Practice [facility] [address] [place] [address] Shin Billings MD [address] [place] [address] 11/13/2024 3:15 PM EST Office Visit [facility] [address] [facility] [place] [address] Rom Cardenas MD 200 [facility] [place] [address] Health Maintenance Due Date Last Done Comments [...] filedocumented as of this encounter Care Teams Fire Apparatus Sprinkler Inspector Relationship Specialty Start Date End Date Shin Billings MD [address] [place] [address] [place] [address] PCP - General Family Medicine 01/06/24 documented as of this encounter
--- OUTSIDE RECORDS SUMMARY | 2024-03-23 04:23 | External Medical Summary | Summary of Care ---
Author Name Unknown Organization [facility] Address [address] [place] [address] Phone [phone] Care Team Providers Care Circulation Man Name Role Phone Shin Billings MD Primary Care Provider Reason for Visit * Reason Onset Date Comments MyCode Nonconsent - Not interested at this time 01/06/2024 Encounter Details Date Type Department Care Team (Late st Contact Info) Description 01/06/2024 Orders Only Outcomes Research Department [address] [place], [place] [id number] Abby Yost CHRA MyCode Nonconsent Documentation Allergies Active Allergy Reactions Criticality Noted Date Comments Pollen 12/15/2023 documented as of this encounter (statuses as of 01/06/2024) Medications Medication Sig Dispensed Refills Start Date [...] as of this encounter (statuses as of 01/06/2024) Active Problems Problem Noted Date Diagnosed Date Hx of nonmelanoma skin cancer 12/20/2023 Overview: basal cell carcinoma (R central upper back 12/25) HTN, goal below 130/80 10/07/2023 BIMAL (generalized anxiety disorder) 10/07/2023 Non-small cell cancer of right lung 06/29/2023 Urticaria, chronic 06/29/2023 documented as of this encounter (statuses as of 01/06/2024) Resolved Problems Problem Noted Date Diagnosed Date Resolved Date Elevated blood pressure, situational 06/29/2023 10/07/2023 Mass of right lung 02/02/2023 Acute respiratory failure with hypoxia 02/02/2023 03/23/2023 Pleural effusion 02/02/2023 10/07/2023 documented as of this encounter (statuses as of 01/06/2024) Social History Tobacco Use Types Packs/Day Years [...] on file documented as of this encounter Progress Notes * Abby Yost CHRA - 01/06/2024 10:02 AM EDT MyCode Nonconsent Documentation Kera Pavon was approached in the clinic regarding participation in the [employer] Project and did not consent. documented in this encounter Plan of Treatment Upcoming Encounters Date Type Department Care Team (Late st Contact Info) Description 01/19/2024 10:40 AM EDT Office Visit Dermatology [address] [place] [address] Dayanna Toussaint PA-C [address] [place] [address] [place] [address] 05/08/2024 11:00 AM EDT Office Visit Family Practice [facility] 132 [facility] [place] [address] Shin Billings MD 132 [facility] [place] [address] 02/08/2025 10:20 AM EDT Office Visit [address] [address] Dayanna Toussaint PA-C [address] [place] [address] [place] [address] Health Maintenance Due Date Last Done Comments [...] filedocumented as of this encounter Care Teams Circulation Man Relationship Specialty Start Date End Date Shin Billings MD 132 [facility] [place] [address] PCP - General Family Medicine 01/06/24 documented as of this encounter
--- OUTSIDE RECORDS SUMMARY | 2024-03-23 04:23 | External Medical Summary | Summary of Care ---
Author Name Unknown Organization [facility] Address [address] [place] [address] Phone [phone] Care Team Providers Care Featherer Name Role Phone Shin Billings MD Primary Care Provider Reason for Referral * Evaluate & Treat - Unlimited Visits (Within 30 days (routine)) - Authorized Specialty Diagnoses / Procedures Referred By Controsibel t Referred To Contact Dietitian / Nutrition Services Diagnoses Diverticulosis Shin Billings MD [address] [employer] [place] [address] Referral ID Status Reason Start Date Expiration Date Visits Requested Visits Authorized [id number] Authorized Specialty Services Required 01/07/[phone] Question Answer Referral Priority Within 30 days (routine) Where should this appointment be scheduled? [facility] What condition is the patient being seen for? All other conditions Other: GI conditions/ symptoms Is this for 65 Forward? No Comments Medical Nutrition Therapy Reason for Visit * Reason Onset Date Comments Advice 01/07/2024 Encounter Details Date Type Department Care Team (Late st Contact Info) Description 01/07/2024 Telephone Family Practice [facility] [address] [place] [address] Shin Billings MD [address] [place] [address] Advice Allergies Active Allergy Reactions Criticality Noted Date Comments Pollen 12/15/2023 documented as of this encounter (statuses as of 01/07/2024) Medications Medication Sig Dispensed Refills Start Date [...] as of this encounter (statuses as of 01/07/2024) Active Problems Problem Noted Date Diagnosed Date Hx of nonmelanoma skin cancer 12/20/2023 Overview: basal cell carcinoma (R central upper back 12/25) HTN, goal below 130/80 10/07/2023 BIMAL (generalized anxiety disorder) 10/07/2023 Non-small cell cancer of right lung 06/29/2023 Urticaria, chronic 06/29/2023 documented as of this encounter (statuses as of 01/07/2024) Resolved Problems Problem Noted Date Diagnosed Date Resolved Date Elevated blood pressure, situational 06/29/2023 10/07/2023 Mass of right lung 02/02/2023 Acute respiratory failure with hypoxia 02/02/2023 03/23/2023 Pleural effusion 02/02/2023 10/07/2023 documented as of this encounter (statuses as of 01/07/2024) Social History Tobacco Use Types Packs/Day Years [...] encounter Miscellaneous Notes * Telephone Encounter - Elle Abbott OSA - 01/07/2024 2:32 PM EDT LM for pt to call to schedule nutrition referral * Telephone Encounter - Shin Billings MD - 01/07/2024 2:20 PM EDT No problem. Referral order signed. * Telephone Encounter - Janet Monreal LPN - 01/07/2024 12:41 PM EDT Patient cold transferred to private nurse line. Patient calling in to discuss diverticulitis. She states she was seen yesterday in office. She states she picked up the benefiber supplement that was recommended but she wanted a specific diet to follow. I advised patient office note stated "Colonic di verticulosis - benefiber supplement. No sx. No evidence diverticulitis." Patient stated she wanted to go over a list of foods to help prevent diverticulitis. Gave educationregarding foods to avoid/limit. Patient thanked staff for the call and stated she would like to meet with nutrition. Referral pending if you agree. documented in this encounter Plan of Treatment Upcoming Encounters Date Type Department Care Team (Late st Contact Info) Description 01/19/2024 10:40 AM EDT Office Visit Dermatology [address] [place] [address] Dayanna Toussaint PA-C [address] [place] [address] [place] [address] 05/08/2024 11:00 AM EDT [facility] [place] [address] Shin Billings MD [address] [place] [address] 02/08/2025 10:20 AM EDT Office Visit [address] [address] Dayanna Toussaint PA-C [address] [place] [address] [place] [address] Scheduled Referrals Name Type Priority Associated Diagnoses [...] as of this encounter Visit Diagnoses Diagnosis Diverticulosis- Primary Diverticulosis of colon (without mention of hemorrhage) documented in this encounter Care Teams Featherer Relationship Specialty Start Date End Date Shin Billings MD [address] [place] [address] PCP - General Family Medicine 01/06/24 documented as of this encounter
--- OUTSIDE RECORDS SUMMARY | 2024-03-23 04:23 | External Medical Summary | Summary of Care ---
Author Name Unknown Organization [facility] Address [address] [facility] [address] Phone [phone] Care Team Providers Care Financial Sales Professional Name Role Phone Shin Coburn MD Primary Care Provider Reason for Visit * Reason Comments Follow Up R central upper back curettage BCC, 1 month for intertrigo Encounter Details Date Type Department Care Team (Late st Contact Info) Description 01/19/2024 10:40 AM EDT Office Visit Dermatology [address] [place] [address] Dayanna Toussaint PA-C [address] [place] [address] [place] [address] Basal cell carcinoma (BCC) of back*; Erythema intertrigo; Scar condition and fibrosis of skin Allergies Active Allergy Reactions Criticality Noted Date Comments Pollen 12/15/2023 documented as of this encounter (statuses as of 01/19/2024) Medications Medication Sig Dispensed Refills Start Date [...] as of this encounter (statuses as of 01/19/2024) Active Problems Problem Noted Date Diagnosed Date Hx of nonmelanoma skin cancer 12/20/2023 Overview: basal cell carcinoma (R central upper back 12/25) HTN, goal below 130/80 10/07/2023 BIMAL (generalized anxiety disorder) 10/07/2023 Non-small cell cancer of right lung 06/29/2023 Urticaria, chronic 06/29/2023 documented as of this encounter (statuses as of 01/19/2024) Resolved Problems Problem Noted Date Diagnosed Date Resolved Date Elevated blood pressure, situational 06/29/2023 10/07/2023 Mass of right lung 02/02/2023 Acute respiratory failure with hypoxia 02/02/2023 03/23/2023 Pleural effusion 02/02/2023 10/07/2023 documented as of this encounter (statuses as of 01/19/2024) Social History Tobacco Use Types Packs/Day Years [...] as of this encounter Progress Notes * Crow Rhodes MD - 01/19/2024 4:35 PM EDT I have seen and examined the patient via teledermatology review of chart note and photos with Dayanna Toussaint PA-C. I have reviewed and agree with the assessment and plan. * Dayanna Toussaint PA-C - 01/19/2024 9:47 AM EDT SUBJECTIVE: History of Present Illness: Kera Pavon is a 78 year old female seen today for follow up of intertrigo and curettage of BCC. Previous appointment date: 12/15/2023 Last attempted treatments include: intertrigo treatment and bx x 1 (BCC) Rash has been better, still some redness present. Nervous about curettage of BCC. REVIEW OF SYSTEMS: SKIN: No other new or changing moles. HEME/LYMPH: No new or enlarging lumps or bumps. CONSTITUTIONAL: No nausea, vomiting, fevers, chills, diarrhea. No recent unintended weight loss, night sweats, appetite or malaise. RESP: negative MSK/EXT: Negative or as per HPI GI: negative CV: Negative or as per HPI Rest of systems are negative or as per HPI SKIN CANCER HX: basal cell carcinoma (R central upper back 01/25) Reviewed, same day as visit, 0 [facility] Dermatology lab work(s)/pathology report(s) as well as those sent by referring provider prior to seeing pt. MEDICA TIONS: Current Outpatient Medications Medication Sig Dispense Refill CoQ-10 100 MG Oral Capsule Take by mouth. Qbfyapr-Msmzlyidp-Riwpsco D 185-50-100 MG-MG-UNIT Oral Capsule Take by [...] No current facility-administered medications for this visit. ALLERG IES: Hay fever [pollen] OBJECT LISSA: GEN: alert, no distress, appears oriented, pleasant, and cooperative. SKIN: Detailed exam of neck, chest, abdomen, and back completed: 1A. R central upper back-Was 2.2x1.5cm pink hernandez and scaly plaque with pigment within, now post inflammatory erythematous circular atrophic plaque.. 2. Inframammary regions-Erythematous well defined shiny macerated plaques with few superficial fissures and satellite lesions and some inflamed keratoses. ASSESS MENT/PLAN: 1A. Pigmented BCC on R central upper back-Curettage of the lesion noted above to treat the already diagnosed lesion. The procedure, risks (to include but not limited to pain, bleeding, infection and scarring) benefits, alternatives and expected outcomes were discussed with the patient and verbal consent was obtained. Time out called. Patient identified, procedure verified, site identified and verified. Patient and staff present in agreement. Area prepped with alcohol and anesthetized using 3cc of 0.5% lidocaine with epinephrine at 1:200,000 concentration. 20% AlCl and bandaging applied after curettage. Patient instructed in routine post-op care and wound care brochure given. Size of lesion: 2.2x1.5cm Size of wound after curettage: 3.0x2.3cm 2. Candidal intertrigo, resolved with post inflammatory erythema- Continue to wash with gentle soapand water, d/c clindamycin gel, d/c clotrimazole 1% cream and d/c triamcinolone 0.1% ointment at this time. Start with thick coating of Desitin 40% cream to area chronically to prevent recurrence. Patient alone today. Photo(s) of #1-2 taken, pt verbally consented to having photo(s) taken. Follow-up: 1 year for full skin exam/intertrigo Applicable photos (if any) and chart reviewed by Dr. Crow Rhodes. Presumed diagnoses, expected natural histories, and management options discussed with the patient at length. Questions were addressed and anticipatory guidance provided. They were instructed to contact me if additional questions, concerns, or problems develop in the interim. -There were no barriers to learning and no other pain was related to today's visit. The patient and/or person accompanying patient demonstrates understanding of the visit and treatment. Dayanna Toussaint PA-C 01/19/2024 9:47 AM Ref: SELF[[id number]] NO STREET ADDRESS AVAILABLE None (office) None (fax) PCP: SHIN COBURN [address] [place] [address] documented in this encounter Nursing Notes * Ro Medeiros, GIUSEPPE - 01/19/2024 9:45 AM EDT Patient identified by full name and date of . Chief Complaint Patient presents with Follow Up R central upper back curettage BCC, 1 month for intertrigo documented in this encounter Plan of Treatment Upcoming Encounters Date Type Department Care Team (Late st Contact Info) Description 01/24/2024 11:00 AM EDT Nutrition Services Nutrition, [facility] [address] [place] [address] Nazia Ward RDN [address] [place] [address] 05/08/2024 11:00 AM EDT Office Visit Family Practice [facility] [address] [place] [address] Shin Coburn MD [address] [place] [address] 02/08/2025 10:20 AM EDT Office Visit Dermatology[address] [address] Dayanna Toussaint PAConstanza [address] [place] [address] [place] [address] Health Maintenance Due Date Last Done Comments [...] Not on filedocumented as of this encounter Procedures Procedure Name Priority Date/Time Associated Diagnosis Comments DERM EXAM - DERM (IMAGES ONLY, NO REPORT) Routine 01/19/2024 9:50 AM EDT Basal cell carcinoma (BCC) of back Erythema intertrigo Scar condition and fibrosis of skin DERM IMAGE (SITE) Routine 01/19/2024 Basal cell carcinoma (BCC) of back Erythema intertrigo Scar condition and fibrosis of skin documented in this encounter Results * DERM EXAM - DERM (IMAGES ONLY, NO REPORT) (01/19/2024 9:50 AM EDT) Narrative Scheduling, Silent - 01/19/2024 9:50 AM EDT This is an imaging study not interpreted or resulted by a [facility] or [facility] contracted radiologist. Dayanna Toussaint PA-C RADIOLOGY ([facility]) * DERM IMAGE (SITE) (01/19/2024) 01/19/2024 Dayanna Toussaint PA-C DIGITAL PHOTOG KEI documented in this encounter Visit Diagnoses Diagnosis Basal cell carcinoma (BCC) of back- Primary Erythema intertrigo Other specified erythematous condition Scar condition and fibrosis of skin documented in this encounter Care Teams Financial Sales Professional Relationship Specialty Start Date End Date Shin Coburn MD [address] [place] [address] PCP - General Family Medicine 01/06/24 documented as of this encounter
--- OUTSIDE RECORDS SUMMARY | 2024-03-23 04:23 | External Medical Summary | Summary of Care ---
Author Name Unknown Organization [facility] Address [address] [place] [address] Phone [phone] Care Team Providers Care Hyperbaric Nurse Name Role Phone Shin Billings MD Primary Care Provider Reason for Referral * Evaluate & Treat - Unlimited Visits (Within 30 days (routine)) - Authorized Specialty Diagnoses / Procedures Referred By Controsibel t Referred To Contact Dietitian / Nutrition Services Diagnoses Diverticulosis Shin Billings MD [address] [employer] [place] [address] Referral ID Status Reason Start Date Expiration Date Visits Requested Visits Authorized [id number] Authorized Specialty Services Required 01/07/[phone] [...] Contact Info) Description 01/07/2024 Telephone Family Practice [facility] [address] [place] [address] Shin Billings MD [address] [place] [address] Advice Allergies Active Allergy Reactions Criticality Noted [...] encounter Miscellaneous Notes * Telephone Encounter - Shin Billings MD [...] 01/19/2024 10:40 AM EDT Office Visit Dermatology [address] [place] [address] Dayanna Toussaint PA-C [address] [place] [address] [place] [address] 05/08/2024 11:00 AM EDT Office Visit [facility] [place] [address] Shin Billings MD [address] [place] [address] 02/08/2025 10:20 AM EDT Office Visit [address] [address] Dayanna Toussaint PA-C [address] [place] [address] [place] [address] Scheduled Referrals Name Type Priority Associated Diagnoses [...] hemorrhage) documented in this encounter Care Teams Hyperbaric Nurse Relationship Specialty Start Date End Date Shin Billings MD [address] [place] [address] PCP - General Family Medicine 01/06/24 documented as of this encounter
--- OUTSIDE RECORDS SUMMARY | 2024-03-23 04:23 | External Medical Summary | Summary of Care ---
Author Name Unknown Organization [facility] Address [address] [place] [address] Phone [phone] Care Team Providers Care Tank Builder Helper Name Role Phone Shin Billings MD Primary Care Provider Reason for Referral * Evaluate & Treat - Unlimited Visits (Within 30 days (routine)) - Authorized Specialty Diagnoses / Procedures Referred By Controsibel t Referred To Contact Dietitian / Nutrition Services Diagnoses Diverticulosis Shin Billings MD [address] [employer] [address] [place] [address] Referral ID Status Reason Start Date Expiration Date Visits Requested Visits Authorized [id number] Authorized Specialty Services Required 01/07/[phone] [...] Contact Info) Description 01/07/2024 Telephone Family Practice [facility] [address] [place] [address] Shin Billings MD [address] [place] [address] Advice Allergies Active Allergy Reactions Criticality Noted [...] encounter Miscellaneous Notes * Telephone Encounter - Harlan Bianchi OSA - 01/07/2024 3:05 PM EDT Patient transferred to Nutrition to schedule. * Telephone Encounter - Elle Abbott OSA - 01/07/2024 2:32 PM EDT LM for pt to call to schedule nutrition referral * Telephone Encounter - Shin Billings MD - 01/07/2024 2:20 PM EDT No problem. Referral order signed. * Telephone Encounter - Jante Monreal LPN - 01/07/2024 12:41 PM EDT [...] 01/19/2024 10:40 AM EDT Office Visit Dermatology [address] [place] [address] aDyanna Toussaint PA-C [address] [place] [address] [place] [address] 05/08/2024 11:00 AM EDT Office Visit [facility] 132 [facility] [place] [address] Shin Billings MD [address] [place] [address] 02/08/2025 10:20 AM EDT [address] [address] Dayanna Toussaint PA-C [address] [place] [address] [place] [address] Scheduled Referrals Name Type Priority Associated Diagnoses [...] hemorrhage) documented in this encounter Care Teams Tank Builder Helper Relationship Specialty Start Date End Date Shin Billings MD [address] [place] [address] PCP - General Family Medicine 01/06/24 documented as of this encounter
--- OUTSIDE RECORDS SUMMARY | 2024-03-23 04:23 | External Medical Summary | Summary of Care ---
Author Name Unknown Organization [facility] Address [address] [address] Phone [phone] Care Team Providers Care Ticket Taker Name Role Phone Shin Billings MD Primary Care Provider Reason for Visit * Reason Comments Follow Up Pt here for a 3m f/u . Encounter Details Date Type Department Care Team (Late st Contact Info) Description 01/06/2024 9:00 AM EDT Office Visit Family [facility] [address] [place] [address] Shin Billings MD [address] [place] [address] Risk and functional assessment*; Non-small cell cancer of right lung (HCC); Hypertension goal BP (blood pressure) < 140/90; Candidal intertrigo Allergies Active Allergy Reactions Criticality Noted Date Comments Pollen 12/15/2023 documented as of this encounter (statuses as of 01/06/2024) Medications Medication Sig Dispensed Refills Start Date End Date Status CoQ-10 100 MG Oral Capsule Take by mouth. 0 Active Calcium-Magnesiu m-Vitamin D 185-50-100 MG-MG-UNIT Oral Capsule Take by mouth. 0 Active ALPRAZolam 0.5 MG Oral Tablet (xaNAX)Indicatio ns:BIMAL (generalized anxiety disorder) Take 1 Tablet by mouth at bedtime as needed for Anxiety. 15 Tablet 0 06/29/2023 Active Additional Information Patient not taking.Reported on 12/15/2023 Clindamycin Phosphate 1 % External GelIndications:C andidal intertrigo Complete this region 2x daily: Wash with gentle soap and water first, then apply this medication, next will be clotrimazole 1% cream, and then the triamcinolone 0.1% ointment on top. 60 g 1 12/15/2023 Active Clotrimazole 1 % External Cream (Lotrimin)Indica tions:Candidal intertrigo Complete this regimen 2x daily: wash with gentle soap and water, then apply clindamycin gel, then this medication and then the triamcinolone 0.1% ointment 226 g 2 12/15/2023 Active Triamcinolone Acetonide 0.1 % External Ointment (Aristocort)Noemi cations:Candidal intertrigo Complete 2x daily: Wash with gentle soap and water first, then apply clindamycin gel first, then clotrimazole 1% cream, and then this medication. 80 g 0 12/15/2023 Active amLODIPine Besylate 5 MG Oral Tablet (Norvasc) Take 1 Tablet by mouth in the morning. 90 Tablet 1 01/06/2024 Active Cetirizine HCl 10 MG Oral Tablet (ZyrTEC) Take 1 Tablet by mouth in the morning. 0 4 Discontinue d(Medicatio n List Clean Up) hydrOXYzine HCl 25 MG Oral TabletIndication s:Urticaria, chronic Take 1 Tablet by mouth every 6 hours as needed for Itching. 40 Tablet 2 06/29/2023 4 Discontinue d(Medicatio n List Clean Up) Lisinopril-hydro CHLOROthiazide 10-12.5 MG Oral TabletIndication s:HTN, goal below 140/90 Take 1 Tablet by mouth in the morning. 90 Tablet 3 06/29/2023 4 Discontinue d(Medicatio n List Clean Up) Fluconazole 200 MG Oral Tablet (Diflucan) Take 1 Tablet by mouth in the morning. 0 4 Discontinue d(Medicatio n List Clean Up) documented as of this encounter (statuses as [...] Passive Smoke Exposure: Past Smokeless Tobacco: Never Tobacco Cessation:Counseling Given: Not Answered Alcohol Use Standard Drinks/Week Comments Never 0 [...] Sign Reading Time Taken Comments Blood Pressure 170/82 01/06/2024 8:57 AM EDT ref used Pulse 116 01/06/2024 8:57 AM EDT Temperature 36.2 C (97.1 F) 01/06/2024 8:57 AM ED T Respiratory Rate 16 01/06/2024 8:57 AM EDT Oxygen Saturation 97% 01/06/2024 8:57 AM EDT Inhaled Oxygen Concentration - - Weight 64.6 kg (142 lb 6.4 oz) 01/06/2024 8:57 A M EDT Height 156 cm (5' 1.42") 01/06/2024 8:57 AM EDT Body Mass Index 26.54 01/06/2024 8:57 AM EDT documented in this encounter Patient Instructions * Patient Instructions* Marlene JacobsGIUSEPPE - 01/06/2024 8:57 AM EDT Patient Instructions - Fall Prevention (This education is for all patients over 65 regardless of symptoms) Remember to take your current medications as prescribed. In order to prevent falls, you are encouraged to: Exercise Utilize assistive/adaptive devices Avoid multifocal lenses when walking Avoid hazards in home Maintain a regular toileting schedule Any questions please contact our office. Preventing Falls in the Home (This education is for all patients over 65 regardless of symptoms) As you get older, falls are more likely. Thats because your reaction time slows. Your muscles and joints may also get stiffer, making them less flexible. Illness, medications, and vision changes can also affect your balance. A fall could leave you unable to live on your own. To make your home safer, follow these tips: Floors Put nonskid pads under area rugs Remove throw rugs Replace worn floor coverings Tack carpets firmly to each step on carpeted stairs. Put nonskid strips on the edges of uncarpeted stairs Keep floors and stairs free of clutter and cords Arrange furniture so there are clear pathways Clean up any spills right away Bathrooms Install grab bars in the tub or shower Apply nonskid strips or put a nonskid rubber mat in the tub or shower Sit on a bath chair to bathe Use bathmats with nonskid backing Lighting Keep a flashlight in each room Put a nightlight along the pathway between the bedroom and the bathroom [employer] Patient Education Copyright 2008 - 2010 [employer] except where otherwise noted Preventing Falls: Exercises to Improve Balance, Flexibility, Strength, and Staying Power (This education is for all patients over 65 regardless of symptoms) Certain types of exercises may help make you less likely to fall. Try the ones below. Or do other exercises that your healthcare provider suggests. Depending on your health, you may need to start slowly. Dont let that stop you. Even small amounts of exercise can help you. Be sure to talk to yourhealthcare provider before starting any exercise program. Improve Balance Many types of exercise can help improve balance. Kyrie chi and yoga are good examples. Heres another one to try. You can do it anytime and almost anywhere. Stand next to a counter or solid support. Push yourself up onto your tiptoes. Hold for 5 seconds. If you start to lose your balance, hold on to the counter. Rest and repeat 5 times. Work up to holding for 20 to 30 seconds, if you can. Increase Flexibility Being more flexible makes it easier for you to move around safely. Try exercises like the seated hamstring stretch. Sit in a chair and put one foot on a stool. Straighten your leg and reach with both hands down either side of your leg. Reach as far down your leg as you can. Hold for about 20 seconds. Go back to the starting position. Then repeat 5 times. Switch legs. Build Strength Resistance exercises help build strength. You can do them without equipment. Or you can use weights, elastic bands, or special machines. One such exercise is called the biceps curl. You can hold a 1 pound weight or even a can of soup. Do this exercise at least 3 times a week. Strive for everyday. Sit up straight in a chair. Keep your elbow close to your body and your wrist straight. Bend your arm, moving your hand up to your shoulder. Then slowly lower your arm. Repeat 5 times. Switch to the other arm. Build Your Staying Power Aerobic exercises make your heart and lungs stronger so you can keep moving longer. Walking and swimming are two of the best types of exercises you can do. Using a stationary bike is great, too. Find an aerobic exercise that you enjoy. Start slowly and build up. Even 5 minutes is helpful. Aimfor a goal of 30 minutes, at least 3 times a week. You dont have to do 30 minutes in one session. Break it up and walk a little throughout the day. More Helpful Tips Start easy. Slowly work up to doing more. Talk with your healthcare provider about the best exercises for you. Call senior centers or health clubs about exercise programs. If needed, have a family member watch you walk every so often to check your stability. Exercise with a friend. Choose an activity you both enjoy. Try exercises that you can do anytime, anywhere. Here are two examples. Have someone with you when you first try these: Practice walking by placing one foot right in front of the other. Stand up and sit down 10 times. Repeat this throughout the day. [employer] Patient Education Copyright 2008 [employer] except where otherwise noted. Preventing Falls: Moving Safely Using a Cane or Walker (This education is for all patients over 65 regardless of symptoms) Keep the cane away from your feet so you dont trip. A walking aid, such as a cane or walker, can help you stay more independent and avoid falls. Remember to keep your walking aid within easy reach when youre in a chair or in bed. And learn how to use it safely so you dont injure yourself. Using a Cane If you have a stronger side, hold the cane on that side. Get your balance. Move the cane and your weaker leg forward. Support your weight on both the cane and your weaker side. Step with your stronger leg. Start again from step 1. If youre using a folding walker, be sure you know how to lock it open. Check that its locked open before each use. Using a Walker Roll the walker (or lift it, if youre using one without wheels) forward about 12 inches. Step forward with your weaker leg first. Use the walker to help keep your balance. Bring your other foot forward to the center of the walker. Start again from step 1. Helpful Tips Check with your healthcare provider about the right walking aid to use. Ask about a walker with a seat attached. Check the tips of your cane or walker to make sure they have nonskid covers. Move slowly from room to room. Dont mcgraw. Sit down to get dressed. Use a trip pack or backpack to keep your hands free. Get help for jobs that mean climbing, even on a stepstool. [employer] Patient Education Copyright 2008 - 2010 [employer] except where otherwise noted. Urinary Incontinence Plan of Care Documentation: (This education is for all patients over 65 regardless of symptoms) Current medications reconciled. Patient encouraged to: Practice kegal exercises Provide education materials Use the restroom every 2 hours throughout the day Limit caffeine, alcohol, spicy foods and acidic foods Keep a bladder diary Limit fluid intake 3-4 hours before bed Lose weight Prevent constipation Take fluid pills at a time when you can get to the bathroom quickly Control sugar better if diabetic Limit fluid intake to 60 oz. per day Wear support stockings (TEDs)if you have edema Marlene Jacobs GIUSEPPE 01/06/2024 Kegel Exercises Kegel exercises dont require special clothing or equipment. Theyre easy to learn and simple to do. And if you do them right, no one can tell youre doing them, so they can be done almost anywhere. Your doctor, nurse, or physical therapist can answer any questions you have and help you get started. A Weak Pelvic Floor The pelvic floor muscles may weaken due to aging, and vaginal childbirth, injury, surgery, chronic cough, or lack of exercise. If the pelvic floor is weak, your bladder and other pelvic organs may sag out of place. The urethra may also open too easily and allow urine to leak out. Kegel exercises can help you strengthen your pelvic floor muscles so they can better support the pelvic organs and control urine flow. How Kegel Exercises Are Done Try each of the Kegel exercises described below. When youre doing them, try not to move your leg, buttock, or stomach muscles. While youre urinating, try to stop the flow of urine. Start and stop it as often as you can. Contract as if you were stopping your urine stream, but do it when youre not urinating. Tighten your rectum as if trying not to pass gas. Contract your anus, but dont move your buttocks. Helpful Hints Do your Kegels as often as you can. The more you do them, the faster youll feel the results. Pick an activity you do often as a reminder. For instance, do your Kegels every time you sit down. Tighten your pelvic floor before you sneeze, get up from a chair, cough, laugh, or lift. This protects your pelvic floor from injury and can help prevent urine leakage. Try to hold each Kegel for a slow count to five. You probably wont be able to hold them for thatlong at first, but keep practicing. It will get easier as your pelvic floor gets stronger. Eventually, special weights that you place in your vagina may be recommended to help make your Kegels even more effective. [employer] Patient Education Copyright 2009 - 2010 [employer] except where otherwise noted. Here are some helpful tips for your urinary incontinence: (This education is for all patients over 65 regardless of symptoms) Practice Kegel exercises Use the restroom every 2 hours throughout the day Limit caffeine, alcohol, spicy foods, and acidic foods Keep a bladder diary Limit fluid intake 3-4 hours before bed Lose weight Prevent constipation Take fluid pills at a time when can get to the bathroom quickly Control sugar better if diabetic Limit fluid intake to 60 oz. per day Any questions, please feel free to contact our office. documented in this encounter Progress Notes * Shin Billings MD - 01/06/2024 9:17 AM EDT Images from the original note were not included. History of Present Illness Kera Pavon is a 78 year old female that presents for Follow Up (Pt here for a 3m f/u. ) Former patient of Dr Marquez. 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 She had a large right middle lobe mass with some satellite lesions and a malignant pleural effusion at the time of diagnosis. She declined chemotherapy but had PDL1 of 70% and has been undergoing imnunotherapy with pembrolizumab with good results. Main side effect has been itch and intertrigo of her breasts requiring treatment with azole antifungals and creams. Lost her daughter last year, tragically. Has a son in [place] she hasn't seen in a decade, though he calls her daily. Has a sister who lives in [place] that she talks to regularly but she has not seen for 30 years. She is . Used to have a dog. Asked what she does for fun and has a hard time answering. She does like to listen to audiobooks - she has been listening to a lot of Tristanian novels. She does like to garden but finds herself getting tired more easily of late. She does have a friend who takes her places and to [employer]. She has been considering volunteering. She does like to cook and does so daily. Physical Exam Pulse 116 | Temp 36.2 C (97.1 F) (Tympanic) | Resp 16 | Ht 1.56 m (5' 1.42") | Wt 64.6 kg (142 lb 6.4 oz) | SpO2 97% | BMI 26.54 kg/m | BSA 1.67 m AAOx3 Normal affect NCAT/ PERRL - glasses Neck supple Throat clear Borderline tachycardic. Lungs CTABL Abd soft +BS Ext warm and well perfused No gross neuro deficits Normal gait No LE edema. I have reviewed most recent labs CBC and BMP Assessment and Plan Non-small cell cancer of right lung (HCC) - reviewed recent PET/CT results which show improvement of both size of tumor and metabolic activity. She is responding well and tolerating the keytruda. She saw oncology yesterday after her infusion. Hypertension goal BP (blood pressure) < 140/90 - 170/82 today - tried ACEi/HCTZ in the past and did not tolerate - will try low dose amlodipine Candidal Intertrigo - undergoing treatment and much better Colonic diverticulosis - benefiber supplement. No sx. No evidence diverticulitis. Wrap-Up Time: I spent a total of 40-54 minutes (exact time 45 mins) on the date of service in preparation, delivery, and documentation of the care provided to Kera Pavon excluding any time spent in the performance of separately billed services. documented in this encounter Plan of Treatment Upcoming Encounters Date Type Department Care Team (Late st Contact Info) Description 01/19/2024 10:40 AM EDT Office Visit Dermatology [address] [place] [address] Dayanna Toussaint PA-C [address] [place] [address] [place] [address] 05/08/2024 11:00 AM EDT Office Visit [facility] [address] [place] [address] Shin Billings MD [address] [place] [address] 02/08/2025 10:20 AM EDT [address] [address] Dayanna Toussaint PA-C [address] [place] [address] [place] [address] Health Maintenance Due Date Last Done Comments [...] as of this encounter Visit Diagnoses Diagnosis Risk and functional assessment- Primary Screening for unspecified condition Non-small cell cancer of right lung (HCC) Hypertension goal BP (blood pressure) < 140/90 Unspecified essential hypertension Candidal intertrigo Candidiasis of skin and nails documented in this encounter Care Teams Ticket Taker Relationship Specialty Start Date End Date Shin Billings MD [address] [facility] [place] [address] PCP - General Family Medicine 01/06/24 documented as of this encounter
--- OUTSIDE RECORDS SUMMARY | 2024-03-23 04:23 | External Medical Summary | Summary of Care ---
Author Name Unknown Organization [facility] Address [address] [address] Phone [phone] Care Team Providers Care Mobile Home Mechanic Name Role Phone Shin Coburn MD Primary Care Provider Reason for Visit * Reason Comments Follow Up R central upper back curettage BCC, 1 month for intertrigo Encounter Details Date Type Department Care Team (Late st Contact Info) Description 01/19/2024 10:40 AM EDT Office Visit Dermatology [address] [place] [address] Dayanna Toussaint PA-C [address] [place] [address] [place] [address] Basal cell carcinoma (BCC) of back*; Erythema [...] as of this encounter Progress Notes * Dayanna Toussaint PA-C - 01/19/2024 9:47 [...] 01/25) Reviewed, same day as visit, 0 [facility] Dermatology lab work(s)/pathology report(s) as well as those sent by referring provider prior to seeing pt. MEDICA TIONS: Current Outpatient Medications Medication Sig Dispense Refill CoQ-10 100 MG Oral Capsule Take by mouth. Xxhnotx-Thxidctlq-Scdymmn D 185-50-100 MG-MG-UNIT Oral Capsule Take by [...] Dayanna Toussaint PA-C 01/19/2024 9:47 AM Ref: SELF[[id number]] NO STREET ADDRESS AVAILABLE None (office) None (fax) PCP: SHIN COBURN [address] [place] [address] [phone] documented in this encounter Nursing Notes * Ro Medeiros LPN - 01/19/2024 9:45 AM EDT Patient identified by full name and date of . Chief Complaint Patient presents with Follow Up R central upper back curettage BCC, 1 month for intertrigo documented in this encounter Plan of Treatment Upcoming Encounters Date Type Department Care Team (Late st Contact Info) Description 01/24/2024 11:00 AM EDT Nutrition Services Nutrition, [facility] [address] [place] [address] Nazia Ward, WINSOMEN [address] [place] [address] 05/08/2024 11:00 AM EDT Office Visit Family [facility] [address] [place] [address] Shin Coburn MD [address] [place] [address] 02/08/2025 10:20 AM EDT Office Visit Dermatology[address] [address] Dayanna Toussaint PA-Alec [address] [place] [address] [place] [address] Health Maintenance Due Date Last Done Comments [...] interpreted or resulted by a [facility] or [employer] contracted radiologist. Dayanna Toussaint PA-C RADIOLOGY ([facility]) documented in this encounter Visit Diagnoses Diagnosis Basal cell carcinoma (BCC) of back- Primary Erythema intertrigo Other specified erythematous condition Scar condition and fibrosis of skin documented in this encounter Care Teams Mobile Home Mechanic Relationship Specialty Start Date End Date Shin Coburn MD [address] [facility] [place] [address] PCP - General Family Medicine 01/06/24 documented as of this encounter
--- OUTSIDE RECORDS SUMMARY | 2024-03-23 04:23 | External Medical Summary | Summary of Care ---
Author Name Unknown Organization [facility] Address [address] [place] [address] Phone [phone] Care Team Providers Care Barrel Charrer Helper Name Role Phone Shin Billings MD Primary Care Provider Encounter Details Date Type Department Care Team (Latest Contact Info) Description 01/19/2024 9:50 AM EDT - 01/19/2024 11:59 PM EDT Hospital Encounter Radiology Film File [address] [place] [address] Arrived Discharge Disposition: Home - Self Care Allergies Active Allergy Reactions Criticality Noted Date Comments Pollen 12/15/2023 documented as of this encounter (statuses as of 01/20/2024) Medications Medication Sig Dispensed Refills Start Date [...] as of this encounter (statuses as of 01/20/2024) Active Problems Problem Noted Date Diagnosed Date Hx of nonmelanoma skin cancer 12/20/2023 Overview: basal cell carcinoma (R central upper back 12/25) HTN, goal below 130/80 10/07/2023 BIMAL (generalized anxiety disorder) 10/07/2023 Non-small cell cancer of right lung 06/29/2023 Urticaria, chronic 06/29/2023 documented as of this encounter (statuses as of 01/20/2024) Resolved Problems Problem Noted Date Diagnosed Date Resolved Date Elevated blood pressure, situational 06/29/2023 10/07/2023 Mass of right lung 02/02/2023 Acute respiratory failure with hypoxia 02/02/2023 03/23/2023 Pleural effusion 02/02/2023 10/07/2023 documented as of this encounter (statuses as of 01/20/2024) Social History Tobacco Use Types Packs/Day Years [...] on file documented as of this encounter Plan of Treatment Upcoming Encounters Date Type Department Care Team (Late st Contact Info) Description 01/24/2024 11:00 AM EDT Nutrition Services [facility], [facility] [address] [place] [address] Nazia Ward RDN [address] [place] [address] 05/08/2024 11:00 AM EDT Office Visit Family Practice [facility] [address] [place] [address] Shin Billings MD [address] [place] [address] 11/13/2024 3:15 PM EST Office Visit Dermatology [facility] [address] [place] [address] Rom Cardenas MD [address] [place] [address] Health Maintenance Due Date Last Done Comments [...] interpreted or resulted by a [facility] or [facility] [employer] contracted radiologist. Dayanna Toussaint PA-C RADIOLOGY ([facility]) documented in this encounter Care Teams Barrel Charrer Helper Relationship Specialty Start Date End Date Shin Billings MD [address] [place] [address] PCP - General Family Medicine 01/06/24 documented as of this encounter
--- OUTSIDE RECORDS SUMMARY | 2024-03-23 04:23 | External Medical Summary | Summary of Care ---
Author Name Unknown Organization [facility] Address [address] [place] [address] Phone [phone] Care Team Providers Care Helpdesk Specialist Name Role Phone Shin Billings MD Primary Care Provider Reason for Referral * Evaluate & Treat - Unlimited Visits (Within 30 days (routine)) - Authorized Specialty Diagnoses / Procedures Referred By Controsibel t Referred To Contact Dietitian / Nutrition Services Diagnoses Diverticulosis Shin Billings MD [address] [place] [address] Referral ID Status Reason Start Date Expiration Date Visits Requested Visits Authorized [id number] Authorized Specialty Services Required 01/07/[phone] [...] Contact Info) Description 01/07/2024 Telephone Family Practice [facility] [address] [place] [address] Shin Billings MD [address] [place] [address] Advice Allergies Active Allergy Reactions Criticality Noted [...] 01/19/2024 10:40 AM EDT Office Visit Dermatology [address] [place] [address] Dayanna Toussaint PA-C [address] [place] [address] [place] [address] 05/08/2024 11:00 AM EDT Office [facility] [place] [address] Shin Billings MD [address] [place] [address] 02/08/2025 10:20 AM EDT Office Visit [address] [address] Dayanna Toussaint PA-C [address] [place] [address] [place] [address] Scheduled Referrals Name Type Priority Associated Diagnoses [...] hemorrhage) documented in this encounter Care Teams Helpdesk Specialist Relationship Specialty Start Date End Date Shin Billings MD [address] [place] [address] PCP - General Family Medicine 01/06/24 documented as of this encounter
--- OUTSIDE RECORDS SUMMARY | 2024-03-23 04:24 | External Medical Summary | Summary of Care ---
Author Name Unknown Organization [facility] Address [address] [place] [place] [address] Phone [phone] Care Team Providers Care Slurry Mixer Name Role Phone Unavailable Primary Care Provider Unavailabl e Reason for Visit * Reason Onset Date Comments Advice 12/20/2023 Status Check 12/20/2023 Encounter Details Date Type Department Care Team (Late st Contact Info) Description 12/20/2023 Telephone Access Center, [address] *DO NOT REMOVE THIS DEPARTMENT* [place] [address] Services, Scheduling [address] [place] [address] Advice; Status Check Allergies Active Allergy Reactions Criticality Noted Date Comments Pollen 12/15/2023 documented as of this encounter (statuses as of 12/20/2023) Medications Medication Sig Dispensed Refills Start Date End Date Status Cetirizine HCl 10 MG Oral Tablet (ZyrTEC) Take 1 Tablet by mouth in the morning. 0 Active CoQ-10 100 MG Oral Capsule Take by mouth. 0 Active Calcium-Magnesium- Vitamin D 185-50-100 MG-MG-UNIT Oral Capsule Take by mouth. 0 Active hydrOXYzine HCl 25 MG Oral TabletIndications: Urticaria, chronic Take 1 Tablet by mouth every 6 hours as needed for Itching. 40 Tablet 2 06/29/2023 Active Additional Information Patient not taking.Reported on 12/15/2023 ALPRAZolam 0.5 MG Oral Tablet (xaNAX)Indications :BIMAL (generalized anxiety disorder) Take 1 Tablet by mouth at bedtime as needed for Anxiety. 15 Tablet 0 06/29/2023 Active Additional Information Patient not taking.Reported on 12/15/2023 Lisinopril-hydroCH LOROthiazide 10-12.5 MG Oral TabletIndications: HTN, goal below 140/90 Take 1 Tablet by mouth in the morning. 90 Tablet 3 06/29/2023 Active Additional Information Patient not taking.Reported on 12/15/2023 Fluconazole 200 MG Oral Tablet (Diflucan) Take 1 Tablet by mouth in the morning. 0 Active Clindamycin Phosphate 1 % External GelIndications:Can didal [...] this medication. 80 g 0 12/15/2023 Active documented as of this encounter (statuses as of 12/20/2023) Active Problems Problem Noted Date Diagnosed Date Hx of nonmelanoma skin cancer 12/20/2023 Overview: basal cell carcinoma (R central upper back 12/25) HTN, goal below 130/80 10/07/2023 BIMAL (generalized anxiety disorder) 10/07/2023 Non-small cell cancer of right lung 06/29/2023 Urticaria, chronic 06/29/2023 documented as of this encounter (statuses as of 12/20/2023) Resolved Problems Problem Noted Date Diagnosed Date Resolved Date Elevated blood pressure, situational 06/29/2023 10/07/2023 Mass of right lung 02/02/2023 Acute respiratory failure with hypoxia 02/02/2023 03/23/2023 Pleural effusion 02/02/2023 10/07/2023 documented as of this encounter (statuses as of 12/20/2023) Social History Tobacco Use Types Packs/Day Years [...] encounter Miscellaneous Notes * Telephone Encounter - Ro Medeiros LPN - 12/20/2023 10:01 AM EDT Provider spoke w/patient re results and bandage. * Telephone Encounter - Ene Marie OSA - 12/20/2023 8:38 AM EDT Patient calling in to check on the status of previous message. Patient Called within 48 hour timeframe. Reminded patient of 48 hour turn-around time. * Telephone Encounter - Shona Patel OSA - 12/20/2023 8:17 AM EDT Pt calling back 2nd time re itchy back from bandage. Thank you. MAMADOU Schafer * Telephone Encounter - Bella Machado OSA - 12/20/2023 7:48 AM EDT Pt calling she has itching from the bandage from the 12/14 visit and would like to speak to a nurse.Please advise. Barrington parnell documented in this encounter Plan of Treatment Upcoming Encounters Date Type Department Care Team (Late st Contact Info) Description 01/06/2024 9:00 AM EDT Office Visit [facility] [address] [place] [address] Shin Billings MD [address] [place] [address] 01/19/2024 10:40 AM EDT Office Visit Dermatology [address] [place] [address] Dayanna Toussaint PA-C [address] [place] [address] [place] [address] 02/08/2025 10:20 AM EDT Office Visit [address] [address] Dayanna Toussaint PA-C [address] [place] [address] [place] [address] Health Maintenance Due Date Last Done Comments Hepatitis C Screening 1963 DTaP,Tdap,and Td Vaccines (1 - Tdap) 1964 Zoster Vaccines (1 of 2) 1995 DXA Scan 2010 Pneumococcal Vaccine: 65+ Ye ars (1 of 1 - PCV) 2010 COVID-19 Vaccine (2 - 2022-2 4 season) 2023 02/14/2021 Influenza Vaccine (FLU shot) (#1) 2023 Depression Screening 02/10/2024 02/09/2023 GFR 06/29/2024 06/29/2023 Albumin/Creatinine Ratio 06/29/2026 06/29/2023 [...]
--- OUTSIDE RECORDS SUMMARY | 2024-03-23 04:24 | External Medical Summary | Summary of Care ---
Author Name Unknown Organization [facility] Address [address] [facility] [place] [address] Phone [phone] Care Team Providers Care Hand Tube Bender Name Role Phone Unavailable Primary Care Provider Unavailabl e Reason for Visit * Reason Comments NEW PATIENT New pt. Here for ful l skin exam and rash under breast. Pt concerned with lesion on upper back. Pt is treating rash with Fluconazole and a powder (can't remember the name), has been doing this for 2 weeks now and has not noticed any improvement. * Evaluate & Treat - Unlimited Visits (Within 10 days (routine)) - Pending Review Specialty Diagnoses / Procedures Referred By Marko holland Referred To Contact Dermatology Diagnoses Skin lesion of back Corbin Hackett, DO [address] [place] [address] Referral ID Status Reason Start Date Expiration Date Visits Requested Visits Authorized [id number] Pending Review Specialty Services Required 06/29/[phone] Encounter Details Date Type Department Care Team (Late st Contact Info) Description 12/15/2023 2:00 PM EDT Office Visit Dermatology [address] [place] [address] Dayanna Toussaint PA-C [address] [place] [address] [place] [address] Candidal intertrigo*; Skin exam, screening for cancer; Inflamed seborrheic keratosis; Lentigines; Multiple nevi; Neoplasm of uncertain behavior of skin Allergies Active Allergy Reactions Criticality Noted Date Comments Pollen 12/15/2023 documented as of this encounter (statuses as of 12/15/2023) Medications Medication Sig Dispensed Refills Start Date [...] as of this encounter (statuses as of 12/15/2023) Active Problems Problem Noted Date Diagnosed Date HTN, goal below 130/80 10/07/2023 BIMAL (generalized anxiety disorder) 10/07/2023 Non-small cell cancer of right lung 06/29/2023 Urticaria, chronic 06/29/2023 documented as of this encounter (statuses as of 12/15/2023) Resolved Problems Problem Noted Date Diagnosed Date Resolved Date Elevated blood pressure, situational 06/29/2023 10/07/2023 Mass of right lung 02/02/2023 Acute respiratory failure with hypoxia 02/02/2023 03/23/2023 Pleural effusion 02/02/2023 10/07/2023 documented as of this encounter (statuses as of 12/15/2023) Social History Tobacco Use Types Packs/Day Years [...] on file documented as of this encounter Patient Instructions * Patient Instructions* Dayanna Toussaint PA-C - 12/15/2023 2:19 PM EDT SUNSCREEN USE AND SUN PROTECTION: 1. The best protection is sun avoidance. Seek shade if you can, especially between 10am to 4pm (peak sun hours). 2. Use sunscreen with an SPF (Sun Protection Factor - the number on most sunscreen bottles) of 30 or more that protects from Ultraviolet A (UVA) and Ultraviolet B (UVB) wavelength light (strongly recommend SPF 50). This is referred to as broad spectrum sun protection because it protects from most wa velengths in both spectrums of UVA and UVB light. Unfortunately, even though the protection is broad it is not complete, therefore making sun avoidance the best protection. UVB and UVA have both beenimplicated in causing skin cancers. Older sunscreens only protected from UVB and sunscreens with added UVA protection should contain Titanium dioxide, Zinc oxide, or Avobenzone. Other oil free, non-comedogenic lotion with SPF 30 or greater is fine. 3. Use sun protection if outside for 15 minutes or more. Apply 20-30 minutes before going out and reapply every 1-2 hours. No sunscreen is truly water ''proof'' and it will wash away with sweat, swimming and rubbing. 4. Wear tightly woven, loose fitting (cooler) long sleeved clothing, UV-blocking sun glasses (eyes need protection as well) and wide-brimmed hatwear (no straw hats with holes because light still getsthrough). Strongly recommended *Neutrogena Pure and Free Baby SPF 60 (have separate face and body lotions) orCeraVe AM facial lotion (with SPF 30). If looking for non toxic alternatives-look for non-shaun particle zinc. Product examples; Think sport, Think baby, [place], [place], FlowBelow Aero, [place] baby. "Baby" products can be used for all ages. documented in this encounter Progress Notes * Dayanna Toussaint PA-C - 12/15/2023 2:00 PM EDT SUBJECTIVE: HPI: Kera Pavon is a 78 year old female seen at the request of Corbin Hackett DO for evaluation and treatment of rash/full skin exam. No vulvar exams performed, no vulvar discoloration and/or lesions to be assessed per pt. - Tanning bed history. - Blistering sunburns. Rash under breasts has been present for 3-4 weeks. Was prescribed 20 days of fluoconazole and also Nystatin powder without much improvement. Lesion on back, noticed after first infusion for Stage 4 lung cancer. No tx to date. 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 REVIEW OF SYSTEMS: SKIN: No other new or changing moles. HEME/LYMPH: No new or enlarging lumps or bumps. CONSTITUTIONAL: No nausea, vomiting, fevers, chills, diarrhea. No recent unintended weight loss, night sweats, appetite or malaise. RESP: negative MSK/EXT: Negative or as per HPI GI: negative CV: Negative or as per HPI Rest of systems are negative or as per HPI SKIN CANCER HX: NONE Reviewed, same day as visit, [facility] Dermatology lab work(s)/pathology report(s) as well as those sent by referring provider prior to seeing pt. Past Medical History: Diagnosis Date Acute respiratory failure with hypoxia (HCC) BIMAL (generalized anxiety disorder) 10/07/2023 H/O pleural effusion HTN, goal below 130/80 10/07/2023 Pulmonary mass FAMILY HISTORY: Skin CA: None Skin Disorders: none SOCIAL HISTORY: Social History Tobacco Use Smoking status: Former Types: Cigarettes Passive exposure: Past Smokeless tobacco: Never Substance Use Topics Alcohol use: Never Vaping/E-Cigarette Use Vaping/E-Cigarette Use Never User Vaping/E-Cigarette Substances Vaping/E-Cigarette Devices MEDICA TIONS: Current Outpatient Medications Medication Sig Dispense Refill CoQ-10 100 MG Oral Capsule Take by mouth. Qwntusq-Rfkjzcnva-Akwaexs D 185-50-100 MG-MG-UNIT Oral Capsule Take by mouth. Fluconazole 200 MG Oral Tablet (Diflucan) Take 1 Tablet by mouth in the morning. Cetirizine HCl 10 MG Oral Tablet (ZyrTEC) Take 1 Tablet by mouth in the morning. (Patient not taking: Reported on 12/15/2023) hydrOXYzine HCl 25 MG Oral Tablet Take 1 Tablet by mouth every 6 hours as needed for Itching. (Patient not taking: Reported on 12/15/2023) 40 Tablet 2 ALPRAZolam 0.5 MG Oral Tablet (xaNAX) Take 1 Tablet by mouth at bedtime as needed for Anxiety. (Patient not taking: Reported on 12/15/2023) 15 Tablet 0 Lisinopril-hydroCHLOROthiazide 10-12.5 MG Oral Tablet Take 1 Tablet by mouth in the morning. (Patient not taking: Reported on 12/15/2023) 90 Tablet 3 No current facility-administered medications for this visit. ALLERGY: Hay fever [pollen] OBJECT LISSA: GEN: alert, no distress, appears oriented, pleasant, and cooperative. SKIN: Detailed exam of hair, face including lids and lips, neck, chest, abdomen, back, bilateral upper ext. (arm, hand, fingers), bilateral lower ext. (leg, foot, toes), palpation of scalp, fingernails, toenails, inguinal areas, groin (mons pubis), buttocks, and anus completed: 1A. R central upper back-2.2x1.5cm pink hernandez and scaly plaque with pigment within. 2. Inframammary regions-Erythematous well defined shiny macerated plaques with few superficial fissures and satellite lesions and some inflamed keratoses. 3. Trunk/bilat arms and legs-About 80 total; 2-5mm light and light-medium brown macules and soft papules. 4. Face/neck/trunk/bilat arms and legs-Many well defined light to medium brown homogenous stellate macules. ASSESS MENT/PLAN: 1A. Pigmented BCC on R central upper back-Tangential biopsy of the lesion noted above to confirm diagnosis. The procedure, risks (to include but not limited to pain, bleeding, infection and scarring), benefits, alternatives and expected outcomes were discussed with the patient and verbal consent was obtained. Time out called. Patient identified, procedure verified, site identified and verified. Patient and staff present in agreement. Area prepped with alcohol and anesthetized using 3cc of 0.5% lidocaine with epinephrine at 1:200,000 concentration. Tangential biopsy of lesion performed. 20% AlCl and bandaging applied. Specimen sent to pathology. Patient instructed in routine post-op care andgiven wound care brochure. BCC brochure given to pt. 2. Candidal intertrigo and inflamed SKs of inframammary regions-Routine culture taken. Start regimen BID: wash with gentle soap and water, clindamycin gel next, then clotrimazole 1% cream and then triamcinolone 0.1% ointment over top. Once cleared, will start with Desitin 40% cream to area chronically to prevent recurrence. 3. Nevi on trunk/bilat arms and legs-no tx needed, pt given reassurance and written education aboutdiagnosis. Skin cancer brochure given and ABCDE's discussed with patient. Annual full body skin examination (unless I recommended otherwise), self-examination, and sun protection (SPF 30+ daily to sun exposed areas, with reapplication every 1-2 hours when out in sun for long periods of time) advised and discussed. Recommended sooner follow up for new or changing lesions. These changes include rapid enlargement, changes in color or shape or symptoms, bleeding, or other concerns. The common features and behavior of non-melanoma skin cancers (e.g. BCC/SCC) as well as the ABCDEs and ugly duckling features of melanoma were also reviewed. 4. Lentigines on face/neck/trunk/bilat arms and legs-no tx needed, pt given reassurance. Patient alone today. Photo(s) of #1-4 taken, pt verbally consented to having photo(s) taken. Follow-up: 1 month for intertrigo f/u Contact patient via cell phone Ok to leave results on message: Yes Able to speak to none Instant AV [phone] Photos and chart reviewed by Dr. Crow Rhodes. Presum ed diagnoses, expected natural histories, and management options [...] the visit and treatment. Dayanna Toussaint PA-C 12/15/2023 11:45 AM Ref: CORBIN HACKETT[[id number]] [address] [place] [address] (office) [phone] (fax) PCP: None documented in this encounter Nursing Notes * Paula Holguin LPN - 12/15/2023 1:53 PM EDT Patient identified by full name and date of Chief Complaint Patient presents with NEW PATIENT New pt. Here for full skin exam and rash under breast. Pt concerned with lesion on upper back. Pt is treating rash with Fluconazole and a powder (can't remember the name), has been doing this for 2 weeks now and has not noticed any improvement. documented in this encounter Plan of Treatment Upcoming Encounters Date Type Department Care Team (Late st Contact Info) Description 12/17/2023 10:00 AM EDT Office Visit [facility] [address] [place] [address] Shin Billings MD [address] [place] [address] 02/08/2025 10:20 AM EDT [address] [address] Dayanna Toussaint PA-C [address] [place] [address] [place] [address] Pending Results Name Type Priority Associated Diagnoses Date /Time CULTURE, WOUND, SUPERFICIAL, AEROBIC Lab Routine Candidal intertrigo 12/15/2023 2:43 PM EDT SURGICAL PATHOLOGY Pathology Routine Neoplasm of uncertain behavior of skin 12/15/2023 3:18 PM EDT Health Maintenance Due Date Last Done Comments [...] Name Priority Date/Time Associated Diagnosis Comments DERM IMAGE (SITE) Routine 12/15/2023 Candidal intertrigo Skin exam, screening for cancer Inflamed seborrheic keratosis Lentigines Multiple nevi documented in this encounter Results * DERM IMAGE (SITE) (12/15/2023) 12/15/2023 Dayanna Toussaint PA-C DIGITAL PHOTOG KEI documented in this encounter Visit Diagnoses Diagnosis Candidal intertrigo- Primary Candidiasis of skin and nails Skin exam, screening for cancer Screening for malignant neoplasm of the skin Inflamed seborrheic keratosis Lentigines Other dyschromia Multiple nevi Benign neoplasm of skin, site unspecified Neoplasm of uncertain behavior of skin documented in this encounter
--- OUTSIDE RECORDS SUMMARY | 2024-03-23 04:24 | External Medical Summary | Summary of Care ---
Author Name Unknown Organization [facility] Address [address] [facility] [place] [address] Phone [phone] Care Team Providers Care Cardiac Exercise Specialist Name Role Phone Unavailable Primary Care Provider Unavailabl e Reason for Visit * Reason Onset Date Comments Appointment 12/15/2023 Return 1 month f or intertrigo, 1 year for full skin exam. Encounter Details Date Type Department Care Team (Late st Contact Info) Description 12/15/2023 [address] [place] [address] Dayanna Toussaint PA-C [address] [place] [address] [place] [address] Appointment (Return 1 month for intertrigo... Allergies Active Allergy Reactions Criticality Noted Date Comments Pollen 12/15/2023 documented as of this encounter (statuses as of 12/17/2023) Medications Medication Sig Dispensed Refills Start Date [...] as of this encounter (statuses as of 12/17/2023) Active Problems Problem Noted Date Diagnosed Date HTN, goal below 130/80 10/07/2023 BIMAL (generalized anxiety disorder) 10/07/2023 Non-small cell cancer of right lung 06/29/2023 Urticaria, chronic 06/29/2023 documented as of this encounter (statuses as of 12/17/2023) Resolved Problems Problem Noted Date Diagnosed Date Resolved Date Elevated blood pressure, situational 06/29/2023 10/07/2023 Mass of right lung 02/02/2023 Acute respiratory failure with hypoxia 02/02/2023 03/23/2023 Pleural effusion 02/02/2023 10/07/2023 documented as of this encounter (statuses as of 12/17/2023) Social History Tobacco Use Types Packs/Day Years [...] encounter Miscellaneous Notes * Telephone Encounter - Garrett Sánchez OSA - 12/17/2023 10:05 AM EDT I mailed appt to pt. * Telephone Encounter - Paula Holguin LPN - 12/16/2023 3:55 PM EDT Scheduled pt for Wednesday01/19/2024 at 10:40 am in [facility]. Nothing available within timeframe in [place]. * Telephone Encounter - Garrett Sánchez OSA - 12/15/2023 2:39 PM EDT Unable to find an appt for 1 month. Please schedule and I will mail to pt. She did say [place] is closer for her. documented in this encounter Plan of Treatment Upcoming Encounters Date Type Department Care Team (Late st Contact Info) Description 01/06/2024 9:00 AM EDT Office Visit [facility] [address] [place] [address] Shin Billings MD [address] [place] [address] 01/19/2024 10:40 AM EDT Office Visit Dermatology [address] [place] [address] Dayanna Toussaint [address] [place] [address] 02/08/2025 10:20 AM EDT Office Visit [address], [place] [address] Dayanna Toussaint [address] [place] [address] Health Maintenance Due Date Last Done Comments [...]
--- OUTSIDE RECORDS SUMMARY | 2024-03-23 04:24 | External Medical Summary | Summary of Care ---
Author Name Unknown Organization [facility] Address [address] [facility] [place] [address] Phone [phone] Care Team Providers Care Air Vice Marshal Name Role Phone Unavailable Primary Care Provider Unavailabl e Reason for Visit * Reason Onset Date Comments Test Results Biopsy 12/20/2023 Appointment 12/20/2023 Pain 12/20/2023 Kera says wound is very itchy and painful. No answer on nurse backline Advice 12/20/2023 She also says lico ibrahim talked to the provider about getting cancer removed and wants an update on that Encounter Details Date Type Department Care Team ([facility] Contact Info) Description 12/20/2023 Telephone Dermat[address] [place] [address] Dayanna Toussaint PA-C [address] [place] [address] [place] [address] Test Results Biopsy; Appointment; Pain ([place]... Allergies Active Allergy Reactions Criticality Noted Date [...] encounter Miscellaneous Notes * Telephone Encounter - Janet Villareal OSA - 12/20/2023 4:33 PM EDT Kera says wound is very itchy and painful. No answer on nurse backline She also says she talked to the provider about getting cancer removed and wants an update on that * Telephone Encounter - Ro Medeiros LPN - 12/20/2023 3:03 PM EDT Already scheduled 01/19/2024 at 10:40 AM * Telephone Encounter - Ro Medeiros LPN - 12/20/2023 10:14 AM EDT ----- Message from Dayanna Toussaint PA-C sent at 12/20/2023 9:58 AM EDT ----- Spoke to pt regarding bx and cx result. BCC, plan on curettage in office and pt using clindamycin gel for MSSA of superinfected candidal intertrigo. Pt aware she will be called to schedule the appt and was advised of wound care several times throughout the call. Dayanna Toussaint S, DANIAL A. Skin, R central upper back, shave: Basal cell carcinoma, superficial and nodular types, pigmented documented in this encounter Plan of Treatment Upcoming Encounters Date Type Department Care Team (Late st Contact Info) Description 01/06/2024 9:00 AM EDT [facility] [place] [address] Shin Billings MD [address] [place] [address] 01/19/2024 10:40 AM EDT Office Visit Dermatology [address] [place] [address] Dayanna Toussaint PA-C [address] [place] [address] [place] [address] 02/08/2025 10:20 AM EDT Office Visit Dermatology[address] [address] Dayanna Toussaint PA-C [address] [place] [address] [place] [address] Health Maintenance Due Date Last Done Comments [...]
--- OUTSIDE RECORDS SUMMARY | 2024-03-23 04:24 | External Medical Summary | Summary of Care ---
Author Name Unknown Organization [facility] Address [address] [facility] [place] [address] Phone [phone] Care Team Providers Care Finished Goods Planner Name Role Phone Unavailable Primary Care Provider [...] Encounter Details Date Type Department Care Team ([facility] Contact Info) Description 12/20/2023 Telephone Dermatology [address] [place] [address] Dayanna Toussaint PA-C [address] [place] [address] [place] [address] Test Results Biopsy; Appointment; Pain ([place]... Allergies Active Allergy Reactions Criticality Noted Date Comments Pollen 12/15/2023 documented as of this encounter (statuses as of 12/21/2023) Medications Medication Sig Dispensed Refills Start Date [...] as of this encounter (statuses as of 12/21/2023) Active Problems Problem Noted Date Diagnosed Date Hx of nonmelanoma skin cancer 12/20/2023 Overview: basal cell carcinoma (R central upper back 12/25) HTN, goal below 130/80 10/07/2023 BIMAL (generalized anxiety disorder) 10/07/2023 Non-small cell cancer of right lung 06/29/2023 Urticaria, chronic 06/29/2023 documented as of this encounter (statuses as of 12/21/2023) Resolved Problems Problem Noted Date Diagnosed Date Resolved Date Elevated blood pressure, situational 06/29/2023 10/07/2023 Mass of right lung 02/02/2023 Acute respiratory failure with hypoxia 02/02/2023 03/23/2023 Pleural effusion 02/02/2023 10/07/2023 documented as of this encounter (statuses as of 12/21/2023) Social History Tobacco Use Types Packs/Day Years [...] 01/06/2024 9:00 AM EDT [facility] [place] [address] Shin Billings MD [address] [place] [address] 01/19/2024 10:40 AM EDT Office Visit Dermatology [address] [place] [address] Dayanna Toussaint PA-C [address] [place] [address] [place] [address] 02/08/2025 10:20 AM EDT Office Visit [address]ermatology[address] [address] Dayanna Toussaint PA-C [address] [place] [address] [place] [address] Health Maintenance Due Date Last Done Comments [...]
--- OUTSIDE RECORDS SUMMARY | 2024-03-23 04:24 | External Medical Summary | Summary of Care ---
Author Name Unknown Organization [facility] Address [address] [facility] [place] [address] Phone [phone] Care Team Providers Care Principle Industrial Hygienist Name Role Phone Unavailable Primary Care Provider [...] lesion of back Corbin Hackett, DO [address] [place] [address] Referral ID Status Reason Start Date Expiration Date Visits Requested Visits Authorized [id number] Pending Review Specialty Services Required 06/29/[phone] Encounter Details Date Type Department Care Team (Late st Contact Info) Description 12/15/2023 2:00 PM EDT Office Visit Dermatology [address] [place] [address] Dayanna Toussaint PA-C [address] [place] [address] [place] [address] Candidal intertrigo*; Skin exam, screening for cancer; [...] 12/15/2023 ALPRAZolam 0.5 MG Oral Tablet (xaNAX)Indications :BIMLA (generalized anxiety disorder) Take 1 Tablet by [...] zinc. Product examples; Think sport, Think baby, Stout, [employer] [email or web address], Messagemind, [place] baby. "Baby" products can be used for all ages. documented in this encounter Progress Notes * Crow Rhodes MD - 12/15/2023 4:10 PM EDT I have seen and examined the patient via teledermatology review of chart note and photos with Dayanna Toussaint PA-C. I have reviewed and agree with the assessment and plan. * Dayanna Toussaint PA-C - 12/15/2023 2:00 [...] 4 lung cancer. No tx to date. Organ Tuner Documentation Patient offered check services clerk and declined. REVIEW OF SYSTEMS: SKIN: No [...] NONE Reviewed, same day as visit, 0 [facility] Dermatology lab work(s)/pathology report(s) as [...] 100 MG Oral Capsule Take by mouth. Iofknkp-Xrmfkecjm-Ivkrflb D 185-50-100 MG-MG-UNIT Oral Capsule Take by [...] message: Yes Able to speak to none [place] [phone] Photos and chart reviewed by Dr. Crow [...] Toussaint PA-C 12/15/2023 11:45 AM Ref: CORBIN HACKETT[[id number]] [address] [place] [address] (office) [phone] (fax) PCP: None documented in this encounter [...] Description 12/17/2023 10:00 AM EDT Office Visit Family Practice [facility] [address] [place] [address] Shin Billings MD [address] [place] [address] 02/08/2025 10:20 AM EDT Office Visit Dermatology[address] [address] Dayanna Toussaint PA-C [address] [place] [address] [place] [address] Pending Results Name Type Priority Associated Diagnoses [...]
--- OUTSIDE RECORDS SUMMARY | 2024-03-23 04:24 | External Medical Summary ---
Author Name Unknown Address Unknown Organization K01:[facility] - [address] [place] [address] Laboratory Report Ordering Provider Test Date Status BOBBI [place] 12/15/2023 14:43:17 Final Heavy growth normal corinne Observation Date Value Abnormality Reference (Units ) Status Bacteria identified in Specimen by Culture 12/15/2023 14:43:17 [id number]^STAPHY LOCOCCUS AUREUS Abnormal Final Many Staphylococcus aureus Performing Location [facility] - [address] [place] [address] Ordering Provider Test Date Status BOBBI [place] 12/15/2023 14:43:17 Final Observation Date Value Abnormality Reference (Units ) Status Clindamycin 12/15/2023 14:43:17 <=0.25 Susceptible Final Erythromycin susceptibility 12/15/2023 14:43:17 <=0.25 Susceptible Final Oxacillinsusceptibility 12/15/2023 14:43:17 <=0.25 Susceptible Final Penicillin susceptibility 12/15/2023 14:43:17 Resistant Final Tetracyclinesusceptibility 12/15/2023 14:43:17 <=1 Susceptible Final TMP-SMZ susceptibility 12/15/2023 14:43:17 <=10 Susceptible Final Vancomycinsusceptibility 12/15/2023 14:43:17 <=0.5 Susceptible Final Test: Culture, Wound, Super ficial, Aerobic
Specimen Source: Breast, Unspecified
Specimen Type: Superficial Wound
Specimen Date: 12/15/2023 2:43 PM
Result Date: 12/20/2023 3:46 PM
Result Status: Final result
Abnormal: Yes
Resulting Lab: [facility]
[address]
[place] [address]

CULTURE

Many Staphylococcus aureus (Abnormal)

Heavy growth normal corinne

SUSCEPTIBILITY

Staphylococcus
aureus
METHOD MICROBROTH
DILUTIONS

CLINDAMYCIN <=0.25 Susceptible
ERYTHROMYCIN <=0.25 Susceptible
OXACILLIN <=0.25 Susceptible
PENICILLIN G -- Resistant
TETRACYCLINE <=1 Susceptible
TRIMETH/SULFAMETHOXAZOLE <=10 Susceptible
VANCOMYCIN <=0.5 Susceptible

[facility] Performing Location [facility] - [address] [facility] [address]
--- OUTSIDE RECORDS SUMMARY | 2024-03-23 04:24 | External Medical Summary | Summary of Care ---
Author Name Unknown Organization [facility] Address [address] [facility] [place] [address] Phone [phone] Care Team Providers Care City Driver Name Role Phone Unavailable Primary Care Provider [...] Encounter Details Date Type Department Care Team ([facility] Contact Info) Description 12/20/2023 Telephone Derm[address] [place] [address] Dayanna Toussaint PA-C [address] [place] [address] [place] [address] Test Results Biopsy; Appointment; Pain (Moon... Allergies [...] encounter Miscellaneous Notes * Telephone Encounter - Marnie Rodrigues LPN - 12/21/2023 1:08 PM EDT Patient called thinking she was talking to Dayanna's office. Had questions about her skin cancer andcare of site. She also had questions about the treatment. Explained care of site and upcoming curettage a few times. Patient says she lives alone and it's hard for her to see to put vaseline on her back. She will do her best. * Telephone Encounter - Janet Villareal OSA [...] 01/06/2024 9:00 AM EDT Office Visit Family [facility] [address] [place] [address] Shin Billings MD [address] [place] [address] 01/19/2024 10:40 AM EDT Office Visit Dermatology [address] [place] [address] Dayanna Toussaint PA-C [address] [place] [address] [place] [address] 02/08/2025 10:20 AM EDT [facility] [address] [facility] [place] [address] Dayanna Toussaint PA-C [address] [place] [address] [place] [address] Health Maintenance Due Date Last Done Comments [...]
--- OUTSIDE RECORDS SUMMARY | 2024-03-23 04:24 | External Medical Summary | Summary of Care ---
Author Name Unknown Organization [facility] Address [address] [facility] [place] [address] Phone [phone] Care Team Providers Care Boston Cutter Name Role Phone Unavailable Primary Care Provider Unavailabl e Reason for Visit * Reason Onset Date Comments Test Results Biopsy 12/20/2023 Appointment 12/20/2023 Encounter Details Date Type Department Care Team (Late st Contact Info) Description 12/20/2023 Telephone [address]erm[address] [place] [address] Dayanna Toussaint PA-C [address] [place] [address] [place] [address] Test Results Biopsy; Appointment Allergies Active Allergy Reactions Criticality Noted Date [...] several times throughout the call. Dayanna Toussaint Romario, PAConstanza A. Skin, R central upper back, shave: Basal cell carcinoma, superficial and nodular types, pigmented documented in this encounter Plan of Treatment Upcoming Encounters Date Type Department Care Team (Late st Contact Info) Description 01/06/2024 9:00 AM EDT Office Visit Family [facility] [address] [facility] [place] [address] Shin Billings MD [address] [place] [address] 01/19/2024 10:40 AM EDT Office Visit Dermatology [address] [place] [address] Dayanna Toussaint [address] [place] [address] 02/08/2025 10:20 AM EDT Office Visit Dermatology[address], [place] [address] Dayanna Toussaint [address] [place] [address] Health Maintenance Due Date Last Done Comments [...]
--- OUTSIDE RECORDS SUMMARY | 2024-03-23 04:24 | External Medical Summary | Summary of Care ---
Author Name Unknown Organization [facility] Address [address] [place] [address] Phone [phone] Care Team Providers Care Equine Breeder Name Role Phone Unavailable Primary Care Provider Unavailabl e Reason for Visit * Reason Onset Date Comments Advice 12/23/2023 Left Message 12/23/2023 Encounter Details Date Type Department Care Team (Late st Contact Info) Description 12/23/2023 Telephone Dermat[address] [place] [address] Services, Scheduling [address] [place] [address] Advice; Left Message Allergies Active Allergy Reactions Criticality Noted Date Comments Pollen 12/15/2023 documented as of this encounter (statuses as of 12/28/2023) Medications Medication Sig Dispensed Refills Start Date [...] as of this encounter (statuses as of 12/28/2023) Active Problems Problem Noted Date Diagnosed Date Hx of nonmelanoma skin cancer 12/20/2023 Overview: basal cell carcinoma (R central upper back 12/25) HTN, goal below 130/80 10/07/2023 BIMAL (generalized anxiety disorder) 10/07/2023 Non-small cell cancer of right lung 06/29/2023 Urticaria, chronic 06/29/2023 documented as of this encounter (statuses as of 12/28/2023) Resolved Problems Problem Noted Date Diagnosed Date Resolved Date Elevated blood pressure, situational 06/29/2023 10/07/2023 Mass of right lung 02/02/2023 Acute respiratory failure with hypoxia 02/02/2023 03/23/2023 Pleural effusion 02/02/2023 10/07/2023 documented as of this encounter (statuses as of 12/28/2023) Social History Tobacco Use Types Packs/Day Years [...] encounter Miscellaneous Notes * Telephone Encounter - Paula Holguin LPN - 12/28/2023 8:22 AM EDT Called pt and advised on below info. * Telephone Encounter - Dayanna Toussaint PA-C - 12/27/2023 1:17 PM EDT Please call patient and have her follow my instructions instead. Dayanna PHAM PA-C * Telephone Encounter - Tata Ross OSA - 12/27/2023 8:30 AM EDT Patient calling again to speak to a nurse at the office. She said she is on a cream that is supposed to be used less than 2 weeks per the pharmacist and shewanted to know what Dayanna wanted her to do. She did not know that Dayanna was away until this Wednesday. Please call her and advise. [phone] Thank you. * Telephone Encounter - Gia Wilburn OSA - 12/23/2023 10:42 AM EDT Jes Pt has some questions for provider. Please call pt thanks documented in this encounter Plan of Treatment Upcoming Encounters Date Type Department Care Team (Late st Contact Info) Description 01/06/2024 9:00 AM EDT Office Visit Family [facility] [address] [place] [address] Shin Billings MD [address] [place] [address] 01/19/2024 10:40 AM EDT Office Visit Dermatology [address] [place] [address] Dayanna Toussaint PA-C [address] [place] [address] [place] [address] 02/08/2025 10:20 AM EDT Office Visit [address] [address] Dayanna Toussaint PA-C [address] [place] [address] [place] [address] Health Maintenance Due Date Last Done Comments [...]
--- OUTSIDE RECORDS SUMMARY | 2024-03-23 04:24 | External Medical Summary | Summary of Care ---
Author Name Unknown Organization [facility] Address [address] [place] [address] Phone [phone] Care Team Providers Care Extended Day Teacher Name Role Phone Unavailable Primary Care Provider Unavailabl e Reason for Visit * Reason Onset Date Comments Advice 12/23/2023 Left Message 12/23/2023 Encounter Details Date Type Department Care Team (Late st Contact Info) Description 12/23/2023 Telephone Dermatology [address] [place] [address] Services, Scheduling [address] [place] [address] Advice; Left Message Allergies Active Allergy Reactions Criticality Noted Date Comments Pollen 12/15/2023 documented as of this encounter (statuses as of 12/27/2023) Medications Medication Sig Dispensed Refills Start Date [...] as of this encounter (statuses as of 12/27/2023) Active Problems Problem Noted Date Diagnosed Date Hx of nonmelanoma skin cancer 12/20/2023 Overview: basal cell carcinoma (R central upper back 12/25) HTN, goal below 130/80 10/07/2023 BIMAL (generalized anxiety disorder) 10/07/2023 Non-small cell cancer of right lung 06/29/2023 Urticaria, chronic 06/29/2023 documented as of this encounter (statuses as of 12/27/2023) Resolved Problems Problem Noted Date Diagnosed Date Resolved Date Elevated blood pressure, situational 06/29/2023 10/07/2023 Mass of right lung 02/02/2023 Acute respiratory failure with hypoxia 02/02/2023 03/23/2023 Pleural effusion 02/02/2023 10/07/2023 documented as of this encounter (statuses as of 12/27/2023) Social History Tobacco Use Types Packs/Day Years [...] encounter Miscellaneous Notes * Telephone Encounter - Dayanna Toussaint PA-C - 12/27/2023 1:17 PM EDT Please call patient and have her follow my instructions instead. Dayanna Toussaint DANIAL Doss * Telephone Encounter - Tata Ross OSA [...] this Wednesday. Please call her and advise. [phone] Thank you. * Telephone Encounter - Gia Wilburn OSA - 12/23/2023 10:42 AM EDT Jes Pt has some questions for provider. Please call pt thanks documented in this encounter Plan of Treatment Upcoming Encounters Date Type Department Care Team (Late st Contact Info) Description 01/06/2024 9:00 AM EDT Office Visit Family [facility] [address] [place] [address] Shin Billings MD [address] [place] [address] 01/19/2024 10:40 AM EDT Office Visit Dermatology [address] [place] [address] Dayanna Toussaint PA-C [address] [place] [address] [place] [address] 02/08/2025 10:20 AM EDT Office Visit [address] [address] Dayanna Toussaint PA-C [address] [place] [address] [place] [address] Health Maintenance Due Date Last Done Comments [...]
--- OUTSIDE RECORDS SUMMARY | 2024-03-23 04:24 | External Medical Summary | Summary of Care ---
Author Name Unknown Organization [facility] Address [address] [facility] [place] [address] Phone [phone] Care Team Providers Care Computer Systems Security Analyst Name Role Phone Unavailable Primary Care Provider [...] Encounter Details Date Type Department Care Team ([facility] Contact Info) Description 12/20/2023 Telephone [address]erm[address] [place] [address] Dayanna Toussaint PA-C [address] [place] [address] [place] [address] Test Results Biopsy; Appointment; Pain (Moon... Allergies [...] 01/06/2024 9:00 AM EDT Office [facility] [place] [address] Shin Billings MD [address] [place] [address] 01/19/2024 10:40 AM EDT Office Visit Dermatology [address] [place] [address] Dayanna Toussaint PA-C [address] [place] [address] [place] [address] 02/08/2025 10:20 AM EDT Office Visit [address]ermatology[address] [address] Dayanna Toussaint PA-C [address] [place] [address] [place] [address] Health Maintenance Due Date Last Done Comments [...]
--- OUTSIDE RECORDS SUMMARY | 2024-03-23 04:24 | External Medical Summary | Summary of Care ---
Author Name Unknown Organization [facility] Address [address] [facility] [place] [address] Phone [phone] Care Team Providers Care Assembler Engine Name Role Phone Unavailable Primary Care Provider Unavailabl e Reason for Visit * Reason Onset Date Comments Test Results Biopsy 12/20/2023 Appointment 12/20/2023 Encounter Details Date Type Department Care Team (Late st Contact Info) Description 12/20/2023 Telephone Dermatology [address] [place] [address] Dayanna Toussaint PA-C [address] [place] [address] [place] [address] Test Results Biopsy; Appointment Allergies Active Allergy [...] care several times throughout the call. Dayanna DIXONSDANIAL A. Skin, R central upper back, shave: Basal cell carcinoma, superficial and nodular types, pigmented documented in this encounter Plan of Treatment Upcoming Encounters Date Type Department Care Team (Late st Contact Info) Description 01/06/2024 9:00 AM EDT Office Visit Family Practice [facility] [address] [address] Shin Billings MD [address] [place] [address] 01/19/2024 10:40 AM EDT Office Visit Dermatology [address] [place] [address] Dayanna Toussaint PA-C [address] [place] [address] [place] [address] 02/08/2025 10:20 AM EDT Office Visit [address] [address] Dayanna Toussaint [address] [place] [address] Health Maintenance Due Date Last Done Comments [...]
[2024-03-23] MEDS: LIDOCAINE 5% 1 PATCH TD SCH (08:18)
[2024-03-23] MEDS: LOSARTAN POTASSIUM 50 MG TAB PO SCH (08:24)
[2024-03-23] MEDS ORDERED: NON-FORMULARY MEDICATION (Coenzyme Q10 [Co Q-10] 100 mg Capsule) PO SCH (09:00)
[2024-03-23] MEDS ORDERED: [UNRECOGNIZED DRUG - OTHER] PO SCH (09:00)
[2024-03-23 12:58] LABS: Cdiff Toxin B Gene (2yr or >) Positive Cdiff Gene (Neg)
[2024-03-23 13:42] LABS: Cdiff Antigen Negative; Cdiff Toxin A+B Negative Cdiff Toxin (Negative)
--- NOTE | 2024-03-23 15:39 | Hospitalist Progress Note ---
Date of Service March 23, 2024 Assessment & Plan (1) Hypertensive urgency: (2) Nausea: (3) Back pain: (4) Non-small cell carcinoma of lung: (5) Sinus tachycardia: (6) Adenocarcinoma: (7) Anxiety: Plan This is a 79-year-old female with past medical history of 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 HTNive urgency Initial BP 185/99, improved to 160/95 following losartan 50mg x 1 Anxiety seems to be a large contributor Does not seem to be tolerating amlodipine well at home - discontinued Continue losartan 50mg daily, PRN Labetalol overnight Blood pressure is controlled with current dose of losartan Heart rate is down as well Will monitor overnight Dysphagia Complains that food starts to the lower part of esophagus Nausea but no vomiting Has been going on for some time Will get speech evaluation and order barium swallow tomorrow May need EGD as an outpatient as as advised by the oncologist BIMAL Per chart review, worsened sx since loss of daughter in September per patient Trial of Buspar 5mg BID Non small cell Lung Cancer On Keytruda (next due 04/07), [facility] with [facility], Dr Ricketts No acute shortness of breath or chest pain Sinus tachycardia Improved from HR 127 to 97 with IV fluids, 2.5mg IV Lopressor in ED Noted on previous admissions, ? Keytruda contributing Echo on previous admission with preserved EF, LVH Consider addition of beta nilton for HTN based on BP tomorrow We will consider giving beta-nilton if the heart rate remains elevated and discontinue losartan tomorrow Medication induced pancreatitis on previous admission Diarrhea Improved with IV fluids, back to regular minced and moist diet C diff negative, stool cultures negative on 03/07 DVT Ppx: SQ lovenox Code status: FULL PCP: Awa Dispo: Obs med tele Admission and Anticipated Discharge Date Admission Date: March 22, 2024 Subjective 03/23/2024 The patient was seen and examined in emergency room She was admitted with very high blood pressure without any symptoms except anxiety She cannot tolerate amlodipine and started on lisinopril Blood pressure is controlled now She has history of lung cancer and is on chemo and complaint to have problem with swallowing Review of Systems Review of Systems: All systems reviewed and are unremarkable except as noted below Physical Exam Physical Exam: Lying in bed without any acute distress Constitutional: + ill appearing and average body habitus Eyes: PERRL, conjunctivae normal, anicteric sclerae ENMT: external ear and nose normal, oropharynx normal Neck: trachea midline, no thyromegaly Respiratory: no respiratory distress Auscultation: lungs clear to auscultation bilaterally Cardiovascular: Rate/Rhythm: regular rate and regular rhythm; not tachycardic Heart Sounds: normal S1 and normal S2; no murmur Extremities: no edema Gastrointestinal (Abdomen): Inspection/Auscultation: normal bowel sounds; abdomen not distended Percussion/Palpation: abdomen soft; abdomen nontender Musculoskeletal: No acute arthritis involving any of the joint Neurologic: normal touch/pain/proprioception and moves all extremities; no focal motor deficits Psychiatric: A+Ox3, euthymic affect Mood: + anxious mood Lymphatic: no cervical or axillary lymphadenopathy Results & Data Results & Data Vital Signs (Past 12 Hours) Vital Signs Temp Pulse Pulse Resp BP BP Pulse Ox 03/23/24 13:32 84 18 119/68 95 03/23/24 12:03 60 23 105/60 94 03/23/24 11:06 70 17 117/71 94 03/23/24 10:00 59 L 24 03/23/24 09:09 62 23 03/23/24 09:00 114/65 03/23/24 08:48 68 17 03/23/24 08:41 36.8 C 67 20 127/68 96 03/23/24 08:15 72 16 03/23/24 07:00 68 20 94 03/23/24 06:00 68 30 H 93 03/23/24 05:00 71 25 H 92 03/23/24 05:00 118/70 03/23/24 04:02 63 23 91 03/23/24 04:00 73 16 118/70 93 O2 Del Method 03/23/24 13:32 Room Air 03/23/24 12:03 03/23/24 11:06 03/23/24 10:00 03/23/24 09:09 03/23/24 09:00 03/23/24 08:48 03/23/24 08:41 Room Air 03/23/24 08:15 03/23/24 07:00 03/23/24 06:00 03/23/24 05:00 03/23/24 05:00 03/23/24 04:02 03/23/24 04:00 Room Air Laboratory Results Short CBC 03/23/24 Range/Units 03:36 WBC 7.78 (4.8-10.8) K/ul Hgb 11.8 L (12.0-16.0) g/dl Hct 36.4 L (37.0-47.0) % Plt Count 489 H (130-400) K/uL BMP 03/23/24 03:36 Sodium 140 Potassium 4.1 Chloride 106 Carbon Dioxide 28 BUN 13 Creatinine 0.53 L Glucose 85 Calcium 9.2 Urine 03/22/24 Range/Units 16:40 Urine Color Yellow Urine Appearance Clear (Clear) Urine pH 7.0 (4.5-7.5) Ur Specific [place] 1.004 (1.000-1.030) Urine Protein Negative (Negative) Urine Glucose (UA) Negative (Negative) Medications Administered Current Inpatient Medications Acetaminophen (Acetaminophen 325 Mg Tab) 650 mg PO Q4H PRN PRN Reason: Pain or Fever Stop: 04/21/24 20:27 Buspirone HCl (Buspirone 5 Mg Tab) 5 mg PO BID [facility] Stop: 04/21/24 20:59 Last Admin: 03/23/24 08:17 Dose: Not Given Enoxaparin Sodium (Enoxaparin Inj 40 Mg/0.4 Ml Syr) 40 mg SQ Q24H RACHELLE Stop: 04/21/24 20:59 Last Admin: 03/22/24 21:45 Dose: Not Given Labetalol HCl (Labetalol Hcl Iv 5 Mg/Ml 20ml) 10 mg IV Q6H PRN PRN Reason: SBP >170 or DBP >110 Stop: 04/21/24 16:59 Lidocaine (Lidocaine 5% 1 Patch) 1 patch TD QAM [facility] Stop: 04/22/24 08:59 Last Admin: 03/23/24 08:18 Dose: Not Given Losartan Potassium (Losartan Potassium 50 Mg Tab) 50 mg PO QAM [facility] Stop: 04/22/24 08:59 Last Admin: 03/23/24 08:24 Dose: 50 mg Melatonin (Melatonin 3 Mg Tab) 3 mg PO HS PRN PRN Reason: sleep Stop: 04/21/24 20:27 Miscellaneous (Remove Lidoderm Patch) 1 each N/A DAILY@2100 RACHELLE Stop: 04/21/24 20:59 Last Admin: 03/22/24 21:45 Dose: Not Given Ondansetron HCl (Ondansetron Inj 2 Mg/Ml 2 Ml Vial) 4 mg IV Q6H PRN PRN Reason: Nausea Stop: 04/21/24 20:27 Polyethylene Glycol (Polyethylene (Miralax) 17 Gm Pack) 17 gm PO DAILY PRN PRN Reason: Constipation Stop: 04/21/24 20:27
[2024-03-23] MEDS: LORATADINE 10 MG TAB PO ONE (20:45)
[2024-03-23] MEDS: MICONAZOLE NITRATE POWDER 85 GM EXT SCH (22:30)
[2024-03-24 07:24] LABS: Basophils # (auto) 0.04 K/uL (0.00-0.20); Basophils % (auto) 0.6 %; Eosinophils # (auto) 0.48 K/uL (0.00-0.50); Eosinophils % (auto) 7.3 %; Hematocrit (blood only) 36.8 % (37.0-47.0); Hemoglobin 11.7 g/dl (12.0-16.0); Immature Granulocytes # (auto) 0.05 K/uL (0.01-0.20); Immature Granulocytes % (auto) 0.8 %; Lymphocytes # (auto) 1.56 K/uL (1.20-3.40); Lymphocytes % (auto) 23.6 %; Mean Corpuscular Hemoglobin 27.9 pg (25.0-34.0); Mean Corpuscular Hgb Conc 31.8 g/dL (32.0-36.0); Mean Corpuscular Volume 87.6 fL (80.0-100.0); Monocytes # (auto) 0.66 K/uL (0.11-0.59); Neutrophils # (auto) 3.81 K/uL (1.40-6.50); Neutrophils % (auto) 57.7 %; Platelet Count 472 K/uL (130-400); RDW Coefficient of Variation 13.2 % (11.5-14.5); RDW Standard Deviation 41.9 fL (36.4-46.3)
[2024-03-24 07:51] LABS: BUN Creatinine Ratio 32.7 (10-20); Calcium 9.2 mg/dl (8.6-10.3); Creatinine Clr Calc Pharmacy 75.8 ml/min; Est GFR (African American) 105.3 ml/min; Est GFR (Non-African American) 90.9 ml/min; Potassium 4.1 mmol/L (3.5-5.1)
--- NOTE | 2024-03-24 09:07 | Fluoroscopy Report ---
DOUBLE CONTRAST BARIUM ESOPHAGRAM CLINICAL HISTORY: Dysphagia. COMPARISON STUDY: Chest CT dated 03/03/2024. TECHNIQUE: A standard air contrast barium esophagram is performed. Multiple spot images of the esopha jemima are acquired both upright and prone. FINDINGS: The patient swallowed barium without difficulty. The barium pill lodged in the distal esoph agusto before passing into the stomach. The mucosal pattern is normal. There is moderate dysmotility. N o evidence of intrinsic or extrinsic mass lesion is seen. No aspiration was identify. The gastroesop hageal junction distended normally. Gastroesophageal reflux was observed during the examination. Spon dylotic change is noted in the cervical spine. Fluoroscopy time: 1.02 minutes. Ka,r: 20.3 mGy Fluoroscopic images: 16 spot images and 2 cine loops IMPRESSION: 1. Moderate esophageal dysmotility. 2. Gastroesophageal reflux was observed during t he examination. 3. The barium pill lodged in the distal esophagus before passing into the stomach. ACT 112: Negative or not required by law. Electronically signed by: Luke Evans M.D. 03/24/2024 9:06 AM
[2024-03-24 11:45] VITALS: PULSE 77; RESP 17; TEMP 97.5; O2SAT 97
[2024-03-24] MEDS: METOPROLOL TARTRATE 25 MG TAB PO STA (12:00)
--- NOTE | 2024-03-24 13:06 | Hospitalist Progress Note ---
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 HTNive urgency Initial BP 185/99, improved to 160/95 following losartan 50mg x 1 Anxiety seems to be a large contributor Does not seem to be tolerating amlodipine well at home - discontinued Continue losartan 50mg daily, PRN Labetalol overnight Blood pressure is controlled with current dose of losartan Heart rate is down as well Will monitor overnight no more tachycardia and the blood pressure is controlled with current dose of losartan we will continue with the losartan advised to check blood pressure 2-3 times a week if the blood pressure is below 90 systolic she will hold her blood pressure medications Dysphagia Complains that food starts to the lower part of esophagus Nausea but no vomiting Has been going on for some time Will get speech evaluation and order barium swallow tomorrow May need EGD as an outpatient as as advised by the oncologist barium swallow did show esophageal dysmotility with stacking of the barium tablet at the lower end of esophagus- which eventually passed advised to have EGD as an outpatient will inform the PCP to arrange for that as this was requested by the oncologist as well BIMAL Per chart review, worsened sx since loss of daughter in September per patient Trial of Buspar 5mg BID Non small cell Lung Cancer On Keytruda (next due 04/07), [facility], Dr Ricketts No acute shortness of breath or chest pain Sinus tachycardia Improved from HR 127 to 97 with IV fluids, 2.5mg IV Lopressor in ED Noted on previous admissions, ? Keytruda contributing Echo on previous admission with preserved EF, LVH Consider addition of beta nilton for HTN based on BP tomorrow We will consider giving beta-nilton if the heart rate remains elevated and discontinue losartan tomorrow no more tachycardia heart rate goes of with anxiety Medication induced pancreatitis on previous admission Diarrhea Improved with IV fluids, back to regular minced and moist diet C diff negative, stool cultures negative on 03/07 DVT Ppx: SQ lovenox Code status: FULL PCP: Awa Dispo: Obs med tele Admission and Anticipated Discharge Date Admission Date: March 22, 2024 Subjective 03/23/2024 The patient was seen and examined in emergency room She was admitted with very high blood pressure without any symptoms except anxiety She cannot tolerate amlodipine and started on lisinopril Blood pressure is controlled now She has history of lung cancer and is on chemo and complaint to have problem with swallowing 03/24/2024 The patient was seen and examined in medical telemetry unit she has been feeling much better has had barium swallow blood pressure is controlled does not have any more tachycardia Review of Systems Review of Systems: All systems reviewed and are unremarkable except as noted below Physical Exam Physical Exam: Lying in bed without any acute distress Constitutional: average body habitus; not ill appearing Eyes: PERRL, conjunctivae normal, anicteric sclerae ENMT: external ear and nose normal, oropharynx normal Neck: trachea midline, no thyromegaly Respiratory: no respiratory distress Auscultation: lungs clear to auscultation bilaterally Cardiovascular: Rate/Rhythm: regular rate and regular rhythm; not tachycardic Heart Sounds: normal S1 and normal S2; no murmur Extremities: no edema Gastrointestinal (Abdomen): Inspection/Auscultation: normal bowel sounds; abdomen not distended Percussion/Palpation: abdomen soft; abdomen nontender Neurologic: normal touch/pain/proprioception and moves all extremities; no focal motor deficits Psychiatric: A+Ox3, euthymic affect Mood: + anxious mood Lymphatic: no cervical or axillary lymphadenopathy Results & Data Results & Data Vital Signs (Past 12 Hours) Vital Signs Temp Pulse Pulse Resp BP BP Pulse Ox 03/24/24 11:44 36.4 C L 77 17 133/80 97 03/24/24 07:55 36.8 C 104 H 18 130/78 95 03/24/24 07:00 67 03/24/24 03:20 36.7 C 106 H 18 129/76 94 O2 Del Method 03/24/24 11:44 Room Air 03/24/24 07:55 Room Air 03/24/24 07:00 03/24/24 03:20 Room Air Laboratory Results Short CBC 03/24/24 Range/Units 06:49 WBC 6.60 (4.8-10.8) K/ul Hgb 11.7 L (12.0-16.0) g/dl Hct 36.8 L (37.0-47.0) % Plt Count 472 H (130-400) K/uL BMP 03/24/24 06:49 Sodium 141 Potassium 4.1 Chloride 109 H Carbon Dioxide 27 BUN 17 Creatinine 0.52 L Glucose 100 H Calcium 9.2 Medications Administered Current Inpatient Medications Acetaminophen (Acetaminophen 325 Mg Tab) 650 mg PO Q4H PRN PRN Reason: Pain or Fever Stop: 04/21/24 20:27 Buspirone HCl (Buspirone 5 Mg Tab) 5 mg PO BID [facility] Stop: 04/21/24 20:59 Last Admin: 03/24/24 08:00 Dose: Not Given Enoxaparin Sodium (Enoxaparin Inj 40 Mg/0.4 Ml Syr) 40 mg SQ Q24H [facility] Stop: 04/21/24 20:59 Last Admin: 03/23/24 20:44 Dose: Not Given Labetalol HCl (Labetalol Hcl Iv 5 Mg/Ml 20ml) 10 mg IV Q6H PRN PRN Reason: SBP >170 or DBP >110 Stop: 04/21/24 16:59 Lidocaine (Lidocaine 5% 1 Patch) 1 patch TD QAM [facility] Stop: 04/22/24 08:59 Last Admin: 03/24/24 08:00 Dose: Not Given Losartan Potassium (Losartan Potassium 50 Mg Tab) 50 mg PO QAM [facility] Stop: 04/24/24 08:59 Melatonin (Melatonin 3 Mg Tab) 3 mg PO HS PRN PRN Reason: sleep Stop: 04/21/24 20:27 Miconazole Nitrate (Miconazole Nitrate Powder 85 Gm) 1 appln EXT BID [facility] Stop: 04/22/24 20:59 Last Admin: 03/24/24 08:00 Dose: Not Given Miscellaneous (Remove Lidoderm Patch) 1 each N/A DAILY@2100 [facility] Stop: 04/21/24 20:59 Last Admin: 03/23/24 20:45 Dose: Not Given Ondansetron HCl (Ondansetron Inj 2 Mg/Ml 2 Ml Vial) 4 mg IV Q6H PRN PRN Reason: Nausea Stop: 04/21/24 20:27 Polyethylene Glycol (Polyethylene (Miralax) 17 Gm Pack) 17 gm PO DAILY PRN PRN Reason: Constipation Stop: 04/21/24 20:27
[2024-03-24 13:19] VITALS: BP 129/76
--- NOTE | 2024-03-25 07:23 | Discharge Summary ---
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 Was recently admitted to our service and diagnosed with drug-related pancreatitis secondary to Keytruda. Was then discharged to [facility] for rehab as related to back pain with findings of lumbar spinal stenosis with some foraminal narrowing during previous admission. While at rehab, was started on amlodipine 5 mg daily. Followed up with PCP on 03/16 and was encouraged to continue taking amlodipine daily despite patient not being sure she wanted to be on blood pressure medication. Admits significant anxiety related to blood pressure and resists checking it at home, despite developing dizziness since starting amlodipine. Denies any chest pain, palpitations or shortness of breath. No fever, chills, lightheadedness, headache. Endorses some nausea but no vomiting or abdominal pain. Loose bowels persist but negative C. difficile and stool culture during previous admission. No other medication changes aside from starting amlodipine since last hospitalization. Last received Keytruda on 03/16, next due on 04/07. Admission Exam Per Admitting Provider Vitals signs as noted above General Appearance:Moderately built and nourished, no apparent distress Head: normocephalic, Atraumatic Eyes: normal inspection, EOMI Neck: supple, Trachea midline Respiratory/Chest: Normal breath sounds, CTA, No accessory muscle use Cardiovascular: S1, S2, + faint murmur,+ tachycardia Abdomen/GI:Soft, Non tender, Bowel sounds present Extremities/Musculoskeletal:normal inspection, no edema Neurologic/Psych:AAOX3, grossly no focal neurological deficits Skin: normal color, warm Principal Diagnosis Hypertensive urgency, non-small cell cancer of the lung, anxiety, dysphagia Discharge Exam Lying in bed without any acute distress Constitutional average body habitus; not ill appearing Eyes PERRL, conjunctivae normal, anicteric sclerae ENMT external ear and nose normal, oropharynx normal Neck trachea midline, no thyromegaly Respiratory no respiratory distress Auscultation: lungs clear to auscultation bilaterally Cardiovascular Rate/Rhythm: regular rate and regular rhythm; not tachycardic Heart Sounds: normal S1 and normal S2; no murmur Extremities: no edema Gastrointestinal (Abdomen) Inspection/Auscultation: normal bowel sounds; abdomen not distended Percussion/Palpation: abdomen soft; abdomen nontender Neurologic normal touch/pain/proprioception and moves all extremities; no focal motor deficits Psychiatric A+Ox3, euthymic affect Mood: + anxious mood Lymphatic no cervical or axillary lymphadenopathy Discharge Data Allergies Allergy/AdvReac Type Severity Reaction Status Date / Time No Known Allergies Allergy Mild Unverified 03/03/24 17:52 Ordered Studies 03/24/24 08:30 FL barium swallow Routine Hospital Course (1) Hypertensive urgency: (2) Nausea: (3) Back pain: (4) Non-small cell carcinoma of lung: (5) Sinus tachycardia: (6) Adenocarcinoma: (7) Anxiety: Plan This is a 79-year-old female with past medical history of 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 HTNive urgency Initial BP 185/99, improved to 160/95 following losartan 50mg x 1 Anxiety seems to be a large contributor Does not seem to be tolerating amlodipine well at home - discontinued Continue losartan 50mg daily, PRN Labetalol overnight Blood pressure is controlled with current dose of losartan Heart rate is down as well Will monitor overnight no more tachycardia and the blood pressure is controlled with current dose of losartan we will continue with the losartan advised to check blood pressure 2-3 times a week if the blood pressure is below 90 systolic she will hold her blood pressure medications Dysphagia Complains that food starts to the lower part of esophagus Nausea but no vomiting Has been going on for some time Will get speech evaluation and order barium swallow tomorrow May need EGD as an outpatient as as advised by the oncologist barium swallow did show esophageal dysmotility with stacking of the barium tablet at the lower end of esophagus- which eventually passed advised to have EGD as an outpatient will inform the PCP to arrange for that as this was requested by the oncologist as well BIMAL Per chart review, worsened sx since loss of daughter in September per patient Trial of Buspar 5mg BID Non small cell Lung Cancer On Keytruda (next due 04/07), [facility], Dr Ricketts No acute shortness of breath or chest pain Sinus tachycardia Improved from HR 127 to 97 with IV fluids, 2.5mg IV Lopressor in ED Noted on previous admissions, ? Keytruda contributing Echo on previous admission with preserved EF, LVH Consider addition of beta nilton for HTN based on BP tomorrow We will consider giving beta-nilton if the heart rate remains elevated and discontinue losartan tomorrow no more tachycardia heart rate goes of with anxiety Medication induced pancreatitis on previous admission Diarrhea Improved with IV fluids, back to regular minced and moist diet C diff negative, stool cultures negative on 03/07 DVT Ppx: SQ lovenox Code status: FULL PCP: Awa Dispo: Obs med tele Total Time Total Time Spent Total Time Spent (In Minutes): 35 minutes Discharge Plan Discharge Items Patient Disposition: Home - Self-Care Reason For Visit: HTNIVE URGENCY Discharge Diagnosis: Hypertensive urgency, non-small cell cancer of the lung, anxiety, dysphagia Condition on Discharge: Fair Activity: Resume your previous activity Non-emergency contact: Primary Care Provider Call non-emergency contact if: you have any medication questions and your symptoms worsen Follow-up/Referrals: Shin Billings M.D. [Outside Practitioners] - (Date & Time 03/30/2024 9:40 AM Provider Shin Billings MD Department Family [facility] ) Diet: Heart Healthy Diet Comment: Minced and moist Addtl Attending Provider Instructions: Please take precaution to avoid fall Take your medications as advised-you were given buspirone 5 mg 2 times daily for anxiety, losartan 50 mg daily for blood pressure and lidocaine patch for the pain. Please keep appointment with your healthcare provider You need to have an EGD as an outpatient-your PCP will arrange for that Pending Studies at Discharge: No Stand-Alone Forms: My [facility] [employer], Smoking Cessation Medications and DC Order Prescriptions: New losartan 50 mg Tablet 50 mg PO QAM Qty: 30 0RF buspirone 5 mg Tablet 5 mg PO BID Qty: 60 0RF lidocaine 5 % Adhesive Patch,Medicated 1 patch transdermal QAM Qty: 30 0RF Continued coenzyme Q10 [Co Q-10] 100 mg Capsule 100 mg PO DAILY Calcium Magnesium plus D [id number] mg-mg-unit Tablet 1 tab PO DAILY Rx Instructions: unsure of strength nystatin 100,000 unit/mL Suspension 10 ml PO QID Qty: 400 0RF melatonin 3 mg Tablet 3 mg PO HS PRN (Reason: sleep) Qty: 30 0RF polyethylene glycol 3350 [Miralax] 17 gram Powder In Packet 17 g PO DAILY Qty: 30 0RF lidocaine 5 % Adhesive Patch,Medicated 1 patch transdermal QAM Qty: 3 0RF Discontinued amlodipine 5 mg tablet 5 mg PO QAM Discharge Orders: Discharge Order (Routine); Ordered 03/24/24 Ordered By: Vj Timmons Admission Data Admit Date/Time: 03/22/24 16:59 Attending Provider: Vj Timmons Admit Provider: Wallace Ponce Primary Care Provider: Corbin Hackett Other Providers: Wallace Ponce Other Interventions: Discharge Summary Assessment (RN) Last Done: 03/24/24 13:15
[2024-03-25] MEDS ORDERED: METOPROLOL SUCC 25MG EXT REL TAB PO SCH (09:00)
[2024-03-25] MEDS ORDERED: LOSARTAN POTASSIUM 50 MG TAB PO SCH (09:00)
== END 2024-03-24 15:32 | disposition home or self-care (01) ==
LOC: ED 13:43 → EDINP 13:43 → SUATTDRO 16:59 → 2W 20:28

== ENCOUNTER 2025-05-24 14:24 | Inpatient (IN) ==
[2025-05-24 15:03] LABS: Hematocrit (blood only) 43.5 % (37.0-47.0); Hemoglobin 14.4 g/dl (12.0-16.0); Immature Granulocytes # (auto) 0.09 K/uL (0.01-0.20); Immature Granulocytes % (auto) 0.6 %; Mean Corpuscular Hemoglobin 29.7 pg (25.0-34.0); Mean Corpuscular Volume 89.7 fL (80.0-100.0); Platelet Count 410 K/uL (130-400); RDW Standard Deviation 43.8 fL (36.4-46.3); Red Blood Count 4.85 M/uL (4.20-5.40); White Blood Count 14.38 K/ul (4.8-10.8)
--- NOTE | 2025-05-24 15:16 | XRay Report ---
XR chest 1V not portable CLINICAL HISTORY: Chest pain, nonspecific COMPARISON STUDY: 11/29/2024 FINDINGS: Stable mild cardiomegaly without pulmonary vascular congestion. Stable hyperexpanded lungs. Stable small nodule right lower lung. No consolidation or pleural effusion. No pneumothorax. IMPRESSION: No acute findings. ACT 112: Negative or not required by law. Electronically signed by: Jones Duncan M.D. 05/24/2025 3:15 PM
[2025-05-24 15:26] LABS: Alanine Aminotransferase 14.0 U/L (7-52); Albumin Globulin Ratio 1.2 (0.9-2); Alkaline Phosphatase 72.0 U/L (34-104); Anion Gap 11.0 (3-11); Bilirubin,Total 0.7 mg/dl (0.2-1.0); Blood Urea Nitrogen 24.0 mg/dl (6-23); Calcium 9.9 mg/dl (8.6-10.3); Carbon Dioxide 24.0 mmol/L (21-32); Chloride 103.0 mmol/L (98-107); Creatinine Clr Calc Pharmacy 46.1 ml/min; Globulin 3.7 gm/dl (2.5-4.0); Glucose 140.0 mg/dl (70-99(Fasting)); Potassium 4.1 mmol/L (3.5-5.1); Sodium 138.0 mmol/L (136-145); Total Protein 8.0 gm/dl (6.0-8.3)
[2025-05-24 15:33] LABS: INR 0.9 (0.9-1.1); Partial Thromboplastin Time 26 Seconds (21-31); Prothrombin Time 10.2 Seconds (9.0-12.0)
--- NOTE | 2025-05-24 16:22 | Emergency Department Note ---
Impression & Plan Pneumonia, viral, Dysphagia, Leukocytosis, Acute diarrhea ED Provider Note NAME: DORIE PEREZ AGE: 80 SEX: F : 1945 ARRIVES VIA: Walk-In INFORMANT: Patient, neighbor ED PROVIDER(S): Reagan Jules DO CHIEF COMPLAINT: chest pain HPI: This is a 80-year-old female with the PMHx of NSCLC s/p immunotherapy, ?kidney issues (per patient), HTN, and GERD presenting to [facility] for further evaluation of chest pain. Patient is accompanied by her neighbor who provide additional history. Patient reports she has not been doing well over the past few weeks. Patient states she is currently on steroids. Patient reports she has had episodes of hypoglycemia as well as ongoing diarrheal illness. She states that she continues to have chest pain. She states this radiates to her back. She has significant dysphagia. Patient reports constant belching. Patient states that she has had numerous EGDs in the past. Patient states that she is unable to tolerate p.o. intake secondary to her symptoms.They deny fever or chills. No cough or congestion. She does endorse nausea without emesis. No urinary complaints. Patient denies recent changes in medications or OTC supplements. Patient offers no other complaints, today. ADDITIONAL HISTORY OBTAINED: Per HPI Chronic Medical/Social Conditions Affecting Care: Per HPI PAST MEDICAL HISTORY: See Below PAST SURGICAL HISTORY: See Below FAMILY HISTORY: See Below SOCIAL HISTORY: See Below HOME MEDICATIONS: See Below ALLERGIES: See Below VITALS: See Below PHYSICAL EXAMINATION: GENERAL: Sitting up in bed, alert, well appearing, well nourished, no distress, non-toxic EYE EXAM: normal conjunctiva. PERRL and EOM's grossly intact. OROPHARYNX: no exudate, no erythema, lips, buccal mucosa, and tongue normal and mucous membranes are dry NECK: supple, no nuchal rigidity, no adenopathy, non-tender LUNGS: Clear to auscultation. Normal chest wall mechanics HEART: no murmurs, regular rate, regular rhythm ABDOMEN: abdomen soft, non-tender, no masses, no rebound or guarding. BACK: Back is symmetrical on inspection and there is no deformity, no midline tenderness, no CVA tenderness. SKIN: no rashes and no bruising UPPER EXTREMITIES: upper extremities are grossly normal. LOWER EXTREMITIES: No pitting edema. NEURO EXAM: Normal sensorium, GCS 15, normal speech, no gross weakness of arms, no gross weakness of legs. MEDICAL DECISION MAKING: Differential diagnoses includes but not limited to ACS, stable vs unstable angina, dysrhythmia, viral URI, pneumonia, pericarditis, pneumothorax, costochondritis, MSK strain, PE, hypertensive emergency, psychological causes, esophageal reflux, gastritis, esophageal spasm, diarrheal illness, electrolyte derangements, dehydration In summary, this is a 80 year old female who presented with multiple complaints. Differential as above. Nursing notes and pertinent past medical records reviewed. Vital signs reviewed and the patient is afebrile and HDS. History and presentation revealed multiple comorbidities. The patient does have chest pain but she also has complaints of dysphagia and a food bolus sensation. Does have a history of this and has had multiple EGDs in the past. Given her complaints today as well as risk factors for pulmonary embolism, will obtain a CT PE study. Will also include CT abdomen/pelvis. She overall appears dry. Will provide IV hydration as she has had poor p.o. intake. Therapeutics that we will utilizes a GI cocktail including Maalox as well as famotidine. Patient does have risk factors for pulmonary embolism. Her symptoms could be related to pulmonary embolism and I do feel that CT PE is necessary. Diagnostics interpreted by me include EKG and cardiac monitoring as listed below: -Cardiac Monitoring: An order was placed for continuous cardiac monitoring. The monitor shows a rate of 60-150 with regular rhythm. -ECG: EKG independently inter by me reveals sinus tachycardia at a rate of [address] segment changes to suggest STEMI. Intervals are otherwise within normal limits. Patient completed laboratory studies and imaging. CXR independently interpreted by me reveals no evidence of focal consolidation to suggest pna. No large pneumothorax or pleural effusion. Results independently interpreted by me are Minimal leukocytosis. Could be reactive to the patient's steroid use. No significant anemia. No electrolyte derangements. No kidney dysfunction. No elevation in LFTs or lipase. The patient was managed with IV fluid resuscitation and her tachycardia improved throughout the course in the emergency department. She was managed with a GI cocktail as well as famotidine with minimal improvement. I do not feel the patient symptoms are related to ACS. Do feel this is more gastrointestinal in nature. Could be esophageal spasm. Patient's troponins were reassuring. EKG also reassuring. CT PE study independently turbid by me as negative for large pulmonary saddle embolism. She does have evidence of pneumonitis versus developing pneumonia. Will provide her with ceftriaxone as well as azithromycin while in the emergency department. CT abdomen/pelvis shows evidence of colitis but otherwise no intra-abdominal pathology as independently interpreted by me. I reviewed radiology documentation. Unfortunately, the patient is still unable to tolerate p.o. intake and given her symptoms as well as cancer history, I do feel it is reasonable to admit her to the hospital. The patient's chronic upper abdominal symptoms as well as dysphagia could be related to esophageal dysmotility. Doubt acute food bolus at this time. Could have severe esophagitis or esophageal reflux. Could also have compressive mechanics related to her known malignancies. Patient's abdominal and back pain are more chronic issues. Do not think that she is acute issues. Will check stool cultures as the patient continues to have diarrheal illnesses. Given the patient's presentation with severe tachycardia as well as a leukocytosis, she does meet SIRS criteria. I would continue antibiotics for possible pneumonia as well as gastrointestinal illness. Will defer to the hospitalist for further care. Ultimately, the decision was made to admit the patient for severe dysphagia and failure to tolerate PO intake as well as possible pna and ongoing diarrheal illness. I discussed the case with the hospitalist service via telephone/Tiger[employer] and they are agreeable to admit the patient to their services. Based on the above, including the patient's age, coexisting illnesses, labs, imaging, and exam findings the decision to treat as an inpatient. I discussed the patient with the hospitalist team who recommended admission to their services. They received the medications, treatments, interventions indicated above and their condition remained stable. I discussed my findings with the patient and their family and they understand and agree with the treatment plan. All patient / family questions were answered to their satisfaction. Consults/Care Managements Discussions: Per [facility] ER treatment provided: See above Procedures: None Critical Care: None The chart was completed utilizing [email or web address] voice recognition software. Grammatical errors, random word insertions, pronoun errors, and incomplete sentences are an occasional consequence of this system due to software limitations, ambient noise, and hardware issues. Any formal questions or concerns about the content, text, or information contained within the body of this dictation should be directly addressed to the physician for clarification. Past Med/Surg History Problem List (Updated 05/25/25 @ 02:37 by Reagan Jules DO) Acute diarrhea (Acute) Leukocytosis (Acute) Dysphagia (Acute) Pneumonia, viral (Acute) Dysphagia Low back pain Microscopic hematuria Proteinuria Acute kidney injury Lung mass Change in bowel habits Reflux esophagitis Abnormal findings on imaging test White coat syndrome with diagnosis of hypertension Hypertension Abnormal barium swallow Anxiety (Acute) Nausea (Acute) Back pain Acute pancreatitis (Acute) Non-small cell carcinoma of lung (Acute) Hypertensive urgency (Acute) Sinus tachycardia (Acute) Adenocarcinoma Medical History GERD (gastroesophageal reflux disease) Immunotherapy receiving treatment Q 3weeks, last infusion 05/18/2024 History of pancreatitis History of pleural effusion 01/29/2023 History of sinus tachycardia Non-small cell carcinoma of lung on treatment at present Depression no meds Anxiety no meds Hypertension White coat syndrome with diagnosis of hypertension Rash current, occurs with immunotherapy every three weeks Dyspnea on exertion Osteoarthritis Surgical History History of esophagogastroduodenoscopy (EGD) History of basal cell carcinoma (BCC) excision History of tonsillectomy History of section Social History Smoking Status: Former smoker Tobacco Type: Cigarettes Age Started Using Tobacco: 23; Age Quit Using Tobacco: 68; packs per day: 0.5; Cigarettes Per Day: 10; Second Hand Exposure: No; Do You Dip or Chew Tobacco: No; Hx Alcohol Use: No Hx Substance Use: No Preferred Language: Czech Communication Ability: Effective Visual Impairment: No Limitations Hearing Ability: Normal Columnist Required: No Beliefs That Will Affect Care: None marital status: Current Living Situation: Alone Current Living Situation Comment: Home health care comes 3 days/week to assist pt with shopping, chores, etc current occupational status: retired 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 caffeine: Yes (1 8oz cup of coffee) Dental Care, Regularly: No Physical Activity Frequency: Daily Physical Activity Frequency Comment: walking twice daily for 20-30 min. Seatbelt Use: always Do you think of yourself as: straight/heterosexual Gender Identity: Female Assistive Devices: Denture - Upper and Glasses Allergies Allergies Allergy/AdvReac Type Severity Reaction Status Date / Time No Known Allergies Allergy Mild Verified 02/27/25 15:22 Home Meds Home Medications Medication Instructions Recorded Confirmed guar gum 1 tbsp PO QAM 05/31/24 02/27/25 pembrolizumab 50 mg intravenous 50 mg IV DIRECTED lung cancer 06/13/24 02/27/25 solution polyethylene glycol 3350 17 17 g PO .QOD 01/30/25 02/27/25 gram/dose oral powder (Miralax) metoprolol succinate 25 mg 25 mg PO DAILY 02/07/25 02/27/25 tablet,extended release 24 hr Previous Rx's Medication Instructions Recorded prednisone 10 mg tablet 60 mg (6 x 10 mg) PO DAILY #147 01/31/25 tabs sulfamethoxazole 400 1 tab PO DAILY #30 tabs 01/31/25 mg-trimethoprim 80 mg tablet (Bactrim) losartan 50 mg tablet 50 mg PO QAM #30 tabs 02/07/25 omeprazole 40 mg capsule,delayed 20 mg (1/2 x 40 mg) PO QAM #30 caps 02/07/25 release Results & Data (ED) Vital Signs Vital Signs - 24 hr 05/24/25 14:35 05/24/25 15:58 05/24/25 16:25 Temperature 36.6 C Temperature Source Temporal Artery Scan Pulse Rate 143 H 106 H Pulse Rate [Apical] Respiratory Rate 18 Respiratory Effort / Characteristics Non-Labored Spontaneous Respiratory Depth Normal Respiratory Pattern Regular Blood Pressure 200/117 H Blood Pressure [Right Arm] Blood Pressure Mean 144 Blood Pressure Mean [Right Arm] Pulse Oximetry 96 94 Oxygen Delivery Method Room Air Room Air Sepsis Recent Fever Within 48 Hours No Sepsis New/Unexplained Change in Mental Status N/A Sepsis Action Taken by Nursing No Action Required 05/24/25 17:00 05/24/25 18:00 Temperature Temperature Source Pulse Rate Pulse Rate [Apical] 90 90 Respiratory Rate 18 18 Respiratory Effort / Characteristics Non-Labored Spontaneous Non-Labored Spontaneous Respiratory Depth Normal Normal Respiratory Pattern Regular Regular Blood Pressure Blood Pressure [Right Arm] 171/98 H 149/102 H Blood Pressure Mean Blood Pressure Mean [Right Arm] 122 117 Pulse Oximetry 95 96 Oxygen Delivery Method Room Air Room Air Sepsis Recent Fever Within 48 Hours Sepsis New/Unexplained Change in Mental Status Sepsis Action Taken by Nursing Laboratory Data 05/24/25 14:49 05/24/25 14:49 Lab Results 05/24/25 05/24/25 05/24/25 Range/Units 14:49 16:43 18:05 WBC 14.38 H (4.8-10.8) K/ul RBC 4.85 (4.20-5.40) M/uL Hgb 14.4 (12.0-16.0) g/dl Hct 43.5 (37.0-47.0) % MCV 89.7 (80.0-100.0) fL MCH 29.7 (25.0-34.0) pg MCHC 33.1 (32.0-36.0) g/dL RDW Std Deviation 43.8 (36.4-46.3) fL RDW Coeff of Leanna 13.3 (11.5-14.5) % Plt Count 410 H (130-400) K/uL MPV 8.9 L (9.4-12.4) fL Immature Gran % (Auto) 0.6 % Neut % (Auto) 87.4 % Lymph % (Auto) 7.0 % [place] % (Auto) 4.7 % Eos % (Auto) 0.1 % Baso % (Auto) 0.2 % Neut # (Auto) 12.57 H (1.40-6.50) K/uL Lymph # (Auto) 1.01 L (1.20-3.40) K/uL [place] # (Auto) 0.67 H (0.11-0.59) K/uL Eos # (Auto) 0.01 (0.00-0.50) K/uL Baso # (Auto) 0.03 (0.00-0.20) K/uL Immature Gran # (Auto) 0.09 (0.01-0.20) K/uL PT 10.2 (9.0-12.0) Seconds INR 0.9 (0.9-1.1) APTT 26 (21-31) Seconds PTT Ratio 1.0 Sodium 138 (136-145) mmol/L Potassium 4.1 (3.5-5.1) mmol/L Chloride 103 (98-107) mmol/L Carbon Dioxide 24 (21-32) mmol/L Anion Gap 11 (3-11) BUN 24 H (6-23) mg/dl Creatinine 0.91 (0.6-1.2) mg/dl Est Cr Clr Drug Dosing 46.1 ml/min eGFR 63.78 BUN/Creatinine Ratio 26.4 H (10-20) Glucose 140 H (70-99(Fasting)) mg/dl Calcium 9.9 (8.6-10.3) mg/dl Phosphorus 4.1 (2.5-4.9) mg/dl Magnesium 1.9 (1.7-2.4) mg/dl Total Bilirubin 0.7 (0.2-1.0) mg/dl AST 21 (13-39) U/L ALT 14 (7-52) U/L Alkaline Phosphatase 72 (34-104) U/L Troponin I High Sens 8.7 9.9 (0-14) pg/ml B-Natriuretic Peptide 82 (0-100) pg/ml Total Protein 8.0 (6.0-8.3) gm/dl Albumin 4.3 (3.4-5.0) gm/dl Globulin 3.7 (2.5-4.0) gm/dl Albumin/Globulin Ratio 1.2 (0.9-2) Lipase 18 (11-82) U/L Administered Medications Heparin Sodium (Porcine) (Heparin Sod 5,000 Unit/0.5 Ml Vial) 5,000 units SQ Q12 [facility] Stop: 06/23/25 20:59 Last Admin: 05/24/25 22:38 Dose: Not Given Documented By: jane Sodium Chloride (Nss) 500 mls @ 80 mls/hr IV .Q6H15M RACHELLE Stop: 05/25/25 03:13 Last Admin: 05/24/25 22:31 Dose: 80 mls/hr Documented By: jane Acetaminophen (Ofirmev) 1,000 mg in 100 mls @ 400 mls/hr IV Q8H PRN PRN Reason: pain/fever Stop: 05/27/25 21:27 Last Infusion: 05/24/25 22:47 Dose: Infused Documented By: Admin: 05/24/25 22:32 Dose: 400 mls/hr Documented By: jane Discontinued Medications Al Hydrox/Mg Hydrox/Simethicone (Aluminum/Magnesium Susp 30 Ml Udc) 30 ml PO NOW STA Stop: 05/24/25 16:11 Last Admin: 05/24/25 16:45 Dose: 30 ml Documented By: tamar Famotidine (Pepcid 20mg Iv Push) 20 mg in 5 mls @ 2.5 mls/min IV NOW STA Stop: 05/24/25 16:11 Last Admin: 05/24/25 16:45 Dose: 2.5 mls/min Documented By: tamar Sodium Chloride (Nss) 1,000 mls @ 999 mls/hr IV .Q1H1M ONE Stop: 05/24/25 17:10 Last Infusion: 05/24/25 17:46 Dose: Infused Documented By: Admin: 05/24/25 16:45 Dose: 999 mls/hr Documented By: tamar Ceftriaxone Sodium (Rocephin) 1,000 mg in 50 mls @ 100 mls/hr IV NOW STA Stop: 05/24/25 18:10 Last Infusion: 05/24/25 18:14 Dose: Infused Documented By: Admin: 05/24/25 17:44 Dose: 100 mls/hr Documented By: YA Azithromycin (Zithromax) 500 mg in 255 mls @ 127.5 mls/hr IV Q24H RACHELLE Stop: 05/26/25 17:44 Last Admin: 05/24/25 19:45 Dose: Not Given Documented By: MADI Ioversol (Optiray 320 125ml) 120 ml IV ONCE ONE Stop: 05/24/25 16:30 Last Admin: 05/24/25 16:30 Dose: 120 ml Documented By: EBONI Lidocaine (Lidocaine 5% 1 Patch) 1 patch TD NOW STA Stop: 05/24/25 18:57 Last Admin: 05/24/25 19:36 Dose: 1 patch Documented By: MADI Metoprolol Tartrate (Metoprolol Tartrate 1 Mg/Ml Vial) 2.5 mg IV NOW STA Stop: 05/24/25 22:39 Last Admin: 05/24/25 23:47 Dose: 2.5 mg Documented By: JOAQUIN Prednisone (Prednisone 5 Mg Tab) 5 mg PO NOW ONE Stop: 05/24/25 21:00 Last Admin: 05/24/25 23:34 Dose: Not Given Documented By: MMG Imaging Data Radiologist's Impression: Chest X-Ray 05/24/25 14:41 XR chest 1V not portable CLINICAL HISTORY: Chest pain, nonspecific COMPARISON STUDY: 11/29/2024 FINDINGS: Stable mild cardiomegaly without pulmonary vascular congestion. Stable hyperexpanded lungs. Stable small nodule right lower lung. No consolidation or pleural effusion. No pneumothorax. IMPRESSION: No acute findings. ACT 112: Negative or not required by law. Electronically signed by: Jones Duncan M.D. 05/24/2025 3:15 PM Abdomen/Pelvis CT 05/24/25 16:11 EXAMINATION: CT of the abdomen and pelvis performed after the administration of IV contrast TECHNIQUE: Helical CT images from the lung bases through the symphysis pubis were obtained with contrast. Coronal and sagittal reformatted images were generated at a workstation for further assessment. Dose reduction techniques were achieved by using automatic exposure control and/or adjustment of mA and/or kV according to patient size and/or use of iterative reconstruction technique. COMPARISON: March 03, 2024 HISTORY: Abdominal pain FINDINGS: Liver: No suspicious liver lesions. Portal veins appear patent. Gallbladder: No gallstones. No evidence of acute cholecystitis. Spleen: Normal size. Pancreas: No suspicious pancreatic lesions. The pancreatic duct is not dilated. Adrenal glands: No adrenal nodules. Kidneys: No hydronephrosis or obstructing renal stones. Bladder / Pelvic organs: Unremarkable. Bowel: No bowel obstruction. No abnormal bowel wall thickening. The appendix is not seen. Sigmoid diverticulosis without diverticulitis. Small to moderate hiatal hernia. Lymph nodes: No retroperitoneal, mesenteric, or pelvic lymphadenopathy. Peritoneum / Retroperitoneum: No free fluid or air within the abdomen. Vessels: No infrarenal aortic aneurysm. Moderate aortoiliac atherosclerosis. Bones and soft tissues: No suspicious lesion in the bones. IMPRESSION: No acute intra-abdominal process. Small to moderate hiatal hernia. Electronically signed by Gaudencio Abbott 05-24-2025 4:47 PM Chest CTA 05/24/25 16:11 Clinical history: Rule out pulmonary embolism Technique: Axial computed tomography images were obtained of the chest after the administration of intravenous contrast according to the CT angiogram protocol Findings: There is no definite sign of pulmonary embolism. There is mild pulmonary edema. There are mild multifocal groundglass opacities in the right upper lobe. There is atelectasis or scar in the right middle lobe. There is a calcified granuloma along the right major fissure. There is no pleural effusion or pneumothorax. There is mild emphysema. There is mild bilateral lung base atelectasis. No endobronchial lesion is seen There is no mediastinal, hilar, or axillary adenopathy. The thoracic aorta appears unremarkable with no sign of aneurysm or dissection. There is no pericardial effusion There is a moderate sized hiatal hernia. No fracture is seen. No focal osseous lesion is evident Impression: 1. No definite sign of pulmonary embolism 2. Mild emphysema 3. Mild pulmonary edema 4. Mild groundglass opacities in the right upper lobe that could be due to viral pneumonitis 5. Bilateral lung base atelectasis 6. Hiatal hernia Electronically signed by Gianfranco Puga 05-24-2025 4:45 PM Discharge Plan Visit Data Chief Complaint: Chest Pain Stated Complaint: BACH ACHE ED Provider: Reagan Jules Discharge Problem: Pneumonia, viral, Dysphagia, Leukocytosis, Acute diarrhea Patient Disposition: Admitted As Inpatient Condition: Fair Discharge Instructions Interventions: ED Discharge Assessment Last Done: 05/24/25 20:40
[2025-05-24] MEDS: OPTIRAY 320 125ml IV ONE (16:30)
[2025-05-24] MEDS: SODIUM CHLORIDE 0.9% 1,000 ML IV ONE (16:45)
[2025-05-24] MEDS: FAMOTIDINE 20MG IV PUSH 20 MG/5 ML SYR IV STA (16:45)
[2025-05-24] MEDS: ALUMINUM/MAGNESIUM SUSP 30 ML UDC PO STA (16:45)
--- NOTE | 2025-05-24 16:45 | CT Scan Report ---
Clinical history: Rule out pulmonary embolism Technique: Axial computed tomography images were obtained of the chest after the administration of intravenous contrast according to the CT angiogram protocol Findings: There is no definite sign of pulmonary embolism. There is mild pulmonary edema. There are mild multifocal groundglass opacities in the right upper lobe. There is atelectasis or scar in the right middle lobe. There is a calcified granuloma along the right major fissure. There is no pleural effusion or pneumothorax. There is mild emphysema. There is mild bilateral lung base atelectasis. No endobronchial lesion is seen There is no mediastinal, hilar, or axillary adenopathy. The thoracic aorta appears unremarkable with no sign of aneurysm or dissection. There is no pericardial effusion There is a moderate sized hiatal hernia. No fracture is seen. No focal osseous lesion is evident Impression: 1. No definite sign of pulmonary embolism 2. Mild emphysema 3. Mild pulmonary edema 4. Mild groundglass opacities in the right upper lobe that could be due to viral pneumonitis 5. Bilateral lung base atelectasis 6. Hiatal hernia Electronically signed by Gianfranco Puga 05-24-2025 4:45 PM
--- NOTE | 2025-05-24 16:47 | CT Scan Report ---
EXAMINATION: CT of the abdomen and pelvis performed after the administration of IV contrast TECHNIQUE: Helical CT images from the lung bases through the symphysis pubis were obtained with contrast. Coronal and sagittal reformatted images were generated at a workstation for further assessment. Dose reduction techniques were achieved by using automatic exposure control and/or adjustment of mA and/or kV according to patient size and/or use of iterative reconstruction technique. COMPARISON: March 03, 2024 HISTORY: Abdominal pain FINDINGS: Liver: No suspicious liver lesions. Portal veins appear patent. Gallbladder: No gallstones. No evidence of acute cholecystitis. Spleen: Normal size. Pancreas: No suspicious pancreatic lesions. The pancreatic duct is not dilated. Adrenal glands: No adrenal nodules. Kidneys: No hydronephrosis or obstructing renal stones. Bladder / Pelvic organs: Unremarkable. Bowel: No bowel obstruction. No abnormal bowel wall thickening. The appendix is not seen. Sigmoid diverticulosis without diverticulitis. Small to moderate hiatal hernia. Lymph nodes: No retroperitoneal, mesenteric, or pelvic lymphadenopathy. Peritoneum / Retroperitoneum: No free fluid or air within the abdomen. Vessels: No infrarenal aortic aneurysm. Moderate aortoiliac atherosclerosis. Bones and soft tissues: No suspicious lesion in the bones. IMPRESSION: No acute intra-abdominal process. Small to moderate hiatal hernia. Electronically signed by Gaudencio Abbott 05-24-2025 4:47 PM
[2025-05-24 17:15] LABS: Lipase 18.0 U/L (11-82); Magnesium 1.9 mg/dl (1.7-2.4)
[2025-05-24] MEDS: cefTRIAXone SODIUM 1,000 MG/50 ML BAG IV STA (17:44)
--- NOTE | 2025-05-24 18:40 | History & Physical Report ---
Date of Service May 24, 2025 Assessment & Plan (1) Dysphagia: (2) Low back pain: Plan 80F with PMH lung adenocarcinoma not on therapy, dysphagia, reflux esophagitis, lumbar spinal stenosis, HTN, anxiety who presents with dysphagia and back pain. #Dysphagia -Acute on chronic -Unable to tolerate both solids and liquids -This is concerning for achalasia or some other motility issue -She was supposed to have eso manometry done as OP but failed to do so Plan -Will ask GI to evaluate -Keep NPO for now -Start very gentle IVF -PICCOLO MECHANIC eval #LBP -Acute on chronic -No warning signs of caudal equina -Due to known lumbar stenosis -Pain control. avoid opioids if possible -Lidocaine patch -PT/OT #Lung NSCLC -Follows with oncology and nephrology as OP -Was on keytruda but was stopped due to STEFAN -Is on a prolonged prednisone taper, currently 5mg daily -Continue home bactrim for medical prophylaxis #? Lung opacity on CTA -Very low suspicion for bacterial PNA -No resp complaints and lungs are CTA -No O2 requirements -Her mild leukocytosis likely secondary to chronic prednisone use -Observe off further abx. risks of abx outweigh benefits at this point History of Present Illness Chief Complaint: dysphagia Primary Care Provider: Snehal Billings MD Ms. Pavon is a pleasant 80F with PMH lung adenocarcinoma not on therapy, dysphagia, reflux esophagitis, lumbar spinal stenosis, HTN, anxiety who presents with dysphagia and back pain. She reports having chronic dysphagia. she has had numerous EGDs, most recently 08/09/24 which was essentially normal. a previous EGD showed reflux esophagitis. she is on omeprazole. she follows with GI as OP and was seen on 09/26. at that time she was advised to have eso manometry but has yet to have it done. She states her dysphagia has been very mild until today. when she awoke today, she was unable to swallow solids or liquids. She has chronic back pain but it abruptly worsened yesterday while she was bending over picking weeds. It is in her lumbar spine. No radiation. no fecal or urinary incontinence. she endorses numbness in her toes b/l which is chronic. It is severe, worse with movement. sharp in quality. She also endorsed L rib pain to ED staff but denied ever having any chest pain to author ED vitals stable Labs essentially normal other than mild leukocytosis Allergies Allergy/AdvReac Type Severity Reaction Status Date / Time No Known Allergies Allergy Mild Verified 02/27/25 15:22 Home Medications Medication Instructions Recorded Confirmed Type guar gum 1 tbsp PO QAM 05/31/24 02/27/25 History pembrolizumab 50 mg intravenous 50 mg IV DIRECTED lung cancer 06/13/24 02/27/25 History solution polyethylene glycol 3350 17 17 g PO .QOD 01/30/25 02/27/25 History gram/dose oral powder (Miralax) prednisone 10 mg tablet 60 mg (6 x 10 mg) PO DAILY #147 01/31/25 02/27/25 Rx tabs sulfamethoxazole 400 1 tab PO DAILY #30 tabs 01/31/25 02/27/25 Rx mg-trimethoprim 80 mg tablet (Bactrim) losartan 50 mg tablet 50 mg PO QAM #30 tabs 02/07/25 02/27/25 Rx metoprolol succinate 25 mg 25 mg PO DAILY 02/07/25 02/27/25 History tablet,extended release 24 hr omeprazole 40 mg capsule,delayed 20 mg (1/2 x 40 mg) PO QAM #30 caps 02/07/25 02/27/25 Rx release Past Med/Surg History Problem List (Updated 05/24/25 @ 18:54 by Jerry Feldman DO) Dysphagia Low back pain Microscopic hematuria Proteinuria Acute kidney injury Lung mass Change in bowel habits Reflux esophagitis Abnormal findings on imaging test White coat syndrome with diagnosis of hypertension Hypertension Abnormal barium swallow Anxiety (Acute) Nausea (Acute) Back pain Acute pancreatitis (Acute) Non-small cell carcinoma of lung (Acute) Hypertensive urgency (Acute) Sinus tachycardia (Acute) Adenocarcinoma Medical History GERD (gastroesophageal reflux disease) Immunotherapy receiving treatment Q 3weeks, last infusion 05/18/2024 Dysphagia History of pancreatitis History of pleural effusion 01/29/2023 History of sinus tachycardia Non-small cell carcinoma of lung on treatment at present Depression no meds Low back pain Anxiety no meds Hypertension White coat syndrome with diagnosis of hypertension Rash current, occurs with immunotherapy every three weeks Dyspnea on exertion Osteoarthritis Surgical History History of esophagogastroduodenoscopy (EGD) History of basal cell carcinoma (BCC) excision History of tonsillectomy History of section Social History Smoking Status: Never smoker Tobacco Type: Cigarettes Age Started Using Tobacco: 23; Age Quit Using Tobacco: 68; packs per day: 0.5; Cigarettes Per Day: 10; Second Hand Exposure: No; Do You Dip or Chew Tobacco: No; Hx Alcohol Use: No Hx Substance Use: No Preferred Language: Martiniquais Communication Ability: Effective Visual Impairment: No Limitations Hearing Ability: Normal Dampproofer Required: No Beliefs That Will Affect Care: None marital status: Current Living Situation: Alone Current Living Situation Comment: Home health care comes 3 days/week to assist pt with shopping, chores, etc current occupational status: 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 caffeine: Yes (1 8oz cup of coffee) Dental Care, Regularly: No Physical Activity Frequency: Daily Physical Activity Frequency Comment: walking twice daily for 20-30 min. Seatbelt Use: always Do you think of yourself as: straight/heterosexual Gender Identity: Female Assistive Devices: Denture - Upper and Glasses Review of Systems Review of Systems: 14 point ROS negative unless otherwise s tated in HPI Physical Exam Physical Exam: Vitals and labs reviewed General: Well appearing, NAD HEENT: EOMI, PERRLA Neck: Supple Cardiac: RRR no rubs gallops or murmurs Lungs: CTA no rhonchi wheezing or rales Abd: S NT ND BS positive : Defferred MSK: Full ROM. No obvious deformities Ext: No Edema cyanosis Skin: Warm, Dry Neuro: AOx3 No focal deficits. Psych: Normal Mood Results & Data Results & Data Vital Signs (Past 12 Hours) Vital Signs Temp Pulse Pulse Resp BP BP Pulse Ox 05/24/25 18:00 90 18 149/102 H 96 05/24/25 17:00 90 18 171/98 H 95 05/24/25 16:25 94 05/24/25 15:58 106 H 05/24/25 14:35 36.6 C 143 H 18 200/117 H 96 O2 Del Method 05/24/25 18:00 Room Air 05/24/25 17:00 Room Air 05/24/25 16:25 Room Air 05/24/25 15:58 05/24/25 14:35 Room Air Laboratory Results Abnormal lab results 05/24/25 Range/Units 14:49 WBC 14.38 H (4.8-10.8) K/ul Plt Count 410 H (130-400) K/uL MPV 8.9 L (9.4-12.4) fL Neut # (Auto) 12.57 H (1.40-6.50) K/uL Lymph # (Auto) 1.01 L (1.20-3.40) K/uL Haywood # (Auto) 0.67 H (0.11-0.59) K/uL BUN 24 H (6-23) mg/dl BUN/Creatinine Ratio 26.4 H (10-20) Glucose 140 H (70-99(Fasting)) mg/dl Diagnostic Findings Chest X-Ray 05/24/25 14:41 XR chest 1V not portable CLINICAL HISTORY: Chest pain, nonspecific COMPARISON STUDY: 11/29/2024 FINDINGS: Stable mild cardiomegaly without pulmonary vascular congestion. Stable hyperexpanded lungs. Stable small nodule right lower lung. No consolidation or pleural effusion. No pneumothorax. IMPRESSION: No acute findings. ACT 112: Negative or not required by law. Electronically signed by: Jones Duncan M.D. 05/24/2025 3:15 PM Abdomen/Pelvis CT 05/24/25 16:11 EXAMINATION: CT of the abdomen and pelvis performed after the administration of IV contrast TECHNIQUE: Helical CT images from the lung bases through the symphysis pubis were obtained with contrast. Coronal and sagittal reformatted images were generated at a workstation for further assessment. Dose reduction techniques were achieved by using automatic exposure control and/or adjustment of mA and/or kV according to patient size and/or use of iterative reconstruction technique. COMPARISON: March 03, 2024 HISTORY: Abdominal pain FINDINGS: Liver: No suspicious liver lesions. Portal veins appear patent. Gallbladder: No gallstones. No evidence of acute cholecystitis. Spleen: Normal size. Pancreas: No suspicious pancreatic lesions. The pancreatic duct is not dilated. Adrenal glands: No adrenal nodules. Kidneys: No hydronephrosis or obstructing renal stones. Bladder / Pelvic organs: Unremarkable. Bowel: No bowel obstruction. No abnormal bowel wall thickening. The appendix is not seen. Sigmoid diverticulosis without diverticulitis. Small to moderate hiatal hernia. Lymph nodes: No retroperitoneal, mesenteric, or pelvic lymphadenopathy. Peritoneum / Retroperitoneum: No free fluid or air within the abdomen. Vessels: No infrarenal aortic aneurysm. Moderate aortoiliac atherosclerosis. Bones and soft tissues: No suspicious lesion in the bones. IMPRESSION: No acute intra-abdominal process. Small to moderate hiatal hernia. Electronically signed by Gaudencio Abbott 05-24-2025 4:47 PM Chest CTA 05/24/25 16:11 Clinical history: Rule out pulmonary embolism Technique: Axial computed tomography images were obtained of the chest after the administration of intravenous contrast according to the CT angiogram protocol Findings: There is no definite sign of pulmonary embolism. There is mild pulmonary edema. There are mild multifocal groundglass opacities in the right upper lobe. There is atelectasis or scar in the right middle lobe. There is a calcified granuloma along the right major fissure. There is no pleural effusion or pneumothorax. There is mild emphysema. There is mild bilateral lung base atelectasis. No endobronchial lesion is seen There is no mediastinal, hilar, or axillary adenopathy. The thoracic aorta appears unremarkable with no sign of aneurysm or dissection. There is no pericardial effusion There is a moderate sized hiatal hernia. No fracture is seen. No focal osseous lesion is evident Impression: 1. No definite sign of pulmonary embolism 2. Mild emphysema 3. Mild pulmonary edema 4. Mild groundglass opacities in the right upper lobe that could be due to viral pneumonitis 5. Bilateral lung base atelectasis 6. Hiatal hernia Electronically signed by Gianfranco Puga 05-24-2025 4:45 PM Code Status & VTE Plan Code Status full VTE Prophylaxis Plan VTE Prophylaxis will be ordered: Yes
[2025-05-24] MEDS: LIDOCAINE 5% 1 PATCH TD STA (19:36)
[2025-05-24] MEDS: AZITHROMYCIN 500 MG/255 ML BAG IV SCH (19:37)
[2025-05-24] MEDS ORDERED: ONDANSETRON INJ 2 MG/ML 2 ML VIAL IV PRN (20:59)
[2025-05-24] MEDS ORDERED: REMOVE LIDODERM PATCH SCH (21:00)
[2025-05-24] MEDS ORDERED: Nursing to Pharmacy Communication SCH (21:45)
[2025-05-24] MEDS: HEPARIN SOD 5,000 UNIT/0.5 ML VIAL SQ SCH (22:31)
[2025-05-24] MEDS: SODIUM CHLORIDE 0.9% 500 ML IV SCH (22:31)
[2025-05-24] MEDS: ACETAMINOPHEN 1,000 MG/100 ML VIAL IV PRN (22:32)
[2025-05-24] MEDS ORDERED: methylPREDNISolone 4 MG in SYRINGE 0 ML IV SCH ×2 (22:40→23:00)
--- NOTE | 2025-05-24 22:42 | Communication Note ---
Date of Service: May 24, 2025 Staff unable to give p.o. meds due to dysphagia until BEHAVIORAL HEALTH DIRECTOR eval. IV Solu-Medrol while patient unable to take daily prednisone
[2025-05-24] MEDS: METOPROLOL TARTRATE 1 MG/ML VIAL IV STA (23:47)
[2025-05-25] MEDS ORDERED: METOPROLOL TARTRATE 1 MG/ML VIAL IV SCH (06:00)
[2025-05-25] MEDS: REMOVE LIDODERM PATCH ONE (08:28)
[2025-05-25 08:31] LABS: Hematocrit (blood only) 39.1 % (37.0-47.0); Hemoglobin 12.6 g/dl (12.0-16.0); Mean Corpuscular Hemoglobin 29.4 pg (25.0-34.0); Mean Corpuscular Volume 91.1 fL (80.0-100.0); Platelet Count 319 K/uL (130-400); RDW Standard Deviation 44.8 fL (36.4-46.3); Red Blood Count 4.29 M/uL (4.20-5.40); White Blood Count 8.13 K/ul (4.8-10.8)
[2025-05-25 08:50] LABS: Anion Gap 5.0 (3-11); Blood Urea Nitrogen 20.0 mg/dl (6-23); Calcium 9.0 mg/dl (8.6-10.3); Carbon Dioxide 25.0 mmol/L (21-32); Chloride 108.0 mmol/L (98-107); Creatinine Clr Calc Pharmacy 54.4 ml/min; Glucose 92.0 mg/dl (70-99(Fasting)); Potassium 3.9 mmol/L (3.5-5.1); Sodium 138.0 mmol/L (136-145)
--- NOTE | 2025-05-25 09:17 | Gastrointestinal Consultation ---
Date of Consultation May 25, 2025 Assessment & Plan (1) Dysphagia: Patient seen in conjunction with Speech Language Pathology Team. Discussed recommendation of repeat EGD to rule out interval changes such as esophageal candidiasis due to ongoing steroid use. Discussed with patient that this would help E[employer] SPICE [employer]ER team to make further decisions regarding their further evaluation/recommendations. Patient agreeable. Keep NPO & proceed with EGD today. Supervising Physician Co-Signing Physician Notes 80-year-old female of [place] during descent. States she is having trouble swallowing. Benefits to GERD x 2 in the past including recent upper endoscopies. Had eggs yesterday states she has not swallowed well since that time. There is no spontaneous emesis she is not spitting up CT did not show dilated or fluid-filled esophagus to suggest esophageal obstruction or achalasia. Patient has been on high-dose prednisone. It is potential that she has esophageal candidiasis. Upper endoscopy today to evaluate swallowing probl ems if this is once again negative consider proceeding with modified barium swallow barium esophagram with barium tablet History of Present Illness Reason for Consultation: Dysphagia Attending Physician: Shoaib Humphreys MD History of Present Illness Patient is an 80 yo female with PMH of lung cancer not currently on therapy, spinal stenosis, HTN, anxiety, and ongoing dysphagia. She presented to the ED for dysphagia. She has had 2 EGDs for this issue (June and August 2024 without findings to explain her dysphagia beyond mild reflux esophagitis on biopsies. She had a barium swallow that showed mild esophageal dysmotility. She was advised to have an esophageal manometry and was referred to [facility] for this, but did not pursue this. She notes that her dysphagia had not been bothering her lately until yesterday when she felt that she wasn't able to swallow. She does have a mild to moderate hiatal hernia. She has swallowed liquid medication since presentation to the ED. She takes Omeprazole 40 mg daily. She does take daily Prednisone. A CT abd/pelvis was unremarkable for acute issues on admission. A chest CTA did not identify causes of dysphagia either. Allergies Allergy/AdvReac Type Severity Reaction Status Date / Time No Known Allergies Allergy Mild Verified 02/27/25 15:22 Home Medications Medication Instructions Recorded Confirmed Type guar gum 1 tbsp PO QAM 05/31/24 02/27/25 History pembrolizumab 50 mg intravenous 50 mg IV DIRECTED lung cancer 06/13/24 02/27/25 History solution polyethylene glycol 3350 17 17 g PO .QOD 01/30/25 02/27/25 History gram/dose oral powder (Miralax) prednisone 10 mg tablet 60 mg (6 x 10 mg) PO DAILY #147 01/31/25 02/27/25 Rx tabs sulfamethoxazole 400 1 tab PO DAILY #30 tabs 01/31/25 02/27/25 Rx mg-trimethoprim 80 mg tablet (Bactrim) losartan 50 mg tablet 50 mg PO QAM #30 tabs 02/07/25 02/27/25 Rx metoprolol succinate 25 mg 25 mg PO DAILY 02/07/25 02/27/25 History tablet,extended release 24 hr omeprazole 40 mg capsule,delayed 20 mg (1/2 x 40 mg) PO QAM #30 caps 02/07/25 02/27/25 Rx release Patient History Medical History GERD (gastroesophageal reflux disease) Immunotherapy receiving treatment Q 3weeks, last infusion 05/18/2024 History of pancreatitis History of pleural effusion 01/29/2023 History of sinus tachycardia Non-small cell carcinoma of lung on treatment at present Depression no meds Anxiety no meds Hypertension White coat syndrome with diagnosis of hypertension Rash current, occurs with immunotherapy every three weeks Dyspnea on exertion Osteoarthritis Surgical History History of esophagogastroduodenoscopy (EGD) History of basal cell carcinoma (BCC) excision History of tonsillectomy History of section Social History Smoking Status: Former smoker Tobacco Type: Cigarettes Age Started Using Tobacco: 23; Age Quit Using Tobacco: 68; packs per day: 0.5; Cigarettes Per Day: 10; Second Hand Exposure: No; Do You Dip or Chew Tobacco: No; Hx Alcohol Use: No Hx Substance Use: No Preferred Language: Australian Communication Ability: Effective Visual Impairment: No Limitations Hearing Ability: Normal Chair Pad Maker Required: No Beliefs That Will Affect Care: None marital status: Current Living Situation: Alone Current Living Situation Comment: Home health care comes 3 days/week to assist pt with shopping, chores, etc current occupational status: retired 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 caffeine: Yes (1 8oz cup of coffee) Dental Care, Regularly: No Physical Activity Frequency: Daily Physical Activity Frequency Comment: walking twice daily for 20-30 min. Seatbelt Use: always Do you think of yourself as: straight/heterosexual Gender Identity: Female Assistive Devices: Denture - Upper and Glasses Review of Systems Constitutional: no weight loss Gastrointestinal: + dysphagia Physical Exam Constitutional: well developed Respiratory: normal respiratory effort Gastrointestinal (Abdomen): Percussion/Palpation: abdomen soft; abdomen nontender Psychiatric: Orientation: alert and oriented x 3 Results & Data Vital Signs (Past 12 Hours) Vital Signs Temp Pulse Pulse Resp BP BP Pulse Ox 05/25/25 07:00 36.7 C 77 18 109/61 94 05/25/25 02:44 36.9 C 58 L 18 120/67 94 05/25/25 01:26 62 134/68 05/24/25 23:47 67 152/69 H 05/24/25 23:15 36.9 C 67 20 145/80 H 95 05/24/25 23:00 76 05/24/25 22:45 145/72 H O2 Del Method 05/25/25 07:00 Room Air 05/25/25 02:44 Room Air 05/25/25 01:26 05/24/25 23:47 05/24/25 23:15 Room Air 05/24/25 23:00 05/24/25 22:45 PG Care Time/CCT Total # of Minutes Spent Total Time Spent with Patient: Total time spent is greater than 50% in coordination of care (as documented) at patient's floor/unit and/or counseling patient: Coding Level of Care Code 47868 INT INP/OBS CARE 3/75MIN Diagnoses Dysphagia R13.10
[2025-05-25] MEDS: PANTOprazole 40 MG/10 ML SYR IV SCH (09:52)
[2025-05-25] MEDS ORDERED: DICLOFENAC SOD 1% GEL 100 GM TUBE EXT PRN (10:06)
--- NOTE | 2025-05-25 10:26 | Anesthesiology Consultation ---
Date of Service May 25, 2025 Assessment & Plan Consults Requested medical & cardiac Pulmonary ASA ASA3 Proposed Anesthesia Anesthesia Type: MAC Risk / Benefits Reviewed With: PT / POA / Parent / Guardian, Accepts Plan and Informed Consent Obtained History Surgery Operation Date: 05/25/25 17:00 Proposed Procedures p Esophagogastroduodenoscopy Dr. Gregory Jenkins MD Height/Weight Height: 5 ft 3 in Weight: 69.3 kg Allergies Allergy/AdvReac Type Severity Reaction Status Date / Time No Known Allergies Allergy Mild Verified 02/27/25 15:22 Medications Home Medications Medication Instructions Recorded Confirmed Last Taken guar gum 1 tbsp PO QAM 05/31/24 02/27/25 08/08/24 pembrolizumab 50 mg intravenous 50 mg IV DIRECTED lung cancer 06/13/24 02/27/25 07/20/24 solution polyethylene glycol 3350 17 17 g PO .QOD 01/30/25 02/27/25 Unknown gram/dose oral powder (Miralax) prednisone 10 mg tablet 60 mg (6 x 10 mg) PO DAILY #147 01/31/25 02/27/25 Unknown tabs sulfamethoxazole 400 1 tab PO DAILY #30 tabs 01/31/25 02/27/25 Unknown mg-trimethoprim 80 mg tablet (Bactrim) losartan 50 mg tablet 50 mg PO QAM #30 tabs 02/07/25 02/27/25 Unknown metoprolol succinate 25 mg 25 mg PO DAILY 02/07/25 02/27/25 Unknown tablet,extended release 24 hr omeprazole 40 mg capsule,delayed 20 mg (1/2 x 40 mg) PO QAM #30 caps 02/07/25 02/27/25 Unknown release Active Medications Generic Name Dose Route Start Last Admin Trade Name Freq PRN Reason Stop Dose Admin Heparin Sodium (Porcine) 5,000 units 05/24/25 21:00 05/25/25 08:47 Heparin Sod 5,000 Unit/0.5 Ml Vial SQ 06/23/25 20:59 Not Given Q12 RACHELLE Acetaminophen 1,000 mg in 100 mls @ 400 mls/hr 05/24/25 21:28 05/25/25 09:09 Ofirmev IV 05/27/25 21:27 Infused Q8H PRN Infusion pain/fever Pantoprazole Sodium 40 mg in 10 mls @ 5 mls/min 05/25/25 09:00 05/25/25 09:52 Protonix IV 06/24/25 08:59 5 mls/min DAILY RACHELLE Administration NPO Date Last Intake of Fluids: 05/24/25 Time Last Intake of Fluids: 08:00 Date Last Intake of Solids: 05/24/25 Time Last Intake of Solids: 08:00 Past Medical History Medical History GERD (gastroesophageal reflux disease) Immunotherapy receiving treatment Q 3weeks, last infusion 05/18/2024 History of pancreatitis History of pleural effusion 01/29/2023 History of sinus tachycardia Non-small cell carcinoma of lung on treatment at present Depression no meds Anxiety no meds Hypertension White coat syndrome with diagnosis of hypertension Rash current, occurs with immunotherapy every three weeks Dyspnea on exertion Osteoarthritis Exercise / Class Metabolic Activity III < 4 Walking/Shop/Light housework Past Surgical History Surgical History History of esophagogastroduodenoscopy (EGD) History of basal cell carcinoma (BCC) excision History of tonsillectomy History of section Past Anesthesia History No Hx of Anesthesia Complications and No Family Hx of Anesthesia Complications History of PONV No Hx of PONV and No Hx of Motion Sickness Social History Smoking Status: Former smoker Smoking cigarettes per day: 10 Do You Dip or Chew Tobacco: No Hx Alcohol Use: No Hx Substance Use: No substance use type: does not use Physical Exam Vital Signs Last Vital Signs Temp 37.5 C 05/25/25 10:19 Pulse 67 05/25/25 10:19 Resp 18 05/25/25 10:19 BP 127/67 05/25/25 10:19 Pulse Ox 93 05/25/25 10:19 O2 Del Method Room Air 05/25/25 10:19 Constitutional + obese; no acute distress ENMT Mouth: + dentures and + edentulous; no TMJ abnormality Mallampati Class: II Neck normal visual inspection Respiratory normal respiratory effort Auscultation: lungs clear to auscultation bilaterally Cardiovascular Rate/Rhythm: regular rate and regular rhythm Psychiatric Orientation: alert and oriented x 3 Testing Laboratory Results 05/25/25 08:02 05/25/25 08:02 PT 10.2 Seconds (9.0-12.0) 05/24/25 14:49 INR 0.9 (0.9-1.1) 05/24/25 14:49 APTT 26 Seconds (21-31) 05/24/25 14:49 Electrocardiogram Date: 05/24/25 Findings: + ST @ Chest X-Ray Date: 05/24/25 RLL nodule Echocardiogram Date: 03/05/24 EF: 60 mild LVH, mild MR
--- NOTE | 2025-05-25 11:01 | Communication Note ---
Date of Service: May 25, 2025 No esophageal obstruction. No esophageal candidiasis. Stomach full of food precluding adequate examination and procedure aborted due to risk of aspiration. IV Reglan x 24 hours. Potential rescope in the next day or 2 rule out distal obstruction. Would not proceed with barium studies at this point with stomach full of food. Also barium studies would preclude any endoscopy for the next 2 to 3 days
--- NOTE | 2025-05-25 11:23 | GI REPORT ---
[facility] Patient: DORIE PEREZ : 1945 Sex at : Female Age: 80 Years Procedure: Upper GI endoscopy Date: 05/25/2025 Attending Physician: Tien Jenkins MD Referring MD: Referred Self; Shoaib Humphreys Md Indications: - Dysphagia - Foreign body sensation Medications: - Monitored Anesthesia Care Complications: - No immediate complications. Estimated Blood Loss: - Estimated blood loss: None. Procedure: - The egd scope was introduced through the mouth and advanced to the gastric cardia. - The upper GI endoscopy was accomplished without difficulty. - The patient tolerated the procedure well. Findings: - A medium-sized hiatal hernia was present. - A large amount of food (residue) was found in the gastric fundus. Procedure aborted - Remained the upper GI tract antrum and duodenum could not be assessed due to aspiration risk Impression: - Medium-sized hiatal hernia. - A large amount of food (residue) in the stomach. - Procedure aborted - Remained the upper GI tract antrum and duodenum could not be assessed due to aspiration risk - No specimens collected. Recommendation: - No evidence for esophageal obstruction though there is a large amount of food throughout her hiatal hernia and obscuring most of the cardia and fundus. Procedure was aborted due to aspiration risk. X-ray did not show obvious bowel obstruction. Will begin IV Reglan to assist gastric emptying. Potential repeat endoscopy after 24 to 48 hours to clear gastric contents. Probably will need a general anesthesia for airway protection. Procedure Code(s): - 78268, Esophagoscopy, flexible, transoral; diagnostic, including collection of specimen(s) by brushing or washing, when performed (separate procedure) Diagnosis Code(s): - R13.10, Dysphagia, unspecified - K44.9, Diaphragmatic hernia without obstruction or gangrene CPT(R) - 202 copyright [employer]. All Rights Reserved. The CPT codes, CCI edits and ICD codes generated are intended as suggestions and were generated based on input data. These codes are preliminary and upon navy material inspector review may be revised to meet current compliance and payer requirements. The provider is responsible for the final determination of appropriate codes, and modifiers. Tien Jenkins MD This document has been electronically signed. Note Initiated:05/25/2025 Note Completed:05/25/2025 11:22 AM [email or web address]\Provation\Results\[email or web address]\[id number]
--- NOTE | 2025-05-25 12:03 | Anesthesiology Progress Note ---
Date of Service May 25, 2025 Anesthesia Post Procedure Vital Signs Vital Signs: Temp Pulse Pulse Pulse Resp BP BP 05/25/25 11:39 62 18 124/58 L 05/25/25 11:20 62 18 109/52 L 05/25/25 11:05 71 18 91/46 L 05/25/25 10:44 05/25/25 10:19 37.5 C 67 18 127/67 05/25/25 07:00 36.7 C 77 18 109/61 05/25/25 02:44 36.9 C 58 L 18 120/67 05/25/25 01:26 62 134/68 05/24/25 23:47 67 152/69 H 05/24/25 23:15 36.9 C 67 20 145/80 H 05/24/25 23:00 76 05/24/25 22:45 145/72 H 05/24/25 21:00 36.8 C 67 18 178/106 H 05/24/25 21:00 36.8 C 75 16 178/106 H 05/24/25 20:00 77 18 173/97 H 05/24/25 19:50 79 05/24/25 18:00 90 18 149/102 H 05/24/25 17:00 90 18 171/98 H 05/24/25 16:25 05/24/25 15:58 106 H 05/24/25 14:35 36.6 C 143 H 18 200/117 H Pulse Ox O2 Del Method 05/25/25 11:39 92 Room Air 05/25/25 11:20 92 Room Air 05/25/25 11:05 94 Room Air 05/25/25 10:44 Room Air 05/25/25 10:19 93 Room Air 05/25/25 07:00 94 Room Air 05/25/25 02:44 94 Room Air 05/25/25 01:26 05/24/25 23:47 05/24/25 23:15 95 Room Air 05/24/25 23:00 05/24/25 22:45 05/24/25 21:00 96 Room Air 05/24/25 21:00 95 Room Air 05/24/25 20:00 95 05/24/25 19:50 05/24/25 18:00 96 Room Air 05/24/25 17:00 95 Room Air 05/24/25 16:25 94 Room Air 05/24/25 15:58 05/24/25 14:35 96 Room Air Pain Intensity Lower Back: Pain Intensity: 9 Transfer of Care Handoff Completed per policy Notes Mental Status: alert / awake / arousable Patient Amnestic to Procedure: Yes Nausea / Vomiting: adequately controlled Pain: adequately controlled Airway Patency, RR, SpO2: stable & adequate BP & HR: stable & adequate Hydration State: stable & adequate Anesthetic Complications: no major complications apparent and Pt Satisfied with anesthetic care
[2025-05-25] MEDS: LOSARTAN POTASSIUM 50 MG TAB PO SCH (12:23)
[2025-05-25] MEDS: methylPREDNISolone 4 MG in SYRINGE 0 ML IV SCH (12:25)
[2025-05-25] MEDS: SULFA/TRIMETH 400/80MG TAB PO SCH (12:25)
[2025-05-25] MEDS: LIDOCAINE 5% 1 PATCH TD SCH (12:30)
[2025-05-25] MEDS: METOCLOPRAMIDE HCL INJ 5 MG/ML 2 ML VIAL IV SCH (12:35)
--- NOTE | 2025-05-25 13:27 | Hospitalist Progress Note ---
Date of Service May 25, 2025 Assessment & Plan (1) Dysphagia: (2) Low back pain: Plan 80F with PMH lung adenocarcinoma not on therapy, dysphagia, reflux esophagitis, lumbar spinal stenosis, HTN, anxiety who presents with dysphagia and back pain. She has chronic dysphagia which worsened on the day of arrival. Also she reported abrupt worsening of chronic back pain on the day of presentation while she was bending over picking weeds, reports radiating pain to ant thigh b/l. She is being managed for the following: #Acute on chronic Dysphagia -pt has ho chronic dysphagia -Unable to tolerate both solids and liquids started on the day of arrival -This is concerning for achalasia or some other motility issue -She was supposed to have eso manometry done as OP but failed to do so GI on board, s/p EGD scope 05/25 - medium sized hiatal hernia noted, large amount of food in stomach noted, hence procedure aborted. iv reglan to assist w/ emptying and plan for repeat scope in 24-48 hours. Clear liq diet. c/w PPI. #Acute on chronic low back pain Patient reports worsening low back pain on the day of presentation. Patient denies any incontinence symptoms. Patient has known lumbar stenosis. Given history of cancer, will get MRI L-spine to rule out metastasis. Will get vitamin D level. Continue with diclofenac gel and lidocaine patch and Tylenol. Patient not much interested in oxycodone. PT/OT. Avoid opiates if possible due to concern for gastric motility issues. #Lung NSCLC -Follows with oncology and nephrology as OP -Was on keytruda but was stopped due to STEFAN -Is on a prolonged prednisone taper, currently 5mg daily -Pt reports she is no more taking or is prescribed Bactrim as outpatient. -Since she is taking 5 mg prednisone at home, will hold on to bactrim Px. #? Lung opacity on CTA -Very low suspicion for bacterial PNA -No resp complaints and lungs are CTA -No O2 requirements -Her mild leukocytosis likely secondary to chronic prednisone use -Observe off further abx. risks of abx outweigh benefits at this point -WBC normalized, pt has been afebrile. Admission and Anticipated Discharge Date Admission Date: May 24, 2025 Subjective patient was seen and examined at bedside. Patient was lying in bed, on room air, NAD, resting comfortably. Patient reports her back pain is bothering her with movement. Given history of cancer, will get MRI L spine. Patient is n.p.o. for EGD evaluation. Patient reports continence with bowel and bladder. Physical Exam Physical Exam: General: Well appearing, NAD HEENT: EOMI, PERRLA Neck: Supple Cardiac: RRR no rubs gallops or murmurs Lungs: CTA no rhonchi wheezing or rales Abd: S NT ND BS positive : Deferred MSK: Full ROM. No obvious deformities Ext: No Edema cyanosis Skin: Warm, Dry Neuro: AOx3 No focal deficits. Psych: Normal Mood Results & Data Results & Data Vital Signs (Past 12 Hours) Vital Signs Temp Pulse Pulse Pulse Resp BP BP 05/25/25 11:39 62 18 124/58 L 05/25/25 11:20 62 18 109/52 L 05/25/25 11:05 71 18 91/46 L 05/25/25 10:44 05/25/25 10:19 37.5 C 67 18 127/67 05/25/25 07:00 36.7 C 77 18 109/61 05/25/25 02:44 36.9 C 58 L 18 120/67 05/25/25 01:26 62 134/68 Pulse Ox O2 Del Method 05/25/25 11:39 92 Room Air 05/25/25 11:20 92 Room Air 05/25/25 11:05 94 Room Air 05/25/25 10:44 Room Air 05/25/25 10:19 93 Room Air 05/25/25 07:00 94 Room Air 05/25/25 02:44 94 Room Air 05/25/25 01:26
[2025-05-25] MEDS: GADOBUTROL 65ML VIAL IV ONE (14:01)
--- NOTE | 2025-05-25 14:17 | Magnetic Resonance Report ---
MR lumbar spine wo/w con CLINICAL HISTORY: acute back pain, ho cancer. COMPARISON: 03/03/2024 TECHNIQUE: Multiplanar, multi sequence MRI of the lumbar spine was performed before and after 7 cc ga dolinium IV FINDINGS: Conus medullaris terminates normally at L1. No lumbar spine fracture seen. There is a stabl e small hemangioma at the L2 vertebral body. No suspicious osseous lesion. There is diffuse degenerat sergo disc disease and lower lumbar facet and ligamentum flavum hypertrophy. There is stable mild retro listhesis of L1 on 2 and L2 on 3. No abnormal enhancement seen. L1-2: There is a mild disc bulge. No significant central canal or neuroforaminal narrowing. L2-3: There is a mild disc bulge and mild ligamentum flavum and facet hypertrophy. No significant kumar tral canal narrowing. There is mild bilateral neural foraminal narrowing. L3-4: There is a mild disc bulge with mild ligamentum flavum and facet hypertrophy. No significant ce ntral canal or neural foraminal narrowing. L4-5: There is a mild disc bulge and mild facet hypertrophy. No significant central canal or neural f oraminal narrowing. L5-S1: There is a mild disc bulge and facet hypertrophy. No significant central canal narrowing. Ther e is moderate right and mild left neural foraminal narrowing. IMPRESSION: 1. No lumbar spine fracture. 2. Diffuse degenerative changes, not significantly changed. ACT 112: Negative or not required by law. The above report was generated using voice recognition software. It may contain grammatical, syntax o r spelling errors. Electronically signed by: Jones Duncan M.D. 05/25/2025 2:16 PM
[2025-05-25] MEDS: POLYETHYLENE (MIRALAX) 17 GM PACK PO SCH (14:24)
[2025-05-25] MEDS: LIDOCAINE 2% 2 ML VIAL/AMP(20MG/ML) INFIL ONE (17:39)
[2025-05-25] MEDS: PROPOFOL IV EMULSION 10 MG/ML 20 ML VIAL IV ONE (17:39)
[2025-05-25] MEDS: DOCUSATE SODIUM 100 MG CAP PO SCH (20:20)
[2025-05-25] MEDS: REMOVE LIDODERM PATCH SCH (20:22)
[2025-05-26 06:16] LABS: Hematocrit (blood only) 36.4 % (37.0-47.0); Hemoglobin 11.9 g/dl (12.0-16.0); Mean Corpuscular Hemoglobin 30.0 pg (25.0-34.0); Mean Corpuscular Volume 91.7 fL (80.0-100.0); Platelet Count 297 K/uL (130-400); RDW Standard Deviation 44.5 fL (36.4-46.3); Red Blood Count 3.97 M/uL (4.20-5.40); White Blood Count 8.92 K/ul (4.8-10.8)
--- NOTE | 2025-05-26 06:30 | Electrocardiogram Report ---
Test Reason : Blood Pressure : */* mmHG Vent. Rate : 127 BPM Atrial Rate : 127 BPM P-R Int : 134 ms QRS Dur : 82 ms QT Int : 302 ms P-R-T Axes : 48 43 19 degrees QTcB Int : 438 ms Sinus tachycardia Otherwise normal ECG When compared with ECG of 22-Mar-2024 13:59, No significant change was found Confirmed by Andi Costa ([id number]) on 05/26/2025 6:30:28 AM Referred By: Confirmed By: Andi Costa
[2025-05-26 06:40] LABS: Anion Gap 5.0 (3-11); Blood Urea Nitrogen 15.0 mg/dl (6-23); Calcium 8.8 mg/dl (8.6-10.3); Carbon Dioxide 27.0 mmol/L (21-32); Chloride 108.0 mmol/L (98-107); Creatinine Clr Calc Pharmacy 50.4 ml/min; Glucose 90.0 mg/dl (70-99(Fasting)); Magnesium 2.1 mg/dl (1.7-2.4); Potassium 3.7 mmol/L (3.5-5.1); Sodium 140.0 mmol/L (136-145)
--- NOTE | 2025-05-26 12:15 | Gastroenterology Progress Note ---
Date of Service May 26, 2025 Assessment & Plan (1) Gastroparesis: Plan: Delayed gastric emptying with food. Question if this is on the basis of idiopathic gastroparesis or if there is evidence of gastric outlet obstruction with ulcers or neoplasia. She had endoscopy about a year ago that did not show that so that interval would be relatively short. However explanation for her problem will need repeat endoscopy. Her hiatal hernia did not appear large e nough to be a volvulus. And CT did not show this. Continue liquids. IV Reglan. Endoscopy tomorrow. Expect this to be in the OR with airway protection. (2) Right sided abdominal pain: Plan: If endoscopy does not show explanation for abdominal pain further imaging of the gallbladder suggested Admission and Anticipated Discharge Date Admission Date: May 24, 2025 Subjective Difficulty eating Back pain Patient seems to be tolerating liquids. EGD compromised by large amount of retained food debris in the stomach. She has been on IV Reglan now. Plan to repeat EGD tomorrow to evaluate because of gastric outlet obstruction. Patient having pain on the right side and back pain. MRI of the spine does not show obvious compression fractures. There is some degenerative change. Her gallbladder is in place though CT on this admission did not show gallstones or gallbladder wall thickening. White count normal. Review of Systems Review of Systems: Denies fevers chills. Right side abdominal and back pain as mention. Continues to feel if she is spitting up liquids. Physical Exam Physical Exam: Benign abdomen Ly sign negative Results & Data Results & Data Vital Signs (Past 12 Hours) Vital Signs Temp Pulse Pulse Resp BP Pulse Ox O2 Del Method 05/26/25 11:35 85 05/26/25 10:57 37.0 C 69 18 133/75 94 Room Air 05/26/25 07:56 37.5 C 84 18 108/68 94 Room Air 05/26/25 07:24 Room Air 05/26/25 04:20 37.3 C 74 17 110/65 93 Room Air PG Care Time/CCT Total # of Minutes Spent Total Time Spent with Patient: Total time spent is greater than 50% in coordination of care (as documented) at patient's floor/unit and/or counseling patient: Coding Level of Care Code 05691 SUB INP/OBS CARE 10/28MIN Diagnoses Gastroparesis K31.84 Right sided abdominal pain R10.9
[2025-05-26] MEDS ORDERED: SOD PHOSPHATE/SOD BIPHOSPHATE ENEMA 132 ML BTL PR PRN (13:43)
--- NOTE | 2025-05-26 13:43 | Hospitalist Progress Note ---
Date of Service May 26, 2025 Assessment & Plan (1) Dysphagia: (2) Low back pain: Plan 80F with PMH lung adenocarcinoma not on therapy, dysphagia, reflux esophagitis, lumbar spinal stenosis, HTN, anxiety who presents with dysphagia and back pain. She has chronic dysphagia which worsened on the day of arrival. Also she reported abrupt worsening of chronic back pain on the day of presentation while she was bending over picking weeds, reports radiating pain to ant thigh b/l. She is being managed for the following: #Acute on chronic Dysphagia -pt has ho chronic dysphagia -Unable to tolerate both solids and liquids started on the day of arrival -This is concerning for achalasia or some other motility issue -She was supposed to have eso manometry done as OP but failed to do so GI on board, s/p EGD scope 05/25 - medium sized hiatal hernia noted, large amount of food in stomach noted, hence procedure aborted. iv reglan to assist w/ emptying and plan for repeat scope in 24-48 hours. Clear liq diet. c/w PPI. c/w reglan, plan for EGD scope nancy. NPO midnight #Acute on chronic low back pain Patient reports worsening low back pain on the day of presentation. Patient denies any incontinence symptoms. Patient has known lumbar stenosis. Given history of cancer, MRI L-spine to rule out metastasis - no acute findings. Will get vitamin D level. Continue with diclofenac gel and lidocaine patch and Tylenol. Patient not much interested in oxycodone. PT/OT. Avoid opiates if possible due to concern for gastric motility issues. Pt reports pain better controlled today and is able to move far better today. #Lung NSCLC -Follows with oncology and nephrology as OP -Was on keytruda but was stopped due to STEFAN -Is on a prolonged prednisone taper, currently 5mg daily -Pt reports she is no more taking or is prescribed Bactrim as outpatient. -Since she is taking 5 mg prednisone at home, will hold on to bactrim Px. #? Lung opacity on CTA -Very low suspicion for bacterial PNA -No resp complaints and lungs are CTA -No O2 requirements -Her mild leukocytosis likely secondary to chronic prednisone use -Observe off further abx. risks of abx outweigh benefits at this point -WBC normalized, pt has been afebrile. Home meds: Per pt, she takes losartan 50 mg QAM/prednisone 5 Mg/omeprazole 20 Mg, Does not take metoprolol/Keytruda/MiraLAX/Bactrim. Admission and Anticipated Discharge Date Admission Date: May 24, 2025 Subjective Patient was seen and examined at bedside. Patient was lying in bed, on room air, NAD, resting comfortably. Patient reports her back pain better today. d/w pt about her mri l spine findings, no acute issues w/ mri. Patient reports no BM, is moving gas and no bowel pain. Physical Exam Physical Exam: General: Well appearing, NAD HEENT: EOMI, PERRLA Neck: Supple Cardiac: RRR no rubs gallops or murmurs Lungs: CTA no rhonchi wheezing or rales Abd: S NT ND BS positive : Deferred MSK: Full ROM. No obvious deformities Ext: No Edema cyanosis Skin: Warm, Dry Neuro: AOx3 No focal deficits. Psych: Normal Mood Results & Data Results & Data Vital Signs (Past 12 Hours) Vital Signs Temp Pulse Pulse Resp BP Pulse Ox O2 Del Method 05/26/25 11:35 85 05/26/25 10:57 37.0 C 69 18 133/75 94 Room Air 05/26/25 07:56 37.5 C 84 18 108/68 94 Room Air 05/26/25 07:24 Room Air 05/26/25 04:20 37.3 C 74 17 110/65 93 Room Air
--- NOTE | 2025-05-26 17:21 | Ultrasound Report ---
EXAMINATION: US abdomen right upper quadrant COMPARISON: None HISTORY: Abdominal pain TECHNIQUE: The right upper quadrant of the abdomen was scanned in standard fashion with specialized ultrasound transducers using both covington scale and limited color Doppler techniques. Findings: Liver: The liver demonstrates normal homogeneous echotexture. No evidence of a focal hepatic mass or intrahepatic biliary ductal dilatation. The main portal vein is patent with antegrade flow. The liver measures 15.2 cm. Gallbladder: The gallbladder is well distended and of normal morphology. There is no wall thickening, pericholecystic fluid, sonographic Ly's sign nor evidence for cholelithiasis. There is a minimal debris within the lumen of the gallbladder otherwise without definite stones. The few echogenic foci within the wall of the gallbladder with some ringdown artifact is seen which may represent adenomyomatosis/cholesterolosis. Bile Ducts: Both the intra- and extrahepatic biliary system are of normal caliber. The common bile duct measures mm in diameter. Pancreas: Visualized portions of the head and body of the pancreas are unremarkable. Right kidney: Normal echotexture, without mass or hydronephrosis. Simple appearing cyst measuring 1.3 cm. Right kidney craniocaudal dimension: 2.2 cm Fluid: No evidence of ascites or pleural effusions. Impression: 1. Normal right upper quadrant abdominal ultrasound. 2.The few echogenic foci within the wall of the gallbladder with some ringdown artifact is seen which may represent adenomyomatosis/cholesterolosis. Electronically signed by Gaudencio Abbott 05-26-2025 5:20 PM
[2025-05-27 06:11] LABS: Hematocrit (blood only) 35.8 % (37.0-47.0); Hemoglobin 11.8 g/dl (12.0-16.0); Mean Corpuscular Hemoglobin 29.9 pg (25.0-34.0); Mean Corpuscular Volume 90.9 fL (80.0-100.0); Platelet Count 295 K/uL (130-400); RDW Standard Deviation 41.9 fL (36.4-46.3); Red Blood Count 3.94 M/uL (4.20-5.40); White Blood Count 6.88 K/ul (4.8-10.8)
[2025-05-27 06:37] LABS: Alanine Aminotransferase 10.0 U/L (7-52); Albumin Globulin Ratio 1.1 (0.9-2); Alkaline Phosphatase 57.0 U/L (34-104); Anion Gap 6.0 (3-11); Bilirubin,Total 0.7 mg/dl (0.2-1.0); Blood Urea Nitrogen 14.0 mg/dl (6-23); Calcium 9.1 mg/dl (8.6-10.3); Carbon Dioxide 26.0 mmol/L (21-32); Chloride 109.0 mmol/L (98-107); Creatinine Clr Calc Pharmacy 50.9 ml/min; Globulin 3.1 gm/dl (2.5-4.0); Glucose 91.0 mg/dl (70-99(Fasting)); Potassium 3.5 mmol/L (3.5-5.1); Sodium 141.0 mmol/L (136-145); Total Protein 6.4 gm/dl (6.0-8.3)
--- NOTE | 2025-05-27 07:04 | Anesthesiology Consultation ---
Date of Service May 27, 2025 Assessment & Plan Chart Review Chart Review: Acceptable Risk for Surgery and Patient NOT seen in Pre Admission Testing Consults Requested none ASA ASA4 Proposed Anesthesia Anesthesia Type: General History Surgery Operation Date: 05/25/25 17:00 Proposed Procedures p Esophagogastroduodenoscopy Dr. Gregory Jenkins MD Operation Date: 05/27/25 07:30 Proposed Procedures p Esophagogastroduodenoscopy Dr. Gregory Jenkins MD Height/Weight Height: 5 ft 3 in Weight: 68.8 kg Allergies Allergy/AdvReac Type Severity Reaction Status Date / Time No Known Allergies Allergy Mild Verified 02/27/25 15:22 Medications Home Medications Medication Instructions Recorded Confirmed Last Taken guar gum 1 tbsp PO QAM 05/31/24 02/27/25 08/08/24 pembrolizumab 50 mg intravenous 50 mg IV DIRECTED lung cancer 06/13/24 02/27/25 07/20/24 solution polyethylene glycol 3350 17 17 g PO .QOD 01/30/25 02/27/25 Unknown gram/dose oral powder (Miralax) prednisone 10 mg tablet 60 mg (6 x 10 mg) PO DAILY #147 01/31/25 02/27/25 Unknown tabs sulfamethoxazole 400 1 tab PO DAILY #30 tabs 01/31/25 02/27/25 Unknown mg-trimethoprim 80 mg tablet (Bactrim) losartan 50 mg tablet 50 mg PO QAM #30 tabs 02/07/25 02/27/25 Unknown metoprolol succinate 25 mg 25 mg PO DAILY 02/07/25 02/27/25 Unknown tablet,extended release 24 hr omeprazole 40 mg capsule,delayed 20 mg (1/2 x 40 mg) PO QAM #30 caps 02/07/25 02/27/25 Unknown release Active Medications Generic Name Dose Route Start Last Admin Trade Name Freq PRN Reason Stop Dose Admin Bisacodyl 10 mg 05/26/25 11:20 05/26/25 12:33 Bisacodyl 10 Mg Supp NC 06/25/25 11:19 10 mg DAILY RACHELLE Administration Heparin Sodium (Porcine) 5,000 units 05/24/25 21:00 05/26/25 20:29 Heparin Sod 5,000 Unit/0.5 Ml Vial SQ 06/23/25 20:59 Not Given Q12 RACHELLE Acetaminophen 1,000 mg in 100 mls @ 400 mls/hr 05/24/25 21:28 05/27/25 01:18 Ofirmev IV 05/27/25 21:27 Infused Q8H PRN Infusion pain/fever Pantoprazole Sodium 40 mg in 10 mls @ 5 mls/min 05/25/25 09:00 05/26/25 08:36 Protonix IV 06/24/25 08:59 5 mls/min DAILY RACHELLE Administration Lidocaine 1 patch 05/25/25 10:15 05/26/25 08:35 Lidocaine 5% 1 Patch TD 06/24/25 10:14 1 patch QAM RACHELLE Administration Losartan Potassium 50 mg 05/25/25 09:00 05/26/25 08:35 Losartan Potassium 50 Mg Tab PO 06/24/25 08:59 50 mg QAM RACHELLE Administration Metoclopramide HCl 10 mg 05/25/25 11:30 05/27/25 05:27 Metoclopramide Hcl Inj 5 Mg/Ml 2 Ml Vial IV 06/24/25 11:29 10 mg Q6H RACHELLE Administration Miscellaneous 1 each 05/25/25 21:00 05/26/25 20:28 Remove Lidoderm Patch N/A 06/24/25 20:59 1 each DAILY@2100 RACHELLE Administration Prednisone 5 mg 05/26/25 09:00 05/26/25 08:36 Prednisone 5 Mg Tab PO 06/25/25 08:59 5 mg QAM RACHELLE Administration Past Medical History Medical History GERD (gastroesophageal reflux disease) Immunotherapy receiving treatment Q 3weeks, last infusion 05/18/2024 History of pancreatitis History of pleural effusion 01/29/2023 History of sinus tachycardia Non-small cell carcinoma of lung on treatment at present Depression no meds Anxiety no meds Hypertension White coat syndrome with diagnosis of hypertension Rash current, occurs with immunotherapy every three weeks Dyspnea on exertion Osteoarthritis anemia ASCVD Ao Hiatal Hernia COPD/Emphysema Exercise / Class Metabolic Activity II 4-5 Yardwork/Stairs/Walk up hill Past Surgical History Surgical History History of esophagogastroduodenoscopy (EGD) History of basal cell carcinoma (BCC) excision History of tonsillectomy History of section Past Anesthesia History No Hx of Anesthesia Complications and No Family Hx of Anesthesia Complications History of PONV No Hx of PONV and No Hx of Motion Sickness Social History Smoking Status: Former smoker Smoking cigarettes per day: 10 Do You Dip or Chew Tobacco: No Hx Alcohol Use: No Hx Substance Use: No substance use type: does not use Physical Exam Vital Signs Last Vital Signs Temp 37.0 C 05/26/25 23:54 Pulse 64 05/27/25 01:00 Resp 17 05/26/25 23:54 BP 147/74 H 05/26/25 23:54 Pulse Ox 95 05/26/25 23:54 O2 Del Method Room Air 05/26/25 23:54 Testing Laboratory Results 05/27/25 05:24 05/27/25 05:24 PT 10.2 Seconds (9.0-12.0) 05/24/25 14:49 INR 0.9 (0.9-1.1) 05/24/25 14:49 APTT 26 Seconds (21-31) 05/24/25 14:49 Electrocardiogram Date: 05/24/25 Findings: + ST @ (@ 127) Chest X-Ray Date: 05/24/25 Findings: + NAD and + cardiomegaly Echocardiogram Date: 03/05/24 EF: 60% LV Function: normal RWMA: + none Other Findings: + LVH (mild) and + diastolic dysfunction (Grade 1) Valvular Disease: + MR (mild MR;Mild MVP hat sizer. leaflet) mild TR
[2025-05-27] MEDS ORDERED: ONDANSETRON INJ 2 MG/ML 2 ML VIAL IV PRN (07:40)
[2025-05-27] MEDS ORDERED: NALOXONE HCL 0.4 MG/1 ML VIAL/CARP IV PRN (07:40)
[2025-05-27] MEDS ORDERED: ATROPINE SULFATE 0.1 MG/ML 10ML SYR IV PRN (07:40)
[2025-05-27] MEDS ORDERED: FLUMAZENIL 0.1 MG/1 ML 10 ML VIAL IV PRN (07:40)
[2025-05-27] MEDS ORDERED: PROMETHAZINE HCL 6.25 MG in SODIUM CHLORIDE 0.9% 50 ML IV PRN (07:40)
--- NOTE | 2025-05-27 07:45 | Gastroenterology Progress Note ---
Date of Service May 27, 2025 Assessment & Plan (1) Gastroparesis: Plan: EGD to evaluate for inability eat retained food in the stomach. Risk benefits explained informed consent obtained Admission and Anticipated Discharge Date Admission Date: May 24, 2025 Subjective 2 days of IV Reglan For endoscopy today intubated for airway protection. Evaluate for gastric outlet obstruction less likely volvulus. Versus idiopathic gastroparesis. Physical Exam Physical Exam: Appears well in no acute distress Benign abdomen Results & Data Results & Data Vital Signs (Past 12 Hours) Vital Signs Temp Pulse Pulse Resp BP Pulse Ox O2 Del Method 05/27/25 07:14 36.6 C 72 18 157/71 H 95 Room Air 05/27/25 07:09 59 L 05/27/25 07:09 Room Air 05/27/25 01:00 64 05/26/25 23:54 37.0 C 72 17 147/74 H 95 Room Air 05/26/25 20:25 37.0 C 73 17 140/76 93 Room Air PG Care Time/CCT Total # of Minutes Spent Total Time Spent with Patient: Total time spent is greater than 50% in coordination of care (as documented) at patient's floor/unit and/or counseling patient: Coding Level of Care Code None Diagnoses Gastroparesis K31.84
[2025-05-27] MEDS ORDERED: PROPOFOL IV EMULSION 10 MG/ML 20 ML VIAL IV ONE ×2 (07:49→08:20)
[2025-05-27] MEDS ORDERED: MIDAZOLAM HCL 1 MG/ML 2ML VIAL ONE (07:52)
[2025-05-27] MEDS ORDERED: SUCCINYLCHOLINE CHLORIDE 20 MG/ML 10 ML VIAL IV ONE (07:53)
--- NOTE | 2025-05-27 09:04 | GI REPORT ---
[facility] Patient: DORIE PEREZ : 1945 Sex at : Female Age: 80 Years Procedure: Upper GI endoscopy Date: 05/27/2025 Attending Physician: Tien Jenkins MD Referring MD: Referred Self Indications: - Dysphagia, gastroparesis Medications: - General Anesthesia Complications: - No immediate complications. Estimated Blood Loss: - Estimated blood loss: None. Procedure: - The egd scope was introduced through the mouth and advanced to the second part of the duodenum. - The upper GI endoscopy was accomplished without difficulty. - The patient tolerated the procedure well. Findings: - Patient returns for follow-up endoscopy. On Wednesday and endoscopy for inability to swallow showed patent esophagus though a stomach and hiatal hernia full of food. Patient was placed on IV Reglan and now follows up to evaluate for gastric outlet obstruction volvulus versus idiopathic delayed gastric emptying also to revisualize the esophagus without food present. - Esophagus patent no food. He did have somewhat of a corkscrew's appearance especially at the distal esophagus. Corkscrew esophagus or presbyesophagus can be associated with decreased esophageal motility and dysphagia in the absence of a tight stricture. There was a small hiatal hernia which would not be subject to volvulus. The GE junction was dilated to the maximal extent of 20 mm with a balloon. No bleeding post. - Stomach entirely normal. No evidence for peptic ulcer disease gastric outlet obstruction or neoplasia. No fluid in the stomach today. - Duodenum normal Impression: - Patient returns for follow-up endoscopy. On Wednesday and endoscopy for inability to swallow showed patent esophagus though a stomach and hiatal hernia full of food. Patient was placed on IV Reglan and now follows up to evaluate for gastric outlet obstruction volvulus versus idiopathic delayed gastric emptying also to revisualize the esophagus without food present. - Esophagus patent no food. He did have somewhat of a corkscrew's appearance especially at the distal esophagus. Corkscrew esophagus or presbyesophagus can be associated with decreased esophageal motility and dysphagia in the absence of a tight stricture. There was a small hiatal hernia which would not be subject to volvulus. The GE junction was dilated to the maximal extent of 20 mm with a balloon. No bleeding post. - Stomach entirely normal. No evidence for peptic ulcer disease gastric outlet obstruction or neoplasia. No fluid in the stomach today. - Duodenum normal - No specimens collected. - Patient probably had a component of esophageal obstruction. 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 These patients can develop esophageal obstruction temporarily even in the absence of a tight stricture. We did dilate the GE junction which may help. Will recommend that she cut food small chew well and water between bites to make sure the esophagus empties. If patient continues to have swallowing issues would recommend barium esophagram with barium tablet to further evaluate esophageal motility dysmotility Recommendation: - Long-term PPI, advance diet. Okay to discharge if tolerating Procedure Code(s): - 36971, Esophagogastroduodenoscopy, flexible, transoral; diagnostic, including collection of specimen(s) by brushing or washing, when performed (separate procedure) CPT(R) - 2023 copyright [employer]. All Rights Reserved. The CPT codes, CCI edits and ICD codes generated are intended as suggestions and were generated based on input data. These codes are preliminary and upon rv technician review may be revised to meet current compliance and payer requirements. The provider is responsible for the final determination of appropriate codes, and modifiers. Tien Jenkins MD This document has been electronically signed. Note Initiated:05/27/2025 Note Completed:05/27/2025 9:02 AM [id number]
[2025-05-27] MEDS: CHOLECALCIFEROL 25 MCG (1000 UNITS) TAB PO SCH (09:42)
--- NOTE | 2025-05-27 09:56 | Anesthesiology Progress Note ---
Date of Service May 27, 2025 Anesthesia Post Procedure Vital Signs Vital Signs: Temp Pulse Pulse Pulse Resp BP BP 05/27/25 09:30 37.0 C 59 L 20 126/77 05/27/25 09:20 37.0 C 57 L 18 134/70 05/27/25 09:10 59 L 20 157/69 H 05/27/25 09:00 65 18 146/74 H 05/27/25 08:50 36.0 C L 63 16 151/67 H 05/27/25 07:14 36.6 C 72 18 157/71 H 05/27/25 07:09 59 L 05/27/25 07:09 05/27/25 01:00 64 05/26/25 23:54 37.0 C 72 17 147/74 H 05/26/25 20:25 37.0 C 73 17 140/76 05/26/25 15:49 37.0 C 69 18 112/65 05/26/25 15:36 82 05/26/25 11:35 85 05/26/25 10:57 37.0 C 69 18 133/75 Pulse Ox O2 Del Method O2 Flow Rate 05/27/25 09:30 92 Room Air 05/27/25 09:20 95 Room Air 05/27/25 09:10 95 Oxymask 2 05/27/25 09:00 96 Oxymask 4 05/27/25 08:50 95 Oxymask 4 05/27/25 07:14 95 Room Air 05/27/25 07:09 05/27/25 07:09 Room Air 05/27/25 01:00 05/26/25 23:54 95 Room Air 05/26/25 20:25 93 Room Air 05/26/25 15:49 95 Room Air 05/26/25 15:36 05/26/25 11:35 05/26/25 10:57 94 Room Air Pain Intensity Lower Back: Pain Intensity: 9 Transfer of Care Handoff Completed per policy Notes Mental Status: alert / awake / arousable Patient Amnestic to Procedure: Yes Nausea / Vomiting: adequately controlled Pain: adequately controlled Airway Patency, RR, SpO2: stable & adequate BP & HR: stable & adequate Hydration State: stable & adequate Anesthetic Complications: no major complications apparent
--- NOTE | 2025-05-27 14:41 | Hospitalist Progress Note ---
Date of Service May 27, 2025 Assessment & Plan (1) Dysphagia: (2) Low back pain: Plan 80F with PMH lung adenocarcinoma not on therapy, dysphagia, reflux esophagitis, lumbar spinal stenosis, HTN, anxiety who presents with dysphagia and back pain. She has chronic dysphagia which worsened on the day of arrival. Also she reported abrupt worsening of chronic back pain on the day of presentation while she was bending over picking weeds, reports radiating pain to ant thigh b/l. She is being managed for the following: #Acute on chronic Dysphagia -pt has ho chronic dysphagia -Unable to tolerate both solids and liquids started on the day of arrival -This is concerning for achalasia or some other motility issue -She was supposed to have eso manometry done as OP but failed to do so GI on board, appreciate eval S/p EGD scope 05/25 - medium sized hiatal hernia noted, large amount of food in stomach noted, hence procedure aborted. iv reglan to assist w/ emptying and plan for repeat scope in 24-48 hours. S/p repeat EGD 05/27: Corkscrew appearance at the distal esophagus which can be associated with decreased esophageal motility and dysphagia in the absence of tight stricture. A small hiatal hernia. Stomach normal. Duodenum normal. Speech evaluated, minced and moist diet Discussed with GI, discontinue Reglan, continue with home PPI. Follow-up with GI upon discharge. #Acute on chronic low back pain Patient reports worsening low back pain on the day of presentation. Patient denies any incontinence symptoms. Patient has known lumbar stenosis. Given history of cancer, MRI L-spine to rule out metastasis - no acute findings. Will get vitamin D level. Continue with diclofenac gel and lidocaine patch and Tylenol. Patient not much interested in oxycodone. PT/OT. Avoid opiates if possible due to concern for gastric motility issues. Pt reports pain better controlled and closer to her baseline level. #Lung NSCLC -Follows with oncology and nephrology as OP -Was on keytruda but was stopped due to STEFAN -Is on a prolonged prednisone taper, currently 5mg daily -Pt reports she is no more taking or is prescribed Bactrim as outpatient. -Since she is taking 5 mg prednisone at home, will hold on to bactrim Px. #? Lung opacity on CTA -Very low suspicion for bacterial PNA -No resp complaints and lungs are CTA -No O2 requirements -Her mild leukocytosis likely secondary to chronic prednisone use -Observe off further abx. risks of abx outweigh benefits at this point -WBC normalized, pt has been afebrile. Home meds: Per pt, she takes losartan 50 mg QAM/prednisone 5 Mg/omeprazole 20 Mg, Does not take metoprolol/Keytruda/MiraLAX/Bactrim. likely dc nancy Heparin for DVT prophylaxis. Full code Admission and Anticipated Discharge Date Admission Date: May 24, 2025 Subjective Patient was seen and examined at bedside. Patient was lying in bed, on room air, NAD, resting comfortably. Patient reports her back pain is back to her baseline. Patient reports 2 BM, no belly pain. Physical Exam Physical Exam: General: Well appearing, NAD HEENT: EOMI, PERRLA Neck: Supple Cardiac: RRR no rubs gallops or murmurs Lungs: CTA no rhonchi wheezing or rales Abd: S NT ND BS positive : Deferred MSK: Full ROM. No obvious deformities Ext: No Edema cyanosis Skin: Warm, Dry Neuro: AOx3 No focal deficits. Psych: Normal Mood Results & Data Results & Data Vital Signs (Past 12 Hours) Vital Signs Temp Pulse Pulse Pulse Resp BP BP 05/27/25 13:05 05/27/25 10:07 36.6 C 57 L 18 151/82 H 05/27/25 09:58 36.6 C 64 18 156/92 H 05/27/25 09:30 37.0 C 59 L 20 126/77 05/27/25 09:20 37.0 C 57 L 18 134/70 05/27/25 09:10 59 L 20 157/69 H 05/27/25 09:00 65 18 146/74 H 05/27/25 08:50 36.0 C L 63 16 151/67 H 05/27/25 07:14 36.6 C 72 18 157/71 H 05/27/25 07:09 59 L 05/27/25 07:09 Pulse Ox Pulse Ox O2 Del Method O2 Flow Rate O2 Flow Rate 05/27/25 13:05 96 0 05/27/25 10:07 94 Room Air 05/27/25 09:58 94 Room Air 05/27/25 09:30 92 Room Air 05/27/25 09:20 95 Room Air 05/27/25 09:10 95 Oxymask 2 05/27/25 09:00 96 Oxymask 4 05/27/25 08:50 95 Oxymask 4 05/27/25 07:14 95 Room Air 05/27/25 07:09 05/27/25 07:09 Room Air
[2025-05-27] MEDS: COUGH DROP (SUGAR FREE) LOZ 24 LOZ/1 BOX BUCCAL PRN (20:12)
[2025-05-27] MEDS: CALCIUM CARBONATE 500 MG CHEWABLE TAB PO STA (20:26)
[2025-05-28 06:29] LABS: Anion Gap 6.0 (3-11); Blood Urea Nitrogen 18.0 mg/dl (6-23); Calcium 9.3 mg/dl (8.6-10.3); Carbon Dioxide 28.0 mmol/L (21-32); Chloride 109.0 mmol/L (98-107); Creatinine Clr Calc Pharmacy 41.2 ml/min; Glucose 92.0 mg/dl (70-99(Fasting)); Magnesium 2.0 mg/dl (1.7-2.4); Potassium 3.8 mmol/L (3.5-5.1); Sodium 143.0 mmol/L (136-145)
[2025-05-28 07:12] VITALS: RESP 18
[2025-05-28] MEDS: ACETAMINOPHEN 325 MG TAB PO PRN (09:45)
--- NOTE | 2025-05-28 11:02 | Discharge Summary ---
Date of Service May 28, 2025 Admission HPI Per Admitting Provider Ms. Pavon is a pleasant 80F with PMH lung adenocarcinoma not on therapy, dysphagia, reflux esophagitis, lumbar spinal stenosis, HTN, anxiety who presents with dysphagia and back pain. She reports having chronic dysphagia. she has had numerous EGDs, most recently 08/09/24 which was essentially normal. a previous EGD showed reflux esophagitis. she is on omeprazole. she follows with GI as OP and was seen on 09/26. at that time she was advised to have eso manometry but has yet to have it done. She states her dysphagia has been very mild until today. when she awoke today, she was unable to swallow solids or liquids. She has chronic back pain but it abruptly worsened yesterday while she was bending over picking weeds. It is in her lumbar spine. No radiation. no fecal or urinary incontinence. she endorses numbness in her toes b/l which is chronic. It is severe, worse with movement. sharp in quality. She also endorsed L rib pain to ED staff but denied ever having any chest pain to author ED vitals stable Labs essentially normal other than mild leukocytosis Admission Exam Per Admitting Provider General: Well appearing, NAD HEENT: EOMI, PERRLA Neck: Supple Cardiac: RRR no rubs gallops or murmurs Lungs: CTA no rhonchi wheezing or rales Abd: S NT ND BS positive : Defferred MSK: Full ROM. No obvious deformities Ext: No Edema cyanosis Skin: Warm, Dry Neuro: AOx3 No focal deficits. Psych: Normal Mood Principal Diagnosis Acute on chronic Dysphagia Acute on chronic low back pain Discharge Exam General: Well appearing, NAD HEENT: EOMI, PERRLA Neck: Supple Cardiac: RRR no rubs gallops or murmurs Lungs: CTA no rhonchi wheezing or rales Abd: S NT ND BS positive : Deferred MSK: Full ROM. No obvious deformities Ext: No Edema cyanosis Skin: Warm, Dry Neuro: AOx3 No focal deficits. Psych: Normal Mood Discharge Data Allergies Allergy/AdvReac Type Severity Reaction Status Date / Time No Known Allergies Allergy Mild Verified 02/27/25 15:22 Consultations 05/24/25 17:58 ED Decision to Admit Stat 05/24/25 20:59 Consult Gastroenterology Routine Procedures Performed Operation Date: 05/27/25 07:30 Actual Procedures p EGD Dilatation - Tien Jenkins MD Ordered Studies 05/24/25 16:11 CT abd pelvis IV con only Stat CT for pulmonary embolism PE [CT angio chest PE protocol] Stat 05/25/25 13:05 MR lumbar spine wo/w con Routine 05/26/25 13:38 US RUQ [US liver] Routine Hospital Course (1) Dysphagia: (2) Low back pain: Plan 80F with PMH lung adenocarcinoma not on therapy, dysphagia, reflux esophagitis, lumbar spinal stenosis, HTN, anxiety who presents with dysphagia and back pain. She has chronic dysphagia which worsened on the day of arrival. Also she reported abrupt worsening of chronic back pain on the day of presentation while she was bending over picking weeds, reports radiating pain to ant thigh b/l. She was managed for the following: #Acute on chronic Dysphagia -pt has ho chronic dysphagia -Unable to tolerate both solids and liquids started on the day of arrival -This is concerning for achalasia or some other motility issue -She was supposed to have eso manometry done as OP but failed to do so GI on board, appreciate eval S/p EGD scope 05/25 - medium sized hiatal hernia noted, large amount of food in stomach noted, hence procedure aborted. iv reglan to assist w/ emptying and plan for repeat scope in 24-48 hours. S/p repeat EGD 05/27: Corkscrew appearance at the distal esophagus which can be associated with decreased esophageal motility and dysphagia in the absence of tight stricture. A small hiatal hernia. Stomach normal. Duodenum normal. Speech evaluated, minced and moist diet. Patient states that she is tolerating diet very well and is moving bowels okay. Patient advised to follow-up with GI upon discharge for ongoing workup for her GI motility issues. Patient advised to continue with Protonix upon discharge. Her home omeprazole has been discontinued. #Acute on chronic low back pain Patient reports worsening low back pain on the day of presentation. Patient denies any incontinence symptoms. Patient has known lumbar stenosis. Given history of cancer, MRI L-spine to rule out metastasis - no acute findings. Will get vitamin D level. low, supplement started, continue. Continue with diclofenac gel and lidocaine patch and Tylenol. Patient not much interested in oxycodone. PT/OT. Avoid opiates if possible due to concern for gastric motility issues. Pt reports pain better controlled and closer to her baseline level. Patient to continue with physical therapy upon discharge. #Lung NSCLC -Follows with oncology and nephrology as OP -Was on keytruda but was stopped due to STEFAN -Is on a prolonged prednisone taper, currently 5mg daily -Pt reports she is no more taking or is prescribed Bactrim as outpatient. -Since she is taking 5 mg prednisone at home, will hold on to bactrim Px. #? Lung opacity on CTA -Very low suspicion for bacterial PNA -No resp complaints and lungs are CTA -No O2 requirements -Her mild leukocytosis likely secondary to chronic prednisone use -Observe off further abx. risks of abx outweigh benefits at this point -WBC normalized, pt has been afebrile. Home meds: Per pt, she takes losartan 50 mg QAM/prednisone 5 Mg/omeprazole 20 Mg, Does not take metoprolol/Keytruda/MiraLAX/Bactrim. likely dc nancy Heparin for DVT prophylaxis. Full code Patient is being discharged to home with physical therapy recommendation upon discharge. Following instructions were communicated prior to discharge. Follow-up with your primary care physician within a week time and likely you will need labs CBC/CMP/magnesium/phosphorus. You were evaluated for dysphagia, continue on minced and moist diet. You underwent esophageal dilatation, you will need workup as an outpatient for motility disorder. Follow-up with GI in 2 to 4 weeks time upon discharge. Continue with Protonix upon discharge. For your low back pain, recommend that you follow-up with home health or outpatient physical therapy upon discharge. Continue to utilize [id number] diclofenac gel every 6 hours for pain management and also Tylenol and lidocaine patch 4% as per stroke program coordinator's recommendation. Follow-up with your oncology as prior, until then take your steroid [=prednisone] per prior recommendation. Take your medications as prescribed. Please make sure that you are able to get your medications today by calling your pharmacy before you leave the hospital so that your treatment continuity is not broken. [facility] Attestation I certify that this patient is under my care and that I, or a physicians staff physical therapy assistant working with me, had a face to-face encounter that meets the [facility] [id number] encounter requirements with this patient. The encounter with the patient was in whole, or in part, for the following medical condition, which is the primary reason for home health care (list medical condition): I certify that, based on my findings, the following services are medically necessary home health services: My clinical findings support the need for the above services because: Further, I certify that my clinical findings support that this patient is homebound (i.e. absences from home require considerable and taxing effort and are for medical reasons or yazdanism services or infrequently or of short duration when for other reasons) because: Certification for Home Health Services: Based on the above findings, I certify that this patient is confined to the home and needs intermittent custodial care, physical therapy and/or speech therapy or continues to need occupational therapy. The patient is under my care, and I have initiated the establishment of the plan of care. This patient will be followed by a physician who will periodically review the plan of care. Total Time Total Time Spent Total Time Spent (In Minutes): 40 Discharge Plan Discharge Items Patient Disposition: Home - Home Health Services Reason For Visit: DYSPHAGIA Discharge Diagnosis: Acute on chronic Dysphagia Acute on chronic low back pain Condition on Discharge: Fair Activity: Resume your previous activity Non-emergency contact: Primary Care Provider Call non-emergency contact if: you have any medication questions Follow-up/Referrals: Shin Billings M.D. [Primary Care Provider] - (Date & Time 05/31/2025 9:40 AM Provider: Christal Ortiz CRNP [facility] ) Diet: Regular Diet Texture: Mechanical soft (ground) Addtl Attending Provider Instructions: Follow-up with your primary care physician within a week time and likely you will need labs CBC/CMP/magnesium/phosphorus. You were evaluated for dysphagia, continue on minced and moist diet. You underwent esophageal dilatation, you will need workup as an outpatient for motility disorder. Follow-up with GI in 2 to 4 weeks time upon discharge. Continue with Protonix upon discharge. For your low back pain, recommend that you follow-up with home health or outpatient physical therapy upon discharge. Continue to utilize [id number] diclofenac gel every 6 hours for pain management and also Tylenol as per stroke program coordinator's recommendation. Follow-up with your oncology as prior, until then take your steroid [=prednisone] per prior recommendation. Take your medications as prescribed. Please make sure that you are able to get your medications today by calling your pharmacy before you leave the hospital so that your treatment continuity is not broken. Pending Studies at Discharge: No Stand-Alone Forms: [facility], Smoking Cessation Medications and DC Order Prescriptions: New diclofenac sodium [Voltaren Arthritis Pain] 1 % Gel 4 g EXT Q6H PRN (Reason: low back pain) Qty: 100 0RF pantoprazole 40 mg Tablet,Delayed Release (Dr/Ec) 40 mg PO QAM Qty: 30 0RF prednisone 5 mg Tablet 5 mg PO QAM Qty: 7 0RF cholecalciferol (vitamin D3) 25 mcg (1,000 unit) Capsule 25 mcg PO QAM Qty: 30 0RF Continued polyethylene glycol 3350 [Miralax] 17 gram/dose powder 17 g PO .QOD losartan 50 mg tablet 50 mg PO QAM Qty: 30 0RF Discontinued sulfamethoxazole-trimethoprim [Bactrim] 400-80 mg tablet 1 tab PO DAILY Qty: 30 1RF prednisone 10 mg tablet 60 mg PO DAILY Qty: 147 0RF Rx Instructions: take 6 tabs daily for 1 week, then then 5 tab daily for 1 week, 4 tab daily for 1 week, 3 tab daily for 1 week, 2 tabs daily for 1 week, 1 tab daily for 1 week, then stop. omeprazole 40 mg capsule,delayed release(DR/EC) 20 mg PO QAM Qty: 30 11RF metoprolol succinate 25 mg tablet extended release 24 hr 25 mg PO DAILY guar gum Packet 1 tbsp PO QAM Rx Instructions: mix into at least 4 oz water or juice before administering pembrolizumab 50 mg Recon Soln 50 mg IV DIRECTED Discharge Orders: Discharge Order (Routine); Ordered 05/28/25 Ordered By: Shoaib Humphreys Admission Data Admit Date/Time: 05/25/25 13:36 Attending Provider: Shoaib Humphreys Admit Provider: Jerry Feldman Primary Care Provider: Shin Billings Other Providers: Jerry Feldman; Tien Jenkins Other Interventions: Discharge Summary Assessment (RN) Last Done: 05/25/25 11:40
[2025-05-28 11:14] VITALS: BP 167/81; TEMP 98.2; O2SAT 95
[2025-05-28 16:09] VITALS: PULSE 89
== END 2025-05-28 16:20 | disposition home health service (06) | DRG 392 ==
LOC: 2E 14:24 → ED 14:24 → SUATTDRO 18:30 → OBSVTOIN 18:30 → INTOOBSV 18:30 → 2E 20:40